=== PATIENT | female | born 1935 | race Caucasian/White ===

== ENCOUNTER → 2016-10-31 | Outpatient (CLI) | payer MEDICARE ==
[~2016-10-31] MED LIST: ALEV220C2 PO; E-Z PAQUE 60% w/v SUSP 355ML BOTTLE As Ordered ONE; GABA-279 PO; OS-CTAB3 PO; OXYC-517 PO; SIMV20TA2 PO; TYLE325T5 PO; VARIBAR NECTAR 40% w/v 240ML SUSP BTL As Ordered ONE; VARIBAR PUDDING 40% w/v 230ML TUBE As Ordered ONE; VITMTA PO
--- NOTE | 2016-10-31 13:45 | REP ---
MODIFIED BARIUM SWALLOW: Modified barium swallow performed in conjunction with the speech pathologist, who was on hand for the procedure. Barium materials of varying consistencies were ingested under fluoroscopy. There was mild pooling in the vallecula. No aspiration is seen. Please see the speech pathologist's report for further details. 41 seconds fluoroscopy time utilized. Signed by Thee Perez MD 10/31/2016 04:53 P
== END ==
LOC: M RAD 11:32
PROVIDERS: ATTEND Family Medicine
DX: R13.10 Dysphagia, unspecified (principal)
CPT/HCPCS: 74230; 92611; G8996; G8997; G8998

== ENCOUNTER 2016-12-29 19:36 | Emergency (ER) | payer MEDICARE ==
[~2016-12-29] VITALS: Ht 172.7 cm; Wt 59.0 kg
[~2016-12-29 19:36] MED LIST changes: -E-Z PAQUE 60% w/v SUSP 355ML BOTTLE As Ordered ONE; -VARIBAR NECTAR 40% w/v 240ML SUSP BTL As Ordered ONE; -VARIBAR PUDDING 40% w/v 230ML TUBE As Ordered ONE
--- NOTE | 2016-12-29 21:10 | REPUSA ---
CT of the cervical spine Clinical history: Pain. Technique: Multiple axial CT images were obtained through the cervical spine without administration o f contrast. Coronal and sagittal 3-D reconstructed images were also obtained. Comparison: None. Findings: The cervical vertebral bodies are in satisfactory positioning and alignment. No fractures or dislocat ions are demonstrated. The odontoid process is intact. Intervertebral disc spaces are well-maintained . Sclerosis and chronicerosive changes are seen in the left facet joint at C1/C2. There is no evidenc e of facet subluxation. The neural foramen appear grossly patent. The cervical cranial junction is in tact. The cervical spinal canal demonstrates normal caliber and contour without evidence of spinal st enosis. The surrounding soft tissues are within normal limits. Impression: No acute fracture or traumatic injury. Moderate facet arthropathy at the left facet join t at C1/C2/. The other facet joints are unremarkable.
--- NOTE | 2016-12-29 21:10 | REPUSA ---
CT of the head Clinical history: Headache. Protocol: Multiple axial CT images obtained with 5 mm slice thickness were obtained through the head without administration of contrast. Comparison: None. Findings: The ventricles and sulci are symmetric but prominent in size bilaterally. There are periven tricular areas of low attenuation throughout the deep white matter. There is no evidence of acute hem orrhage or infarct. There is no midline shift, mass effect, or extra-axial fluid collection. The osse ous structures are unremarkable. The visualized paranasal sinuses and mastoid air cells are clear. Impression: No acute hemorrhage or infarct. Findings are consistent with moderate age-related atrophy and chronic small vessel ischemic disease.
[2016-12-29] MEDS ORDERED: ACETAMINOPHEN SUSP DYE FREE 160 MG/5 ML UDC PO ONE (21:45)
[2016-12-29 22:10] VITALS: BP 113/71
--- NOTE | 2016-12-30 01:03 | REP ---
Clinical: Pain with recent trauma. Technique: AP and lateral views of the right ankle. Findings: Lateral soft tissue swelling consistent with inversion injury. No acute fracture or dislocation. Joint spaces and ankle mortise are intact. Impression: Lateral swelling. No fracture. Signed by Lupillo Toledo MD 12/30/2016 12:54 A
== END 2016-12-29 22:11 | disposition home or self-care (01) ==
LOC: EDBD 19:36 → M ED 20:47
DX: S01.01XA Laceration without foreign body of scalp, initial encounter (principal); W19.XXXA Unspecified fall, initial encounter; Y92.099 Unspecified place in other non-institutional residence as the place of occurrence of the external cause; Y93.89 Activity, other specified; Y99.9 Unspecified external cause status; M81.0 Age-related osteoporosis without current pathological fracture; Z86.73 Personal history of transient ischemic attack (TIA), and cerebral infarction without residual deficits; Z87.81 Personal history of (healed) traumatic fracture; R20.9 Unspecified disturbances of skin sensation; Z87.891 Personal history of nicotine dependence; Z79.899 Other long term (current) drug therapy

== ENCOUNTER 2019-11-26 17:22 | Inpatient (IN) | payer MEDICARE ==
[~2019-11-26] VITALS: Ht 172.7 cm; Wt 52.8 kg
[~2019-11-26 17:22] MED LIST changes: +GABA-1171 PO; -GABA-279 PO; -SIMV20TA2 PO; +SIMV20TA22 PO
[2019-11-26] MEDS ORDERED: ALEN70SO PO (17:37)
[2019-11-26] MEDS ORDERED: VITACHTA PO (17:37)
[2019-11-26] MEDS ORDERED: CALC-333 PO (17:37)
[2019-11-26] MEDS ORDERED: SIMV10TA21 PO ×2 (17:37→21:53)
[2019-11-26] MEDS ORDERED: ASPI81CH48 PO (17:37)
[2019-11-26] MEDS ORDERED: SENN1TAB96 PO (17:37)
[2019-11-26] MEDS ORDERED: NS 1,000 ML IV ONE (18:00)
--- NOTE | 2019-11-26 18:11 | REPVR ---
PROCEDURE INFORMATION: Exam: CT Head Without Contrast Exam date and time: 11/26/2019 6:07 PM Age: 84 years old Clinical indication: Other: Tremors; Additional info: CVA - nursing interventions must not delay CT TECHNIQUE: Imaging protocol: Computed tomography of the head without contrast. Radiation optimization: All CT scans at this facility use at least one of these dose optimization techniques: automated exposure control; mA and/or kV adjustment per patient size (includes targeted exams where dose is matched to clinical indication); or iterative reconstruction. COMPARISON: CT Head without contrast 12/29/2016 8:37 PM FINDINGS: Brain: No intracranial mass, focal mass effect or midline shift. No acute intracranial hemorrhage. Advanced decreased attenuation in periventricular/centrum semiovale white matter. No focal effacement of cortical sulci to indicate acute cortical infarct. Cerebellar volume loss suggests a remote infarct. Bilateral thalamic remote lacunar infarcts Unchanged pattern. Ventricles: Prominent ventricles and CSF spaces suggest parenchymal volume loss. Bones/joints: No calvarial fracture or destructive process. Sinuses: Visualized paranasal sinuses are unremarkable. Mastoid air cells: Mastoid air cells are normally aerated. Orbits: Visualized globes and orbits are unremarkable. Soft tissues: No focal extracranial soft tissue swelling. IMPRESSION: 1. No acute intracranial abnormality. Stable pattern since December 2016 2. Atrophy, remote infarcts and chronic microangiopathic change in supratentorial white matter. Electronically signed by: Kendrick Zepeda On 11/26/2019 18:11:20 PM
[2019-11-26 18:18] LABS: BASO % 0.2 % (0.0-1.0); EOS # 0.1 10^3/uL (0.0-0.5); EOS % 0.6 % (0.0-3.0); HEMATOCRIT 39.4 % (36.0-47.0); LYMPH # 1.8 10^3/uL (1.5-5.0); LYMPH % 18.8 % (24.0-44.0); MEAN CORPUSCULAR HEMOGLOBIN 32.3 pg (27.0-33.0); MONO # 0.9 10^3/uL (0.0-0.8); MONO % 9.7 % (0.0-5.0); NEUTROPHILS # 6.6 10^3/uL (1.5-8.5); NEUTROPHILS % 70.4 % (36.0-66.0); PLATELET COUNT, AUTOMATED 244 10^3/uL (150-450); RED BLOOD COUNT 4.02 10^6/uL (4.00-5.40); WHITE BLOOD COUNT 9.4 10^3/uL (4.0-10.0)
--- NOTE | 2019-11-26 18:26 | REP ---
Clinical: Acute cerebrovascular accident . Comparison: None . Findings: The mediastinum and cardiac silhouette are stable and within normal limits for portable technique. The lung gant demonstrate diffuse chronic appearing interstitial changes. No focal consolidation, effusion, or pneumothorax. Skeletal structures are intact. Impression: Chronic-appearing changes. No definite acute cardiopulmonary process appreciated. Electronically Signed by Lupillo Toledo MD 11/26/2019 06:18 P
[2019-11-26 18:32] LABS: INR 0.96; PROTHROMBIN TIME 12.5 SECONDS (11.8-14.0)
[2019-11-26 18:33] LABS: PARTIAL THROMBOPLASTIN TIME 27.7 SECONDS (25.0-38.4)
[2019-11-26 18:46] LABS: ALBUMIN 3.7 GM/DL (3.2-5.2); ALT/SGPT 33 U/L (12-78); BILIRUBIN,DIRECT 0.1 MG/DL (0.0-0.2); BILIRUBIN,TOTAL 0.5 MG/DL (0.2-1.0); CK-MB VALUE MASS 3.7 NG/ML (<3.6); CPK CREATINE PHOSPHOKINASE 70 U/L (26-192); MB/CK RELATIVE INDEX 5.29 (< OR =4); NT-PRO BNP 3785 PG/ML (<450); TOTAL PROTEIN 6.8 GM/DL (6.4-8.2); TROPONIN I 0.11 NG/ML (< 0.10)
[2019-11-26 20:34] LABS: CK-MB VALUE MASS 3.1 NG/ML (<3.6); TROPONIN I 0.13 NG/ML (< 0.10)
[2019-11-26] MEDS: SIMVASTATIN 10 MG TAB PO SCH (21:00)
--- NOTE | 2019-11-26 21:30 | IPNPDOC ---
Text Note Date of Service The patient was seen on 11/26/19. NOTE Time of service 935pm Ms. Vuong is an 84-year-old with a history of CVA, dyslipidemia, vertebral neck fracture, dysphasia post neck surgery, and osteoporosis who is presented w c/o of "feeling shaky" off and on. She will be admitted for evaluation of new-onset atrial fibrillation. Her physical exam is unremarkable except for having a slim build. 1. New onset Atrial Fibrillation Differential for etiology includes: PE, mitral valvulopathy, HTN, CAD, or cardiomyopathy, thyroid disorder -Trop & BNP are elevated - K & Ca are wnl Plan: admit to PCU / telemetry / no need for rate control meds right now bc HR is controlled / will start AC bc her CHADSVASc score is glo east 5 with her PMH /f/u serial trops, d-dimer, TSH, Mag / re-calculate CHADSVASC Score after Echo is done / if the work up is negative for a cause she may need a outpatient sleep study Rest per 's H&P VS,Fishbone, I+O VS, Fishbone, I+O Laboratory Tests 11/26/19 17:58 Vital Signs Date Time Temp Pulse Resp B/P (MAP) Pulse Ox O2 Delivery O2 Flow Rate FiO2 11/26/19 20:07 60 95 11/26/19 20:00 134/73 (93) 11/26/19 18:22 16 Room Air 11/26/19 17:37 98.3 RAULITO FERREIRA MD November 26, 2019 21:30
[2019-11-26] MEDS ORDERED: ACETAMINOPHEN TAB 650MG DOSE (2X325MG) PO PRN (22:45)
[2019-11-26] MEDS ORDERED: MOM 30ML SUSPENSION UDC PO PRN (22:45)
--- NOTE | 2019-11-26 22:57 | ECGEPIP ---
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
[2019-11-26] MEDS ORDERED: ENOXAPARIN 60MG/0.6ML SYRINGE (J1650 PER 10MG) SC SCH (23:00)
[2019-11-26 23:06] LABS: D-DIMER QUANT < 270 ng/ml (<500)
[2019-11-26 23:08] LABS: THYROID STIMULATING HORMONE 0.695 uIU/ML (0.358-3.740)
[2019-11-26 23:15] VITALS: BP 160/71
[2019-11-27 00:50] LABS: ERYTHROCYTE SEDIMENTATION RATE 7 mm/hr (0-30)
[2019-11-27 00:52] LABS: C REACTIVE PROTEIN QUANTITATIV < 0.30 MG/DL (0.00-0.30)
--- NOTE | 2019-11-27 01:08 | HPEPDOC ---
[facility] Medical History & Physical Date of Admission November 26, 2019 Date of Service: November 26, 2019 History and Physical CHIEF COMPLAINT: Tremors HISTORY OF PRESENT ILLNESS: This is an 84 year old female with hypertension, history of multiple CVAs, osteoporosis and hyperlipidemia who is presenting to ER with complaint of tremors. Patient was brought in via EMS from her house. Patient believed because she was having tremors in the upper and lower extremities he thought she was having strokelike symptoms. She called her neighbor who is her nephew to call EMS. When EMS arrived at the scene stroke scale was negative, and normal blood sugars. She did have irregular heart rate, at that time but she denied a history of A. fib. She endorses the last cardiac workup she had was 20 years prior for an abnormal rhythm she had a stress test echocardiogram and EKG but she states it was negative and never had any other cardiac workup. 3 years prior she did have a CVA in her cerebral infarct and she was transferred to [place] for further evaluation. She is unsure if she had an echocardiogram during this admission but she denies being told that she had an irregular heart beat at that time. She she endorses having shakes and chills and all extremities. She believes these are residual symptoms from her CVA but did get worried that she was having another stroke. During my clinical exam no new neural deficits were noted. In the ER, initial vitals were stable, EKG shows atrial fibrillation with a ventricular rate of [address] was negative and hospitalist team was called for admission for new onset A. fib. PAST MEDICAL HISTORY: 1. History of left cerebral and vermian infract 2016 2. History of right basal ganglia and internal capsule lacunar infarcts unknown time 3. Hyperlipidemia 4. 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 C1-C2 neck fracture HOME MEDICATIONS: Please see below. ALLERGIES: Please see below PAST SURGICAL HISTORY: 1. Appendectomy 2. C1-C2 neck surgery 3. Thyroid nodule removal in 1970s 4. Bilateral cataract surgery with lens placement SOCIAL HISTORY: Lives Alone has assistance with housework and Meals on Wheels with family as neighbors. Employment: Retired, Tobacco use: Former smoker with 1960s only smoked for 10 years.. ETOH: Social wine drinker, Illicit drug use: Denies , CODE STATUS: DNR/DNI MOLST form in chart FAMILY HISTORY: Reviewed. Mother and father due to old age but was healthy. REVIEW OF SYSTEMS: 10 systems reviewed. Constitutional: Denies fever, night sweats, acute weight loss, admits to chills and HEENT: Denies headache, dysphagia Skin: Denies any rashes or lesions Pulmonary: Denies, cough, wheezing, Admits to dyspnea on exertion Cardiac: Denies chest pain, palpitations, orthopnea, PND, edema, lightheadedness GI: Denies nausea, vomiting, abdominal pain, diarrhea, constipation, melena, hematochezia : Denies dysuria, hematuria, retention MSK: Denies new pains or weakness Neurologic: Denies new numbness/tingling?, admits to tremors as well as baseline CVA residuals symptoms such as thermoregulation in the upper and lower extremities on the right PHYSICAL EXAMINATION: VITAL SIGNS: See below GENERAL: Pleasant 84-year-old female sitting up in bed awake alert oriented speaking in complete sentences no acute distress HEENT: Atraumatic, normocephalic, pupils equal round reactive, moist mucous membrane, no JVD, trachea is midline. Reduced range of motion at the cervical region due to history of neck fracture in the past. CARDIOVASCULAR: During my exam she was in A. fib regular rate 60 bpm with a 1/6 systolic murmur at the fifth intercostal space on the left with no radiation. She was flipped back to sinus rhythm throughout questioning with a rate of 60-70 bpm. 1/ 6 systolic murmur on the fifth left intercostal space with no radiation RESPIRATORY: Clear to auscultate bilaterally no audible wheezing rhonchus or Rales. No dullness to percussion. ABDOMINAL: Positive bowel sounds in all 4 quadrants, soft nontender no rebounding or guarding noted. No suprapubic tenderness. EXTREMITIES: 1+ nonpitting edema bilaterally in the lower extremities of the ankles. Cyanotic changes appreciated bilaterally in the feet left worse than right. No open wounds noted. Faint pedal pulses appreciated. NEUROLOGICAL: Spontaneously moves all 4 extremities cranial 2 through 12 grossly intact. Surprisingly 5 out of 5 muscle strength in the upper and lower extremiti es. Alert and oriented 3 appropriately answering questions. Finger-nose test MRSA positive on the right? PSYCHOLOGICAL: Appropriate LABORATORY DATA: See below. MICROBIOLOGY: Please see below. IMAGIN11/26/[address] IMPRESSION: 1. No acute intracranial abnormality. Stable pattern since December 2016 2. Atrophy, remote infarcts and chronic microangiopathic change in supratentorial white matter. Chest x-ray The lung gant demonstrate diffuse chronic appearing interstitial changes. Chronic appearing changes. No definite acute cardiopulmonary process appreciated. To my review chest x-ray appears there is flattening of the diaphragm as well as increased rib visualization consistent with possible COPD picture? EKG Appears and atrial fibrillation rate controlled with 94 bpm. QTc interval is 392 ms. ASSESSMENT & PLAN: This is an 84 year old female with hypertension, history of multiple CVAs, osteoporosis admitted for new-onset A. fib. PROBLEMS: 1. New-onset A. fib. Per clinical exam the A. fib appears to be paroxysmal for she will alternate between sinus rhythm and A. fib on telemetry. Rate is currently controlled at 60 bpm. Currently no rate control medications were given to will monitor with remote telemetry. Troponin 1 slightly elevated initially so well trend. EKG did not show any acute ST changes. Will admit to PCU with remote telemetry. TSH is within normal limits. As well as D-dimer and electrolytes are within normal limits. Echocardiogram ordered. Can consider consulting cardiology with the question if to continue aspirin with the Nocoag, due to advanced age (84 years old. I believe the benefits will outweigh the risk. Is echocardiogram is negative for any valvulopathy will need to have an outpatient sleep study to assess for ANGEL 2. Tremors with history of multiple CVAs.. CT of the head in the ER was negative for any acute abnormalities. On clinical exam she had a slight resting tremor. No other new neurological symptoms. Well continue to monitor. She is on aspirin outpatient because of problem 1 and placing her on Lovenox anticoagulation will need to discuss case with pet sitting to see recommendations if aspirin should be continued while on anticoagulation. 3. Elevated BNP. Clinical exam she appears euvolemic. No JVD no lower extremity pitting edema. No active diuresing needed at this current time. Well monitor clinical status and review ejection fraction on echocardiogram. 4. Hyperlipidemia. Continue with home simvastatin as prescribed. 5. Abnormal x-ray. There is flattening of the diaphragm as well as increased rib visualization which is consistent with possible COPD picture? Patient quit smoking in 1959. We will assess pulmonary pressures on echocardiogram. Obtain inpatient PFTs simple spirometry for she was complaining on dyspnea on exertion. 6. Abnormal EKG. Q waves in V1 and V2 V3. Patient denies having an infarct in the past. With these Q waves been pathologic we will do echocardiogram for any wall motion abnormalities. 7. New murmur. Patient denies having a history of murmur. On exam 1 systolic murmur on the right intercostal space. Echocardiogram already ordered for problem 1 will review for any valvulopathy 8. Osteoporosis. Resume home medication upon discharge. DVT PROPHYLAXIS: Lovenox 1 mg/kg q12h per problem 1 DISPOSITION: Admit to PCU with remote telemetry at [facility] at least to midnight. Vital Signs Vital Signs Date Time Temp Pulse Resp B/P (MAP) Pulse Ox O2 Delivery O2 Flow Rate FiO2 11/26/19 22:52 58 90 11/26/19 22:45 151/65 (93) 11/26/19 18:22 16 Room Air 11/26/19 17:37 98.3 Laboratory Data Labs 24H Laboratory Tests 2 11/26/19 17:49: Bedside Glucose (Misc Panel) 96 11/26/19 17:58: Immature Granulocyte % (Auto) 0.3, Neutrophils (%) (Auto) 70.4H, Lymphocytes (%) (Auto) 18.8L, Monocytes (%) (Auto) 9.7H, Eosinophils (%) (Auto) 0.6, Basophils (%) (Auto) 0.2, Neutrophils # (Auto) 6.6, Lymphocytes # (Auto) 1.8, Monocytes # (Auto) 0.9H, Eosinophils # (Auto) 0.1, Basophils # (Auto) 0.0, Nucleated Red Blood Cells % (auto) 0.0, Erythrocyte Sedimentation Rate 7, Prothrombin Time 12.5, Prothromb Time International Ratio 0.96, Activated Partial Thromboplast Time 27.7, D-Dimer, Quantitative < 270, Magnesium Level 2.0, Total Bilirubin 0.5, Direct Bilirubin 0.1, Aspartate Amino Transf (AST/SGOT) 24, Alanine Aminotransferase (ALT/SGPT) 33, Alkaline Phosphatase 33L, Total Creatine Kinase 70, Creatine Kinase MB 3.7H, Creatine Kinase MB Relative Index 5.29H, Troponin I 0.11H, C-Reactive Protein, Quantitative < 0.30, QK-Icr-M-Type Natriuretic Peptide 3785H, Total Protein 6.8, Albumin 3.7, Albumin/Globulin Ratio 1.19, Thyroid Stimulating Hormone (TSH) 0.695 11/26/19 18:01: POC Glucose (Misc Panel) 104, POC Sodium (Misc Panel) 138, POC Potassium (Misc Panel) 4.5, POC Chloride (Misc Panel) 98, POC Total CO2 (Misc Panel) 33.0H, POC Blood Urea Nitrogen (Misc Panel 27H, POC Ionized Calcium (Misc Panel) 4.7, POC Creatinine (Misc Panel) 0.8, POC Hematocrit (Misc Panel) 39.0 11/26/19 20:05: Total Creatine Kinase 62, Creatine Kinase MB 3.1, Creatine Kinase MB Relative Index 5.00H, Troponin I 0.13H 11/26/19 23:59: CBC/BMP Laboratory Tests 11/26/19 17:58 Home Medications Scheduled Alendronate Sodium (Alendronate Sodium) 70 Mg/75 Ml Solution, 75 ML PO QWEEK Apixaban (Eliquis) 2.5 Mg Tablet, 2.5 MG PO BID Calcium Carbonate/Vitamin D3 (Os-Giovanni 500-Vit D3 200 Caplet) 1 Tab Tab, 1 TAB PO DAILY Calcium Carbonate/Vitamin D3 (Calcium 500+D Tablet Chew) 1 Each Tab.chew, 1 TAB PO BID Multivitamins (Child Chew Vitamin) 1 Each Tab.chew, 1 TAB PO DAILY Omeprazole Magnesium (Prilosec Otc) 20 Mg Tablet.dr, 1 TAB PO DAILY Simvastatin (Simvastatin) 10 Mg Tablet, 10 MG PO QPM Allergies Coded Allergies: No Known Drug Allergies (Verified Allergy, Unknown, 11/26/19) A-FIB/CHADSVASC A-FIB History Current/History of A-Fib/PAF?: Yes Current PO Anticoag Therapy: Yes Age/Risk Factor Scoring CHADSVASC: CHADSVASC Response (Comments) Value Age Risk Factor Age >/= 75 years old 2 Gender Risk Factor Female 1 Hx of CHF No 0 Hx of HTN No 0 Hx of Stroke/TIA/or VTE Yes 2 Hx of Diabetes No 0 Hx of Vascular Disease No 0 Total 5 Treatment Treatment ordered: Other Other anticoagulant ordered: Lovenox 1 mg/kg q12 hours GME ATTESTATION GME ATTESTATION My faculty preceptor for this patient encounter was physically present during the encounter and was fully available. All aspects of the patient interview, examination, medical decision making process, and medical care plan development were reviewed and approved by the faculty preceptor. The faculty preceptor is aware and concurs with the plan as stated in the body of this note and will attest to such by his/her cosignature. ATTENDING NOTE I agree with the findings as documented by . Please see my addendum dated 11/26/19 for additional details. SYBIL TRAVIS DO November 27, 2019 01:08 RAULITO FERREIRA MD November 30, 2019 06:22
[2019-11-27 04:00] VITALS: BP 144/65
[2019-11-27 05:19] LABS: HEMATOCRIT 37.3 % (36.0-47.0); HEMOGLOBIN 12.4 g/dl (12.0-15.5); MEAN CORPUSCULAR HEMOGLOBIN 32.6 pg (27.0-33.0); MEAN CORPUSCULAR HGB CONC 33.2 g/dl (32.0-36.5); MEAN CORPUSCULAR VOLUME 98.2 fl (80.0-96.0); PLATELET COUNT, AUTOMATED 227 10^3/uL (150-450); WHITE BLOOD COUNT 8.4 10^3/uL (4.0-10.0)
[2019-11-27 05:44] LABS: BLOOD UREA NITROGEN 19 MG/DL (7-18); CALCIUM LEVEL 8.7 MG/DL (8.8-10.2); CARBON DIOXIDE LEVEL 32 MEQ/L (21-32); CHLORIDE LEVEL 105 MEQ/L (98-107); CREATININE FOR GFR 0.66 MG/DL (0.55-1.30); GLOMERULAR FILTRATION RATE > 60.0 (>32); GLUCOSE, FASTING 90 MG/DL (70-100); MAGNESIUM LEVEL 2.1 MG/DL (1.8-2.4); POTASSIUM SERUM 3.8 MEQ/L (3.5-5.1); SODIUM LEVEL 140 MEQ/L (136-145); TROPONIN I 0.13 NG/ML (< 0.10)
[2019-11-27 07:50] VITALS: BP 134/65
[2019-11-27] MEDS: APIXABAN 2.5 MG TAB (ELIQUIS) PO SCH ×2 (07:58→20:56)
[2019-11-27 12:00] VITALS: BP 168/75
--- NOTE | 2019-11-27 14:57 | ECHO ---
DATE OF PROCEDURE: 11/27/2019 REFERRING PHYSICIAN: Dr. Oralia Winston INDICATION: Abnormal ECG. Height 173 cm, weight 52 kg. DIMENSIONS: IVS: 1.0 LV: 4.0 LVPW: 1.0 LA: 3.0 Aorta: 2.7 RV: 2.3 IVC: 2.1 Mitral E wave velocity: 111 A wave: 78 E prime septal: 3.6 E prime lateral: 7.6 FINDINGS: The study is of good technical quality. The patient is in sinus rhythm. Left ventricle is normal size and systolic function with estimated left ventricular ejection fraction (LVEF) 55-60%. No segmental wall motion abnormalities are appreciated. Right ventricle also appears to be normal size and systolic function. Both atria appear grossly normal for patient's age. Aortic valve is mildly sclerotic but has three cusps and preserved mobility. Same applies for mitral valve with mild degenerative abnormalities but preserved mobility of leaflets. Tricuspid valve appears normal. Pulmonic valve was not well seen. No pericardial effusion is noted. Inferior vena cava is dilated and has only limited collapse with respiration indicative of likely elevated central venous pressure. Aortic root appears normal. Abdominal aorta has visible atherosclerosis. Aortic arch was not well seen. Doppler interrogation reveals no aortic stenosis and mild insufficiency. There is also mild mitral and trace tricuspid insufficiency. Calculated pulmonary artery pressure is probably mildly elevated but quality of TR jet was not good and consequently this should not be considered completely reliable. Mitral inflow pattern and tissue Doppler imaging of mitral annulus revealed grade 2 diastolic dysfunction. CONCLUSIONS: 1. Study is of acceptable technical quality, the patient is in sinus rhythm. 2. Normal left ventricular (LV) size with preserved LV systolic function and grade 2 diastolic dysfunction. 3. Aortic sclerosis with no stenosis and mild insufficiency. 4. Mild mitral and trace tricuspid insufficiency. 5. Elevated central venous pressure and probably mildly elevated pulmonary artery pressure. 6. Visible atherosclerosis in abdominal aorta. COMMENT: Subacute bacterial endocarditis (SBE) prophylaxis is not recommended. MTDD
[2019-11-27 16:00] VITALS: BP_SYST 134; BP_SYST 164; BP_DIAS 75; BP_DIAS 82
--- NOTE | 2019-11-27 17:11 | IPN ---
DATE: 11/27/2019 Patient has been rate controlled. Did not require any beta blockade. Patient has been started on Eliquis 2.5 mg twice a day. She lives at home but has a medical alert bracelet. Awaiting physical therapy (PT) clearance prior to discharge home. Despite high blood pressure, patient denies chest pain, pressure, or tightness, lightheadedness, dizziness, change in vision or headache. No shortness of breath or dyspnea on exertion. She has an nephew who lives nearby who can check up on her. Temperature 98.6, pulse 58, respiratory rate 18, blood pressure 134/65, 95% on room air. GENERAL: Patient is awake, alert, oriented to person and place, answering questions appropriately. Face is symmetric. Tongue is midline. Speaks in full sentences. No conversational dyspnea. No jugular venous distention (JVD), thyromegaly. Moist mucous membranes. LUNGS: Clear to auscultation. No wheezes, rales, or rhonchi. HEART: S1, S2, irregularly irregular. No murmurs, rubs, or gallops. ABDOMEN: Soft, nontender, nondistended. Positive bowel sounds. EXTREMITIES: No cyanosis, clubbing, or pitting edema. EKG 11/26/2019: Atrial fibrillation, ventricular rate of 94. IMAGING STUDY: Chest x-ray: No acute cardiopulmonary disease. Chronic-appearing changes. No focal consolidation, pneumothorax, or effusion. CT of the head: No acute intracranial pathology. Atrophy, remote infarcts, and chronic microangiopathic change in the superior white matter. Cerebellar volume loss, judged a remote infarct. Bilateral thalamic remote lacunar infarct, unchanged pattern. ASSESSMENT AND PLAN: This is an 84-year-old female who lives alone with a MedicAlert bracelet and a nephew who lives close by to her, presented to the emergency room on 11/26/2019 with complaints of tremors in upper and lower extremities, concern for stroke. She then called her nephew to call emergency medical services (EMS). Patient has had a previous stroke 3 years ago, for which she was transferred to [place]. 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 Patient had not been on any anticoagulation at home. Patient was found to have new-onset atrial fibrillation on EKG, but rate was controlled. She was started on Lovenox but transitioned to Eliquis. Awaiting physical therapy (PT) clearance. She did not require any beta blockade for rate control during this admission. Was found to be even bradycardic with rate of 58 but asymptomatic. ACUTE ISSUES: 1. New-onset atrial fibrillation. Place on Eliquis. Awaiting echo results. 2. History of cerebrovascular accident (CVA). Was initially thought to be due to cervical spinal injury, clot formation at that time. Await records from her primary care physician regarding that previous CVA. Patient has been advised about prevention of falls and awaits physical therapy prior to hospital discharge, as she lives alone at home. 3. Hypertension. Currently has no pain. Will monitor for the next day and start on low-dose Norvasc if needed. DISPOSITION: Await PT clearance and echo findings. Discharge plans for Friday or Friday. [facility] SETON HOSPITALMichele
[2019-11-27 20:00] VITALS: BP 152/69
[2019-11-27] MEDS: SIMVASTATIN 10 MG TAB PO SCH (20:55)
[2019-11-28] VITALS: BP 165/83
[2019-11-28 03:56] LABS: HEMATOCRIT 37.7 % (36.0-47.0); HEMOGLOBIN 12.5 g/dl (12.0-15.5); MEAN CORPUSCULAR HEMOGLOBIN 32.3 pg (27.0-33.0); MEAN CORPUSCULAR HGB CONC 33.2 g/dl (32.0-36.5); MEAN CORPUSCULAR VOLUME 97.4 fl (80.0-96.0); PLATELET COUNT, AUTOMATED 229 10^3/uL (150-450); RED BLOOD COUNT 3.87 10^6/uL (4.00-5.40)
[2019-11-28 04:19] LABS: BLOOD UREA NITROGEN 16 MG/DL (7-18); CALCIUM LEVEL 8.1 MG/DL (8.8-10.2); CARBON DIOXIDE LEVEL 32 MEQ/L (21-32); CHLORIDE LEVEL 109 MEQ/L (98-107); CREATININE FOR GFR 0.54 MG/DL (0.55-1.30); GLOMERULAR FILTRATION RATE > 60.0 (>32); GLUCOSE, FASTING 89 MG/DL (70-100); SODIUM LEVEL 144 MEQ/L (136-145)
[2019-11-28 06:10] VITALS: BP 170/84
[2019-11-28 07:21] VITALS: BP 143/70
[2019-11-28] MEDS: APIXABAN 2.5 MG TAB (ELIQUIS) PO SCH ×2 (08:12→21:16)
[2019-11-28 09:29] LABS: C REACTIVE PROTEIN QUANTITATIV 0.3 MG/DL (0.00-0.30); CK-MB VALUE MASS 1.8 NG/ML (<3.6); MB/CK RELATIVE INDEX 2.09 (< OR =4); THYROID STIMULATING HORMONE 0.899 uIU/ML (0.358-3.740); THYROXINE (T4) 8.4 UG/DL (4.5-12.0); TROPONIN I 0.03 NG/ML (< 0.10)
--- NOTE | 2019-11-28 09:58 | REP ---
Clinical: Cough and chills. Rule out pneumonia. Technique: PA and lateral. Comparison: 11/26/2019. Findings: Mediastinum and cardiac silhouette are within normal limits and stable. Lung gant demonstrate stable chronic interstitial changes. No focal consolidation, effusion, or pneumothorax. Skeletal structures are intact. Impression: Chronic appearing changes. No focal consolidation or effusion appreciated. Electronically Signed by Lupillo Toledo MD 11/28/2019 09:48 A
--- NOTE | 2019-11-28 11:24 | PFTRPT ---
Height: 68.00 Inches Weight: 115.00 Lbs BSA: 1.62 Diagnosis: DYSPNEA DATE OF PROCEDURE: 11/28/2019 ORDERED BY: Dr. Crawford Spirometry: Excellent technical quality. Forced vital capacity normal. FEV1 out of proportion. Obstructive index is, therefore, reduced. Flow Volume Loop: Expiratory limb of the flow volume loop does suggest flow rate limitation. IMPRESSION: Mild obstructive ventilatory impairment. Please correlate clinically. MTDD
[2019-11-28] MEDS ORDERED: ELIQ2.5T PO (15:01)
[2019-11-28] MEDS ORDERED: PRIL20TA2 PO (15:02)
[2019-11-28] MEDS: OMEPRAZOLE 20 MG CAP PO SCH (15:23)
[2019-11-28 16:00] VITALS: BP 144/69
[2019-11-28 20:00] VITALS: BP 146/73
[2019-11-28] MEDS: SIMVASTATIN 10 MG TAB PO SCH (21:16)
[2019-11-29] VITALS: BP 146/72
[2019-11-29 04:00] VITALS: BP 159/64
[2019-11-29 04:28] LABS: HEMATOCRIT 37.5 % (36.0-47.0); HEMOGLOBIN 12.4 g/dl (12.0-15.5); MEAN CORPUSCULAR HEMOGLOBIN 31.9 pg (27.0-33.0); MEAN CORPUSCULAR HGB CONC 33.1 g/dl (32.0-36.5); MEAN CORPUSCULAR VOLUME 96.4 fl (80.0-96.0); PLATELET COUNT, AUTOMATED 241 10^3/uL (150-450); RED BLOOD COUNT 3.89 10^6/uL (4.00-5.40); WHITE BLOOD COUNT 8.6 10^3/uL (4.0-10.0)
[2019-11-29 04:48] LABS: BLOOD UREA NITROGEN 17 MG/DL (7-18); CARBON DIOXIDE LEVEL 32 MEQ/L (21-32); CHLORIDE LEVEL 108 MEQ/L (98-107); CREATININE FOR GFR 0.54 MG/DL (0.55-1.30); GLOMERULAR FILTRATION RATE > 60.0 (>32); GLUCOSE, FASTING 85 MG/DL (70-100); MAGNESIUM LEVEL 1.9 MG/DL (1.8-2.4); SODIUM LEVEL 146 MEQ/L (136-145)
[2019-11-29 08:00] VITALS: BP 126/63
[2019-11-29] MEDS: APIXABAN 2.5 MG TAB (ELIQUIS) PO SCH (09:36)
[2019-11-29] MEDS: OMEPRAZOLE 20 MG CAP PO SCH (09:36)
--- NOTE | 2019-11-29 14:26 | IPN ---
DATE: 11/28/2019 Patient complained of chills this morning. No shortness of breath or cough. No fever or chills. No dysuria, urgency or frequency. No nausea, vomiting, abdominal pain or back pain. No paresthesias. No rash. No muscle or joint pains. Afebrile overnight. Temperature 98, pulse 59, respiratory rate 18, blood pressure 143/70, 95% on room air. Generally, the patient is awake, alert, oriented to herself. No jugular venous distention (JVD). No thyromegaly. Anicteric sclerae. No jaundice. No use of respiratory accessory muscles. No cervical lymphadenopathy. Lungs are clear to auscultation. No wheezes, rales, or rhonchi. Heart: S1, S2, irregularly irregular. Bradycardiac. Abdomen is soft, nontender, nondistended. Extremities: No cyanosis, clubbing, or pitting edema. LABORATORY DATA: White count 8, hemoglobin 12, hematocrit 37, platelet count 229. Sodium 144, potassium 4, chloride 109, bicarbonate 32, BUN 16, creatinine 0.54, glucose 89, lactic acid 0.9, magnesium 2. Total CK 86. MB fraction 1.8. Relative index 2.09. Troponin 0.03. C-reactive protein 0.3. Procalcitonin pending. TSH 0.899. Free T4 3. T3 uptake 36. MICROBIOLOGY: Two sets of blood cultures are pending. Respiratory panel is negative. CHEST X-RAY: No acute cardiopulmonary process. No focal consolidation or effusion appreciated. Lungs show chronic interstitial changes. Skeletal structures are intact. ASSESSMENT AND PLAN: 84-year-old female admitted due to new onset of tremors at home and found to have atrial fibrillation, but rate controlled, admitted under telemetry. Echocardiogram was unremarkable. The patient was started on low dose Eliquis renally dosed. She continues to complain of tremors with infectious etiology being negative. IMPRESSION: 1. Atrial fibrillation. Rate controlled. Is not requiring any beta blockade or calcium channel blockers. Currently on low dose Eliquis renally dosed. The patient has not passed a home safety evaluation, but has remained stable from the heart standpoint. Echocardiogram has been reviewed. 2. Dyslipidemia. Continue on Zocor. 3. Complaints of chills. No acute infectious etiology. The patient's C-reactive protein is unremarkable. White count is normal. She is afebrile. ESR is normal. Respiratory panel is negative. Blood cultures are pending. Chest x-ray has no acute infiltrate. No empiric antibiotics. Obtained urinalysis (UA) sample still pending. 4. Underweight. Body mass index (BMI) of 17.4. DISPOSITION: The patient is medically stable for hospital discharge. Awaiting physical therapy (PT) clearance. Discharge plans for the morning. AKIN
--- NOTE | 2019-12-01 10:14 | DSES ---
DATE OF ADMISSION: 11/26/2019 DATE OF DISCHARGE: 11/29/2019 PRIMARY DISCHARGE DIAGNOSES: 1. New onset atrial fibrillation. 2. Benign essential tremors. 3. History of CVA. 4. Hypertension. 5. Grade 2 diastolic dysfunction. Ejection fraction of 55-60%. DISCHARGE MEDICATIONS: - Eliquis 2.5 mg twice a day - Prilosec one tablet daily 20 mg - alendronate 70 mL weekly - calcium carbonate one tablet daily - calcium with vitamin D one tablet daily - multivitamin one tablet daily - simvastatin 10 mg every evening - aspirin has been discontinued HOSPITAL COURSE: This is an 84-year-old female presented to the hospital, admitted on 11/27/2019 with complaints of tremors. Patient had prior history of CAD and was concerned about a stroke. Called [facility] ([facility]S) and was brought in to the emergency room. Electrocardiogram (EKG) shows new onset atrial fibrillation. She was admitted to telemetry unit. She was rate controlled. Did not require any beta blockade or calcium blockade. Was started on Eliquis 2.5 twice a day after reviewing the echo, which showed grade 1 diastolic dysfunction. Patient complained of recurrent tremors in the hospital and complaining that she was cold. Chest x-ray, respiratory panel, blood cultures were all negative. She was afebrile with normal white count. CT of the head was negative for acute CVA. Patient passed a home safety evaluation and was subsequently discharged home. She complained of some essential tremors, which she says runs in her sister and her daughter. At home, she was encouraged to have her primary care refer to a neurologist for further evaluation. She also had concerns for Parkinson. She however, did not have the rigidity, ankle rolling and the characters rolling tremors found with Parkinson. PHYSICAL EXAMINATION ON DISCHARGE: Temperature 97.7, pulse 62, respiratory rate 18, blood pressure 126/63, 96% on room air. Generally awake, alert, oriented to person, place and time, answering questions appropriately. Patient has obvious minimal head tremors as well as hand tremors. Face is symmetric. Tongue is midline. Lungs are clear to auscultation. No wheezing, rales or rhonchi. Heart: S1, S2, irregularly irregular. Abdomen is soft, nontender, nondistended. Positive bowel sounds. Extremities: No cyanosis, clubbing, or pitting edema. LABORATORY DATA: White count 8.6, hemoglobin 12, hematocrit 37, platelet count 241. TSH was 0.89. Creatinine of 0.54. Two sets of blood cultures negative. Respiratory panel was negative. COVID-19 was negative. MRSA screen was negative. IMAGING STUDIES: CT of the head 11/26/2019, no intracranial pathology, stable pattern since December 2016, atrophy and remote chronic microangiopathic changes. Chest x-ray of 11/28/2019, no acute cardiopulmonary process, chronic appearing changes. TIME SPENT ON DISCHARGE: 30 minutes.
== END 2019-11-29 12:48 | disposition home health service (06) | DRG 309 ==
LOC: M ED 17:22 → M ED INP 21:28 → ENRESERV 21:45 → M PCU 23:11
PROVIDERS: ADMIT Internal Medicine; ATTEND General Practice
DX: I48.0 Paroxysmal atrial fibrillation (principal); Z68.1 Body mass index [BMI] 19.9 or less, adult; I10 Essential (primary) hypertension; R63.6 Underweight; G25.0 Essential tremor; Z79.01 Long term (current) use of anticoagulants; Z79.899 Other long term (current) drug therapy; E78.5 Hyperlipidemia, unspecified; M81.0 Age-related osteoporosis without current pathological fracture; Z86.73 Personal history of transient ischemic attack (TIA), and cerebral infarction without residual deficits; Z87.891 Personal history of nicotine dependence

== ENCOUNTER 2020-06-06 23:23 | Inpatient (IN) | payer MEDICARE ==
[~2020-06-06] VITALS: Ht 172.7 cm; Wt 57.8 kg
[~2020-06-06 23:23] MED LIST changes: +ALEN70SO PO; +ASPI81CH48 PO; +CALC-333 PO; +ELIQ2.5T PO; +PRIL20TA2 PO; +SENN1TAB96 PO; +SIMV10TA21 PO; +VITACHTA PO
--- NOTE | 2020-06-07 00:15 | REPVR ---
PROCEDURE INFORMATION: Exam: CT Chest Without Contrast Exam date and time: 06/06/2020 11:31 PM Age: 85 years old Clinical indication: Injury or trauma; Fall; Blunt trauma (contusions or hematomas); Additional info: Fall hitting chest TECHNIQUE: Imaging protocol: Computed tomography of the chest without contrast. 3D rendering (Not supervised by radiologist): MIP and/or 3D reconstructed images were created by the technologist. Radiation optimization: All CT scans at this facility use at least one of these dose optimization techniques: automated exposure control; mA and/or kV adjustment per patient size (includes targeted exams where dose is matched to clinical indication); or iterative reconstruction. COMPARISON: CR Chest, 2 view PA, Lat 11/28/2019 9:23 AM FINDINGS: Lungs: Pulmonary hyperinflation with flattening of the hemidiaphragms. Minimal scattered fibro-atelectatic change, greatest in the bases. Calcified mediastinal nodes are present and there is a calcified granuloma in the anteromedial left upper lobe. Pleural space: Unremarkable. No pneumothorax. No pleural effusion. Heart: Unremarkable. No cardiomegaly. No pericardial effusion. Pulmonary arteries: The main pulmonary artery measures 28 mm. Aorta: The ascending thoracic aorta measures 34 mm. Lymph nodes: See "Lungs" finding. Liver: Hepatic calcifications are noted. Spleen: Splenic calcifications are noted. Kidneys and ureters: Small nonobstructing left renal calculus in the upper pole. Bones/joints: Mild superior endplate depression of T2 and T5 and diffuse and wedge configuration of C7 and T1 which all appear to be chronic. Nondisplaced fractures of the left 8th-10th ribs laterally and the left 11th rib posteriorly with old fractures of the left 4th and 5th ribs anterolaterally. Soft tissues: Unremarkable. IMPRESSION: 1. Old granulomatous disease of the chest, liver and spleen. 2. Suggestion of some degree of COPD with minimal scattered fibro-atelectatic change, greatest in the bases. 3. Slight wedge configuration or endplate depression of C7, T1, T2 and T5 which appear to be chronic. 4. Nondisplaced fractures of the left 8th-10th ribs laterally and a fracture of the left 11th rib posteriorly. There are old fractures of the left 4th and 5th ribs anterolaterally. Electronically signed by: Claudio Silva On 06/07/2020 00:14:24 AM
--- NOTE | 2020-06-07 00:28 | REPVR ---
PROCEDURE INFORMATION: Exam: CT Head Without Contrast Exam date and time: 06/06/2020 11:25 PM Age: 85 years old Clinical indication: Injury or trauma; Fall; Concussion/head injury; Consciousness not specified; Additional info: Fall hitting head and on blood thinners TECHNIQUE: Imaging protocol: Computed tomography of the head without contrast. Radiation optimization: All CT scans at this facility use at least one of these dose optimization techniques: automated exposure control; mA and/or kV adjustment per patient size (includes targeted exams where dose is matched to clinical indication); or iterative reconstruction. COMPARISON: CT Head without contrast 11/26/2019 5:58 PM FINDINGS: Brain: Encephalomalacia/gliosis identified involving the inferior left cerebellar lobe, with additional encephalomalacia involving the left cerebellar vermis and tonsil. This is consistent with an old infarct. There is a chronic lacunar infarct within the posterior limb of the right internal capsule. No acute intracranial hemorrhage is visualized. Artifact limits evaluation of the inferior aspect of the cerebellum. The white-dawson differentiation is otherwise preserved demonstrating no acute territorial type infarct. There is moderate patchy cerebral white matter hypodensity, likely representing small vessel ischemic disease in a patient this age. The acuity of the white matter disease is indeterminate. There is no midline shift. Mild chronic hypodensity identified within the bilateral thalami. Cerebral ventricles: Cavum septum pellucidum variant. There is mild prominence of the ventricles and sulci, compatible with atrophy. Bones/joints: The calvarium demonstrates no evidence for a depressed fracture. Paranasal sinuses: Visualized sinuses are unremarkable. No fluid levels. Mastoid air cells: No mastoid effusion. Orbital cavity: Bilateral orbital lens implants. Vasculature: Intracranial atherosclerosis visualized. Soft tissues: Unremarkable. Oropharynx: Torus palatinus visualized IMPRESSION: 1. No acute intracranial hemorrhage or acute territorial type infarct. 2. Encephalomalacia/gliosis again identified involving the inferior left cerebellar lobe, with additional encephalomalacia involving the left cerebellar vermis and tonsil. This is consistent with an old infarct. There is a stable chronic lacunar infarct within the posterior limb of the right internal capsule. 3. There is moderate patchy cerebral white matter hypodensity, likely representing small vessel ischemic disease in a patient this age. 4. Mild atrophy. Electronically signed by: Farhad Parks On 06/07/2020 00:27:44 AM
--- NOTE | 2020-06-07 00:39 | REPVR ---
PROCEDURE INFORMATION: Exam: CT Cervical Spine Without Contrast Exam date and time: 06/06/2020 11:25 PM Age: 85 years old Clinical indication: Neck pain; Additional info: Fall hitting head and on blood thinners TECHNIQUE: Imaging protocol: Computed tomography images of the cervical spine without contrast. Radiation optimization: All CT scans at this facility use at least one of these dose optimization techniques: automated exposure control; mA and/or kV adjustment per patient size (includes targeted exams where dose is matched to clinical indication); or iterative reconstruction. COMPARISON: CT Spine,cervical w/o contrast 12/29/2016 8:37 PM FINDINGS: Bones/joints: No acute cervical spine fracture or subluxation. There is a mild to moderate compression fracture of the C7 vertebral body, which is a chronic deformity compared to the prior study. Chronic increased concavity of the endplates at T1 as well as the superior T2 endplate visualized. The remaining cervical vertebral bodies are normal in height, without abnormal subluxation. The facet alignment is preserved bilaterally. Hypertrophic degenerative changes are identified at the junction of the anterior C1 arch and dens process. The left C-6 facet joint appears partially fused. Discs/Spinal canal/Neural foramina: Abnormal morphology of the left C1 lateral mass with significant irregularity at the left C1-C2 articulation, stable compared to the prior study. Degenerative changes are visualized at multiple cervical levels. Facet arthropathy is identified at multiple cervical levels. Soft tissues: No significant prevertebral soft tissue swelling. 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 Lungs: See "Pleural space" finding. Pleural space: Calcified pleural plaques are identified bilaterally, which can be associated with asbestos exposure. Biapical parenchymal scarring. Vasculature: Atherosclerotic changes. IMPRESSION: 1. No acute cervical spine fracture or subluxation. 2. There is a mild to moderate compression fracture of the C7 vertebral body, which is a chronic deformity compared to the prior study. Chronic increased concavity of the endplates at T1 as well as the superior T2 endplate visualized. 3. Abnormal morphology of the left C1 lateral mass with significant irregularity at the left C1-C2 articulation, stable compared to the prior study. 4. Degenerative changes are visualized at multiple cervical levels. 5. Additional findings described above. Electronically signed by: Farhad Parks On 06/07/2020 00:39:12 AM
[2020-06-07] MEDS ORDERED: MORPHINE 2 MG/ML 1ML VIAL (J2270) IV PRN (01:30)
[2020-06-07] MEDS ORDERED: ONDANSETRON 4MG/2ML VIAL IV ONE (01:30)
[2020-06-07 01:48] LABS: BASO # 0.1 10^3/uL (0.0-0.2); BASO % 0.4 % (0.0-1.0); EOS # 0.1 10^3/uL (0.0-0.5); EOS % 0.6 % (0.0-3.0); HEMATOCRIT 38.1 % (36.0-47.0); HEMOGLOBIN 12.5 g/dl (12.0-15.5); LYMPH # 1.2 10^3/uL (1.5-5.0); MEAN CORPUSCULAR HEMOGLOBIN 31.3 pg (27.0-33.0); MEAN CORPUSCULAR HGB CONC 32.8 g/dl (32.0-36.5); MEAN CORPUSCULAR VOLUME 95.3 fl (80.0-96.0); MONO # 1.2 10^3/uL (0.0-0.8); MONO % 8.2 % (0.0-5.0); NEUTROPHILS % 82.3 % (36.0-66.0); PLATELET COUNT, AUTOMATED 301 10^3/uL (150-450); WHITE BLOOD COUNT 14.6 10^3/uL (4.0-10.0)
[2020-06-07 02:03] LABS: INR 1.01; PROTHROMBIN TIME 13.5 SECONDS (12.5-14.3)
[2020-06-07 02:04] LABS: PARTIAL THROMBOPLASTIN TIME 31.3 SECONDS (24.2-38.5)
--- NOTE | 2020-06-07 02:07 | REPVR ---
PROCEDURE INFORMATION: Exam: XR Left Foot Complete Exam date and time: 06/07/2020 1:31 AM Age: 85 years old Clinical indication: Pain; Foot; Left; Additional info: Fall TECHNIQUE: Imaging protocol: XR Left foot. Views: 3 or more views. COMPARISON: CR Ankle, Ap-Lat 12/29/2016 8:47 PM FINDINGS: Bones/joints: Diffuse osteopenia. Fracture identified at the base of the proximal 4th phalanx, with angulation. No dislocation of the foot. A tiny mineralized density is identified lateral to the 2nd DIP joint, suggestive of calcification or fracture fragment. Degenerative changes are noted at the 1st MTP joint. The middle distal 4th and 5th phalanges are fused. Narrowing of the remaining interphalangeal joint spaces, consistent with degenerative change. Calcaneal spurs identified. Soft tissues: See above. IMPRESSION: 1. Fracture identified at the base of the proximal 4th phalanx, with angulation. 2. A tiny mineralized density is identified lateral to the 2nd DIP joint, suggestive of calcification or fracture fragment. Clinical correlation recommended. 3. Degenerative changes. Electronically signed by: Farhad Parks On 06/07/2020 02:06:57 AM
[2020-06-07 02:13] LABS: BLOOD UREA NITROGEN 23 MG/DL (7-18); CALCIUM LEVEL 8.9 MG/DL (8.8-10.2); CARBON DIOXIDE LEVEL 30 MEQ/L (21-32); CHLORIDE LEVEL 95 MEQ/L (98-107); CK-MB VALUE MASS 3.1 NG/ML (<3.6); CPK CREATINE PHOSPHOKINASE 93 U/L (26-192); CREATININE FOR GFR 0.65 MG/DL (0.55-1.30); GLOMERULAR FILTRATION RATE > 60.0 (>32); GLUCOSE, FASTING 111 MG/DL (70-100); MB/CK RELATIVE INDEX 3.33 (< OR =4); POTASSIUM SERUM 4.5 MEQ/L (3.5-5.1); SODIUM LEVEL 133 MEQ/L (136-145); TROPONIN I < 0.02 NG/ML (< 0.10)
[2020-06-07] MEDS ORDERED: SPIR-10 PO (02:44)
[2020-06-07] MEDS ORDERED: OMEP-218 PO (02:44)
[2020-06-07] MEDS ORDERED: FLEC50HA PO (02:44)
[2020-06-07] MEDS ORDERED: CALC-354 PO (02:44)
[2020-06-07] MEDS ORDERED: CHLO125TA PO (02:44)
[2020-06-07] MEDS ORDERED: ELIQ2.5T PO (02:44)
[2020-06-07] MEDS ORDERED: PATIENT COMMENT (02:45)
[2020-06-07] MEDS ORDERED: fentaNYL 100 MCG/2 ML INJECTION (J3010) IV ONE (03:00)
--- NOTE | 2020-06-07 04:47 | HPEPDOC ---
[facility] Medical History & Physical Date of Admission Jun 07, 2020 Date of Service: Jun 07, 2020 History and Physical CHIEF COMPLAINT: Fall HISTORY OF PRESENT ILLNESS: 85-year-old female with history of multiple CVAs, chronic atrial fibrillation on eliquis, who lives alone with a medical alert bracelet presented to the emergency room after losing her balance while turning in the kitchen, falling backwards, hitting her head on the counter before landing on the floor. Patient was able to get up, and did not have loss of consciousness. She went upstairs to her bedroom and called for help due to intractable left rib and back pain. Patient denied any shortness of breath, chest pain, pressure, tightness, fever, chills, cough palpitations, lightheadedness, dizziness prior to the fall. She has been in her usual state of health and denied any bright red blood per rectum, melena, black tarry stools, changes in appetite, weight, insomnia, ear pain, ear discharge, sore throat, dysphagia, odynophagia, nausea, vomiting, diarrhea, abdominal pain, dysuria, urgency, frequency, flank pain, upper or lower extremity weakness or paresthesias. In the ER, heart rate was 60-70. CT head was negative for acute intracranial hemorrhage. CT cervical spine no acute fracture. CT chest, a left 8-11 rib Fractures , no pneumothorax. left foot xray: Fracture identified at the base of the proximal 4th phalanx, with angulation. She c/o 10/10 pain left ribs improved to 8/10 with iv morphine fentanyl in ER. Hospitalist was asked to admit for pain control and physical therapy. PAST MEDICAL HISTORY: 1. History of left cerebral and vermian infract 2016 2. History of right basal ganglia and internal capsule lacunar infarcts unknown time 3. Hyperlipidemia 4. 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 C1-C2 neck fracture HOME MEDICATIONS: Please see below. ALLERGIES: Please see below PAST SURGICAL HISTORY: 1. Appendectomy 2. C1-C2 neck surgery 3. Thyroid nodule removal in 1970s 4. Bilateral cataract surgery with lens placement SOCIAL HISTORY: Lives Alone has assistance with housework and Me[employer] on Wheels with family as neighbors. Employment: Retired, Tobacco use: Former smoker with 1960s only smoked for 10 years.. ETOH: Social wine drinker, Illicit drug use: Denies , CODE STATUS: DNR/DNI MOLST form in chart FAMILY HISTORY: Reviewed. Mother and father due to old age but was healthy. REVIEW OF SYSTEMS: 10 systems reviewed and negative aside from +findings on HPI. PHYSICAL EXAMINATION: VITAL SIGNS: See below GENERAL:supine on ER stretcher. no respiratory distress. no raccoon eyes. HEENT: normocephalic, pupils equal round reactive, moist mucous membrane, no JVD, trachea is midline. Reduced range of motion at the cervical region due to history of neck fracture in the past. CARDIOVASCULAR: irregular S1 S2 RESPIRATORY: Clear to auscultate bilaterally no audible wheezing rhonchus or Rales. No dullness to percussion. ABDOMINAL: Positive bowel sounds in all 4 quadrants, soft nontender no rebounding or guarding noted. No suprapubic tenderness. EXTREMITIES: 1+ b/l edema [id number] toe limited rom due to pain. LABORATORY DATA: See below. MICROBIOLOGY: Please see below. IMAGING: Exam: CT Head Without Contrast Exam date and time: 06/06/2020 11:25 PM Age: 85 years old Clinical indication: Injury or trauma; Fall; Concussion/head injury; Consciousness not specified; Additional info: Fall hitting head and on blood thinners TECHNIQUE: Imaging protocol: Computed tomography of the head without contrast. Radiation optimization: All CT scans at this facility use at least one of these dose optimization techniques: automated exposure control; mA and/or kV adjustment per patient size (includes targeted exams where dose is matched to clinical indication); or iterative reconstruction. COMPARISON: CT Head without contrast 11/26/2019 5:58 PM FINDINGS: Brain: Encephalomalacia/gliosis identified involving the inferior left cerebellar lobe, with additional encephalomalacia involving the left cerebellar vermis and tonsil. This is consistent with an old infarct. There is a chronic lacunar infarct within the posterior limb of the right internal capsule. No acute intracranial hemorrhage is visualized. Artifact limits evaluation of the inferior aspect of the cerebellum. The white-dawson differentiation is otherwise preserved demonstrating no acute territorial type infarct. There is moderate patchy cerebral white matter hypodensity, likely representing small vessel ischemic disease in a patient this age. The acuity of the white matter disease is indeterminate. There is no midline shift. Mild chronic hypodensity identified within the bilateral thalami. Cerebral ventricles: Cavum septum pellucidum variant. There is mild prominence of the ventricles and sulci, compatible with atrophy. Bones/joints: The calvarium demonstrates no evidence for a depressed fracture. Paranasal sinuses: Visualized sinuses are unremarkable. No fluid levels. Mastoid air cells: No mastoid effusion. Orbital cavity: Bilateral orbital lens implants. Vasculature: Intracranial atherosclerosis visualized. Soft tissues: Unremarkable. Oropharynx: Torus palatinus visualized IMPRESSION: 1. No acute intracranial hemorrhage or acute territorial type infarct. 2. Encephalomalacia/gliosis again identified involving the inferior left cerebellar lobe, with additional encephalomalacia involving the left cerebellar vermis and tonsil. This is consistent with an old infarct. There is a stable chronic lacunar infarct within the posterior limb of the right internal capsule. 3. There is moderate patchy cerebral white matter hypodensity, likely representing small vessel ischemic disease in a patient this age. 4. Mild atrophy. Electronically signed by: Farhad Parks On 06/07/2020 00:27:44 AM Exam: CT Cervical Spine Without Contrast Exam date and time: 06/06/2020 11:25 PM Age: 85 years old Clinical indication: Neck pain; Additional info: Fall hitting head and on blood thinners TECHNIQUE: Imaging protocol: Computed tomography images of the cervical spine without contrast. Radiation optimization: All CT scans at this facility use at least one of these dose optimization techniques: automated exposure control; mA and/or kV adjustment per patient size (includes targeted exams where dose is matched to clinical indication); or iterative reconstruction. COMPARISON: CT Spine,cervical w/o contrast 12/29/2016 8:37 PM FINDINGS: Bones/joints: No acute cervical spine fracture or subluxation. There is a mild to moderate compression fracture of the C7 vertebral body, which is a chronic deformity compared to the prior study. Chronic increased concavity of the endplates at T1 as well as the superior T2 endplate visualized. The remaining cervical vertebral bodies are normal in height, without abnormal subluxation. The facet alignment is preserved bilaterally. Hypertrophic degenerative changes are identified at the junction of the anterior C1 arch and dens process. The left C-6 facet joint appears partially fused. Discs/Spinal canal/Neural foramina: Abnormal morphology of the left C1 lateral mass with significant irregularity at the left C1-C2 articulation, stable compared to the prior study. Degenerative changes are visualized at multiple cervical levels. Facet arthropathy is identified at multiple cervical levels. Soft tissues: No significant prevertebral soft tissue swelling. 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 Lungs: See "Pleural space" finding. Pleural space: Calcified pleural plaques are identified bilaterally, which can be associated with asbestos exposure. Biapical parenchymal scarring. Vasculature: Atherosclerotic changes. IMPRESSION: 1. No acute cervical spine fracture or subluxation. 2. There is a mild to moderate compression fracture of the C7 vertebral body, which is a chronic deformity compared to the prior study. Chronic increased concavity of the endplates at T1 as well as the superior T2 endplate visualized. 3. Abnormal morphology of the left C1 lateral mass with significant irregularity at the left C1-C2 articulation, stable compared to the prior study. 4. Degenerative changes are visualized at multiple cervical levels. 5. Additional findings described above. Electronically signed by: Farhad Parks On 06/07/2020 00:39:12 AM Exam: CT Chest Without Contrast Exam date and time: 06/06/2020 11:31 PM Age: 85 years old Clinical indication: Injury or trauma; Fall; Blunt trauma (contusions or hematomas); Additional info: Fall hitting chest TECHNIQUE: Imaging protocol: Computed tomography of the chest without contrast. 3D rendering (Not supervised by radiologist): MIP and/or 3D reconstructed images were created by the technologist. Radiation optimization: All CT scans at this facility use at least one of these dose optimization techniques: automated exposure control; mA and/or kV adjustment per patient size (includes targeted exams where dose is matched to clinical indication); or iterative reconstruction. COMPARISON: CR Chest, 2 view PA, Lat 11/28/2019 9:23 AM FINDINGS: Lungs: Pulmonary hyperinflation with flattening of the hemidiaphragms. Minimal scattered fibro-atelectatic change, greatest in the bases. Calcified mediastinal nodes are present and there is a calcified granuloma in the anteromedial left upper lobe. Pleural space: Unremarkable. No pneumothorax. No pleural effusion. Heart: Unremarkable. No cardiomegaly. No pericardial effusion. Pulmonary arteries: The main pulmonary artery measures 28 mm. Aorta: The ascending thoracic aorta measures 34 mm. Lymph nodes: See "Lungs" finding. Liver: Hepatic calcifications are noted. Spleen: Splenic calcifications are noted. Kidneys and ureters: Small nonobstructing left renal calculus in the upper pole. Bones/joints: Mild superior endplate depression of T2 and T5 and diffuse and wedge configuration of C7 and T1 which all appear to be chronic. Nondisplaced fractures of the left 8th-10th ribs laterally and the left 11th rib posteriorly with old fractures of the left 4th and 5th ribs anterolaterally. Soft tissues: Unremarkable. IMPRESSION: 1. Old granulomatous disease of the chest, liver and spleen. 2. Suggestion of some degree of COPD with minimal scattered fibro-atelectatic change, greatest in the bases. 3. Slight wedge configuration or endplate depression of C7, T1, T2 and T5 which appear to be chronic. 4. Nondisplaced fractures of the left 8th-10th ribs laterally and a fracture of the left 11th rib posteriorly. There are old fractures of the left 4th and 5th ribs anterolaterally. Electronically signed by: Claudio Silva On 06/07/2020 00:14:24 AM Exam: XR Left Foot Complete Exam date and time: 06/07/2020 1:31 AM Age: 85 years old Clinical indication: Pain; Foot; Left; Additional info: Fall TECHNIQUE: Imaging protocol: XR Left foot. Views: 3 or more views. COMPARISON: CR Ankle, Ap-Lat 12/29/2016 8:47 PM FINDINGS: Bones/joints: Diffuse osteopenia. Fracture identified at the base of the proximal 4th phalanx, with angulation. No dislocation of the foot. A tiny mineralized density is identified lateral to the 2nd DIP joint, suggestive of calcification or fracture fragment. Degenerative changes are noted at the 1st MTP joint. The middle distal 4th and 5th phalanges are fused. Narrowing of the remaining interphalangeal joint spaces, consistent with degenerative change. Calcaneal spurs identified. Soft tissues: See above. IMPRESSION: 1. Fracture identified at the base of the proximal 4th phalanx, with angulation. 2. A tiny mineralized density is identified lateral to the 2nd DIP joint, suggestive of calcification or fracture fragment. Clinical correlation recommended. 3. Degenerative changes. ASSESSMENT AND PLAN: 85-year-old female with history of multiple CVAs, on chronic anticoagulation who lives alone with a medical alert bracelet presented to the emergency room after losing her balance while turning in the kitchen, falling backwards, hitting her head on the counter before landing on the floor. Patient was able to get up, and did not have loss of consciousness. She went upstairs to her bedroom and called for help due to intractable left rib and back pain. Patient denied any shortness of breath, chest pain, pressure, tightness, fever, chills, cough palpitations, lightheadedness, dizziness prior to the fall. She has been in her usual state of health and denied any bright red blood per rectum, melena, black tarry stools, changes in appetite, weight, insomnia, ear pain, ear discharge, sore throat, dysphagia, odynophagia, nausea, vomiting, diarrhea, abdominal pain, dysuria, urgency, frequency, flank pain, upper or lower extremity weakness or paresthesias. In the ER, heart rate was 60-70. CT head was negative for acute i ntracranial hemorrhage. CT cervical spine no acute fracture. CT chest, a left 8- 11 rib Fractures , no pneumothorax. left foot xray: Fracture identified at the base of the proximal 4th phalanx, with angulation. She c/o 10/10 pain left ribs improved to 8/10 with iv morphine fentanyl in ER. Hospitalist was asked to admit for pain control and physical therapy. Mechanical Fall -fall precautions/ ARU screen, assisted ambulation only Acute left 8-11 rib fractures -prn pain meds, incentive spirometry. no ptx. Acute left foot 4th phalanx base fracture -ortho consult per morning team -assisted ambulation, prn pain meds, osteoporosis -risk factor for falls H/O multiple CVAs -due to high risk of recurrent cva, pt has decided to resume her oral eliquis. will hold for the next 12hrs, if no new neuro changes, may resume tonight. pt understand the risk of ich with resuming her eliquis,and says that she usually does well with her walker and has not had any prior history of falls. chronic atrial fibrillation -rate controlled. held oral eliquis for now. due to high risk of recurrent cva, pt wants to be back on her eliquis stating that this is the first time she has fallen. h/o c1-c2 fracture /surgery -brace disposition: pt wants to return home, but is open to doing rehab prior to dc [place]. Her nephew cannot help much right now due to recent hip replacement. Vital Signs Vital Signs Date Time Temp Pulse Resp B/P (MAP) Pulse Ox O2 Delivery O2 Flow Rate FiO2 06/07/20 03:35 18 06/07/20 01:45 125/58 (80) 06/07/20 01:38 63 95 Room Air 06/06/20 23:53 98.4 Laboratory Data Labs 24H Laboratory Tests 2 06/07/20 01:31: Immature Granulocyte % (Auto) 0.5, Neutrophils (%) (Auto) 82.3H, Lymphocytes (%) (Auto) 8.0L, Monocytes (%) (Auto) 8.2H, Eosinophils (%) (Auto) 0.6, Basophils (%) (Auto) 0.4, Neutrophils # (Auto) 12.0H, Lymphocytes # (Auto) 1.2L, Monocytes # (Auto) 1.2H, Eosinophils # (Auto) 0.1, Basophils # (Auto) 0.1, Nucleated Red Blood Cells % (auto) 0.0, Prothrombin Time 13.5, Prothromb Time International Ratio 1.01, Activated Partial Thromboplast Time 31.3, Anion Gap 8, Glomerular Filtration Rate > 60.0, Calcium Level 8.9, Total Creatine Kinase 93, Creatine Kinase MB 3.1, Creatine Kinase MB Relative Index 3.33, Troponin I < 0.02 06/07/20 02:18: Coronavirus (COVID-19)(PCR) NEGATIVE CBC/BMP Laboratory Tests 06/07/20 01:31 Home Medications Scheduled Alendronate Sodium (Alendronate Sodium) 70 Mg/75 Ml Solution, 75 ML PO QWEEK Apixaban (Eliquis) 2.5 Mg Tablet, 2.5 MG PO BID Calcium Carbonate/Vitamin D3 (Calcium 500-Vit D3 10 Mcg Chew) 500 Mg-400 Tab.chew, 1 TAB PO BID Chlorthalidone (Chlorthalidone) 25 Mg Tablet, 12.5 MG PO DAILY Flecainide Acetate (Flecainide Acetate) 50 Mg Tablet, 50 MG PO BID Multivitamins (Child Chew Vitamin) 1 Each Tab.chew, 1 TAB PO DAILY Omeprazole (Omeprazole) 20 Mg Capsule.dr, 20 MG PO DAILY Simvastatin (Simvastatin) 10 Mg Tablet, 10 MG PO QHS Spironolactone (Spironolactone) 25 Mg Tablet, 12.5 MG PO DAILY Miscellaneous Medications [Patient Comment] PATIENT UNAVAILABLE. COMPLETED USING EXTERNAL MED HISTORY. Allergies Coded Allergies: No Known Drug Allergies (Verified Allergy, Unknown, 11/26/19) A-FIB/CHADSVASC A-FIB History Current/History of A-Fib/PAF?: Yes Current PO Anticoag Therapy: Yes Age/Risk Factor Scoring CHADSVASC: CHADSVASC Response (Comments) Value Age Risk Factor Age >/= 75 years old 2 Gender Risk Factor Female 1 Hx of CHF No 0 Hx of HTN Yes 1 Hx of Stroke/TIA/or VTE Yes 2 Hx of Diabetes No 0 Hx of Vascular Disease No 0 Total 6 Treatment Treatment ordered: Holding Other Reason Anticoagulant not given: Other Other reason anticoagulant not: fall. monitoring for ich. EVELIA MCDONALD MD Jun 07, 2020 04:28
[2020-06-07 05:00] VITALS: BP 146/67
[2020-06-07] MEDS ORDERED: PERCOCET 5MG/325MG TAB PO PRN (05:00)
[2020-06-07] MEDS ORDERED: NALOXONE INJ 0.4MG/1ML VIAL (J2310 PER 1MG) IV PRN (05:00)
[2020-06-07 08:00] VITALS: BP 123/60
[2020-06-07] MEDS ORDERED: MULTIVITAMINS CHILDREN'S CHEWABLE TABLET PO SCH (09:00)
[2020-06-07] MEDS ORDERED: FLECAINIDE 50MG TABLET PO SCH (09:00)
[2020-06-07] MEDS ORDERED: SPIRONOLACTONE 12.5MG PER 1/2 TABLET PO SCH (09:00)
[2020-06-07] MEDS ORDERED: CHLORTHALIDONE 12.5MG PER 1/2 TABLET PO SCH (09:00)
[2020-06-07] MEDS ORDERED: DICLOFENAC EPOLAMINE 1.3 % PATCH TOP SCH (09:00)
[2020-06-07] MEDS ORDERED: OMEPRAZOLE 20 MG CAP PO SCH (09:00)
--- NOTE | 2020-06-07 13:22 | IPNPDOC ---
Subjective Date Seen The patient was seen on 06/07/20. Subjective Chief Complaint/HPI Mrs. Howell is an 85 year old female with a.fib and history of multiple CVAs who's here after having a mechanical fall and found to have ribs and phalanx fractures. This morning, she still has the rib and left foot pain. Denies dyspnea, abdominal pain, or dysuria. Spoke with orthopedic surgery. Recommend weight bearing as tolerated, stiff soled shoe, and outpatient follow up. Objective Physical Examination General Exam: Positive: Alert, Cooperative Eye Exam: Positive: EOMI; Negative: Sclera icteric ENT Exam: Positive: Atraumatic Neck Exam: Positive: Supple Chest Exam: Positive: Clear to auscultation Heart Exam: Positive: Irregular Rhythm (controlled) Abdomen Exam: Positive: Normal bowel sounds, Soft; Negative: Tenderness Extremity Exam: Negative: Edema Neuro Exam: Positive: Cranial Nerves 3-12 NL Psych Exam: Positive: Mental status NL, Mood NL Assessment /Plan Assessment Mrs. Howell is an 85 year old female with a.fib and history of multiple CVAs w ho's here after having a mechanical fall and found to have ribs and phalanx fractures. Reached out to orthopedic surgery. Recommend weight bearing as tolerated, stiff soled shoe, and outpatient follow up. We will reach out to physical therapy for recommendations. Plan/VTE VTE Prophylaxis Ordered?: Yes Plan 1. Mechanical fall -Fall risk precautions -Physical therapy -CT head negative for ICH 2. Left foot, proximal 4th phalanx fracture with angulation -Weight bearing as tolerated -Stiff toed shoe -Follow up with orthopedic surgery outpatient 3. Left rib fracture (8th through 10th ribs) -Lateral fracture -There is old fractures of left 4th and 5th rib -Pain control with scheduled acetaminophen and PRN tramadol -Incentive spirometer 4. Multiple CVAs in the past -Continue simvastatin 5. Atrial fibrillation -Restart apixaban tomorrow morning if there is no neurologic symptoms -Flecainide 6. DVT ppx -Will be on apixaban VS, I&O, 24H, Fishbone Vital Signs/I&O Vital Signs Date Time Temp Pulse Resp B/P (MAP) Pulse Ox O2 Delivery O2 Flow Rate FiO2 06/07/20 08:00 97.9 59 16 123/60 (81) 96 Room Air I&O- Last 24 Hours up to 6 AM 06/07/20 06:00 Intake Total 0 ml Output Total 0 ml Balance 0 ml Laboratory Data 24H LABS Laboratory Tests 2 06/07/20 01:31: Immature Granulocyte % (Auto) 0.5, Neutrophils (%) (Auto) 82.3H, Lymphocytes (%) (Auto) 8.0L, Monocytes (%) (Auto) 8.2H, Eosinophils (%) (Auto) 0.6, Basophils (%) (Auto) 0.4, Neutrophils # (Auto) 12.0H, Lymphocytes # (Auto) 1.2L, Monocytes # (Auto) 1.2H, Eosinophils # (Auto) 0.1, Basophils # (Auto) 0.1, Nucleated Red Blood Cells % (auto) 0.0, Prothrombin Time 13.5, Prothromb Time International Ratio 1.01, Activated Partial Thromboplast Time 31.3, Anion Gap 8, Glomerular Filtration Rate > 60.0, Calcium Level 8.9, Total Creatine Kinase 93, Creatine Kinase MB 3.1, Creatine Kinase MB Relative Index 3.33, Troponin I < 0.02 06/07/20 02:18: Coronavirus (COVID-19)(PCR) NEGATIVE CBC/BMP Laboratory Tests 06/07/20 01:31 PK UP DO Jun 07, 2020 13:22
[2020-06-07] MEDS ORDERED: traMADol 50 MG TAB PO PRN (13:30)
[2020-06-07] MEDS ORDERED: ACET-683 PO (15:50)
[2020-06-07] MEDS ORDERED: TRAM50TA2 PO (15:50)
[2020-06-07 16:00] VITALS: BP 144/66
[2020-06-07] MEDS ORDERED: ACETAMINOPHEN 500 MG TAB PO SCH (16:00)
[2020-06-07] MEDS ORDERED: APIXABAN 2.5 MG TAB (ELIQUIS) PO SCH (21:00)
[2020-06-07] MEDS ORDERED: SIMVASTATIN 10 MG TAB PO SCH (21:00)
--- NOTE | 2020-06-07 21:52 | DS.PDOC ---
Discharge Summary General Date of Admission Jun 07, 2020 at 03:12 Date of Discharge Jun 07, 2020 Attending Physician: PK UP DO Discharge Summary PROCEDURES PERFORMED DURING STAY: None ADMITTING DIAGNOSES: 1. Mechanical Fall 2. Acute left 8-11 rib fractures 3. Acute left foot 4th phalanx base fracture 4. Osteoporosis 5. History of multiple CVAs 6. Atrial fibrillation &. History C1-C2 fracture and surgery DISCHARGE DIAGNOSES: 1. Mechanical Fall 2. Acute left 8-11 rib fractures 3. Acute left foot 4th phalanx base fracture 4. Osteoporosis 5. History of multiple CVAs 6. Atrial fibrillation &. History C1-C2 fracture and surgery COMPLICATIONS/CHIEF COMPLAINT: Ribs, Multiple Fractures. HISTORY OF PRESENT ILLNESS: Mrs. Vuong is a 85 year old female from home with osteoporosis and history of multiple CVAs here after having a mechanical fall resulting in rib and foot fracture. She lives along and wears a medical alert bracelet. Prior to coming to the ED, she was in the kitchen. As she was turning around, she lost her balance and fell hitting her head on the counter before landing on the floor. She denies lightheadedness/dizziness, palpitations, chest pain, or dyspnea before the fall. Reported head strike but no loss of conciousness after the fall. She was able to get back up. She went to her bedroom and then called for help due to intractable rib and foot pain. While in the ED, they obtained a CT head which was negative for ICH. CT cervical spine demonstrated no acute fracture. CT chest demonstrated left 8 through 11 rib fractures. Left XR foot demonstrated proximal 4th phalanx fracture with angulation. Patient was admitted for intractable pain and physical therapy. HOSPITAL COURSE: This morning, she still has the rib and left foot pain. Denies dyspnea, abdominal pain, or dysuria. Spoke with orthopedic surgery. Recommend weight bearing as tolerated, stiff soled shoe, and outpatient follow up. Physical therapy evaluated patient and patient was appropriate for ARU. This was discussed with patient and patient's health care proxy (niece). Patient felt ready and was transferred to ARU. DISCHARGE MEDICATIONS: Please see below. ALLERGIES: Please see below. PHYSICAL EXAMINATION ON DISCHARGE: VITAL SIGNS: Please see below. GENERAL: Appears careful about breathing, but in no respiratory distress, speak softly and in complete sentences HEENT: EOMI, sclera clear CARDIOVASCULAR EXAMINATION: Irregular, but controlled RESPIRATORY EXAMINATION: Clear to auscultation bilaterally ABDOMINAL EXAMINATION: Soft, non-tender, normal bowel sounds EXTREMITIES: No pitting edema NEUROLOGICAL EXAMINATION: CN 3-12 grossly intact PSYCHIATRIC EXAMINATION: Normal mood and affect LABORATORY DATA: Please see below. IMAGING: CT Chest 1. Old granulomatous disease of the chest, liver and spleen. 2. Suggestion of some degree of COPD with minimal scattered fibro-atelectatic change, greatest in the bases. 3. Slight wedge configuration or endplate depression of C7, T1, T2 and T5 which appear to be chronic. 4. Nondisplaced fractures of the left 8th-10th ribs laterally and a fracture of the left 11th rib posteriorly. There are old fractures of the left 4th and 5th ribs anterolaterally. XR foot 1. Fracture identified at the base of the proximal 4th phalanx, with angulation. 2. A tiny mineralized density is identified lateral to the 2nd DIP joint, suggestive of calcification or fracture fragment. Clinical correlation recommended. 3. Degenerative changes. CT cervical spine 1. No acute cervical spine fracture or subluxation. 2. There is a mild to moderate compression fracture of the C7 vertebral body, which is a chronic deformity compared to the prior study. Chronic increased concavity of the endplates at T1 as well as the superior T2 endplate visualized. 3. Abnormal morphology of the left C1 lateral mass with significant irregularity at the left C1-C2 articulation, stable compared to the prior study. 4. Degenerative changes are visualized at multiple cervical levels. CT head 1. No acute intracranial hemorrhage or acute territorial type infarct. 2. Encephalomalacia/gliosis again identified involving the inferior left cerebellar lobe, with additional encephalomalacia involving the left cerebellar vermis and tonsil. This is consistent with an old infarct. There is a stable chronic lacunar infarct within the posterior limb of the right internal capsule. 3. There is moderate patchy cerebral white matter hypodensity, likely representing small vessel ischemic disease in a patient this age. 4. Mild atrophy. PROGNOSIS: Good ACTIVITY: Weight bearing as tolerated and wear stiff soled shoe. DIET: 2gm sodium DISCHARGE PLAN: Acute rehab DISPOSITION: 02 Xfer To Acute Hosp. DISCHARGE INSTRUCTIONS: 1. Follow up with ARU physician 2. Once discharged, follow up with orthopedic surgery for fractures DISCHARGE CONDITION: Stable. Total time spent on discharge planning, discharge summary, and medication reconciliation: 35 minutes Vital Signs/I&Os Vital Signs Date Time Temp Pulse Resp B/P (MAP) Pulse Ox O2 Delivery O2 Flow Rate FiO2 06/07/20 16:00 97.6 68 18 144/66 (92) 96 Room Air I&O- Last 24 Hours up to 6 AM 06/07/20 05:59 Intake Total 0 ml Output Total 0 ml Balance 0 ml Laboratory Data Labs 24H Laboratory Tests 2 06/07/20 01:31: Immature Granulocyte % (Auto) 0.5, Neutrophils (%) (Auto) 82.3H, Lymphocytes (%) (Auto) 8.0L, Monocytes (%) (Auto) 8.2H, Eosinophils (%) (Auto) 0.6, Basophils (%) (Auto) 0.4, Neutrophils # (Auto) 12.0H, Lymphocytes # (Auto) 1.2L, Monocytes # (Auto) 1.2H, Eosinophils # (Auto) 0.1, Basophils # (Auto) 0.1, Nucleated Red Blood Cells % (auto) 0.0, Prothrombin Time 13.5, Prothromb Time International Ratio 1.01, Activated Partial Thromboplast Time 31.3, Anion Gap 8, Glomerular Filtration Rate > 60.0, Calcium Level 8.9, Total Creatine Kinase 93, Creatine Kinase MB 3.1, Creatine Kinase MB Relative Index 3.33, Troponin I < 0.02 06/07/20 02:18: Coronavirus (COVID-19)(PCR) NEGATIVE CBC/BMP Laboratory Tests 06/07/20 01:31 Discharge Medications Scheduled Acetaminophen (Acetaminophen) 500 Mg Tablet, 1,000 MG PO TID Alendronate Sodium (Alendronate Sodium) 70 Mg/75 Ml Solution, 75 ML PO QWEEK, (Reported) Apixaban (Eliquis) 2.5 Mg Tablet, 2.5 MG PO BID, (Reported) Calcium Carbonate/Vitamin D3 (Calcium 500-Vit D3 10 Mcg Chew) 500 Mg-400 Tab.chew, 1 TAB PO BID, (Reported) Chlorthalidone (Chlorthalidone) 25 Mg Tablet, 12.5 MG PO 3XW, (Reported) FRIDAY, FRIDAY AND FRIDAY Flecainide Acetate (Flecainide Acetate) 50 Mg Tablet, 50 MG PO BID, (Reported) Multivitamins (Child Chew Vitamin) 1 Each Tab.chew, 1 TAB PO DAILY, (Reported) Omeprazole (Omeprazole) 20 Mg Capsule.dr, 20 MG PO DAILY, (Reported) Simvastatin (Simvastatin) 10 Mg Tablet, 10 MG PO QHS, (Reported) Spironolactone (Spironolactone) 25 Mg Tablet, 12.5 MG PO DAILY, (Reported) Scheduled PRN Tramadol HCl (Tramadol HCl) 50 Mg Tablet, 50 MG PO Q6HP PRN for MODERATE PAIN (PS 5-7) Miscellaneous Medications [Patient Comment] , (Reported) PATIENT UNAVAILABLE. COMPLETED USING EXTERNAL MED HISTORY. Allergies Coded Allergies: No Known Drug Allergies (Verified Allergy, Unknown, 11/26/19) PK UP DO Jun 07, 2020 21:51
[2020-06-08] MEDS ORDERED: APIXABAN 2.5 MG TAB (ELIQUIS) PO SCH (09:00)
--- NOTE | 2020-06-08 18:48 | ECGEPIP ---
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
== END 2020-06-07 17:05 | disposition short-term general hospital (02) | DRG 184 ==
LOC: M ED 23:23 → M ED INP 06-07 03:12 → ENRESERV 06-07 03:34 → M PCU 06-07 04:53
PROVIDERS: ADMIT General Practice; ATTEND General Practice
DX: S22.42XA Multiple fractures of ribs, left side, initial encounter for closed fracture (principal); I48.20 Chronic atrial fibrillation, unspecified; S92.592A Other fracture of left lesser toe(s), initial encounter for closed fracture; M81.0 Age-related osteoporosis without current pathological fracture; Z86.73 Personal history of transient ischemic attack (TIA), and cerebral infarction without residual deficits; W18.30XA Fall on same level, unspecified, initial encounter; Y92.009 Unspecified place in unspecified non-institutional (private) residence as the place of occurrence of the external cause; Z79.899 Other long term (current) drug therapy; E78.5 Hyperlipidemia, unspecified; Z79.01 Long term (current) use of anticoagulants

== ENCOUNTER 2020-06-07 16:09 | Inpatient (IN) | payer MEDICARE ==
[~2020-06-07] VITALS: Ht 172.7 cm; Wt 52.8 kg
[~2020-06-07 16:09] MED LIST changes: +ACET-683 PO; +CALC-354 PO; +CHLO125TA PO; +FLEC50HA PO; +OMEP-218 PO; +PATIENT COMMENT; +SPIR-10 PO; +TRAM50TA2 PO
[2020-06-07 17:00] VITALS: BP 148/77
[2020-06-07] MEDS ORDERED: traMADol 50 MG TAB PO PRN (18:15)
[2020-06-07] MEDS ORDERED: REMEDY PHYTOPLEX Z-GUARD PASTE 113GM TUBE (FROM STOREROOM PRODUCT) TOP PRN (18:15)
--- NOTE | 2020-06-07 18:56 | HPEPDOC ---
[employer] Note DATE OF ADMISSION: 06/07/2020 DATE OF SERVICE: 06/07/2020 TIME OF ADMISSION: Please refer to physician's admission order. SOURCE OF ADMISSION INFORMATION: Patient and medical chart ADMITTING DIAGNOSES: #8 through #11 rib fractures. Fourth phalanx fracture with angulation. Osteoporosis History of multiple CVAs. History chronic A. fib. CHIEF COMPLAINT: Rib pain. Back pain HISTORY OF PRESENT ILLNESS: This is an 85-year-old female, history of multiple CVAs, chronic A. fib, managed with Mayra Arriaga lives alone, this morning lost her balance while turning in the kitchen, fell backwards hitting her head on the counter landing on the floor. Apparently no loss of consciousness, the patient was able to climb stairs to her bedroom where she rested hoping to improve, but had to summon help. She presented last night to [facility] ER with complaint of left rib and back pain and foot pain. Workup included CT of the head negative for acute changes, CT spine, no acute fracture, CT chest noted for left 8 through 11 rib fractures without pneumothorax and X-Rays left foot noted for fracture 4th phalanx with angulation. Ortho has cleared her for WBAT using stiff soled shoe. Due to pain, living alone and need for full safe independence in self care, she is being admitted to comprehensive rehabilitation for pain management, optimization of functional capabilities, balance, strengthening and endurance training as well as in depth observation of cognitive status, safety awareness and creation of optimal compensatory strategies. REVIEW OF SYSTEMS: The following is a completed review of systems and has been reviewed. Review of systems otherwise unremarkable. PAIN: Chest and back pain. EYES: No recent vision changes. EARS, NOSE, & THROAT: No throat pain, or dysphagia, or rhinorrhea. CARDIOVASCULAR: Denies angina or palpitations. PULMONARY: Denies shortness of breath. GASTROINTESTINAL: Denies constipation/diarrhea. GENITOURINARY: urgent continence MUSCULOSKELETAL: pain from fx NEUROLOGICAL:. Prior CVAs, stable HEMATOLOGICAL: stable SKIN: .intact PSYCHIATRIC: Unremarkable. All other review of systems found to be negative. PAST MEDICAL HISTORY: Left CVA 2016 History right basal ganglia and internal capsule lacunar infarcts. Hyperlipidemia. Osteoporosis management by phosphonate. History of C1-2 neck fracture status post surgery PAST SURGICAL HISTORY: Appendectomy. C1 to cervical surgery. Thyroid nodule removed the 70s. Bilateral cataract surgery, lens implants ALLERGIES: Please see below. MEDICATIONS: Please see below. FAMILY HISTORY: Noncontributory . 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 Remote history of smoking 10 years, stopped in the 60s. Social wine drinker. Lives in a 2 step entrance 1 story home alone previously independent with use of a walker. DIET: Regular . PHYSICAL EXAMINATION: VITAL SIGNS: Please see below. GENERAL: Pleasant and cooperative. Mild distress. Alert and oriented times three. HEENT: No point tenderness. Extraocular movements intact. Clear conjunctiva, no adenopathy or thyromegaly. Decreased cervical range of motion without tenderness or spasm. CARDIOVASCULAR: Regular rate and rhythm I/ murmur LUNGS: Clear to auscultation bilaterally. No wheezes. No rhonchi. Tender left anterolateral chest wall, increased with AP compression. ABDOMEN: Soft, mildly tender, nondistended. Positive bowel sounds. Normal active bowel sounds, no organomegaly. NEUROLOGICAL: Alert and oriented times three. Cranial nerves II through XII intact. Sensation intact. 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 SKIN: intact LABORATORY DATA: Please see below. IMAGIN06/06/2020 CT head noted for encephalomalacia. Gliosis inferior left cerebellar lobe vermis and tonsil consistent with old infarct, chronic lacunar infarct, posterior limb of the right internal capsule. No acute ICH. Patchy small vessel ischemic disease noted. No evidence fracture 06/06/2020 CT cervical spine, mild to moderate compression fracture, C7, chronic deformity, increase in concavity superior/inferior endplates, T1 and T2. Normal morphology left C1 lateral mass with significant irregularity left C1 to articulation but stable without evidence of acute fracture or subluxation. 06/06/2020 CT chest calcified mediastinal nodes, calcified granuloma anteromedial left upper lobe. Incidental note small nonobstructing left renal calculus. Impressions felt consistent with old granulomatous disease. Chest liver, spleen, suggestion of some degree of COPD, language configuration endplate depression, C7, T1, T2 and T5 felt chronic, nondisplaced fractures, left. 8th through 10th ribs laterally and fracture, left 11th rib posteriorly. Old fractures, left fourth and fifth ribs anterolaterally. 06/07/2020. X-ray left foot fracture base proximal fourth phalanx with angulation possible fracture fragment second DIP joint, degenerative changes FUNCTIONAL STATUS: Premorbid: Independent with all activities of daily life as well as mobility. Ambulating with moderate to standby assistance. Moderate assistance for showering, bathing, lower body dressing. Continent of bowel and bladder with some stress incontinence noted. GOALS: Mod I for self-care and mobility, toileting and basic homemaking skills ASSESSMENT:- #8 through 11 rib fractures. Fourth phalanx fracture with angulation. Osteoporosis COPD History of multiple CVAs. History chronic A. fib. Head Injury 85 year-old with past medical history of left cerebellar and right internal capsule, strokes , exhibiting to balance deficits who presents status post ground level fall, striking her head in the process with fractures of left 8 through 11 ribs and left foot proximal fourth phalanx, cerebellar involvement and balance issues, possibly aggravated with head injury and microvascular disease. PLAN: 1. Rehab- PT/OT advance gait and ADls, strengthen/stretch/maintain ROM all 4 limbs , work on pain management Center for adverse effects of medications wall promoting safe mobility, ADLs, self-care and housekeeping activities. Speech-language evaluation for cognition, memory, swallowing issues. 2. Neuro- status post prior CVAs, monitor for change. Note suggested. Return to Apixaban tomorrow if no neurological symptoms. 3. Ortho- stiff shoe woodrow taping toes and Kinesiotape chest wall, pain management 4. Cardiac- hx of A. fib, continue medications maintain rate control. Suggested to hold oral opiates for now -HTN c/u ARB -HLD- c/u Zocor 5. Resp -incentive spirometry, monitor for increased risk of infection. Due to splinting from acute and chronic rib fractures. 6. . - initiate usual bladder protocol 8. GI ppx- initiate usual bowel program protocol POST ADMISSION PHYSICIAN EVALUATION: Medical and functional status: Description of medical status, medical assessment: As above. Rehabilitation diagnosis and current and prior cold morbid medical conditions as above. Risk of complications and plans to mitigate them as above. Description of functional status current status is as above. Prior status as above. Status compared to preadmission: There are no clinically significant differences between the patient's current status and the information described on the preadmission screening document. Treatment plan anticipated: Treatment plan is as described above. Required disciplines including physical therapy, occupational therapy, others as noted above]. Intensity of services: 3 hours a day, 6-7 days a week. Special considerations: There are no specific special or safety considerations that would likely preclude immediate implementation of an intensive rehabilitation program or subsequently influence the plan of care. ATTESTATION: Considering all the information above, it is my best judgment that this patient requires intensive rehabilitation therapy as described above and an inpatient hospital environment due to the complexity of nursing, medical, and rehabilitation needs required by the patient. Furthermore, this patient can reasonably be expected to participate in an benefit from an inpatient rehabilitation stay with an interdisciplinary team approach to the delivery of rehabilitation care under the direction and supervision of rehabilitation physician. PROGNOSIS: Excellent. ESTIMATED LENGTH OF STAY:7-10 days. PROJECTED DISCHARGE DESTINATION: Home with family support and any durable medical equipment required to increase functional safety and mobility. TIME SPENT COUNSELING AND COORDINATING INITIAL CARE: Greater than 60 minutes. This document is generated using speech recognition software which may result in grammatical, typographical and individual word errors. Vital Signs Vital Sign - Last 24 Hours 06/07/20 17:00 Temp 98.7 Pulse 57 Resp 18 B/P (MAP) 148/77 (100) Pulse Ox 96 O2 Delivery Room Air Home Medications Scheduled Acetaminophen (Acetaminophen) 500 Mg Tablet, 1,000 MG PO TID Alendronate Sodium (Alendronate Sodium) 70 Mg/75 Ml Solution, 75 ML PO QWEEK, (Reported) Apixaban (Eliquis) 2.5 Mg Tablet, 2.5 MG PO BID, (Reported) Calcium Carbonate/Vitamin D3 (Calcium 500-Vit D3 10 Mcg Chew) 500 Mg-400 Tab.chew, 1 TAB PO BID, (Reported) Chlorthalidone (Chlorthalidone) 25 Mg Tablet, 12.5 MG PO 3XW, (Reported) FRIDAY, FRIDAY AND FRIDAY Flecainide Acetate (Flecainide Acetate) 50 Mg Tablet, 50 MG PO BID, (Reported) Multivitamins (Child Chew Vitamin) 1 Each Tab.chew, 1 TAB PO DAILY, (Reported) Omeprazole (Omeprazole) 20 Mg Capsule.dr, 20 MG PO DAILY, (Reported) Simvastatin (Simvastatin) 10 Mg Tablet, 10 MG PO QHS, (Reported) Spironolactone (Spironolactone) 25 Mg Tablet, 12.5 MG PO DAILY, (Reported) Scheduled PRN Tramadol HCl (Tramadol HCl) 50 Mg Tablet, 50 MG PO Q6HP PRN for MODERATE PAIN (PS 5-7) Allergies Coded Allergies: No Known Drug Allergies (Verified Allergy, Unknown, 11/26/19) A-FIB/CHADSVASC A-FIB History Current/History of A-Fib/PAF?: Yes Current PO Anticoag Therapy: Yes Age/Risk Factor Scoring CHADSVASC: CHADSVASC Response (Comments) Value Age Risk Factor Age >/= 75 years old 2 Gender Risk Factor Female 1 Hx of CHF No 0 Hx of HTN No 0 Hx of Stroke/TIA/or VTE Yes 2 Hx of Diabetes No 0 Hx of Vascular Disease Yes 1 Total 6 Treatment Treatment ordered: Apixaban GEORGINA FERNANDEZ MD Jun 07, 2020 18:56
[2020-06-07 19:22] VITALS: BP 139/73
[2020-06-07] MEDS: CALCIUM/VITAMIN D 500 MG TAB PO SCH ×2 (21:00→21:15)
[2020-06-07] MEDS: FLECAINIDE 50MG TABLET PO SCH (21:15)
[2020-06-07] MEDS: ACETAMINOPHEN 500 MG TAB PO SCH (21:15)
[2020-06-07] MEDS: SIMVASTATIN 10 MG TAB PO SCH (21:15)
[2020-06-08 04:06] LABS: APPEARANCE, URINE CLEAR (CLEAR); BACTERIA, URINE AUTO NEGATIVE (NEGATIVE); BILIRUBIN, URINE AUTO NEGATIVE (NEGATIVE); BLOOD, URINE BLOOD NEGATIVE (NEGATIVE); COLOR, URINE YELLOW (YELLOW); GLUCOSE, URINE (UA) AUTO NEGATIVE (NEGATIVE); KETONE, URINE AUTO NEGATIVE (NEGATIVE); LEUKOCYTE ESTERASE, URINE AUTO NEGATIVE (NEGATIVE); NITRITE, URINE AUTO NEGATIVE (NEGATIVE); PROTEIN, URINE AUTO NEGATIVE (NEGATIVE); RBC, URINE AUTO 1 /HPF (0-3); SPECIFIC GRAVITY URINE AUTO 1.012 (1.002-1.035); SQUAMOUS EPITHELIAL CELL UR AU 0 /HPF (0-6); UROBILINOGEN, URINE AUTO 0.2 mg/dL (0.0-2.0); WBC, URINE AUTO 1 /HPF (0-3)
[2020-06-08 06:00] VITALS: BP 124/60
[2020-06-08 06:55] LABS: BASO % 0.3 % (0.0-1.0); EOS # 0.2 10^3/uL (0.0-0.5); EOS % 1.8 % (0.0-3.0); HEMATOCRIT 38.7 % (36.0-47.0); HEMOGLOBIN 12.8 g/dl (12.0-15.5); LYMPH # 1.3 10^3/uL (1.5-5.0); LYMPH % 12.8 % (24.0-44.0); MEAN CORPUSCULAR HEMOGLOBIN 31.1 pg (27.0-33.0); MEAN CORPUSCULAR HGB CONC 33.1 g/dl (32.0-36.5); MEAN CORPUSCULAR VOLUME 93.9 fl (80.0-96.0); MONO # 1.1 10^3/uL (0.0-0.8); MONO % 11.2 % (0.0-5.0); NEUTROPHILS # 7.2 10^3/uL (1.5-8.5); NEUTROPHILS % 73.5 % (36.0-66.0); PLATELET COUNT, AUTOMATED 279 10^3/uL (150-450); RED BLOOD COUNT 4.12 10^6/uL (4.00-5.40); WHITE BLOOD COUNT 9.7 10^3/uL (4.0-10.0)
[2020-06-08] MEDS: OMEPRAZOLE 20 MG CAP PO SCH (08:14)
[2020-06-08] MEDS: ACETAMINOPHEN 500 MG TAB PO SCH ×3 (08:14→20:00)
[2020-06-08] MEDS: MULTIVITAMINS CHILDREN'S CHEWABLE TABLET PO SCH (08:14)
[2020-06-08] MEDS: CALCIUM/VITAMIN D 500 MG TAB PO SCH ×2 (08:14→20:00)
[2020-06-08] MEDS: SPIRONOLACTONE 12.5MG PER 1/2 TABLET PO SCH (08:15)
[2020-06-08] MEDS: FLECAINIDE 50MG TABLET PO SCH ×2 (08:15→20:00)
[2020-06-08] MEDS: DOCUSATE SODIUM 100 MG CAP PO SCH (08:16)
--- NOTE | 2020-06-08 08:54 | IPNPDOC ---
PM&R Progress Note DATE OF SERVICE: Jun 08, 2020 [employer] Progress Note DATE OF ADMISSION: Jun 07, 2020 at 17:15 Inpatient rehabilitation day #2 CHIEF COMPLAINT: . Rib pain. Back pain HISTORY OF PRESENT ILLNESS: This is an 85-year-old female, history of multiple CVAs, chronic A. fib, managed with Eliquis lives alone t her balance while turning in the kitchen, fell backwards hitting her head on the counter and landing on the floor. She presented evening of . to [facility] ER with complaint of left rib and back pain and foot pain. Workup included CT of the head negative for acute changes, CT spine, no acute fracture, CT chest noted for left 8 through 11 rib fractures without pneumothorax and X-Rays left foot noted for fracture 4th phalanx with angulation. Ortho cleared her for WBAT using stiff soled shoe. Due to pain, living alone and need for full safe independence in self care, she was admitted to comprehensive rehabilitation for pain management, optimization of functional capabilities, balance, strengthening and endurance training as well as in depth observation of cognitive status, safety awareness and creation of optimal compensatory strategies. REVIEW OF SYSTEMS: The following is a completed review of systems and has been reviewed. Review of systems otherwise unremarkable. PAIN: Chest and back pain. EYES: No recent vision changes. EARS, NOSE, & THROAT: No throat pain, or dysphagia, or rhinorrhea. CARDIOVASCULAR: Denies angina or palpitations. PULMONARY: Denies shortness of breath. GASTROINTESTINAL: Notes constipation uses prune juice as needed GENITOURINARY: urgent continence MUSCULOSKELETAL: pain from fx NEUROLOGICAL:. Prior CVAs, stable HEMATOLOGICAL: stable SKIN: .intact PSYCHIATRIC: Unremarkable. All other review of systems found to be negative. PAST MEDICAL HISTORY: Left CVA 2016 History right basal ganglia and internal capsule lacunar infarcts. Hyperlipidemia. Osteoporosis management by phosphonate. History of C1-2 neck fracture status post surgery PAST SURGICAL HISTORY: Appendectomy. C1 to cervical surgery. Thyroid nodule removed the 70s. Bilateral cataract surgery, lens implants ALLERGIES: Please see below. MEDICATIONS: Please see below. SOCIAL HISTORY: Lives alone with assistance of [employer] and housekeeper caregiver. Remote history of smoking 10 years, stopped in the 60s. Social wine drinker. Lives in a 2 step entrance 1 story home alone previously independent with use of a walker. DIET: Regular . PHYSICAL EXAMINATION: VITAL SIGNS: Please see below. GENERAL: Pleasant and cooperative. No distress. Alert and oriented times three. HEENT: No point tenderness. Extraocular movements intact. Clear conjunctiva, no adenopathy or thyromegaly. CARDIOVASCULAR: S1 S2 occasional extra beat, I/ murmur LUNGS: Clear to auscultation bilaterally. No wheezes. No rhonchi. Tender left anterolateral chest wall. ABDOMEN: Soft, non tender, nondistended. Positive normal active bowel sounds. NEUROLOGICAL: Able to follow 1 step commands Cranial nerves II through XII grossly intact. Sensation intact. 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 SKIN: intact LABORATORY DATA: Please see below. IMAGIN06/06/2020 CT head noted for encephalomalacia. Gliosis inferior left cere bellar lobe vermis and tonsil consistent with old infarct, chronic lacunar infarct, posterior limb of the right internal capsule. No acute ICH. Patchy small vessel ischemic disease noted. No evidence fracture 06/06/2020 CT cervical spine, mild to moderate compression fracture, C7, chronic deformity, increase in concavity superior/inferior endplates, T1 and T2. Normal morphology left C1 lateral mass with significant irregularity left C1 to articulation but stable without evidence of acute fracture or subluxation. 06/06/2020 CT chest calcified mediastinal nodes, calcified granuloma anteromedial left upper lobe. Incidental note small nonobstructing left renal calculus. Impressions felt consistent with old granulomatous disease. Chest liver, spleen, suggestion of some degree of COPD, language configuration endplate depression, C7, T1, T2 and T5 felt chronic, nondisplaced fractures, left. 8th through 10th ribs laterally and fracture, left 11th rib posteriorly. Old fractures, left fourth and fifth ribs anterolaterally. 06/07/2020. X-ray left foot fracture base proximal fourth phalanx with angulation possible fracture fragment second DIP joint, degenerative changes FUNCTIONAL STATUS: Premorbid: Independent with all activities of daily life as well as mobility. Ambulating with moderate to standby assistance. Moderate assistance for showering, bathing, lower body dressing. Continent of bowel and bladder with some stress incontinence noted. Continued evaluations in process. GOALS: Mod I for self-care and mobility, toileting and basic homemaking skills ASSESSMENT:- #8 through 11 rib fractures. Fourth phalanx fracture with angulation. Osteoporosis COPD History of multiple CVAs. History chronic A. fib. Head Injury Constipation 85 year-old lady with past medical history of left cerebellar and right internal capsule, strokes , with balance deficits who presents status post ground level fall, striking her head in the process with fractures of left 8 through 11 ribs and left foot proximal fourth phalanx. Given cerebellar involvement and balance issues, possibly aggravated with head injury and microvascular disease, continued work on coordination, motor planning, balance, endurance along with pain management with minimal adverse cognitive impacts is necessary with comprehensive rehabilitation program. PLAN: 1. Rehab- PT/OT advance gait and ADLs, strengthen/stretch/maintain ROM all 4 limbs, work on pain management observe for adverse effects of medications while promoting safe mobility, ADLs, self-care and housekeeping activities. Speech-language evaluation for cognition, memory, swallowing issues. 2. Neuro- status post prior CVAs, monitor for change. Note suggested return to Apixaban tomorrow if no neurological symptoms. 3. Ortho- stiff shoe possibly taping Toes and chest wall, pain management 4. Cardiac- hx of A. fib, SR clinically today, continue medications maintain ra te control. Suggested to hold anticoagulants until possibly resumption today. -HTN c/u ARB -HLD- c/u Zocor 5. Resp -incentive spirometry, monitor for increased risk of infection due to splinting from acute and chronic rib fractures. 6. - initiate usual bladder protocol, UA neg. 8. GI ppx- initiate usual bowel program protocol Allergies Coded Allergies: No Known Drug Allergies (Verified Allergy, Unknown, 11/26/19) Vital Signs Vital Signs Date Time Temp Pulse Resp B/P (MAP) Pulse Ox O2 Delivery O2 Flow Rate FiO2 06/08/20 06:00 97.7 56 18 124/60 (81) 94 Room Air Laboratory Data CBC/BMP Laboratory Tests 06/08/20 06:34 Labs 24H Laboratory Tests 2 06/08/20 03:35: Urine Color YELLOW, Urine Appearance CLEAR, Urine pH 6.0, Urine Specific [place] 1.012, Urine Protein NEGATIVE, Urine Glucose (Auto)(UA) NEGATIVE, Urine Ketones (Auto) NEGATIVE, Urine Blood NEGATIVE, Urine Nitrite NEGATIVE, Urine Bilirubin NEGATIVE, Urine Urobilinogen 0.2, Urine Leukocyte Esterase (Auto) NEGATIVE, Urine WBC (Auto) 1, Urine RBC (Auto) 1, Urine Hyaline Casts (Auto) 0, Urine Bacteria (Auto) NEGATIVE, Urine Squamous Epithelial Cells 0, Urine Sperm (Auto) 06/08/20 06:34: Immature Granulocyte % (Auto) 0.4, Neutrophils (%) (Auto) 73.5H, Lymphocytes (%) (Auto) 12.8L, Monocytes (%) (Auto) 11.2H, Eosinophils (%) (Auto) 1.8, Basophils (%) (Auto) 0.3, Neutrophils # (Auto) 7.2, Lymphocytes # (Auto) 1.3L, Monocytes # (Auto) 1.1H, Eosinophils # (Auto) 0.2, Basophils # (Auto) 0.0, Nucleated Red Blood Cells % (auto) 0.0 Current Medications Current Medications Current Medications Medications (Trade) Dose Ordered Sig/Chan Route PRN Reason Start Time Stop Time Status Last Admin Dose Admin Acetaminophen (Tylenol Tab) 1,000 mg TID PO 06/07/20 21:00 06/08/20 08:14 Apixaban (Eliquis) 2.5 mg BID PO 06/08/20 09:00 06/08/20 08:15 Calcium/Vitamin D (Oscal D) 500 mg BID PO 06/07/20 21:00 06/08/20 08:14 Chlorthalidone (Hygroton, Chlorthalidone) 12.5 mg MoWeFr@0900 PO 06/09/20 09:00 Docusate Sodium (Colace) 100 mg DAILY PO 06/08/20 09:00 06/08/20 08:16 Flecainide Acetate (Tambocor) 50 mg BID PO 06/07/20 21:00 06/08/20 08:15 Home Med (Med Rec Complete!) ASDIRECTED XX 06/07/20 18:00 06/07/20 18:05 DC Multivitamins (Fruity Chews-Children'S) 1 tab DAILY PO 06/08/20 09:00 06/08/20 08:14 Omeprazole (PriLOSEC) 20 mg DAILY PO 06/08/20 09:00 06/08/20 08:14 Simvastatin (Zocor) 10 mg QHS PO 06/07/20 21:00 06/07/20 21:15 Spironolactone (Aldactone) 12.5 mg DAILY PO 06/08/20 09:00 06/08/20 08:15 Tramadol HCl (Ultram) 50 mg Q6HP PRN PO MODERATE PAIN (PS 5-7) 06/07/20 18:15 GEORGINA FERNANDEZ MD Jun 08, 2020 08:54
[2020-06-08] MEDS ORDERED: APIXABAN 2.5 MG TAB (ELIQUIS) PO SCH (09:00)
[2020-06-08] MEDS: DICLOFENAC EPOLAMINE 1.3 % PATCH TOP SCH ×2 (10:13→19:59)
[2020-06-08] MEDS: MIRALAX *UNIT DOSE* 17GM PACKET PO SCH (10:14)
[2020-06-08 14:00] VITALS: BP 127/67
[2020-06-08 20:00] VITALS: BP 129/72
[2020-06-08] MEDS: SIMVASTATIN 10 MG TAB PO SCH (20:00)
[2020-06-09 06:00] VITALS: BP 162/74
[2020-06-09 08:11] VITALS: BP 128/59
[2020-06-09] MEDS: CHLORTHALIDONE 12.5MG PER 1/2 TABLET PO SCH (08:39)
[2020-06-09] MEDS: OMEPRAZOLE 20 MG CAP PO SCH (08:39)
[2020-06-09] MEDS: MULTIVITAMINS CHILDREN'S CHEWABLE TABLET PO SCH (08:39)
[2020-06-09] MEDS: CALCIUM/VITAMIN D 500 MG TAB PO SCH ×2 (08:39→21:51)
[2020-06-09] MEDS: MIRALAX *UNIT DOSE* 17GM PACKET PO SCH (08:39)
[2020-06-09] MEDS: DICLOFENAC EPOLAMINE 1.3 % PATCH TOP SCH (08:39)
[2020-06-09] MEDS: ACETAMINOPHEN 500 MG TAB PO SCH ×3 (08:39→21:52)
[2020-06-09] MEDS: FLECAINIDE 50MG TABLET PO SCH ×2 (08:40→21:51)
[2020-06-09] MEDS: SPIRONOLACTONE 12.5MG PER 1/2 TABLET PO SCH (08:40)
[2020-06-09] MEDS: DOCUSATE SODIUM 100 MG CAP PO SCH (08:40)
[2020-06-09 14:00] VITALS: BP 138/67
--- NOTE | 2020-06-09 15:34 | IPNPDOC ---
PM&R Progress Note DATE OF SERVICE: Jun 09, 2020 [employer] Progress Note DATE OF ADMISSION: Jun 07, 2020 at 17:15 Inpatient rehabilitation day #2 CHIEF COMPLAINT: . Rib pain. Back pain HISTORY OF PRESENT ILLNESS: This is an 85-year-old female, history of multiple CVAs, chronic A. fib, managed with Eliquis lives alone lost her balance while turning in the kitchen, fell backwards hitting her head on the counter and landing on the floor. She presented evening of . to [facility] ER with complaint of left rib and back pain and foot pain. Workup included CT of the head negative for acute changes, CT spine, no acute fracture, CT chest noted for left 8 through 11 rib fractures without pne umothorax and X-Rays left foot noted for fracture 4th phalanx with angulation. Ortho cleared her for WBAT using stiff soled shoe. Due to pain, living alone and need for full safe independence in self care, she was admitted to comprehensive rehabilitation for pain management, optimization of functional capabilities, balance, strengthening and endurance training as well as in depth observation of cognitive status, safety awareness and creation of optimal compensatory strategies. She is adjusting, still having challenges with BM, however pain is abating. REVIEW OF SYSTEMS: The following is a completed review of systems otherwise unr emarkable. PAIN: Chest and back pain. EYES: No recent vision changes. EARS, NOSE, & THROAT: No throat pain, or dysphagia, or rhinorrhea. CARDIOVASCULAR: Denies angina or palpitations. PULMONARY: Denies shortness of breath. GASTROINTESTINAL: Notes constipation uses prune juice as needed GENITOURINARY: urgent continence MUSCULOSKELETAL: pain from fx NEUROLOGICAL:. Prior CVAs, stable HEMATOLOGICAL: stable SKIN: .intact PSYCHIATRIC: Unremarkable. All other review of systems found to be negative. PAST MEDICAL HISTORY: Left CVA 2016 History right basal ganglia and internal capsule lacunar infarcts. Hyperlipidemia. Osteoporosis management by phosphonate. History of C1-2 neck fracture status post surgery PAST SURGICAL HISTORY: Appendectomy. C1 to cervical surgery. Thyroid nodule removed the 70s. Bilateral cataract surgery, lens implants ALLERGIES: Please see below. MEDICATIONS: Please see below. PHYSICAL EXAMINATION: VITAL SIGNS: Please see below. GENERAL: Pleasant and cooperative. No distress. Alert and oriented times three. HEENT: No point tenderness. Extraocular movements intact. Clear conjunctiva, no adenopathy or thyromegaly. CARDIOVASCULAR: S1 S2 occasional extra beat, I/ murmur LUNGS: Clear to auscultation bilaterally. No wheezes. No rhonchi. Tender left anterolateral chest wall. ABDOMEN: Soft, non tender, nondistended. Positive normal active bowel sounds. NEUROLOGICAL: Able to follow 1 step commands Cranial nerves II through XII grossly intact. Sensation intact. 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 Cliff taped. SKIN: intact LABORATORY DATA: Please see below. IMAGIN06/06/2020 CT head noted for encephalomalacia. Gliosis inferior left cereb ellar lobe vermis and tonsil consistent with old infarct, chronic lacunar infarct, posterior limb of the right internal capsule. No acute ICH. Patchy small vessel ischemic disease noted. No evidence fracture 06/06/2020 CT cervical spine, mild to moderate compression fracture, C7, chronic deformity, increase in concavity superior/inferior endplates, T1 and T2. Normal morphology left C1 lateral mass with significant irregularity left C1 to articulation but stable without evidence of acute fracture or subluxation. 06/06/2020 CT chest calcified mediastinal nodes, calcified granuloma anteromedial left upper lobe. Incidental note small nonobstructing left renal calculus. Impressions felt consistent with old granulomatous disease. Chest liver, spleen, suggestion of some degree of COPD, language configuration endplate depression, C7, T1, T2 and T5 felt chronic, nondisplaced fractures, left. 8th through 10th ribs laterally and fracture, left 11th rib posteriorly. Old fractures, left fourth and fifth ribs anterolaterally. 06/07/2020. X-ray left foot fracture base proximal fourth phalanx with angulation possible fracture fragment second DIP joint, degenerative changes FUNCTIONAL STATUS: Premorbid: Independent with all activities of daily life as well as mobility. Ambulating and transfers with standby assistance. Moderate assistance for showering, bathing, lower body dressing. Continent of bowel and bladder with some stress incontinence noted. Continued evaluations in process. GOALS: Mod I for self-care and mobility, toileting and basic homemaking skills ASSESSMENT:- #8 through 11 rib fractures. Fourth phalanx fracture with angulation. Osteoporosis COPD History of multiple CVAs. History chronic A. fib. Head Injury Constipation 85 year-old lady with past medical history of left cerebellar and right internal capsule, strokes , with balance deficits who presents status post ground level fall, striking her head in the process with fractures of left 8 through 11 ribs and left foot proximal fourth phalanx. Given cerebellar involvement and balance issues, possibly aggravated with head injury and microvascular disease, continued work on coordination, motor planning, balance, endurance along with pain management with minimal adverse cognitive impacts is necessary with compreh ensive rehabilitation program. PLAN: 1. Rehab- PT/OT advance gait and ADLs, strengthen/stretch/maintain ROM all 4 limbs, work on pain management observe for adverse effects of medications while promoting safe mobility, ADLs, self-care and housekeeping activities. Speech-language evaluation for cognition, memory, swallowing issues. 2. Neuro- status post prior CVAs, monitor for change. Note suggested return to Apixaban since no new neurological symptoms noted. 3. Ortho- stiff shoe possibly taping Toes and chest wall, pain management 4. Cardiac- hx of A. fib, SR clinically today, continue medications maintain rate control. Resume apixaban. -HTN c/u ARB -HLD- c/u Zocor 5. Resp -incentive spirometry, monitor for increased risk of infection due to splinting from acute and chronic rib fractures. 6. - initiate usual bladder protocol, UA neg. 8. GI ppx- initiate usual bowel program protocol, add suppository to stimulate response TIME SPENT: Chart Review, examination and documentation [30] minutes. Allergies Coded Allergies: No Known Drug Allergies (Verified Allergy, Unknown, 11/26/19) Vital Signs Vital Signs Date Time Temp Pulse Resp B/P (MAP) Pulse Ox O2 Delivery O2 Flow Rate FiO2 06/09/20 14:00 97.9 64 18 138/67 (90) 96 Room Air Current Medications Current Medications Current Medications Medications (Trade) Dose Ordered Sig/Chan Route PRN Reason Start Time Stop Time Status Last Admin Dose Admin Acetaminophen (Tylenol Tab) 1,000 mg TID PO 06/07/20 21:00 06/09/20 08:39 Apixaban (Eliquis) 2.5 mg BID PO 06/08/20 09:00 06/08/20 09:37 DC 06/08/20 08:15 Apixaban (Eliquis) 2.5 mg DAILY PO 06/10/20 09:00 UNV Calcium/Vitamin D (Oscal D) 500 mg BID PO 06/07/20 21:00 06/09/20 08:39 Chlorthalidone (Hygroton, Chlorthalidone) 12.5 mg MoWeFr@0900 PO 06/09/20 09:00 06/09/20 08:39 Diclofenac Epolamine (Flector 1.3%) 1 patch Q12H TOP 06/08/20 09:00 06/09/20 08:39 Docusate Sodium (Colace) 100 mg DAILY PO 06/08/20 09:00 06/09/20 08:40 Flecainide Acetate (Tambocor) 50 mg BID PO 06/07/20 21:00 06/09/20 08:40 Home Med (Med Rec Complete!) ASDIRECTED XX 06/07/20 18:00 06/07/20 18:05 DC Multivitamins (Fruity Chews-Children'S) 1 tab DAILY PO 06/08/20 09:00 06/09/20 08:39 Omeprazole (PriLOSEC) 20 mg DAILY PO 06/08/20 09:00 06/09/20 08:39 Polyethylene Glycol (Miralax) 1 pkt DAILY PO 06/08/20 09:00 06/09/20 08:39 Simvastatin (Zocor) 10 mg QHS PO 06/07/20 21:00 06/08/20 20:00 Spironolactone (Aldactone) 12.5 mg DAILY PO 06/08/20 09:00 06/09/20 08:40 Tramadol HCl (Ultram) 50 mg Q6HP PRN PO MODERATE PAIN (PS 5-7) 06/07/20 18:15 GEORGINA FERNANDEZ MD Jun 09, 2020 15:34
[2020-06-09 20:00] VITALS: BP 130/71
[2020-06-09] MEDS: SIMVASTATIN 10 MG TAB PO SCH (21:52)
[2020-06-09] MEDS: LIDOCAINE 5% (LIDODERM) PATCH TD SCH (21:54)
[2020-06-10 06:05] VITALS: BP 140/80
[2020-06-10] MEDS: CALCIUM/VITAMIN D 500 MG TAB PO SCH ×2 (08:21→21:27)
[2020-06-10] MEDS: OMEPRAZOLE 20 MG CAP PO SCH (08:21)
[2020-06-10] MEDS: MULTIVITAMINS CHILDREN'S CHEWABLE TABLET PO SCH (08:21)
[2020-06-10] MEDS: DOCUSATE SODIUM 100 MG CAP PO SCH (08:21)
[2020-06-10] MEDS: FLECAINIDE 50MG TABLET PO SCH ×2 (08:21→21:27)
[2020-06-10] MEDS: MIRALAX *UNIT DOSE* 17GM PACKET PO SCH (08:21)
[2020-06-10] MEDS: APIXABAN 2.5 MG TAB (ELIQUIS) PO SCH (08:21)
[2020-06-10] MEDS: DICLOFENAC EPOLAMINE 1.3 % PATCH TOP SCH (08:23)
[2020-06-10] MEDS: **NOTE PATIENT COMMENT** MISC XX SCH (08:23)
[2020-06-10] MEDS: ACETAMINOPHEN 500 MG TAB PO SCH ×3 (08:23→21:26)
[2020-06-10] MEDS: SPIRONOLACTONE 12.5MG PER 1/2 TABLET PO SCH (08:24)
[2020-06-10 14:00] VITALS: BP 136/77
[2020-06-10 20:00] VITALS: BP 142/71
[2020-06-10] MEDS: SIMVASTATIN 10 MG TAB PO SCH (21:27)
[2020-06-10] MEDS: LIDOCAINE 5% (LIDODERM) PATCH TD SCH (21:28)
[2020-06-11 05:59] VITALS: BP 133/65
[2020-06-11] MEDS: DOCUSATE SODIUM 100 MG CAP PO SCH (07:37)
[2020-06-11] MEDS: OMEPRAZOLE 20 MG CAP PO SCH (07:38)
[2020-06-11] MEDS: SPIRONOLACTONE 12.5MG PER 1/2 TABLET PO SCH (07:38)
[2020-06-11] MEDS: FLECAINIDE 50MG TABLET PO SCH ×2 (07:38→20:12)
[2020-06-11] MEDS: CALCIUM/VITAMIN D 500 MG TAB PO SCH ×2 (07:38→20:12)
[2020-06-11] MEDS: APIXABAN 2.5 MG TAB (ELIQUIS) PO SCH (07:38)
[2020-06-11] MEDS: MULTIVITAMINS CHILDREN'S CHEWABLE TABLET PO SCH (07:38)
[2020-06-11] MEDS: ACETAMINOPHEN 500 MG TAB PO SCH ×3 (07:38→20:12)
[2020-06-11] MEDS: DICLOFENAC EPOLAMINE 1.3 % PATCH TOP SCH (07:39)
[2020-06-11] MEDS: MIRALAX *UNIT DOSE* 17GM PACKET PO SCH (07:39)
[2020-06-11] MEDS: **NOTE PATIENT COMMENT** MISC XX SCH (09:09)
[2020-06-11 14:00] VITALS: BP 140/63
[2020-06-11 20:00] VITALS: BP 157/74
[2020-06-11] MEDS: SIMVASTATIN 10 MG TAB PO SCH (20:12)
[2020-06-11] MEDS: LIDOCAINE 5% (LIDODERM) PATCH TD SCH (20:13)
[2020-06-12 06:06] VITALS: BP 148/69
--- NOTE | 2020-06-12 08:19 | IPNPDOC ---
PM&R Progress Note DATE OF SERVICE: Jun 12, 2020 Color Receiver Progress Note DATE OF ADMISSION: Jun 07, 2020 at 17:15 Inpatient rehabilitation day #6 CHIEF COMPLAINT: . Rib pain. Back pain HISTORY OF PRESENT ILLNESS: This is an 85-year-old female, history of multiple CVAs, chronic A. fib, managed with Eliquis lives alone lost her balance while turning in the kitchen, fell backwards hitting her head on the counter and landing on the floor. She presented evening of . to [facility] ER with complaint of left rib and back pain and foot pain. Workup included CT of the head negative for acute changes, CT spine, no acute fracture, CT chest noted for left 8 through 11 rib fractures without pneu mothorax and X-Rays left foot noted for fracture 4th phalanx with angulation. Ortho cleared her for WBAT using stiff soled shoe. Due to pain, living alone and need for full safe independence in self care, she was admitted to comprehensive rehabilitation for pain management, optimization of functional capabilities, balance, strengthening and endurance training as well as in depth observation of cognitive status, safety awareness and creation of optimal compensatory strategies. She is adjusting, still having challenges with BM and nightmares, possibly reaction to Tramadol, however pain is abating. REVIEW OF SYSTEMS: The following is a completed review of systems otherwise unremarkable. PAIN: Chest and back pain. EYES: No recent vision changes. EARS, NOSE, & THROAT: No throat pain, or dysphagia, or rhinorrhea. CARDIOVASCULAR: Denies angina or palpitations. PULMONARY: Denies shortness of breath. GASTROINTESTINAL: Notes constipation uses prune juice as needed GENITOURINARY: urgent continence MUSCULOSKELETAL: pain from fx NEUROLOGICAL:. Prior CVAs, stable DATE OF SERVICE: Jun 12, 2020 Color Receiver Progress Note DATE OF ADMISSION: Jun 07, 2020 at 17:15 Inpatient rehabilitation day #6 CHIEF COMPLAINT: . Rib pain. Back pain HISTORY OF PRESENT ILLNESS: This is an 85-year-old female, history of multiple CVAs, chronic A. fib, managed with [facility] lives alone lost her balance while turning in the kitchen, fell backwards hitting her head on the counter and landing on the floor. She presented evening of . to [facility] ER with complaint of left rib and back pain and foot pain. Workup included CT of the head negative for acute changes, CT spine, no acute fracture, CT chest noted for left 8 through 11 rib fractures without pneumothorax and X-Rays left foot noted for fracture 4th phalanx with angulation. Ortho cleared her for WBAT using stiff soled shoe. Due to pain, living alone and need for full safe independence in self care, she was admitted to comprehensive rehabilitation for pain management, optimization of functional capabilities, balance, strengthening and endurance training as well as in depth observation of cognitive status, safety awareness and creation of optimal compensatory strategies. She is adjusting, still having challenges with BM and nightmares, possibly reaction to Tramadol, however pain is abating. REVIEW OF SYSTEMS: The following is a completed review of systems otherwise unremarkable. PAIN: Chest and back pain. EYES: No recent vision changes. EARS, NOSE, & THROAT: No throat pain, or dysphagia, or rhinorrhea. CARDIOVASCULAR: Denies angina or palpitations. PULMONARY: Denies shortness of breath. GASTROINTESTINAL: Notes constipation uses prune juice as needed GENITOURINARY: urgent continence MUSCULOSKELETAL: pain from fx NEUROLOGICAL:. Prior CVAs, stable HEMATOLOGICAL: stable SKIN: .intact PSYCHIATRIC: Unremarkable. All other review of systems found to be negative. ALLERGIES: Please see below. MEDICATIONS: Please see below. PHYSICAL EXAMINATION: VITAL SIGNS: Please see below. GENERAL: Pleasant and cooperative. No distress. Alert and oriented times three. HEENT: No point tenderness. Extraocular movements intact. Clear conjunctiva, no adenopathy or thyromegaly. CARDIOVASCULAR: S1 S2 occasional extra beat, I/ murmur LUNGS: Clear to auscultation bilaterally. No wheezes. No rhonchi. Tender left anterolateral chest wall. ABDOMEN: Soft, non tender, nondistended. Positive normal active bowel sounds. NEUROLOGICAL: Able to follow 1 step commands Cranial nerves II through XII grossly intact. Sensation intact. EXTREMITIES: 5 /5 institute director, elbow flexion, elbow extension, foot dorsiflexion, plantar flexion pain on testing left 4th toe, cyanotic base, tender. Cliff taped. SKIN: intact LABORATORY DATA: Please see below. IMAGIN06/06/2020 CT head noted for encephalomalacia. Gliosis inferior left cerebellar lobe vermis and tonsil consistent with old infarct, chronic lacunar infarct, posterior limb of the right internal capsule. No acute ICH. Patchy small vessel ischemic disease noted. No evidence fracture 06/06/2020 CT cervical spine, mild to moderate compression fracture, C7, chronic deformity, increase in concavity superior/inferior endplates, T1 and T2. Normal morphology left C1 lateral mass with significant irregularity left C1 to articulation but stable without evidence of acute fracture or subluxation. 06/06/2020 CT chest calcified mediastinal nodes, calcified granuloma anteromedial left upper lobe. Incidental note small nonobstructing left renal calculus. Impressions felt consistent with old granulomatous disease. Chest liver, spleen, suggestion of some degree of COPD, language configuration endplate depression, C7, T1, T2 and T5 felt chronic, nondisplaced fractures, left. 8th through 10th ribs laterally and fracture, left 11th rib posteriorly. Old fractures, left fourth and fifth ribs anterolaterally. 06/07/2020. X-ray left foot fracture base proximal fourth phalanx with angulation possible fracture fragment second DIP joint, degenerative changes FUNCTIONAL STATUS: Premorbid: Independent with all activities of daily life as well as mobility. Patient demonstrates 150 ft x2 with RW- SBA level for ambulation. Continues to require CGA for higher level balance activities. Occasional loss of balance while patient standing in room doffing face mask. Patient had difficulty descending curb- requires multiple VC for technique- difficulty problem solving this session. GOALS: Mod I for self-care and mobility, toileting and basic homemaking skills ASSESSMENT:- #8 through 11 rib fractures. Fourth phalanx fracture with angulation. Osteoporosis COPD History of multiple CVAs. History chronic A. fib. Head Injury Constipation 85 year-old lady with past medical history of left cerebellar and right internal capsule, strokes , with balance deficits who presents status post ground level fall, striking her head in the process with fractures of left 8 through 11 ribs and left foot proximal fourth phalanx. Given cerebellar involvement and balance issues, possibly aggravated with head injury and microvascular disease, continued work on coordination, motor planning, balance, endurance along with pain management with minimal adverse cognitive impacts is necessary with comprehensive rehabilitation program. Also having sleep issues, not uncommon after possible post concussion, will continue to modify medications and observe for adverse effects. PLAN: 1. Rehab- PT/OT advance gait and ADLs, strengthen/stretch/maintain ROM all 4 limbs, work on pain management observe for adverse effects of medications while promoting safe mobility, ADLs, self-care and housekeeping activities. Speech-language evaluation for cognition, memory, swallowing issues. 2. Neuro- status post prior CVAs, monitor for change. Note suggested return to Apixaban since no new neurological symptoms noted. 3. Ortho- stiff shoe possibly taping Toes and chest wall, pain management 4. Cardiac- hx of A. fib, SR clinically today, continue medications maintain rate control. Resume apixaban. -HTN c/u ARB -HLD- c/u Zocor 5. Resp -incentive spirometry, monitor for increased risk of infection due to splinting from acute and chronic rib fractures. 6. - initiate usual bladder protocol, UA neg. 8. GI ppx- initiate usual bowel program protocol, add suppository to stimulate response TIME SPENT: Chart Review, examination and documentation [30] minutes. Allergies Coded Allergies: No Known Drug Allergies (Verified Allergy, Unknown, 11/26/19) Vital Signs Vital Signs Date Time Temp Pulse Resp B/P (MAP) Pulse Ox O2 Delivery O2 Flow Rate FiO2 06/12/20 06:06 97.9 61 18 148/69 (95) 98 Room Air Current Medications Current Medications Current Medications Medications (Trade) Dose Ordered Sig/Chan Route PRN Reason Start Time Stop Time Status Last Admin Dose Admin Acetaminophen (Tylenol Tab) 1,000 mg TID PO 06/07/20 21:00 06/11/20 20:12 Apixaban (Eliquis) 2.5 mg BID PO 06/08/20 09:00 06/08/20 09:37 DC 06/08/20 08:15 Apixaban (Eliquis) 2.5 mg DAILY PO 06/10/20 09:00 06/11/20 07:38 Calcium/Vitamin D (Oscal D) 500 mg BID PO 06/07/20 21:00 06/11/20 20:12 Chlorthalidone (Hygroton, Chlorthalidone) 12.5 mg MoWeFr@0900 PO 06/09/20 09:00 06/09/20 08:39 Diclofenac Epolamine (Flector 1.3%) 1 patch DAILY TOP 06/10/20 09:00 06/11/20 07:39 Diclofenac Epolamine (Flector 1.3%) 1 patch Q12H TOP 06/08/20 09:00 06/09/20 15:37 DC 06/09/20 08:39 Docusate Sodium (Colace) 100 mg DAILY PO 06/08/20 09:00 06/11/20 07:37 Flecainide Acetate (Tambocor) 50 mg BID PO 06/07/20 21:00 06/11/20 20:12 Home Med (Med Rec Complete!) ASDIRECTED XX 06/07/20 18:00 06/07/20 18:05 DC Lidocaine (Lidoderm Patch) 1 patch QHS TD 06/09/20 21:00 06/11/20 20:13 Multivitamins (Fruity Chews-Children'S) 1 tab DAILY PO 06/08/20 09:00 06/11/20 07:38 Non-Formulary Medication ( See Comment Field Below ) REMOVE LIDODERM PATCH DAILY XX 06/10/20 09:00 06/11/20 09:09 Omeprazole (PriLOSEC) 20 mg DAILY PO 06/08/20 09:00 06/11/20 07:38 Polyethylene Glycol (Miralax) 1 pkt DAILY PO 06/08/20 09:00 06/11/20 07:39 Simvastatin (Zocor) 10 mg QHS PO 06/07/20 21:00 06/11/20 20:12 Spironolactone (Aldactone) 12.5 mg DAILY PO 06/08/20 09:00 06/11/20 07:38 Tramadol HCl (Ultram) 50 mg Q6HP PRN PO MODERATE PAIN (PS 5-7) 06/07/20 18:15 06/11/20 02:44 GEORGINA FERNANDEZ MD Jun 12, 2020 08:19
[2020-06-12] MEDS ORDERED: hydrOXYzine 10 MG TAB PO PRN (08:30)
[2020-06-12] MEDS: SPIRONOLACTONE 12.5MG PER 1/2 TABLET PO SCH (10:20)
[2020-06-12] MEDS: CALCIUM/VITAMIN D 500 MG TAB PO SCH ×2 (10:21→22:05)
[2020-06-12] MEDS: DOCUSATE SODIUM 100 MG CAP PO SCH (10:21)
[2020-06-12] MEDS: APIXABAN 2.5 MG TAB (ELIQUIS) PO SCH (10:21)
[2020-06-12] MEDS: CHLORTHALIDONE 12.5MG PER 1/2 TABLET PO SCH (10:21)
[2020-06-12] MEDS: ACETAMINOPHEN 500 MG TAB PO SCH ×3 (10:21→22:06)
[2020-06-12] MEDS: MULTIVITAMINS CHILDREN'S CHEWABLE TABLET PO SCH (10:21)
[2020-06-12] MEDS: FLECAINIDE 50MG TABLET PO SCH ×2 (10:21→22:06)
[2020-06-12] MEDS: OMEPRAZOLE 20 MG CAP PO SCH (10:21)
[2020-06-12] MEDS: DICLOFENAC EPOLAMINE 1.3 % PATCH TOP SCH (10:22)
[2020-06-12] MEDS: **NOTE PATIENT COMMENT** MISC XX SCH (10:22)
[2020-06-12] MEDS: MIRALAX *UNIT DOSE* 17GM PACKET PO SCH (10:22)
[2020-06-12 14:00] VITALS: BP 136/65
[2020-06-12 20:00] VITALS: BP 119/59
[2020-06-12] MEDS: SIMVASTATIN 10 MG TAB PO SCH (22:06)
[2020-06-12] MEDS: LIDOCAINE 5% (LIDODERM) PATCH TD SCH (22:07)
[2020-06-13 05:57] VITALS: BP 123/60
[2020-06-13] MEDS: CALCIUM/VITAMIN D 500 MG TAB PO SCH ×2 (08:58→20:31)
[2020-06-13] MEDS: OMEPRAZOLE 20 MG CAP PO SCH (08:58)
[2020-06-13] MEDS: DOCUSATE SODIUM 100 MG CAP PO SCH (08:58)
[2020-06-13] MEDS: DICLOFENAC EPOLAMINE 1.3 % PATCH TOP SCH (08:58)
[2020-06-13] MEDS: FLECAINIDE 50MG TABLET PO SCH ×2 (08:59→20:31)
[2020-06-13] MEDS: APIXABAN 2.5 MG TAB (ELIQUIS) PO SCH (08:59)
[2020-06-13] MEDS: ACETAMINOPHEN 500 MG TAB PO SCH ×3 (08:59→20:32)
[2020-06-13] MEDS: MIRALAX *UNIT DOSE* 17GM PACKET PO SCH (08:59)
[2020-06-13] MEDS: MULTIVITAMINS CHILDREN'S CHEWABLE TABLET PO SCH (08:59)
[2020-06-13] MEDS: SPIRONOLACTONE 12.5MG PER 1/2 TABLET PO SCH (09:00)
[2020-06-13] MEDS: **NOTE PATIENT COMMENT** MISC XX SCH (09:00)
--- NOTE | 2020-06-13 12:10 | HPEPDOC ---
[facility] Medical History & Physical Date of Admission Jun 12, 2020 Date of Service: Jun 13, 2020 Attending Physician: Erlinda Velasquez MD History and Physical MEDICAL H&P HISTORY OF PRESENT ILLNESS: Patient is an 85 year old female with PMH of multiple CVAs, HLD, osteoporosis who was recently admitted to ARU after discharge from acute inpatient for recent mechanical fall with acute left 8-11 rib fx, left foot 4th phalanx base fracture and atrial fibrillation. Patient states that she lost her balance and fell hitting her head on the counter before landing on the floor the day of her fall. She denies lightheadedness/dizziness, palpitations, chest pain, or dyspnea before the fall. Reported head strike but no loss of consciousness after the fall. In the ED, CT head which was negative for ICH. CT cervical spine demonstrated no acute fracture. CT chest demonstrated left 8-11 rib fractures. Left XR foot demonstrated proximal 4th phalanx fracture with angulation. Patient was admitted for intractable pain and physical therapy. Orthopedic surgery was consulted and recommended weight bearing as tolerated, stiff soled shoe, and outpatient follow up. Patient later was admitted to ARU for continued physical therapy and rehabilitation. Upon my evaluation of patient at the bedside, she has no acute complaints aside from some worsening "muffling of hearing from the right ear". When asked if this was acute, she said no and that it has been worsening over time. She describes it as "having water in her ear". Nursing had evaluated with otoscope prior to me coming in and did not see TM but a lot of wax. She admits to occasional blurry vision but this again is chronic. She denies lethargy, chest pain, n/v/d, fevers, chills, shortness of breath. REVIEW OF SYSTEMS: CONSTITUTIONAL: Denies lack of energy, unexplained weight gain or weight loss, loss of appetite, fever, night sweats EYES: Denies eye drainage, eye pain, dry/irritated eye EARS, NOSE, MOUTH, THROAT: Denies ringing in ears, mouth sores, loose teeth, sore throat, facial numbness or pain NECK: Denies swollen glands CARDIOVASCULAR: Denies irregular heartbeat, racing heart, chest pains, swelling of feet or legs, pain in legs with walking RESPIRATORY: Denies shortness of breath, night sweats, wheezing, sputum production, oxygen at home, coughing up blood, cough lasting > 1 month GASTROINTESTINAL: Denies abdominal pain, constipation, bloody stool, diarrhea, heartburn, nausea, vomiting GENITOURINARY: Denies painful urination, bloody urine, frequent urination, urgency, leaking urine, impotence MUSCULOSKELETAL: Denies joint pain, muscle pain, leg swelling INTEGUMENTARY: Denies rash, itching, new skin lesion, change in existing skin lesion, hair loss or increase, breast changes. NEUROLOGICAL: Denies numbness or tingling PSYCHIATRIC: Denies depression, anxiety, recurrent bad thoughts, mood swings, hallucinations PAST MEDICAL HISTORY: 1. History of left cerebral and vermian infract 2016 2. History of right basal ganglia and internal capsule lacunar infarcts unknown time 3. Hyperlipidemia 4. 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 C1-C2 neck fracture 7. Hx of Mechanical Fall 8. Recent hx of acute left 8-11 rib fractures 9. Recent hx of acute left foot 4th phalanx base fracture 10. History of multiple CVA 11. Atrial fibrillation PAST SURGICAL HISTORY: 1. Appendectomy 2. C1-C2 neck surgery 3. Thyroid nodule removal in 4. Bilateral cataract surgery with lens placement SOCIAL HISTORY: Patient currently in ARU for rehab. Previously lived alone but had assistance with housework and Meals on Wheels with family as neighbors. Employment: Retired. Hx of tobacco use: Former smoker with only smoked for 10 years. ETOH: Social wine drinker. Illicit drug use: Denies. CODE STATUS: DNR/DNI MOLST form in chart FAMILY HISTORY: Mother: Healthy, 2/2 to old age Father: Healthy, 2/2 to old age ALLERGIES: NKDA CURRENT MEDICATIONS: Please see below PHYSICAL EXAMINATION: VS: Please see below CONSTITUTIONAL: No acute distress, resting comfortably at bedside chair , AAO x 3 EYES: PERRLA, EOM intact, corrective lenses in place HENT, MOUTH: Normocephalic, atraumatic, moist mucous membrane NECK: SUPPLE, no JVD, no lymphadenopathy, no carotid bruit CV: Regular rate and rhythm, S1S2 normal, no murmurs/rubs/gallops RESPIRATORY: Clear to auscultation bilaterally, no rales/rhonchi/wheezes GI: BS positive in 4 quadrants, soft, nontender, nondistended, no rebound or guarding, no organomegaly : Deferred MUSCULOSKELETAL: foot boot, Normal ROM. No cyanosis, clubbing, swelling, joint deformity, extremity edema INTEGUMENTARY: Intact, no rashes, no lesions, no erythema NEUROLOGIC: Cranial Nerves II-XII are intact, no focal deficits PSYCHIATRIC: Mood and affect are normal LABORATORY DATA: Please see below IMAGING: No new imaging Please refer to prior admission for imaging ASSESSMENT: 85 y/o F with PMH of multiple CVAs, HLD, osteoporosis, C1-C2 neck fracture, hx of recent mechanical fall with acute left 8-11 rib fx, left foot 4th phalanx base fracture and atrial fibrillation who is admitted for continued rehabilitation to Acute Rehab Unit. PLAN: 1. Left foot, proximal 4th phalanx fracture with angulation s/p fall -Weight bearing as tolerated -Stiff toed shoe -Follow up with orthopedic surgery -PT/OT 2. Left rib fractures s/p fall -There is old fractures of left 4th and 5th rib -Pain control, PT/OT, f/u with ortho 3. Hx of multiple CVAs -Continue simvastatin 4. Atrial fibrillation -Stable -C/w flecainide, eliquis BID 5. Right ear fullness possibly 2/2 to cerumin impaction -Recommend cleaning of ear canal with water, hydrogen peroxide -Can use debrox drops after that if not evacuated -Reassess after cleaning 6. DVT ppx -Eliquis BID DISPOSITION: Thank you kindly for this medical consult. We will follow regularly. Do not hesitate to call at any time for reevaluation. Vital Signs Vital Signs Date Time Temp Pulse Resp B/P (MAP) Pulse Ox O2 Delivery O2 Flow Rate FiO2 06/13/20 05:57 98.6 64 18 123/60 (81) 96 Room Air Home Medications Scheduled Acetaminophen (Acetaminophen) 500 Mg Tablet, 1,000 MG PO TID Alendronate Sodium (Alendronate Sodium) 70 Mg/75 Ml Solution, 75 ML PO QWEEK Apixaban (Eliquis) 2.5 Mg Tablet, 2.5 MG PO BID Calcium Carbonate/Vitamin D3 (Calcium 500-Vit D3 10 Mcg Chew) 500 Mg-400 Tab.chew, 1 TAB PO BID Chlorthalidone (Chlorthalidone) 25 Mg Tablet, 12.5 MG PO 3XW FRIDAY, FRIDAY AND LOIS Flecainide Acetate (Flecainide Acetate) 50 Mg Tablet, 50 MG PO BID Multivitamins (Child Chew Vitamin) 1 Each Tab.chew, 1 TAB PO DAILY Omeprazole (Omeprazole) 20 Mg Capsule.dr, 20 MG PO DAILY Simvastatin (Simvastatin) 10 Mg Tablet, 10 MG PO QHS Spironolactone (Spironolactone) 25 Mg Tablet, 12.5 MG PO DAILY Scheduled PRN Tramadol HCl (Tramadol HCl) 50 Mg Tablet, 50 MG PO Q6HP PRN for MODERATE PAIN (PS 5-7) Miscellaneous Medications [Patient Comment] PATIENT UNAVAILABLE. COMPLETED USING EXTERNAL MED HISTORY. Allergies Coded Allergies: No Known Drug Allergies (Verified Allergy, Unknown, 11/26/19) A-FIB/CHADSVASC A-FIB History Current/History of A-Fib/PAF?: Yes Current PO Anticoag Therapy: Yes Age/Risk Factor Scoring CHADSVASC: CHADSVASC Response (Comments) Value Age Risk Factor Age >/= 75 years old 2 Gender Risk Factor Female 1 Hx of CHF No 0 Hx of HTN No 0 Hx of Stroke/TIA/or VTE No 0 Hx of Diabetes No 0 Hx of Vascular Disease No 0 Total 3 Treatment Treatment ordered: Apixaban Erlinda Velasquez MD Jun 13, 2020 12:10
[2020-06-13] MEDS: CARBAMIDE PEROXIDE 6.5% OTIC SOLN 15ML AU SCH ×2 (12:27→20:31)
--- NOTE | 2020-06-13 13:00 | IPNPDOC ---
PM&R Progress Note DATE OF SERVICE: Jun 13, 2020 Science Instructor Progress Note DATE OF SERVICE: Jun 13, 2020 Inpatient rehabilitation day #7 CHIEF COMPLAINT: . Rib pain. Back pain Hearing deficits HISTORY OF PRESENT ILLNESS: This is an 85-year-old female, history of multiple CVAs, chronic A. fib, managed with Eliquis lives alone lost her balance while turning in the kitchen, fell backwards hitting her head on the counter and landing on the floor. She presented evening of 11. to [facility] ER with complaint of left rib and back pain and foot pain. Workup included CT of the head negative for acute changes, CT spine, no acute fracture, CT chest noted for left 8 through 11 rib fractures without pneumoth orax and X-Rays left foot noted for fracture 4th phalanx with angulation. Ortho cleared her for WBAT using stiff soled shoe. Due to pain, living alone and need for full safe independence in self care, she was admitted to comprehensive rehabilitation for pain management, optimization of functional capabilities, balance, strengthening and endurance training as well as in depth observation of cognitive status, safety awareness and creation of optimal compensatory strategies. She is adjusting, still having challenges with BM and nightmares, possibly reaction to Tramadol, however pain is abating now that that was stopped. Complains hearing is worst ever, feels her ears are stopped up. REVIEW OF SYSTEMS: The following is a completed review of systems otherwise unremarkable. PAIN: Chest and back pain. EYES: No recent vision changes. EARS, NOSE, & THROAT: No throat pain, or dysphagia, or rhinorrhea, poor hearing. CARDIOVASCULAR: Denies angina or palpitations. PULMONARY: Denies shortness of breath. GASTROINTESTINAL: Notes constipation uses prune juice as needed, moving bowels regularly GENITOURINARY: urgent continence MUSCULOSKELETAL: pain from fx NEUROLOGICAL:. Prior CVAs, stable HEMATOLOGICAL: stable SKIN: .intact PSYCHIATRIC: Unremarkable. All other review of systems found to be negative. ALLERGIES: Please see below. MEDICATIONS: Please see below. PHYSICAL EXAMINATION: VITAL SIGNS: Please see below. GENERAL: Pleasant and cooperative. No distress. Alert and oriented times three. HEENT: TM unable to be visualized, cerumen impaction bilaterally.No point tenderness. Extraocular movements intact. Clear conjunctiva, no adenopathy or thyromegaly. CARDIOVASCULAR: S1 S2 occasional extra beat, I/ murmur LUNGS: Clear to auscultation bilaterally. No wheezes. No rhonchi. Tender left anterolateral chest wall. ABDOMEN: Soft, non tender, nondistended. Positive normal active bowel sounds. NEUROLOGICAL: Able to follow 1 step commands Cranial nerves II through XII grossly intact. Sensation intact. EXTREMITIES: 5 /5 orange picker, elbow flexion, elbow extension, foot dorsiflexion, plantar flexion pain on testing left 4th toe, cyanotic base, tender. Cliff taped. Less cyanosis or tenderness dorsum l toes. SKIN: intact LABORATORY DATA: Please see below. IMAGIN06/06/2020 CT head noted for encephalomalacia. Gliosis inferior left cerebellar lobe vermis and tonsil consistent with old infarct, chronic lacunar infarct, posterior limb of the right internal capsule. No acute ICH. Patchy small vessel ischemic disease noted. No evidence fracture 06/06/2020 CT cervical spine, mild to moderate compression fracture, C7, chronic deformity, increase in concavity superior/inferior endplates, T1 and T2. Normal morphology left C1 lateral mass with significant irregularity left C1 to articulation but stable without evidence of acute fracture or subluxation. 06/06/2020 CT chest calcified mediastinal nodes, calcified granuloma anteromedial left upper lobe. Incidental note small nonobstructing left renal calculus. Impressions felt consistent with old granulomatous disease. Chest liver, spleen, suggestion of some degree of COPD, language configuration endplate depression, C7, T1, T2 and T5 felt chronic, nondisplaced fractures, left. 8th through 10th ribs laterally and fracture, left 11th rib posteriorly. Old fractures, left fourth and fifth ribs anterolaterally. 06/07/2020. X-ray left foot fracture base proximal fourth phalanx with angulation possible fracture fragment second DIP joint, degenerative changes FUNCTIONAL STATUS: Premorbid: Independent with all activities of daily life as well as mobility. Pt with posterior LOB during initialy sit to stand from chair possibly due to visual deficits as pt attmepted to reach for table to stabilize on when LOB occurred. Pt able to maintain SBA w/ RW, however cont veering during gait noted. Patient had difficulty descending curb- requires multiple VC for technique- difficulty problem solving this session. GOALS: Mod I for self-care and mobility, toileting and basic homemaking skills ASSESSMENT:- #8 through 11 rib fractures. Fourth phalanx fracture with angulation. Osteoporosis COPD History of multiple CVAs. History chronic A. fib. Head Injury Constipation Cerumen impaction 85 year-old lady with past medical history of left cerebellar and right internal capsule, strokes , with balance deficits who presents status post ground level fall, striking her head in the process with fractures of left 8 through 11 ribs and left foot proximal fourth phalanx. Given cerebellar involvement and balance issues, possibly aggravated with head injury and microvascular disease, continued work on coordination, motor planning, balance, endurance along with p ain management with minimal adverse cognitive impacts is necessary with comprehensive rehabilitation program. Also having sleep issues, not uncommon after possible post concussion, will continue to modify medications and observe for adverse effects. PLAN: 1. Rehab- PT/OT advance gait and ADLs, strengthen/stretch/maintain ROM all 4 limbs, work on pain management observe for adverse effects of medications while promoting safe mobility, ADLs, self-care and housekeeping activities. Speech-language evaluation for cognition, memory, swallowing issues. 2. Neuro- status post prior CVAs, monitor for change. Note suggested return to Apixaban since no new neurological symptoms noted. 3. Ortho- stiff shoe continue taping Toes and chest wall, pain management 4. Cardiac- hx of A. fib, SR clinically today, continue medications maintain rate control. Resume apixaban. -HTN c/u ARB -HLD- c/u Zocor 5. Resp -incentive spirometry, monitor for increased risk of infection due to splinting from acute and chronic rib fractures. 6. - initiate usual bladder protocol, UA neg. 8. GI ppx- initiate usual bowel program protocol, add suppository to stimulate r esponse 9.ENT debrox and cerumen extraction TIME SPENT: Chart Review, examination and documentation [30] minutes. Allergies Coded Allergies: No Known Drug Allergies (Verified Allergy, Unknown, 11/26/19) Vital Signs Vital Signs Date Time Temp Pulse Resp B/P (MAP) Pulse Ox O2 Delivery O2 Flow Rate FiO2 06/13/20 05:57 98.6 64 18 123/60 (81) 96 Room Air Current Medications Current Medications Current Medications Medications (Trade) Dose Ordered Sig/Chan Route PRN Reason Start Time Stop Time Status Last Admin Dose Admin Acetaminophen (Tylenol Tab) 1,000 mg TID PO 06/07/20 21:00 06/13/20 08:59 Apixaban (Eliquis) 2.5 mg BID PO 06/08/20 09:00 06/08/20 09:37 DC 06/08/20 08:15 Apixaban (Eliquis) 2.5 mg DAILY PO 06/10/20 09:00 06/13/20 08:59 Calcium/Vitamin D (Oscal D) 500 mg BID PO 06/07/20 21:00 06/13/20 08:58 Carbamide Peroxide (Debrox) 5 drop BID AU 06/13/20 09:00 06/16/20 21:01 06/13/20 12:27 Chlorthalidone (Hygroton, Chlorthalidone) 12.5 mg MoWeFr@0900 PO 06/09/20 09:00 06/12/20 10:21 Diclofenac Epolamine (Flector 1.3%) 1 patch DAILY TOP 06/10/20 09:00 06/13/20 08:58 Diclofenac Epolamine (Flector 1.3%) 1 patch Q12H TOP 06/08/20 09:00 06/09/20 15:37 DC 06/09/20 08:39 Docusate Sodium (Colace) 100 mg DAILY PO 06/08/20 09:00 06/13/20 08:58 Flecainide Acetate (Tambocor) 50 mg BID PO 06/07/20 21:00 06/13/20 08:59 Home Med (Med Rec Complete!) ASDIRECTED XX 06/07/20 18:00 06/07/20 18:05 DC Hydroxyzine HCl (Atarax) 10 mg BIDP PRN PO ANXIETY/AGITATION 06/12/20 08:30 Lidocaine (Lidoderm Patch) 1 patch QHS TD 06/09/20 21:00 06/12/20 22:07 Multivitamins (Fruity Chews-Children'S) 1 tab DAILY PO 06/08/20 09:00 06/13/20 08:59 Non-Formulary Medication ( See Comment Field Below ) REMOVE LIDODERM PATCH DAILY XX 06/10/20 09:00 06/13/20 09:00 Omeprazole (PriLOSEC) 20 mg DAILY PO 06/08/20 09:00 06/13/20 08:58 Polyethylene Glycol (Miralax) 1 pkt DAILY PO 06/08/20 09:00 06/13/20 08:59 Simvastatin (Zocor) 10 mg QHS PO 06/07/20 21:00 06/12/20 22:06 Spironolactone (Aldactone) 12.5 mg DAILY PO 06/08/20 09:00 06/13/20 09:00 Tramadol HCl (Ultram) 50 mg Q6HP PRN PO MODERATE PAIN (PS 5-7) 06/07/20 18:15 06/13/20 06:43 DC 06/11/20 02:44 GEORGINA FERNANDEZ MD Jun 13, 2020 13:00
[2020-06-13 14:00] VITALS: BP 112/55
[2020-06-13 20:00] VITALS: BP 133/64
[2020-06-13] MEDS: LIDOCAINE 5% (LIDODERM) PATCH TD SCH (20:28)
[2020-06-13] MEDS: SIMVASTATIN 10 MG TAB PO SCH (20:31)
[2020-06-14 06:00] VITALS: BP 130/61
[2020-06-14] MEDS: APIXABAN 2.5 MG TAB (ELIQUIS) PO SCH (08:30)
[2020-06-14] MEDS: ACETAMINOPHEN 500 MG TAB PO SCH ×3 (08:30→19:52)
[2020-06-14] MEDS: OMEPRAZOLE 20 MG CAP PO SCH (08:30)
[2020-06-14] MEDS: FLECAINIDE 50MG TABLET PO SCH ×2 (08:30→18:46)
[2020-06-14] MEDS: CALCIUM/VITAMIN D 500 MG TAB PO SCH ×2 (08:30→19:52)
[2020-06-14] MEDS: MULTIVITAMINS CHILDREN'S CHEWABLE TABLET PO SCH (08:31)
[2020-06-14] MEDS: CHLORTHALIDONE 12.5MG PER 1/2 TABLET PO SCH (08:31)
[2020-06-14] MEDS: **NOTE PATIENT COMMENT** MISC XX SCH (08:31)
[2020-06-14] MEDS: DICLOFENAC EPOLAMINE 1.3 % PATCH TOP SCH (08:31)
[2020-06-14] MEDS: SPIRONOLACTONE 12.5MG PER 1/2 TABLET PO SCH (08:31)
[2020-06-14] MEDS: MIRALAX *UNIT DOSE* 17GM PACKET PO SCH (08:31)
[2020-06-14] MEDS: DOCUSATE SODIUM 100 MG CAP PO SCH (08:31)
[2020-06-14] MEDS: CARBAMIDE PEROXIDE 6.5% OTIC SOLN 15ML AU SCH ×2 (08:32→19:52)
--- NOTE | 2020-06-14 09:34 | IPNPDOC ---
PM&R Progress Note DATE OF SERVICE: Jun 14, 2020 Vocational Trainer Progress Note DATE OF ADMISSION: Jun 07, 2020 at 17:15 Inpatient rehabilitation day #8 CHIEF COMPLAINT: . Rib pain. Back pain Hearing deficits HISTORY OF PRESENT ILLNESS: This is an 85-year-old female, history of multiple CVAs, chronic A. fib, managed with Eliquis lives alone lost her balance while turning in the kitchen, fell backwards hitting her head on the counter and landing on the floor. She presented evening of .10 to [facility] ER with complaint of left rib and back pain and foot pain. Workup included CT of the head negative for acute changes, CT spine, no acute fracture, CT chest noted for left 8 through 11 rib fractures without pneumothorax and X-Rays left foot noted for fracture 4th phalanx with angulation. Ortho cleared her for WBAT using stiff soled shoe. Due to pain, living alone and need for full safe independence in self care, she was admitted to comprehensive rehabilitation for pain management, optimization of functional capabilities, balance, strengthening and endurance training as well as in depth observation of cognitive status, safety awareness and creation of optimal compensatory strategies. She is adjusting, still having challenges with BM and nightmares, possibly reaction to Tramadol, however is abating now that that was stopped. Feels her ears are stopped up started debrox for cerumen extraction. Seems to be having REM disrupted sleep patterns with hypnogogic hallucinations=waking sleep. Will move up PM meds, d/c Vistaril and work on other sleep hygiene techniques-limit TV/Electronics for an hour prior to when she usually goes to sleep, no stimulants-coffee, tea, caffeinated beverages. REVIEW OF SYSTEMS: The following is a completed review of systems otherwise unremarkable. PAIN: Chest and back pain. EYES: No recent vision changes. EARS, NOSE, & THROAT: No throat pain, or dysphagia, or rhinorrhea, poor hearing. CARDIOVASCULAR: Denies angina or palpitations. PULMONARY: Denies shortness of breath. GASTROINTESTINAL: Notes constipation uses prune juice as needed GENITOURINARY: urgent continence MUSCULOSKELETAL: pain from fx NEUROLOGICAL:. Prior CVAs, stable HEMATOLOGICAL: stable SKIN: .intact PSYCHIATRIC: Unremarkable. All other review of systems found to be negative. ALLERGIES: Please see below. MEDICATIONS: Please see below. PHYSICAL EXAMINATION: VITAL SIGNS: Please see below. GENERAL: Pleasant and cooperative. Mild distress. Alert and oriented times three. HEENT: TM unable to be visualized, cerumen impaction bilaterally, attempted to extract, still very firmly encrusted. No point tenderness. Extraocular movements intact no nystagmus. Clear conjunctiva, no adenopathy or thyromegaly. CARDIOVASCULAR: S1 S2 occasional extra beat, I/ murmur LUNGS: Clear to auscultation bilaterally. No wheezes. No rhonchi. Tender left anterolateral chest wall. ABDOMEN: Soft, non tender, nondistended. Positive normal active bowel sounds. NEUROLOGICAL: Able to follow 1 step commands Cranial nerves II through XII grossly intact. Sensation intact. EXTREMITIES: 5 /5 respiratory therapy technician, elbow flexion, elbow extension, foot dorsiflexion, plantar flexion pain on testing left 4th toe, tender. Cliff taped. Less cyanosis or tenderness dorsum l toes. SKIN: intact LABORATORY DATA: Please see below. IMAGIN06/06/2020 CT head noted for encephalomalacia. Gliosis inferior left cerebellar lobe vermis and tonsil consistent with old infarct, chronic lacunar infarct, posterior limb of the right internal capsule. No acute ICH. Patchy small vessel ischemic disease noted. No evidence fracture 06/06/2020 CT cervical spine, mild to moderate compression fracture, C7, chronic deformity, increase in concavity superior/inferior endplates, T1 and T2. Normal morphology left C1 lateral mass with significant irregularity left C1 to articulation but stable without evidence of acute fracture or subluxation. 06/06/2020 CT chest calcified mediastinal nodes, calcified granuloma anteromedial left upper lobe. Incidental note small nonobstructing left renal calculus. Impressions felt consistent with old granulomatous disease. Chest liver, sple en, suggestion of some degree of COPD, language configuration endplate depression, C7, T1, T2 and T5 felt chronic, nondisplaced fractures, left. 8th through 10th ribs laterally and fracture, left 11th rib posteriorly. Old fractures, left fourth and fifth ribs anterolaterally. 06/07/2020. X-ray left foot fracture base proximal fourth phalanx with angulation possible fracture fragment second DIP joint, degenerative changes FUNCTIONAL STATUS: Premorbid: Independent with all activities of daily life as well as mobility. Patient had difficulty descending curb- requires multiple VC for technique- difficulty problem solving this session. Pt ambulates within room with SBA using RW. No LOB observed throughout session. Pt instructed in standing ther ex for LE strengthening; pt completes with SBA as she reports she follows and HEP from HHPT. PT ambulates 150' with RW and SBA. pt completes full ADL with SBA including shower trasnfer/tasks, standing at sink to brush teeth, item retrieval and dressing tasks GOALS: Mod I for self-care and mobility, toileting and basic homemaking skills ASSESSMENT:- #8 through 11 rib fractures. Fourth phalanx fracture with angulation. Osteoporosis COPD History of multiple CVAs. History chronic A. fib. Head Injury Constipation Cerumen impaction 85 year-old lady with past medical history of left cerebellar and right internal capsule, strokes , with balance deficits who presents status post ground level fall, striking her head in the process with fractures of left 8 through 11 ribs and left foot proximal fourth phalanx. Given cerebellar involvement and balance issues, possibly aggravated with head injury and microvascular disease, continued work on coordination, motor planning, balance, endurance along with pain management with minimal adverse cognitive impacts is necessary with comprehensive rehabilitation program. Also having sleep issues, not uncommon after post concussion, will continue to modify medications and observe for adverse effects. PLAN: 1. Rehab- PT/OT advance gait and ADLs, strengthen/stretch/maintain ROM all 4 limbs, work on pain management observe for adverse effects of medications while promoting safe mobility, ADLs, self-care and housekeeping activities. Speech-language evaluation for cognition, memory, swallowing issues. 2. Neuro- status post prior CVAs, monitor for change. Note suggested return to Apixaban since no new neurological symptoms noted. Will DC Vistaril, move up and suggest good sleep hygiene to optimize sleep patterns. 3. Ortho- stiff shoe continue taping Toes and chest wall, pain management 4. Cardiac- hx of A. fib, SR clinically today, continue medications maintain rate control. Resume apixaban. -HTN c/u ARB -HLD- c/u Zocor 5. Resp -incentive spirometry, monitor for increased risk of infection due to splinting from acute and chronic rib fractures. 6. - initiate usual bladder protocol, UA neg. 8. GI ppx- initiate usual bowel program protocol, add suppository to stimulate response 9.ENT debrox and cerumen extraction TIME SPENT: Chart Review, examination and documentation 30 minutes. Allergies Coded Allergies: No Known Drug Allergies (Verified Allergy, Unknown, 11/26/19) Vital Signs Vital Signs Date Time Temp Pulse Resp B/P (MAP) Pulse Ox O2 Delivery O2 Flow Rate FiO2 06/14/20 06:00 97.8 63 18 130/61 (84) 97 Room Air Current Medications Current Medications Current Medications Medications (Trade) Dose Ordered Sig/Chan Route PRN Reason Start Time Stop Time Status Last Admin Dose Admin Acetaminophen (Tylenol Tab) 1,000 mg TID PO 06/07/20 21:00 06/14/20 08:30 Apixaban (Eliquis) 2.5 mg BID PO 06/08/20 09:00 06/08/20 09:37 DC 06/08/20 08:15 Apixaban (Eliquis) 2.5 mg DAILY PO 06/10/20 09:00 06/14/20 08:30 Calcium/Vitamin D (Oscal D) 500 mg BID PO 06/07/20 21:00 06/14/20 08:30 Carbamide Peroxide (Debrox) 5 drop BID AU 06/13/20 09:00 06/16/20 21:01 06/14/20 08:32 Chlorthalidone (Hygroton, Chlorthalidone) 12.5 mg MoWeFr@0900 PO 06/09/20 09:00 06/14/20 08:31 Diclofenac Epolamine (Flector 1.3%) 1 patch DAILY TOP 06/10/20 09:00 06/14/20 08:31 Diclofenac Epolamine (Flector 1.3%) 1 patch Q12H TOP 06/08/20 09:00 06/09/20 15:37 DC 06/09/20 08:39 Docusate Sodium (Colace) 100 mg DAILY PO 06/08/20 09:00 06/13/20 08:58 Flecainide Acetate (Tambocor) 50 mg BID PO 06/07/20 21:00 06/14/20 08:30 Home Med (Med Rec Complete!) ASDIRECTED XX 06/07/20 18:00 06/07/20 18:05 DC Hydroxyzine HCl (Atarax) 10 mg BIDP PRN PO ANXIETY/AGITATION 06/12/20 08:30 06/13/20 20:31 Lidocaine (Lidoderm Patch) 1 patch QHS TD 06/09/20 21:00 06/13/20 20:28 Multivitamins (Fruity Chews-Children'S) 1 tab DAILY PO 06/08/20 09:00 06/14/20 08:31 Non-Formulary Medication ( See Comment Field Below ) REMOVE LIDODERM PATCH DAILY XX 06/10/20 09:00 06/14/20 08:31 Omeprazole (PriLOSEC) 20 mg DAILY PO 06/08/20 09:00 06/14/20 08:30 Polyethylene Glycol (Miralax) 1 pkt DAILY PO 06/08/20 09:00 06/13/20 08:59 Simvastatin (Zocor) 10 mg QHS PO 06/07/20 21:00 06/13/20 20:31 Spironolactone (Aldactone) 12.5 mg DAILY PO 06/08/20 09:00 06/14/20 08:31 Tramadol HCl (Ultram) 50 mg Q6HP PRN PO MODERATE PAIN (PS 5-7) 06/07/20 18:15 06/13/20 06:43 DC 06/11/20 02:44 GEORGINA FERNANDEZ MD Jun 14, 2020 09:33
[2020-06-14 14:00] VITALS: BP 140/65
[2020-06-14] MEDS: LIDOCAINE 5% (LIDODERM) PATCH TD SCH (19:53)
[2020-06-14] MEDS: SIMVASTATIN 10 MG TAB PO SCH (19:53)
[2020-06-14 20:00] VITALS: BP 123/83
[2020-06-15 06:00] VITALS: BP 141/70
[2020-06-15] MEDS: DOCUSATE SODIUM 100 MG CAP PO SCH (09:00)
[2020-06-15] MEDS: FLECAINIDE 50MG TABLET PO SCH ×2 (09:38→18:10)
[2020-06-15] MEDS: APIXABAN 2.5 MG TAB (ELIQUIS) PO SCH (09:38)
[2020-06-15] MEDS: MIRALAX *UNIT DOSE* 17GM PACKET PO SCH (09:38)
[2020-06-15] MEDS: ACETAMINOPHEN 500 MG TAB PO SCH ×3 (09:38→21:00)
[2020-06-15] MEDS: SPIRONOLACTONE 12.5MG PER 1/2 TABLET PO SCH (09:38)
[2020-06-15] MEDS: MULTIVITAMINS CHILDREN'S CHEWABLE TABLET PO SCH (09:39)
[2020-06-15] MEDS: CALCIUM/VITAMIN D 500 MG TAB PO SCH ×2 (09:40→20:52)
[2020-06-15] MEDS: CARBAMIDE PEROXIDE 6.5% OTIC SOLN 15ML AU SCH ×2 (09:40→20:53)
[2020-06-15] MEDS: OMEPRAZOLE 20 MG CAP PO SCH (09:40)
[2020-06-15] MEDS: DICLOFENAC EPOLAMINE 1.3 % PATCH TOP SCH (09:40)
[2020-06-15] MEDS: **NOTE PATIENT COMMENT** MISC XX SCH (09:41)
[2020-06-15 14:00] VITALS: BP 137/95
--- NOTE | 2020-06-15 15:28 | IPNPDOC ---
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 Rib pain. Back pain Hearing deficits HISTORY OF PRESENT ILLNESS: This is an 85-year-old female, history of multiple CVAs, chronic A. fib, managed with Eliquis lives alone lost her balance while turning in the kitchen, fell backwards hitting her head on the counter and landing on the floor. She presented evening of 06.06 to [facility] with complaint of left rib and back pain and foot pain. Workup included CT of the head negative for acute changes, CT spine, no acute fracture, CT chest noted for left 8 through 11 rib fractures without pneumothorax and X-Rays left foot noted for fracture 4th phalanx with angulation. Ortho cleared her for WBAT using stiff soled shoe. Due to pain, living alone and need for full safe independence in self care, she was admitted to comprehensive rehabilitation for pain management, optimization of functional capabilities, balance, strengthening and endurance training as well as in depth observation of cognitive status, safety awareness and creation of optimal comp ensatory strategies. She is adjusting, still having challenges with BM and nightmares, possibly reaction to Tramadol, however is abating now that that was stopped. Feels her ears are stopped up started debrox for cerumen extraction, added peroxide. Start Vistaril. She seems clearer about immediate and delayed recall and overall less confused today. Due to concerns of cognitive processing issues and that she lives alone in team decision was to extend rehabilitative interventions over the weekend for possible discharge early next week REVIEW OF SYSTEMS: The following is a completed review of systems otherwise unremarkable. PAIN: Chest and back pain. EYES: No recent vision changes. EARS, NOSE, & THROAT: No throat pain, or dysphagia, or rhinorrhea, poor hearing. CARDIOVASCULAR: Denies angina or palpitations. PULMONARY: Denies shortness of breath. GASTROINTESTINAL: Notes constipation uses prune juice as needed GENITOURINARY: urgent continence MUSCULOSKELETAL: pain from fx NEUROLOGICAL:. Prior CVAs, stable HEMATOLOGICAL: stable SKIN: .intact PSYCHIATRIC: Unremarkable. All other review of systems found to be negative. ALLERGIES: Please see below. MEDICATIONS: Please see below. PHYSICAL EXAMINATION: VITAL SIGNS: Please see below. GENERAL: Pleasant and cooperative. No distress. Alert and oriented times three, seems more coherent today. HEENT: TM unable to be visualized, cerumen impaction bilaterally. No point tenderness. Extraocular movements intact. Clear conjunctiva, no adenopathy or thyromegaly. CARDIOVASCULAR: S1 S2 occasional extra beat, I/ murmur LUNGS: Clear to auscultation bilaterally. No wheezes. No rhonchi. Tender left anterolateral chest wall. ABDOMEN: Soft, non tender, nondistended. Positive normal active bowel sounds. NEUROLOGICAL: Able to follow 1 step commands Cranial nerves II through XII grossly intact. Sensation intact. 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 Cliff taped. Less cyanosis or tenderness dorsum l toes. SKIN: intact LABORATORY DATA: Please see below. IMAGIN06/06/2020 CT head noted for encephalomalacia. Gliosis inferior left cerebellar lobe vermis and tonsil consistent with old infarct, chronic lacunar infarct, posterior limb of the right internal capsule. No acute ICH. Patchy small vessel ischemic disease noted. No evidence fracture 06/06/2020 CT cervical spine, mild to moderate compression fracture, C7, chronic deformity, increase in concavity superior/inferior endplates, T1 and T2. Normal morphology left C1 lateral mass with significant irregularity left C1 to articulation but stable without evidence of acute fracture or subluxation. 06/06/2020 CT chest calcified mediastinal nodes, calcified granuloma anteromedial left upper lobe. Incidental note small nonobstructing left renal calculus. Impressions felt consistent with old granulomatous disease. Chest liver, spleen, suggestion of some degree of COPD, language configuration endplate depression, C7, T1, T2 and T5 felt chronic, nondisplaced fractures, left. 8th through 10th ribs laterally and fracture, left 11th rib posteriorly. Old fractures, left fourth and fifth ribs anterolaterally. 06/07/2020. X-ray left foot fracture base proximal fourth phalanx with angulation possible fracture fragment second DIP joint, degenerative changes FUNCTIONAL STATUS: Premorbid: Independent with all activities of daily life as well as mobility. Patient had difficulty descending curb- requires multiple VC for technique- difficulty problem solving this session. PT ambulates 150' with RW Mod I, tends to lean to the right. pt completes full ADL with SBA including shower trasnfer/tasks, standing at sink to brush teeth, item retrieval and dressing tasks. Working on unlevel surfaces and balance issues, falls risk reducation. GOALS: Mod I for self-care and mobility, toileting and basic homemaking skills ASSESSMENT:- #8 through 11 rib fractures. Fourth phalanx fracture with angulation. Osteoporosis COPD History of multiple CVAs. History chronic A. fib. Head Injury Constipation Cerumen impaction 85 year-old lady with past medical history of left cerebellar and right internal capsule, strokes , with balance deficits who presents status post ground level fall, striking her head in the process with fractures of left 8 through 11 ribs and left foot proximal fourth phalanx. Given cerebellar involvement and balance issues, possibly aggravated with head injury and microvascular disease, continued work on coordination, motor planning, balance, endurance along with pain management with minimal adverse cognitive impacts is necessary with comprehensive rehabilitation program. Also having sleep and some cognitive processing issues, not uncommon after possible post concussion, will continue to modify medications and observe for adverse effects. PLAN: 1. Rehab- PT/OT advance gait and ADLs, strengthen/stretch/maintain ROM all 4 limbs, work on pain management observe for adverse effects of medications while promoting safe mobility, ADLs, self-care and housekeeping activities. Speech-language evaluation for cognition, memory, swallowing issues. 2. Neuro- status post prior CVAs, monitor for change. Renewed Apixaban . 3. Ortho- stiff shoe continue taping Toes and chest wall, pain management 4. Cardiac- hx of A. fib, SR clinically today, continue medications maintain rate control. -HTN c/u ARB -HLD- c/u Zocor 5. Resp -incentive spirometry, monitor for increased risk of infection due to splinting from acute and chronic rib fractures. 6. - initiate usual bladder protocol, UA neg. 8. GI ppx- initiate usual bowel program protocol, add suppository to stimulate response 9.ENT debrox, H2O2 otic solution and cerumen extraction TIME SPENT: Chart Review, examination and documentation 30 minutes. Allergies Coded Allergies: No Known Drug Allergies (Verified Allergy, Unknown, 11/26/19) Vital Signs Vital Signs Date Time Temp Pulse Resp B/P (MAP) Pulse Ox O2 Delivery O2 Flow Rate FiO2 06/15/20 14:00 98.0 63 18 137/95 (109) 95 Room Air Current Medications Current Medications Current Medications Medications (Trade) Dose Ordered Sig/Chan Route PRN Reason Start Time Stop Time Status Last Admin Dose Admin Acetaminophen (Tylenol Tab) 1,000 mg TID PO 06/07/20 21:00 06/15/20 09:38 Apixaban (Eliquis) 2.5 mg BID PO 06/08/20 09:00 06/08/20 09:37 DC 06/08/20 08:15 Apixaban (Eliquis) 2.5 mg DAILY PO 06/10/20 09:00 06/15/20 09:38 Calcium/Vitamin D (Oscal D) 500 mg BID PO 06/07/20 21:00 06/15/20 09:40 Carbamide Peroxide (Debrox) 3 drop BID AU 06/15/20 21:00 06/19/20 20:59 Carbamide Peroxide (Debrox) 5 drop BID AU 06/13/20 09:00 06/15/20 11:52 DC 06/15/20 09:40 Chlorthalidone (Hygroton, Chlorthalidone) 12.5 mg MoWeFr@0900 PO 06/09/20 09:00 Hold 06/14/20 08:31 Diclofenac Epolamine (Flector 1.3%) 1 patch DAILY TOP 06/10/20 09:00 06/15/20 09:40 Diclofenac Epolamine (Flector 1.3%) 1 patch Q12H TOP 06/08/20 09:00 06/09/20 15:37 DC 06/09/20 08:39 Docusate Sodium (Colace) 100 mg DAILY PO 06/08/20 09:00 06/13/20 08:58 Flecainide Acetate (Tambocor) 50 mg BID PO 06/07/20 21:00 06/14/20 16:17 DC 06/14/20 08:30 Flecainide Acetate (Tambocor) 50 mg BID@0900,1900 PO 06/14/20 19:00 06/15/20 09:38 Home Med (Med Rec Complete!) ASDIRECTED XX 06/07/20 18:00 06/07/20 18:05 DC Hydroxyzine HCl (Atarax) 10 mg BIDP PRN PO ANXIETY/AGITATION 06/12/20 08:30 06/14/20 16:16 DC 06/13/20 20:31 Lidocaine (Lidoderm Patch) 1 patch QHS TD 06/09/20 21:00 06/14/20 19:53 Multivitamins (Fruity Chews-Children'S) 1 tab DAILY PO 06/08/20 09:00 06/15/20 09:39 Non-Formulary Medication ( See Comment Field Below ) REMOVE LIDODERM PATCH DAILY XX 06/10/20 09:00 06/15/20 09:41 Omeprazole (PriLOSEC) 20 mg DAILY PO 06/08/20 09:00 06/15/20 09:40 Polyethylene Glycol (Miralax) 1 pkt DAILY PO 06/08/20 09:00 06/15/20 09:38 Simvastatin (Zocor) 10 mg QHS PO 06/07/20 21:00 06/14/20 19:53 Spironolactone (Aldactone) 12.5 mg DAILY PO 06/08/20 09:00 06/15/20 09:38 Tramadol HCl (Ultram) 50 mg Q6HP PRN PO MODERATE PAIN (PS 5-7) 06/07/20 18:15 06/13/20 06:43 DC 06/11/20 02:44 GEORGINA FERNANDEZ MD Jun 15, 2020 15:28
[2020-06-15 20:00] VITALS: BP 126/69
[2020-06-15] MEDS: SIMVASTATIN 10 MG TAB PO SCH (20:52)
[2020-06-16 06:00] VITALS: BP 144/72
[2020-06-16] MEDS: MIRALAX *UNIT DOSE* 17GM PACKET PO SCH (09:00)
[2020-06-16] MEDS: SPIRONOLACTONE 12.5MG PER 1/2 TABLET PO SCH (09:38)
[2020-06-16] MEDS: MULTIVITAMINS CHILDREN'S CHEWABLE TABLET PO SCH (09:38)
[2020-06-16] MEDS: OMEPRAZOLE 20 MG CAP PO SCH (09:39)
[2020-06-16] MEDS: CALCIUM/VITAMIN D 500 MG TAB PO SCH ×2 (09:39→21:10)
[2020-06-16] MEDS: APIXABAN 2.5 MG TAB (ELIQUIS) PO SCH (09:39)
[2020-06-16] MEDS: ACETAMINOPHEN 500 MG TAB PO SCH ×3 (09:39→21:10)
[2020-06-16] MEDS: FLECAINIDE 50MG TABLET PO SCH ×2 (09:39→18:09)
[2020-06-16] MEDS: DOCUSATE SODIUM 100 MG CAP PO SCH (09:39)
[2020-06-16] MEDS: CARBAMIDE PEROXIDE 6.5% OTIC SOLN 15ML AU SCH ×2 (09:40→21:00)
[2020-06-16] MEDS: CHLORTHALIDONE 12.5MG PER 1/2 TABLET PO SCH (09:42)
--- NOTE | 2020-06-16 13:28 | IPNPDOC ---
PM&R Progress Note DATE OF SERVICE: Jun 16, 2020 Marine Drafter Progress Note DATE OF ADMISSION: Jun 07, 2020 at 17:15 DATE OF SERVICE: Jun 16, 2020 Inpatient rehabilitation day #910 CHIEF COMPLAINT: . Rib pain. Back pain Hearing deficits HISTORY OF PRESENT ILLNESS: This is an 85-year-old female, history of multiple CVAs, chronic A. fib, managed with Eliquis lives alone, lost her balance while turning in the kitchen, fell backwards hitting her head on the counter and landing on the floor. She presented evening of 06.06 to [facility] ER with complaint of left rib and back pain and foot pain. Workup included CT of the head negative for acute changes, CT spine, no acute fracture, CT chest noted for left 8 through 11 rib fractures without pneumothorax and X-Rays left foot noted for fracture 4th phalanx with angulat ion. Ortho cleared her for WBAT using stiff soled shoe. Due to pain, living alone and need for full safe independence in self care, she was admitted to comprehensive rehabilitation for pain management, optimization of functional capabilities, balance, strengthening and endurance training as well as in depth observation of cognitive status, safety awareness and creation of optimal compensatory strategies. She is adjusting, fewer challenges with BM and nightmares,which was possibly reaction to Tramadol, however is abating now that that was stopped. Feels her ears are stopped up started debrox for cerumen extraction, added peroxide, left side improving slightly. . She seems clearer about immediate and delayed recall and less confused but team notes forgetful and need to observe on room privileges before DC home. She defers trial in the apartment to practice going from room to room. Due to concerns of cognitive processing and continued balance/proprioceptive issues and that she lives alone in team decision was to extend rehabilitative interventions over the weekend for possible discharge early next week. REVIEW OF SYSTEMS: The following is a completed review of systems otherwise unremarkable. PAIN: Chest and back pain. EYES: No recent vision changes. EARS, NOSE, & THROAT: No throat pain, or dysphagia, or rhinorrhea, poor hearing. CARDIOVASCULAR: Denies angina or palpitations. PULMONARY: Denies shortness of breath. GASTROINTESTINAL: Notes constipation uses prune juice as needed GENITOURINARY: urgent continence MUSCULOSKELETAL: pain from fx NEUROLOGICAL:. Prior CVAs, stable HEMATOLOGICAL: stable SKIN: .intact PSYCHIATRIC: Unremarkable. All other review of systems found to be negative. ALLERGIES: Please see below. MEDICATIONS: Please see below. PHYSICAL EXAMINATION: VITAL SIGNS: Please see below. GENERAL: Pleasant and cooperative. No distress. HEENT: TM unable to be visualized. No point tenderness. Extraocular movements intact. Clear conjunctiva, no adenopathy or thyromegaly. CARDIOVASCULAR: S1 S2 I/ murmur LUNGS: Clear to auscultation bilaterally. No wheezes. No rhonchi. Tender left anterolateral chest wall. ABDOMEN: Soft, non tender, nondistended. Positive normal active bowel sounds. NEUROLOGICAL: Able to follow 1 step commands Cranial nerves II through XII grossly intact. Sensation intact. 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 Cliff taped. Less cyanosis or tenderness dorsum l toes. SKIN: intact LABORATORY DATA: Please see below. IMAGIN06/06/2020 CT head noted for encephalomalacia. Gliosis inferior left cerebellar lobe vermis and tonsil consistent with old infarct, chronic lacunar infarct, posterior limb of the right internal capsule. No acute ICH. Patchy small vessel ischemic disease noted. No evidence fracture 06/06/2020 CT cervical spine, mild to moderate compression fracture, C7, chronic deformity, increase in concavity superior/inferior endplates, T1 and T2. Normal morphology left C1 lateral mass with significant irregularity left C1 to articulation but stable without evidence of acute fracture or subluxation. 06/06/2020 CT chest calcified mediastinal nodes, calcified granuloma anteromedial left upper lobe. Incidental note small nonobstructing left renal calculus. Impressions felt consistent with old granulomatous disease. Chest liver, spleen, suggestion of some degree of COPD, language configuration endplate depression, C7, T1, T2 and T5 felt chronic, nondisplaced fractures, left. 8th t hrough 10th ribs laterally and fracture, left 11th rib posteriorly. Old fractures, left fourth and fifth ribs anterolaterally. 06/07/2020. X-ray left foot fracture base proximal fourth phalanx with angulation possible fracture fragment second DIP joint, degenerative changes FUNCTIONAL STATUS: Premorbid: Independent with all activities of daily life as well as mobility. Patient had difficulty descending curb- requires multiple VC for technique- difficulty problem solving this session. PT ambulates 150' with RW Mod I, tends to lean to the right. Working on unlevel surfaces and balance issues, falls risk reducation. Working on dynamic balance activities with and without upper extremity support of rolling walker working on navigating around obstacles compensating for poor visual perceptual awareness, occasional confusion. Still some loss of balance with dressing activities, tendency for posterior leaning. Well trial her in the apartment to simulate living at home alone GOALS: Mod I for self-care and mobility, toileting and basic homemaking skills ASSESSMENT:- #8 through 11 rib fractures. Fourth phalanx fracture with angulation. Osteoporosis COPD History of multiple CVAs. History chronic A. fib. Head Injury Constipation Cerumen impaction 85 year-old lady with past medical history of left cerebellar and right internal capsule, strokes , with balance deficits who presents status post ground level fall, striking her head in the process with fractures of left 8 through 11 ribs and left foot proximal fourth phalanx. Given cerebellar involvement and balance issues, possibly aggravated with head injury and microvascular disease, continued work on coordination, motor planning, balance, endurance along with pain management with minimal adverse cognitive impacts is necessary with comprehensive rehabilitation program. Also having sleep and some cognitive processing issues, not uncommon after possible post concussion, will continue to modify medications and observe for adverse effects. PLAN: 1. Rehab- PT/OT advance gait and ADLs, strengthen/stretch/maintain ROM all 4 limbs, work on pain management observe for adverse effects of medications while promoting safe mobility, ADLs, self-care and housekeeping activities. Speech-language evaluation for cognition, memory, swallowing issues. 2. Neuro- status post prior CVAs, monitor for change. Renewed Apixaban . 3. Ortho- stiff shoe continue taping Toes and chest wall, pain management 4. Cardiac- hx of A. fib, SR clinically today, continue medications maintain rate control. -HTN c/u ARB -HLD- c/u Zocor 5. Resp -incentive spirometry, monitor for increased risk of infection due to splinting from acute and chronic rib fractures. 6. - initiate usual bladder protocol, UA neg. 8. GI ppx- initiate usual bowel program protocol, add suppository to stimulate response 9.ENT Colace, irrigation cerumen extraction TIME SPENT: Chart Review, examination and documentation 30 minutes. Allergies Coded Allergies: No Known Drug Allergies (Verified Allergy, Unknown, 11/26/19) Vital Signs Vital Signs Date Time Temp Pulse Resp B/P (MAP) Pulse Ox O2 Delivery O2 Flow Rate FiO2 06/16/20 06:00 98.0 65 17 144/72 (96) 98 Room Air Current Medications Current Medications Current Medications Medications (Trade) Dose Ordered Sig/Chan Route PRN Reason Start Time Stop Time Status Last Admin Dose Admin Acetaminophen (Tylenol Tab) 1,000 mg TID PO 06/07/20 21:00 06/16/20 09:39 Apixaban (Eliquis) 2.5 mg BID PO 06/08/20 09:00 06/08/20 09:37 DC 06/08/20 08:15 Apixaban (Eliquis) 2.5 mg DAILY PO 06/10/20 09:00 06/16/20 09:39 Calcium/Vitamin D (Oscal D) 500 mg BID PO 06/07/20 21:00 06/16/20 09:39 Carbamide Peroxide (Debrox) 3 drop BID AU 06/15/20 21:00 06/19/20 20:59 06/16/20 09:40 Carbamide Peroxide (Debrox) 5 drop BID 06/13/20 09:00 06/15/20 11:52 DC 06/15/20 09:40 Chlorthalidone (Hygroton, Chlorthalidone) 12.5 mg MoWeFr@0900 PO 06/09/20 09:00 06/16/20 09:42 Diclofenac Epolamine (Flector 1.3%) 1 patch DAILY TOP 06/10/20 09:00 06/15/20 18:27 DC 06/15/20 09:40 Diclofenac Epolamine (Flector 1.3%) 1 patch Q12H TOP 06/08/20 09:00 06/09/20 15:37 DC 06/09/20 08:39 Docusate Sodium (Colace) 100 mg DAILY PO 06/08/20 09:00 06/16/20 09:39 Flecainide Acetate (Tambocor) 50 mg BID PO 06/07/20 21:00 06/14/20 16:17 DC 06/14/20 08:30 Flecainide Acetate (Tambocor) 50 mg BID@0900,1900 PO 06/14/20 19:00 06/16/20 09:39 Home Med (Med Rec Complete!) ASDIRECTED XX 06/07/20 18:00 06/07/20 18:05 DC Hydroxyzine HCl (Atarax) 10 mg BIDP PRN PO ANXIETY/AGITATION 06/12/20 08:30 06/14/20 16:16 DC 06/13/20 20:31 Lidocaine (Lidoderm Patch) 1 patch QHS TD 06/09/20 21:00 06/15/20 18:27 DC 06/14/20 19:53 Multivitamins (Fruity Chews-Children'S) 1 tab DAILY PO 06/08/20 09:00 06/16/20 09:38 Non-Formulary Medication ( See Comment Field Below ) REMOVE LIDODERM PATCH DAILY XX 06/10/20 09:00 06/15/20 18:27 DC 06/15/20 09:41 Omeprazole (PriLOSEC) 20 mg DAILY PO 06/08/20 09:00 06/16/20 09:39 Polyethylene Glycol (Miralax) 1 pkt DAILY PO 06/08/20 09:00 06/15/20 09:38 Simvastatin (Zocor) 10 mg QHS PO 06/07/20 21:00 06/15/20 20:52 Spironolactone (Aldactone) 12.5 mg DAILY PO 06/08/20 09:00 06/16/20 09:38 Tramadol HCl (Ultram) 50 mg Q6HP PRN PO MODERATE PAIN (PS 5-7) 06/07/20 18:15 06/13/20 06:43 DC 06/11/20 02:44 GEORGINA FERNANDEZ MD Jun 16, 2020 13:28
[2020-06-16 14:00] VITALS: BP 140/77
[2020-06-16] MEDS ORDERED: DOCUSATE SOD LIQ 100MG/10ML UDC XX ONE (14:00)
[2020-06-16 14:58] LABS: ALBUMIN 3.9 GM/DL (3.2-5.2); ALT/SGPT 70 U/L (12-78); BILIRUBIN,TOTAL 0.4 MG/DL (0.2-1.0); BLOOD UREA NITROGEN 23 MG/DL (7-18); CALCIUM LEVEL 9.4 MG/DL (8.8-10.2); CARBON DIOXIDE LEVEL 31 MEQ/L (21-32); CHLORIDE LEVEL 95 MEQ/L (98-107); GLOMERULAR FILTRATION RATE > 60.0 (>32); GLUCOSE, FASTING 108 MG/DL (70-100); POTASSIUM SERUM 4.3 MEQ/L (3.5-5.1); SODIUM LEVEL 133 MEQ/L (136-145); TOTAL PROTEIN 7.1 GM/DL (6.4-8.2)
[2020-06-16 20:02] VITALS: BP 110/56
[2020-06-16] MEDS: SIMVASTATIN 10 MG TAB PO SCH (21:09)
[2020-06-17 05:46] VITALS: BP 141/72
[2020-06-17] MEDS: SPIRONOLACTONE 12.5MG PER 1/2 TABLET PO SCH (07:41)
[2020-06-17] MEDS: OMEPRAZOLE 20 MG CAP PO SCH (07:41)
[2020-06-17] MEDS: MIRALAX *UNIT DOSE* 17GM PACKET PO SCH (07:41)
[2020-06-17] MEDS: CALCIUM/VITAMIN D 500 MG TAB PO SCH ×2 (07:42→20:39)
[2020-06-17] MEDS: DOCUSATE SODIUM 100 MG CAP PO SCH (07:42)
[2020-06-17] MEDS: FLECAINIDE 50MG TABLET PO SCH ×2 (07:42→18:28)
[2020-06-17] MEDS: MULTIVITAMINS CHILDREN'S CHEWABLE TABLET PO SCH (07:42)
[2020-06-17] MEDS: APIXABAN 2.5 MG TAB (ELIQUIS) PO SCH (07:42)
[2020-06-17] MEDS: ACETAMINOPHEN 500 MG TAB PO SCH ×3 (07:45→20:40)
[2020-06-17] MEDS: CARBAMIDE PEROXIDE 6.5% OTIC SOLN 15ML AU SCH ×2 (07:51→20:42)
[2020-06-17 14:00] VITALS: BP 130/62
[2020-06-17 20:07] VITALS: BP 117/57
[2020-06-17] MEDS: SIMVASTATIN 10 MG TAB PO SCH (20:41)
[2020-06-18 06:00] VITALS: BP 161/72
[2020-06-18] MEDS: SPIRONOLACTONE 12.5MG PER 1/2 TABLET PO SCH (07:46)
[2020-06-18] MEDS: MIRALAX *UNIT DOSE* 17GM PACKET PO SCH (07:46)
[2020-06-18] MEDS: APIXABAN 2.5 MG TAB (ELIQUIS) PO SCH (07:46)
[2020-06-18] MEDS: MULTIVITAMINS CHILDREN'S CHEWABLE TABLET PO SCH (07:46)
[2020-06-18] MEDS: FLECAINIDE 50MG TABLET PO SCH ×2 (07:47→18:20)
[2020-06-18] MEDS: CALCIUM/VITAMIN D 500 MG TAB PO SCH ×2 (07:47→21:15)
[2020-06-18] MEDS: ACETAMINOPHEN 500 MG TAB PO SCH ×3 (07:47→21:15)
[2020-06-18] MEDS: OMEPRAZOLE 20 MG CAP PO SCH (07:48)
[2020-06-18] MEDS: CARBAMIDE PEROXIDE 6.5% OTIC SOLN 15ML AU SCH ×2 (07:48→21:16)
[2020-06-18] MEDS: DOCUSATE SODIUM 100 MG CAP PO SCH (07:49)
[2020-06-18 14:00] VITALS: BP 130/63
[2020-06-18 20:00] VITALS: BP 135/63
[2020-06-18] MEDS: SIMVASTATIN 10 MG TAB PO SCH (21:15)
[2020-06-19 06:00] VITALS: BP 142/88
[2020-06-19] MEDS: MULTIVITAMINS CHILDREN'S CHEWABLE TABLET PO SCH (08:20)
[2020-06-19] MEDS: CALCIUM/VITAMIN D 500 MG TAB PO SCH ×2 (08:20→21:22)
[2020-06-19] MEDS: FLECAINIDE 50MG TABLET PO SCH ×2 (08:20→18:32)
[2020-06-19] MEDS: DOCUSATE SODIUM 100 MG CAP PO SCH (08:20)
[2020-06-19] MEDS: CHLORTHALIDONE 12.5MG PER 1/2 TABLET PO SCH (08:20)
[2020-06-19] MEDS: OMEPRAZOLE 20 MG CAP PO SCH (08:21)
[2020-06-19] MEDS: APIXABAN 2.5 MG TAB (ELIQUIS) PO SCH (08:21)
[2020-06-19] MEDS: SPIRONOLACTONE 12.5MG PER 1/2 TABLET PO SCH (08:21)
[2020-06-19] MEDS: CARBAMIDE PEROXIDE 6.5% OTIC SOLN 15ML AU SCH (08:21)
[2020-06-19] MEDS: MIRALAX *UNIT DOSE* 17GM PACKET PO SCH (08:22)
[2020-06-19] MEDS: ACETAMINOPHEN 500 MG TAB PO SCH ×3 (08:22→21:22)
--- NOTE | 2020-06-19 08:24 | DS.PDOC ---
PM&R Discharge Summary Flour Inspector Discharge Note DATE OF ADMISSION: Jun 07, 2020 at 17:15 DATE OF DISCHARGE: 06.20.2020 DISCHARGE DIAGNOSES: #8 through #11 rib fractures. Fourth phalanx fracture with angulation. Osteoporosis History of multiple CVAs. History chronic A. fib. Hyponatremia Cerumen impaction PAST MEDICAL HISTORY: Left CVA 2016 History right basal ganglia and internal capsule lacunar infarcts. Hyperlipidemia. Osteoporosis management by phosphonate. History of C1-2 neck fracture status post surgery PAST SURGICAL HISTORY: Appendectomy. C1 -2 cervical surgery. Thyroid nodule removed the 70s. Bilateral cataract surgery, lens implants CHIEF COMPLAINT: . Rib pain. Back pain Hearing deficits Dizziness with balance deficits HOSPITAL COURSE: This is an 85-year-old female, history of multiple CVAs, chronic A. fib, managed with Eliquis lives alone, lost her balance while turning in the kitchen, fell backwards hitting her head on the counter and landing on the floor. She presented evening of 06.06 to [facility] ER with complaint of left rib and back pain and foot pain. Workup included CT of the head negative for acute changes, CT spine, no acute fracture, CT chest noted for left 8 through 11 rib fractures without pneumothorax and X-Rays left foot noted for fracture 4th phalanx with angulation. Ortho cleared her for WBAT using stiff soled shoe. Due to pain, living alone and need for full safe independence in self care, she was admitted to comprehensive rehabilitation for pain management, optimization of functional capabilities, balance, strengthening and endurance training as well as in depth observation of cognitive status, safety awareness and creation of optimal compensatory strategies. There were some challenges regulating her bowels and sleep/wake cycle as well as dizziness and confusion which began to clear with less pain and sleep medications. Low sodium noted, encouraged dietary replenishment, reached 135 by day of discharge, She also had bilateral cerumen impaction affecting communication, comprehension and further contributing to cognitive challenges. This was responding to various otic solutions and irrigations, may need follow up as out patient with ENT. REVIEW OF SYSTEMS: The following is a completed review of systems otherwise unremarkable. PAIN: Chest and back pain. EYES: No recent vision changes. EARS, NOSE, & THROAT: No throat pain, or dysphagia, or rhinorrhea, poor hearing. CARDIOVASCULAR: Denies angina or palpitations. PULMONARY: Denies shortness of breath. GASTROINTESTINAL: Notes constipation uses prune juice as needed GENITOURINARY: urgent continence MUSCULOSKELETAL: pain from fx NEUROLOGICAL:. Prior CVAs, stable HEMATOLOGICAL: stable SKIN: .intact PSYCHIATRIC: Unremarkable. All other review of systems found to be negative. ALLERGIES: Please see below. MEDICATIONS: Please see below. PHYSICAL EXAMINATION: VITAL SIGNS: Please see below. GENERAL: Pleasant and cooperative. No distress. HEENT: TM unable to be visualized, some areas slight opening left but cerumen impaction bilaterally. No point tenderness. Extraocular movements intact. Clear conjunctiva, no adenopathy or thyromegaly. CARDIOVASCULAR: S1 S2 I/ murmur LUNGS: Clear to auscultation bilaterally. No wheezes. No rhonchi. Much less tenderness left anterolateral chest wall. Symmetric expansion. ABDOMEN: Soft, non tender, nondistended. Positive normal active bowel sounds. NEUROLOGICAL: Able to follow 1 step commands Cranial nerves II through XII grossly intact. Sensation intact. 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 Cliff taped. No cyanosis or tenderness dorsum l toes. SKIN: intact LABORATORY DATA: Please see below. IMAGIN06/06/2020 CT head noted for encephalomalacia. Gliosis inferior left cerebellar lobe vermis and tonsil consistent with old infarct, chronic lacunar infarct, posterior limb of the right internal capsule. No acute ICH. Patchy small vessel ischemic disease noted. No evidence fracture 06/06/2020 CT cervical spine, mild to moderate compression fracture, C7, chronic deformity, increase in concavity superior/inferior endplates, T1 and T2. Normal morphology left C1 lateral mass with significant irregularity left C1 to articu lation but stable without evidence of acute fracture or subluxation. 06/06/2020 CT chest calcified mediastinal nodes, calcified granuloma anteromedial left upper lobe. Incidental note small nonobstructing left renal calculus. Impressions felt consistent with old granulomatous disease. Chest liver, spleen, suggestion of some degree of COPD, language configuration endplate depression, C7, T1, T2 and T5 felt chronic, nondisplaced fractures, left. 8th through 10th ribs laterally and fracture, left 11th rib posteriorly. Old fractures, left fourth and fifth ribs anterolaterally. 06/07/2020. X-ray left foot fracture base proximal fourth phalanx with angulation possible fracture fragment second DIP joint, degenerative changes FUNCTIONAL STATUS: Premorbid: Independent with all activities of daily life as well as mobility. Mod I for ambulation with FWW, transfers, dressing, self care activities and advanced ADLS including home making skills tested out in adaptive Apartment. Patient at risk in bathroom, advised to take extra caution with use of safety bars. GOALS: Mod I for self-care and mobility, toileting and basic homemaking skills DISPOSITION: Home alone with follow up with PMD, ENT if needed TIME SPENT: Chart Review, examination and documentation 30 minutes. Vital Signs/I&O Vital Sign - Last 24 Hours 06/18/20 06/18/20 06/19/20 14:00 20:00 06:00 Temp 97.3 98.0 97.6 Pulse 63 61 68 Resp 18 20 20 B/P (MAP) 130/63 (85) 135/63 (87) 142/88 (106) Pulse Ox 98 99 99 O2 Delivery Room Air Room Air Room Air I&O- Last 24 Hours up to 6 AM 06/19/20 06:00 Intake Total 1060 ml Balance 1060 ml Medications Medications Current Medications Medications (Trade) Dose Ordered Sig/Chan Route PRN Reason Start Time Stop Time Status Last Admin Dose Admin Acetaminophen (Tylenol Tab) 1,000 mg TID PO 06/07/20 21:00 06/18/20 21:15 Apixaban (Eliquis) 2.5 mg BID PO 06/08/20 09:00 06/08/20 09:37 DC 06/08/20 08:15 Apixaban (Eliquis) 2.5 mg DAILY PO 06/10/20 09:00 06/19/20 08:21 Calcium/Vitamin D (Oscal D) 500 mg BID PO 06/07/20 21:00 06/19/20 08:20 Carbamide Peroxide (Debrox) 3 drop BID AU 06/15/20 21:00 06/19/20 20:59 06/19/20 08:21 Carbamide Peroxide (Debrox) 5 drop BID AU 06/13/20 09:00 06/15/20 11:52 DC 06/15/20 09:40 Chlorthalidone (Hygroton, Chlorthalidone) 12.5 mg MoWeFr@0900 PO 06/09/20 09:00 06/19/20 08:20 Diclofenac Epolamine (Flector 1.3%) 1 patch DAILY TOP 06/10/20 09:00 06/15/20 18:27 DC 06/15/20 09:40 Diclofenac Epolamine (Flector 1.3%) 1 patch Q12H TOP 06/08/20 09:00 06/09/20 15:37 DC 06/09/20 08:39 Docusate Sodium (Colace Liquid) 100 mg BID XX 06/19/20 09:00 UNV Docusate Sodium (Colace) 100 mg DAILY PO 06/08/20 09:00 06/19/20 08:20 Flecainide Acetate (Tambocor) 50 mg BID PO 06/07/20 21:00 06/14/20 16:17 DC 06/14/20 08:30 Flecainide Acetate (Tambocor) 50 mg BID@0900,1900 PO 06/14/20 19:00 06/19/20 08:20 Home Med (Med Rec Complete!) ASDIRECTED XX 06/07/20 18:00 06/07/20 18:05 DC Hydroxyzine HCl (Atarax) 10 mg BIDP PRN PO ANXIETY/AGITATION 06/12/20 08:30 06/14/20 16:16 DC 06/13/20 20:31 Lidocaine (Lidoderm Patch) 1 patch QHS TD 06/09/20 21:00 06/15/20 18:27 DC 06/14/20 19:53 Multivitamins (Fruity Chews-Children'S) 1 tab DAILY PO 06/08/20 09:00 06/19/20 08:20 Non-Formulary Medication ( See Comment Field Below ) REMOVE LIDODERM PATCH DAILY XX 06/10/20 09:00 06/15/20 18:27 DC 06/15/20 09:41 Omeprazole (PriLOSEC) 20 mg DAILY PO 06/08/20 09:00 06/19/20 08:21 Polyethylene Glycol (Miralax) 1 pkt DAILY PO 06/08/20 09:00 06/18/20 07:46 Simvastatin (Zocor) 10 mg QHS PO 06/07/20 21:00 06/18/20 21:15 Spironolactone (Aldactone) 12.5 mg DAILY PO 06/08/20 09:00 06/19/20 08:21 Tramadol HCl (Ultram) 50 mg Q6HP PRN PO MODERATE PAIN (PS 5-7) 06/07/20 18:15 06/13/20 06:43 DC 06/11/20 02:44 Scheduled Acetaminophen (Acetaminophen) 500 Mg Tablet, 1,000 MG PO TID Alendronate Sodium (Alendronate Sodium) 70 Mg/75 Ml Solution, 75 ML PO QWEEK, (Reported) Apixaban (Eliquis) 2.5 Mg Tablet, 2.5 MG PO BID, (Reported) Calcium Carbonate/Vitamin D3 (Calcium 500-Vit D3 10 Mcg Chew) 500 Mg-400 Tab.chew, 1 TAB PO BID, (Reported) Carbamide Peroxide (Ear Drops) 15 Ml Drops, 3 DROP AU BID Chlorthalidone (Chlorthalidone) 25 Mg Tablet, 12.5 MG PO 3XW, (Reported) FRIDAY, FRIDAY AND FRIDAY Flecainide Acetate (Flecainide Acetate) 50 Mg Tablet, 50 MG PO BID, (Reported) Multivitamins (Child Chew Vitamin) 1 Each Tab.chew, 1 TAB PO DAILY, (Reported) Omeprazole (Omeprazole) 20 Mg Capsule.dr, 20 MG PO DAILY, (Reported) Simvastatin (Simvastatin) 10 Mg Tablet, 10 MG PO QHS, (Reported) Spironolactone (Spironolactone) 25 Mg Tablet, 12.5 MG PO DAILY, (Reported) Allergies Coded Allergies: No Known Drug Allergies (Verified Allergy, Unknown, 11/26/19) GEORGINA FERNANDEZ MD Jun 19, 2020 08:24
[2020-06-19 10:24] LABS: BLOOD UREA NITROGEN 20 MG/DL (7-18); CALCIUM LEVEL 9.4 MG/DL (8.8-10.2); CARBON DIOXIDE LEVEL 35 MEQ/L (21-32); CHLORIDE LEVEL 95 MEQ/L (98-107); CREATININE FOR GFR 0.64 MG/DL (0.55-1.30); GLOMERULAR FILTRATION RATE > 60.0 (>32); GLUCOSE, FASTING 84 MG/DL (70-100); POTASSIUM SERUM 4.4 MEQ/L (3.5-5.1); SODIUM LEVEL 132 MEQ/L (136-145)
[2020-06-19] MEDS: DOCUSATE SOD LIQ 100MG/10ML UDC XX SCH ×2 (11:06→21:22)
[2020-06-19] MEDS ORDERED: CARBOT AU (12:31)
[2020-06-19 14:12] VITALS: BP 103/59
--- NOTE | 2020-06-19 14:33 | PMRNOTEPD ---
PMR Note SUBJECTIVE: Did well over weekend, still has some balance and dizziness issues at times, but no falls. Was preparing for discharge, however downward trend in Sodium level noted to 132. Patient admits she does not add any salt to anything based on prior recommendations. OBJECTIVE. PHYSICAL EXAMINATION: VITAL SIGNS: Please see below. GENERAL: Pleasant and cooperative. No distress. HEENT: TM still unable to be visualized, however left side beginning to soften, upper portion cracking open and hearing improving on that side. No point tenderness. Extraocular movements intact. CARDIOVASCULAR: S1 S2 I/ murmur LUNGS: Clear to auscultation bilaterally. No wheezes. No rhonchi. Much less tenderness left anterolateral chest wall. Symmetric expansion. ABDOMEN: Soft, non tender, nondistended. Positive normal active bowel sounds. NEUROLOGICAL: Cranial nerves II through XII grossly intact. Sensation intact. 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 Cliff taped. No cyanosis or tenderness dorsum l toes. SKIN: intact ASSESSMENT #8 through #11 rib fractures. Fourth phalanx fracture with angulation. Osteoporosis History of multiple CVAs. History chronic A. fib. Hyponatremia Falls risk PLAN One more day of therapy to insure good adaptation of balance, safety strategies, allay ongoing anxiety, cerumen disimpaction Sodium replenishment and reassessment If remains stable, DC tomorrow. GEORGINA FERNANDEZ MD Jun 19, 2020 14:33
[2020-06-19 20:00] VITALS: BP 136/71
[2020-06-19] MEDS: SODIUM CHLORIDE 1 GM TAB PO SCH (21:22)
[2020-06-19] MEDS: SIMVASTATIN 10 MG TAB PO SCH (21:22)
[2020-06-20 06:00] VITALS: BP 135/82
[2020-06-20 08:29] LABS: BLOOD UREA NITROGEN 18 MG/DL (7-18); CALCIUM LEVEL 9.6 MG/DL (8.8-10.2); CARBON DIOXIDE LEVEL 32 MEQ/L (21-32); CHLORIDE LEVEL 99 MEQ/L (98-107); GLOMERULAR FILTRATION RATE > 60.0 (>32); GLUCOSE, FASTING 104 MG/DL (70-100); POTASSIUM SERUM 4.3 MEQ/L (3.5-5.1); SODIUM LEVEL 135 MEQ/L (136-145)
[2020-06-20] MEDS: SODIUM CHLORIDE 1 GM TAB PO SCH (08:57)
[2020-06-20] MEDS: CALCIUM/VITAMIN D 500 MG TAB PO SCH (08:57)
[2020-06-20] MEDS: APIXABAN 2.5 MG TAB (ELIQUIS) PO SCH (08:57)
[2020-06-20] MEDS: OMEPRAZOLE 20 MG CAP PO SCH (08:57)
[2020-06-20] MEDS: FLECAINIDE 50MG TABLET PO SCH (08:57)
[2020-06-20] MEDS: DOCUSATE SODIUM 100 MG CAP PO SCH (08:57)
[2020-06-20] MEDS: ACETAMINOPHEN 500 MG TAB PO SCH (08:58)
[2020-06-20] MEDS: MIRALAX *UNIT DOSE* 17GM PACKET PO SCH (08:58)
[2020-06-20] MEDS: SPIRONOLACTONE 12.5MG PER 1/2 TABLET PO SCH (08:58)
[2020-06-20] MEDS: DOCUSATE SOD LIQ 100MG/10ML UDC XX SCH (08:58)
[2020-06-20] MEDS: MULTIVITAMINS CHILDREN'S CHEWABLE TABLET PO SCH (08:58)
== END 2020-06-20 12:20 | disposition home health service (06) | DRG 560 ==
LOC: M PM&R 17:15
PROVIDERS: ADMIT Physical Medicine & Rehabilitation; ATTEND Physical Medicine & Rehabilitation
DX: S22.42XD Multiple fractures of ribs, left side, subsequent encounter for fracture with routine healing (principal); I48.20 Chronic atrial fibrillation, unspecified; E87.1 Hypo-osmolality and hyponatremia; S92.512D Displaced fracture of proximal phalanx of left lesser toe(s), subsequent encounter for fracture with routine healing; W18.09XA Striking against other object with subsequent fall, initial encounter; Y92.010 Kitchen of single-family (private) house as the place of occurrence of the external cause; M81.0 Age-related osteoporosis without current pathological fracture; Z86.73 Personal history of transient ischemic attack (TIA), and cerebral infarction without residual deficits; N39.41 Urge incontinence; E78.5 Hyperlipidemia, unspecified; Z98.41 Cataract extraction status, right eye; Z98.42 Cataract extraction status, left eye; Z87.891 Personal history of nicotine dependence; J44.9 Chronic obstructive pulmonary disease, unspecified; Z79.01 Long term (current) use of anticoagulants; Z79.899 Other long term (current) drug therapy; H61.21 Impacted cerumen, right ear

== ENCOUNTER 2020-08-29 23:21 | Inpatient (IN) | payer MEDICARE ==
[~2020-08-29] VITALS: Ht 170.2 cm; Wt 52.3 kg
[~2020-08-29 23:21] MED LIST changes: +CARBOT AU
--- OUTSIDE RECORDS SUMMARY | 2020-08-29 23:28 | CCD ---
Author Author [facility] Organization [facility] Address Unknown Phone Unavailable Care Team Providers Care Yard Jacker Name Role Phone BARTOLOME, Florentin FULTON MD Unavailable Unavailable EMERTON, Florentin FULTON MD Unavailable Unavailable EMERTON, Florentin FULTON MD Unavailable Unavailable EMERTON, Florentin FULTON MD Unavailable Unavailable EMERTON, Florentin FULTON MD Unavailable Unavailable EMERTON, Florentin FULTON MD Unavailable Unavailable EMERTON, Florentin FULTON MD Unavailable Unavailable EMERTON, Florentin FULTON MD Unavailable Unavailable EMERTON, Florentin FULTON MD Unavailable Unavailable EMERTON, Florentin FULTON MD Unavailable Unavailable EMERTON, Florentin FULTON MD Unavailable Unavailable EMERTON, Florentin FULTON MD Unavailable Unavailable EMERTON, Florentin FULTON MD Unavailable Unavailable EMERTON, Florentin FULTON MD Unavailable Unavailable EMERTON, Florentin FULTON MD Unavailable Unavailable EMERTON, Florentin FULTON MD Unavailable Unavailable EMERTON, Florentin FULTON MD Unavailable Unavailable EMERTON, Florentin FULTON MD Unavailable Unavailable EMERTON, Florentin FULTON MD Unavailable Unavailable EMERTON, Florentin FULTON MD Unavailable Unavailable EMERTON, Florentin FULTON MD Unavailable Unavailable EMERTON, Florentin FULTON MD Unavailable Unavailable EMERTON, Florentin FULTON MD Unavailable Unavailable EMERTON, Florentin FULTON MD Unavailable Unavailable EMERTON, Florentin FULTON MD Unavailable Unavailable EMERTON, Florentin FULTON MD Unavailable Unavailable EMERTON, Florentin FULTON MD Unavailable Unavailable EMERTON, Florentin FULTON MD Unavailable Unavailable EMERTON, Florentin FULTON MD Unavailable Unavailable EMERTON, Florentin FULTON MD Unavailable Unavailable EMERTON, Florentin FULTON MD Unavailable Unavailable EMERTON, Florentin FULTON MD Unavailable Unavailable EMERTON, Florentin FULTON MD Unavailable Unavailable EMERTON, A KIRSTIN MD Unavailable Unavailable EMERTON, A KIRSTIN MD Unavailable Unavailable EMERTON, A KIRSTIN MD Unavailable Unavailable EMERTON, A KIRSTIN MD Unavailable Unavailable EMERTON, A KIRSTIN MD Unavailable Unavailable EMERTON, A KIRSTIN MD Unavailable Unavailable EMERTON, A KIRSTIN MD Unavailable Unavailable EMERTON, A KIRSTIN MD Unavailable Unavailable EMERTON, A KIRSTIN MD Unavailable Unavailable EMERTON, A KIRSTIN MD Unavailable Unavailable EMERTON, A KIRSTIN MD Unavailable Unavailable EMERTON, A KIRSTIN MD Unavailable Unavailable EMERTON, A KIRSTIN MD Unavailable Unavailable EMERTON, A KIRSTIN MD Unavailable Unavailable EMERTON, A KIRSTIN MD Unavailable Unavailable EMERTON, A KIRSTIN MD Unavailable Unavailable EMERTON, A KIRSTIN MD Unavailable Unavailable EMERTON, A KIRSTIN MD Unavailable Unavailable EMERTON, A KIRSTIN MD Unavailable Unavailable EMERTON, A KIRSTIN MD Unavailable Unavailable EMERTON, A KIRSTIN MD Unavailable Unavailable EMERTON, A KIRSTIN MD Unavailable Unavailable EMERTON, A KIRSTIN MD Unavailable Unavailable EMERTON, A KIRSTIN MD Unavailable Unavailable EMERTON, A KIRSTIN MD Unavailable Unavailable EMERTON, A KIRSTIN MD Unavailable Unavailable EMERTON, A KIRSTIN MD Unavailable Unavailable EMERTON, A KIRSTIN MD Unavailable Unavailable EMERTON, A KIRSTIN MD Unavailable Unavailable EMERTON, A KIRSTIN MD Unavailable Unavailable EMERTON, A KIRSTIN MD Unavailable Unavailable EMERTON, A KIRSTIN MD Unavailable Unavailable EMERTON, A KIRSTIN MD Unavailable Unavailable EMERTON, A KIRSTIN MD Unavailable Unavailable EMERTON, A KIRSTIN MD Unavailable Unavailable EMERTON, A KIRSTIN MD Unavailable Unavailable EMERTON, A KIRSTIN MD Unavailable Unavailable EMERTON, A KIRSTIN MD Unavailable Unavailable EMERTON, A KIRSTIN Unavailable Unavailable EMERTON, A KIRSTIN Unavailable Unavailable EMERTON, A KIRSTIN Unavailable Unavailable ELA, Eric GARCIA MD Unavailable Unavailable ELA, Eric GARCIA MD Unavailable Unavailable ELA, Eric GARCIA MD Unavailable Unavailable ELA, S RADHA LIGHT Unavailable Unavailable ELA, Eric GARCIA MD Unavailable Unavailable ELA, Eric GARCIA MD Unavailable Unavailable ELA, Eric GARCIA MD Unavailable Unavailable ELA, Eric GARCIA MD Unavailable Unavailable ELA, S RADHA LIGHT Unavailable Unavailable ELA, S RADHA LIGHT Unavailable Unavailable ELA, S RADHA LIGHT Unavailable Unavailable ELA, S RADHA LIGHT Unavailable Unavailable ELA, S RADHA LIGHT Unavailable Unavailable ELA, S RADHA LIGHT Unavailable Unavailable ELA, S RADHA MD Unavailable Unavailable Eric MAHMOOD MD Unavailable Unavailable Eric MAHMOOD MD Unavailable Unavailable Eric MAHMOOD MD Unavailable Unavailable Eric MAHMOOD MD Unavailable Unavailable Eric MAHMOOD MD Unavailable Unavailable Sainz, M Barratt PA Unavailable Unavailable Sainz, M Barratt PA Unavailable Unavailable Sainz, M Barratt PA Unavailable Unavailable Sainz, M Barratt PA Unavailable Unavailable Sainz, M Barratt PA Unavailable Unavailable Sainz, M Barratt PA Unavailable Unavailable Sainz, M Barratt PA Unavailable Unavailable Sainz, M Barratt PA Unavailable Unavailable Sainz, M Barratt PA Unavailable Unavailable Sainz, M Barratt PA Unavailable Unavailable Sainz, M Barratt PA Unavailable Unavailable Sainz, M Barratt PA Unavailable Unavailable Sainz, M Barratt PA Unavailable Unavailable Sainz, M Barratt PA Unavailable Unavailable Sainz, M Barratt PA Unavailable Unavailable Sainz, M Barratt PA Unavailable Unavailable Sainz, M Barratt PA Unavailable Unavailable Sainz, M Barratt PA Unavailable Unavailable Sainz, M Barratt PA Unavailable Unavailable Sainz, M Barratt PA Unavailable Unavailable Sainz, M Barratt PA Unavailable Unavailable Sainz, M Barratt PA Unavailable Unavailable Sainz, M Barratt PA Unavailable Unavailable Sainz, M Barratt PA Unavailable Unavailable Sainz, M Barratt PA Unavailable Unavailable Sainz, M Barratt PA Unavailable Unavailable Sainz, M Barratt PA Unavailable Unavailable Sandie HINOJOSA MD Unavailable Unavailable Sandie HINOJOSA MD Unavailable Unavailable Sandie HINOJOSA MD Unavailable Unavailable Sandie HINOJOSA MD Unavailable Unavailable Sandie HINOJOSA MD Unavailable Unavailable Sandie HINOJOSA MD Unavailable Unavailable Sandie HINOJOSA MD Unavailable Unavailable Sandie HINOJOSA MD Unavailable Unavailable Sandie HINOJOSA MD Unavailable Unavailable Sandie HINOJOSA MD Unavailable Unavailable Sandie HINOJOSA MD Unavailable Unavailable Sandie HINOJOSA MD Unavailable Unavailable Sandie HINOJOSA MD Unavailable Unavailable Sandie HINOJOSA MD Unavailable Unavailable Sandie HINOJOSA MD Unavailable Unavailable Sandie HINOJOSA MD Unavailable Unavailable Sandie HINOJOSA MD Unavailable Unavailable Sandie HINOJOSA MD Unavailable Unavailable Sandie HINOJOSA MD Unavailable Unavailable Sandie HINOJOSA MD Unavailable Unavailable Sandie HINOJOSA MD Unavailable Unavailable Sandie HINOJOSA MD Unavailable Unavailable Sandie HINOJOSA MD Unavailable Unavailable Sandie HINOJOSA MD Unavailable Unavailable HINOJOSA, E KAYLA LIGHT Unavailable Unavailable HINOJOSA, E KAYLA MD Unavailable Unavailable HINOJOSA, E KAYLA MD Unavailable Unavailable HINOJOSA, E KAYLA MD Unavailable Unavailable HINOJOSA, E KAYLA MD Unavailable Unavailable HINOJOSA, E KAYLA MD Unavailable Unavailable HINOJOSA, E KAYLA MD Unavailable Unavailable HINOJOSA, E KAYLA MD Unavailable Unavailable HINOJOSA, E KAYLA MD Unavailable Unavailable HINOJOSA, E KAYLA MD Unavailable Unavailable HINOJOSA, E KAYLA MD Unavailable Unavailable HINJOOSA, E KAYLA MD Unavailable Unavailable HINOJOSA, E KAYLA MD Unavailable Unavailable HINOJOSA, E KAYLA MD Unavailable Unavailable HINOJOSA, E KAYLA MD Unavailable Unavailable HINOJOSA, E KAYLA MD Unavailable Unavailable HINOJOSA, E KAYLA MD Unavailable Unavailable HINOJOSA, E KAYLA MD Unavailable Unavailable HINOJOSA, E KAYLA MD Unavailable Unavailable HINOJOSA, E KAYLA MD Unavailable Unavailable HINOJOSA, E KAYLA MD Unavailable Unavailable HINOJOSA, E KAYLA MD Unavailable Unavailable HINOJOSA, E KAYLA MD Unavailable Unavailable HINOJOSA, E KAYLA MD Unavailable Unavailable HINOJOSA, E KAYLA MD Unavailable Unavailable HINOJOSA, E KAYLA MD Unavailable Unavailable HINOJOSA, E KAYLA MD Unavailable Unavailable HINOJOSA, E KAYLA MD Unavailable Unavailable HINOJOSA, E KAYLA MD Unavailable Unavailable HINOJOSA, E KAYLA MD Unavailable Unavailable HINOJOSA, E KAYLA MD Unavailable Unavailable HINOJOSA, E KAYLA MD Unavailable Unavailable HINOJOSA, E KAYLA MD Unavailable Unavailable Re-disclosure Warning The records that you are about to access may contain information from federally-assisted alcohol or drug abuse programs. If such information is present, then the following federally mandated warning applies: This information has been disclosed to you from records protected by federal confidentiality rules (42 CFR part 2). The federal rules prohibit you from making any further disclosure of this information unless further disclosure is expressly permitted by the written consent of the person to whom it pertains or as otherwise permitted by 42 CFR part 2. A general authorization for the release of medical or other information is NOT sufficient for this purpose. The Federal rules restrict any use of the information to criminally investigate or prosecute any alcohol or drug abuse patient.The records that you are about to access may contain highly sensitive health information, the redisclosure of which is protected by Article 27-F of the [facility] Public Health law. If you continue you may have access to information: Regarding HIV / AIDS; Provided by facilities licensed or operated by the [facility] Office of Mental Health; or Provided by the [facility] Office for People With Developmental Disabilities. If such information is present, then the following [facility] mandated warning applies: This information has been disclosed to you from confidential records which are protected by state law. State law prohibits you from making any further disclosure of this information without the specific written consent of the person to whom it pertains, or as otherwise permitted by law. Any unauthorized further disclosure in violation of state law may result in a fine or fci sentence or both. A general authorization for the release of medical or other information is NOT sufficient authorization for further disc losure. Family History Family Member Name Family Member Gender Family Member Status Date o f Status Description Data Source(s) Unknown Female Problem [facility] ([facility]) Encounters Encounter Providers Location Date Indications Data Source(s ) OFFICE OUTPATIENT NEW 30 MINUTES Attender: Nuris GALEANA Ph ysical Therapy 07/03/2020 12:30:00 PM EST [facility] ([facility]) Outpatient Attender: KAYLA HINOJOSA MD Main Office 03/27/2020 12:00:00 PM EDT [facility] ([facility]) Outpatient Attender: KAYLA HINOJOSA MD Main Office 03/01/2020 02:00:00 PM EDT [facility] ([facility]) OutpatientEst Oph Comp Exam 02/02/2020 Attender: RADHA MAHMOOD MD 02/02/2020 12:07:56 PM EDT [facility] (Eleazar Preston MD) Outpatient Referrer: KIRSTIN MANCUSO MD 12/07/2019 07:03:00 AM EDT [facility] Radiology Imaging Medications Medication Brand Name Start Date Product Form Dose Route Admi nistrative Instructions Pharmacy Instructions Status Indications Reaction Description Data Source(s) Chlorthalidone 25 MG Oral Tablet Chlorthalidone 03/01/2020 12:00:00 A M EDT ORAL active [facility] ([facility]) Spironolactone 25 MG Oral Tablet Spironolactone 03/01/2020 12:00:00 A M EDT ORAL active [facility] ([facility]) Omeprazole 20 MG Delayed Release Oral Capsule Omeprazole 02/29/2020 12:00:00 AM EDT ORAL active [facility] ([facility]) Simvastatin 10 MG Oral Tablet Simvastatin 02/29/2020 12:00:00 AM EDT ORAL active [facility] ([facility]) Childrens Chewable Multivitamin With Iron 02/29/2020 12:00:0 0 AM EDT ORAL active [facility] ([facility]) apixaban 2.5 MG Oral Tablet [Eliquis] Eliquis 02/29/2020 12:00:00 AM EDT ORAL active [facility] ([facility]) Alendronic acid 70 MG Oral Tablet Alendronate Sodium 02/29/2020 12:00:00 AM EDT ORAL active [facility] ( [facility]) Calcium Carbonate 1250 MG / Cholecalciferol 125 UNT Oral Tab let Calcium 500 + D 02/29/2020 12:00:00 AM EDT ORAL active [facility] ([facility]) Insurance Providers Payer name Policy type / Coverage type Policy ID Covered democrat ID Covered democrat's relationship to jackson Policy Jackson Plan Information MEDICARE [id number] SP [id number] [facility] HEALTH CARE OPTIONS [id number] SP [id number] MEDICARE C [id number] S [id number] AAR O [id number] S [id number] [facility] Medicare Part B [id number] Medicare [id number] [facility] [id number] Commercial Insurance [id number] [facility] [id number] Commercial Insurance [id number] [facility] Medicare Part B [id number] Medicare [id number] [facility] HE[facility]ARE OPTIONS [id number] SP [id number] [facility] HE[facility] OPTIONS [id number] SP [id number] [facility] HE[facility] OPTIONS [id number] SP [id number] [facility] HE[facility] CARE OPTIONS [id number] SP [id number] MEDICARE [id number] SP [id number] A [facility] 2 [id number] [place] ([facility]) - [id number] 1 [id number] [facility] [id number] Commercial Insurance [id number] [facility] [id number] Commercial Insurance [id number] Aar [id number] Commercial Insurance [id number] [facility] [id number] Commercial Insurance [id number] [facility] Medicare Part B [id number] Medicare [id number] [facility] [id number] Commercial Insur ance [id number] MEDICARE C [id number] S [id number] A [facility] [id number] S [id number] UNAVAILABLE UNAVAILA BLE UNITED HEALTHCARE [id number] SP [id number] [facility] Options Medigap Part B Self Medicare [place] Medicare Primary Medicare B Self Medicare B UNAVAILABLE UNAVAILA BLE UNITED HEALTHCARE HEA [id number] MEDICARE MCA [id number] A MEDICARE MCA [id number] A UNITED HEALTHCARE [id number] SP [id number] MEDICARE [id number] SP [id number] A UNITED HEALTHCARE [id number] SP [id number] UNITED HEALTHCARE O [id number] S [id number] SELF PAY UNAVAILABLE UNAVAILA BLE MEDICARE - [place] MCR [id number] S [id number] United [employer] Medigap Part B Self UNITED HEALTHCARE [id number] SP [id number] MEDICARE [id number] SP [id number] A 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 Problem 03/01/2020 12:00:00 AM EDT [facility] ([facility]) [id number] Mitral valve disorder Mitral valve disorder Problem 03/01/2020 12:00:00 AM EDT [facility] ([facility]) [id number] Aortic valve disorder Aortic valve disorder Problem 03/01/2020 12:00:00 AM EDT [facility] ([facility]) [id number] Heart murmur Heart murmur Problem 03/01/2020 12:00:00 A M EDT [facility] ([facility]) [id number] Hyperlipidemia Hyperlipidemia Problem 03/01/2020 12:00: 00 AM EDT [facility] ([facility]) [id number] Essential hypertension Essential hypertension Problem 03/01/2020 12:00:00 AM EDT [facility] [id number] Congestive heart failure Congestive heart failure Prob karely 03/01/2020 12:00:00 AM EDT [facility]) [id number] Electrocardiogram abnormal Electrocardiogram abnormal Problem 03/01/2020 12:00:00 AM EDT [facility]) [id number] Paroxysmal atrial fibrillation Paroxysmal atrial fibri llation Problem 03/01/2020 12:00:00 AM EDT [facility]) H53.143 Visual discomfort Visual discomfort, b ilateral (H53.143) Comments: She is having a great deal of difficulty with reading and focus, which appears to be related to the muscle imbalance as well as to a slight change in the refraction, with the addition of more magnification into the reading glass. I prescribed these glasses for her, and believe these will help. 02/02/2020 [id number] 02/02/2020 12:07:56 PM EDT [facility] (Eleazar Preston II, MD) Surgeries/Procedures Procedure Description Date Indications Data Source(s) ECHO TTHRC R-T 2D W/WOM-MODE COMPL SPEC&COLR DOP 04/13 12:00:00 AM EDT [facility] ([facility]) MYOCARDIAL SPECT MULTIPLE STUDIES 03/21/2020 12:00:00 AM EDT [facility] ([facility]) CV STRS TST XERS&/OR RX CONT ECG PHYS SI&R 03/21/2020 12:00:00 AM EDT [facility] ([facility]) XTRNL ECG < 48 HR RECORDING 03/17/2020 12:00:00 AM EDT [facility] ([facility]) XTRNL ECG CONTINUOUS RHYTHM PHYS REVIEW&INTERPJ 2019 12:00:00 AM EDT [facility] ([facility]) ECG ROUTINE ECG W/LEAST 12 LDS W/I&R 03/01/2020 12:00: 00 AM EDT [facility]) Non-smoker (finding) 02/02/2020 12:00:00 AM EDT [facility] (Eleazar Le III, MD) Documentation of current medications (procedure) 02/01 12:00:00 AM EDT [facility] (Eleazar Le III, MD) Results ID Date Data Source [id number] 03/09/2020 01:37:00 PM EDT [facility] ([facility]) Name Value Range Interpretation Code Description Data Michelle rce(s) Supporting Document(s) Natriuretic peptide.B prohormone N-Terminal [Mass/volu me] in Serum or Plasma 205 pg/mL 0-738 [facility] ([facility]) <content>The following cut-points have b een suggested for the</content>
<content>use of proBNP for the diagnostic evaluation of heart</content>
<content>failure (HF) in patients with acute dy spnea:</content>
<content>Modality Age Optimal Cut</content>
<content>(years) Point</content>
<content> ---</content>
<content>Diagnosis (rule in HF) <50 450 pg/mL</content>
<content>50 - 75 900 pg/mL</content>
<content>>75 1800 pg/mL</content>
<content> Exclusion (rule out HF) Age independent 300 pg/mL</content>
<content></content> Magnesium [Mass/volume] in Serum or Plasma 2.1 mg/dL 1.6-2.3 [facility] ([facility]) Laboratory test finding (navigational concept) Laboratory test result [facility] ([facility]) ID Date Data Source [id number] 03/09/2020 01:37:00 PM EDT [facility] ([facility]) Name Value Range Interpretation Code Description Data Michelle rce(s) Supporting Document(s) Glucose 110 mg/dL 65-99 [facility] ([facility]) Urea nitrogen [Mass/volume] in Serum or Plasma 24 mg/dL 8-27 [facility] ([facility]) eGFR If NonAfricn Am 80 mL/min/1.73 MED[facility] NT ([facility]) Creatinine 0.68 mg/dL 0.57-1.00 [facility] ([facility]) Urea nitrogen/Creatinine [Mass Ratio] in Serum or Plasma 35 1 2-28 [facility] ([facility]) eGFR If Africn Am 92 mL/min/1.73 [facility] ([facility]) Sodium 141 mmol/L 134-144 [facility] ([facility]) Chloride [Moles/volume] in Serum or Plasma 95 mmol/L 96-106 [facility] ([facility]) Potassium [Moles/volume] in Serum or Plasma 4.7 mmol/L 3.5-5.2 [facility] ([facility]) Phosphate [Moles/volume] in Serum or Plasma 3.9 mg/dL 3.0-4.3 [facility] ([facility]) Calcium [Mass/volume] in Serum or Plasma 10.3 mg/dL 8.7-10.3 [facility] ([facility]) Carbon dioxide, total [Moles/volume] in Serum or Plasma 31 mmol/L 20 -29 [facility] ([facility]) Albumin [Mass/volume] in Serum or Plasma 4.9 g/dL 3.6-4.6 [facility] ([facility]) ID Date Data Source [id number] 03/10/2020 08:06:00 AM EDT [facility] Name Value Range Interpretation Code Description Data Michelle rce(s) Supporting Document(s) Glucose 110 mg/dL 65-99 Above high normal [facility] BUN 24 mg/dL 8-27 [facility] Creatinine 0.68 mg/dL 0.57-1.00 [facility] eGFR If NonAfricn Am 80 mL/min/1.73 >59 [facility] eGFR If Africn Am 92 mL/min/1.73 >59 [facility] BUN/Creatinine Ratio 35 12-28 Above high normal [facility] Sodium 141 mmol/L 134-144 [facility] Potassium 4.7 mmol/L 3.5-5.2 [facility] Chloride 95 mmol/L 96-106 Below low normal [facility] Carbon Dioxide, Total 31 mmol/L 20-29 Above high normal [facility] Calcium 10.3 mg/dL 8.7-10.3 [facility] Phosphorus 3.9 mg/dL 3.0-4.3 [facility] Albumin 4.9 g/dL 3.6-4.6 Above high normal [facility] ID Date Data Source [id number] 03/11/2020 06:05:00 AM EDT [facility] Name Value Range Interpretation Code Description Data Michelle rce(s) Supporting Document(s) NT-proBNP 205 pg/mL 0-738 [facility] The following cut-points have been suggested for the use of proBNP for the diagnostic evaluation of heart failure (HF) in patients with acute dyspnea: Modality Age Optimal Cut (years) Point Diagnosis (rule in HF) <50 450 pg/mL 50 - 75 900 pg/mL > 75 1800 pg/mL Exclusion (rule out HF) Age independent 300 pg/mL ID Date Data Source [id number] 03/10/2020 08:06:00 AM EDT [facility] Name Value Range Interpretation Code Description Data Michelle rce(s) Supporting Document(s) Magnesium 2.1 mg/dL 1.6-2.3 [facility] ID Date Data Source [id number] 11/28/2019 03:30:00 PM EDT [facility] ([facility]) Name Value Range Interpretation Code Description Data Michelle rce(s) Supporting Document(s) Troponin 0.03 [facility] ([facility]) C-Reactive Protein 0.30 [facility] ([facility]) Thyroid Stimulating Hormone 0.8999 [place] [facility] ([facility]) ID Date Data Source [id number] 11/28/2019 03:30:00 PM EDT [facility] ([facility]) Name Value Range Interpretation Code Description Data Michelle rce(s) Supporting Document(s) Creatine kinase [Enzymatic activity/volume] in Serum or Plasma 86 [facility] ([facility]) CPK-MB 1.8 [facility] ([facility]) ID Date Data Source [id number] 11/26/2019 12:07:00 PM EDT [facility] ([facility] [facility]) Name Value Range Interpretation Code Description Data Michelle rce(s) Supporting Document(s) Red Blood Count 4.02 4.00-5.40 [facility] ([facility]) White Blood Count 9.4 4.0-10.0 [facility] ([facility]) Hemoglobin 13.0 [facility] ([facility]) Hematocrit 39.4 [facility] ([facility]) Platelets 244 150-450 [facility] ([facility]) ID Date Data Source [id number] 11/26/2019 12:07:00 PM EDT MED[facility] ([facility]) Name Value Range Interpretation Code Description Data Michelle rce(s) Supporting Document(s) Troponin 0.11 [facility] Natriuretic peptide.B prohormone N-Terminal [Mass/volu me] in Serum or Plasma 3785 MEDENT ([facility]) ID Date Data Source [id number] 11/26/2019 12:07:00 PM EDT [facility] ([facility]) Name Value Range Interpretation Code Description Data Michelle rce(s) Supporting Document(s) Bilirubin.total [Mass/volume] in Serum or Plasma 0.5 [facility] ([facility]) Albumin [Mass/volume] in Serum or Plasma 3.7 [facility] ([facility]) Alkaline phosphatase [Enzymatic activity/volume] in Serum or Plasma 3 3 [facility] ([facility]) Alanine aminotransferase [Enzymatic activity/volume] in Serum or Pl asma 33 [facility] ([facility]) Aspartate aminotransferase [Enzymatic activity/volume] in Serum or Plasma 24 [facility] ([facility]) Protein [Mass/volume] in Serum or Plasma 6.8 [facility] ([facility]) ID Date Data Source [id number] 09/27/2019 12:10:00 PM EST [facility] ([facility]) Name Value Range Interpretation Code Description Data Michelle rce(s) Supporting Document(s) Free T4 1.28 [facility] ([facility]) Triiodothyronine (T3) Free [Mass/volume] in Serum or Plasma 2.5 [facility] ([facility]) Thyroid Stimulating Hormone 1.070 ME DENT ([facility]) ID Date Data Source [id number] 09/27/2019 12:10:00 PM EST [facility] ([facility]) Name Value Range Interpretation Code Description Data Michelle rce(s) Supporting Document(s) Cholesterol 183 [facility] ([facility]) Triglycerides 64 [facility] ([facility]) HDL 84 MED[facility] ([facility]) Cholesterol in LDL [Mass/volume] in Serum or Plasma by calculation 86 [facility] ([facility]) Chol/HDL Ratio Laboratory test result [facility] ([facility]) ID Date Data Source [id number] 09/27/2019 12:10:00 PM EST [facility] ([facility]) Name Value Range Interpretation Code Description Data Michelle rce(s) Supporting Document(s) Alanine aminotransferase [Enzymatic activity/volume] in Serum or Pl asma 17 [facility] ([facility]) Albumin [Mass/volume] in Serum or Plasma 4.2 [facility] ([facility]) Calcium [Mass/volume] in Serum or Plasma 9.6 [facility] ([facility]) Chloride [Moles/volume] in Serum or Plasma 102 [facility] ([facility]) Carbon dioxide, total [Moles/volume] in Serum or Plasma 27 [facility] ([facility]) Alkaline phosphatase [Enzymatic activity/volume] in Serum or Plasma 3 0 [facility] ([facility]) Protein [Mass/volume] in Serum or Plasma 6.8 [facility] ([facility]) Sodium 144 [facility] ([facility]) Potassium [Moles/volume] in Serum or Plasma 5.7 [facility] ([facility]) Aspartate aminotransferase [Enzymatic activity/volume] in Serum or Plasma 26 [facility] ([facility]) Glucose 95 [facility] Urea nitrogen [Mass/volume] in Serum or Plasma 23 [facility] ([facility]) Creatinine For GFR 0.76 [facility] ([facility]) Procedure Social History Code Duration Value Status Description Data Source(s ) Smoking 03/01/2020 12:00:00 AM EDT Patient is a former smoker completed Patient is a former smoker [facility] ([facility]) Smoking 02/02/2020 12:00:00 AM EDT Former smoker completed Former smoker 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 (Elezaar Le III, MD) Vital Signs ID Date Data Source UNK Name Value Range Interpretation Code Description Data Source(s) Body mass index (BMI) [Ratio] 17.5 kg/m2 17.5 k g/m2 [facility] ([facility]) Body weight 115.00 [lb_av] 115.00 [lb_av] MEDEN T ([facility]) Body height 68 [in_i] 68 [in_i] MEDENT ([facility]) 5'8" Body temperature 97.1 [degF] 97.1 [degF] MED[facility] ([facility]) Diastolic blood pressure--supine 84 mm[Hg] 84 mm[Hg] [facility] ([facility]) Systolic blood pressure--supine 129 mm[Hg] 129 mm[Hg] [facility] ([facility]) Diastolic blood pressure--sitting 82 mm[Hg] 82 mm[Hg] [facility] ([facility]) Medium cuff, Ra Systolic blood pressure--sitting 132 mm[Hg] 132 mm[Hg] [facility] ([facility]) Medium cuff, Ra Respiratory rate 16 /min 16 /min [facility] ( [facility]) Heart rate 88 /min 88 /min [facility] ([facility]) regular Body mass index (BMI) [Ratio] 17.0 kg/m2 17.0 k g/m2 [facility] ([facility]) Body height 68 [in_i] 68 [in_i] [facility] ([facility]) 5'8" Body weight 112.00 [lb_av] 112.00 [lb_av] MEDEN T ([facility]) Oxygen saturation in Arterial blood by Pulse oximetry --post exerci se 98 % 98 % [facility] ([facility]) Oxygen saturation in Arterial blood by Pulse oximetry 100 % 100 % [facility] ([facility]) Diastolic blood pressure--supine 68 mm[Hg] 68 mm[Hg] [facility] ([facility]) Ra Systolic blood pressure--supine 156 mm[Hg] 156 mm[Hg] [facility] ([facility]) Ra Diastolic blood pressure--sitting 62 mm[Hg] 62 mm[Hg] [facility] ([facility]) Medium cuff, Ra; 148/68 LA Systolic blood pressure--sitting 144 mm[Hg] 144 mm[Hg] [facility] ([facility]) Medium cuff, Ra; 148/68 LA Respiratory rate 18 /min 18 /min [facility] ( [facility]) Heart rate 64 /min 64 /min [facility] ([facility]) regular with frequent irregularities Body mass index (BMI) [Ratio] 17.6 kg/m2 17.6 k g/m2 [facility] ([facility]) Body height 68 [in_i] 68 [in_i] [facility] ([facility]) 5'8" Body weight 116.00 [lb_av] 116.00 [lb_av] MEDEN T ([facility]) Diastolic blood pressure 91 mm[Hg] 91 mm[Hg] JORGE L (Eleazar Le III, MD) Systolic blood pressure 131 mm[Hg] 131 mm[Hg] C YODIT (Eleazar Le III, MD) Heart rate 127 /min 127 /min JORGE L (Maryana Le III, MD) Body temperature 97.7 [degF] 97.7 [degF] BRIAN DIAZ (Eleazar Le III, MD)
--- OUTSIDE RECORDS SUMMARY | 2020-08-29 23:28 | CCD | Continuity of Care Document ---
Author Author Vicki SAINZ PA-C Organization Unknown Address [address] [place] [id number] Phone [phone] Care Team Providers Care Safety Glass Installer Name Role Phone Wilfrido Cedillo MD AUTM [phone] Mirza Vázquez MD AUTLeda Unavailable Problems Description No Information Available Social History Type Date Description Comments Sex Unknown Allergies, Adverse Reactions, Alerts Description No Information Available Medications Description No Information Available Immunizations Description No Information Available Vital Signs Date Vital Result Comment 07/03/2020 2:43pm Body Temperature 97.1 F Height 68 inches 5'8" Weight 115.00 lb BMI (Body Mass Index) 17.5 kg/m2 Results Description No Information Available Procedures Description No Information Available Medical Devices Description No Information Available Encounters Type Date Location Provider Dx Diagnosis Office Visit 07/03/2020 1:30p [place] Nuris Sainz PA-C S9 2.512A Disp fx of proximal phalanx of left lesser toe(s), init Assessments Date Code Description Provider 07/03/2020 S92.512A Displaced fracture o f proximal phalanx of left lesser toe(s), initial encounter for closed fracture Nuris Sainz PA-C Plan of Treatment 07/03/2020 - Nuris Sainz PA-C* S92.512A Displaced fracture of proximal phalanx of left lesser toe(s), initial encounter for closed fracture* Follow up:* in 1 week with [facility] with xrays Functional Status Description No Information Available Mental Status Description No Information Available Referrals Description No Information Available
[2020-08-30] MEDS ORDERED: traMADol 50 MG TAB PO ONE (00:30)
--- NOTE | 2020-08-30 00:57 | REPVR ---
PROCEDURE INFORMATION: Exam: CT Head Without Contrast Exam date and time: 08/30/2020 12:22 AM Age: 85 years old Clinical indication: Injury or trauma; Fall; Concussion/head injury; Additional info: Fall, unknown cause TECHNIQUE: Imaging protocol: Computed tomography of the head without contrast. Radiation optimization: All CT scans at this facility use at least one of these dose optimization techniques: automated exposure control; mA and/or kV adjustment per patient size (includes targeted exams where dose is matched to clinical indication); or iterative reconstruction. COMPARISON: CT Head without contrast 06/06/2020 11:26 PM FINDINGS: Brain: No intracranial mass, focal mass effect or midline shift. No acute intracranial hemorrhage. Advanced decreased attenuation in periventricular/centrum semiovale white matter. No focal effacement of cortical sulci to indicate acute cortical infarct. Remote left cerebellar infarcts with encephalomalacia. Prominent ventricles and CSF spaces suggest parenchymal volume loss. Bones/joints: No calvarial fracture or destructive process. Paranasal sinuses: Visualized paranasal sinuses are unremarkable. Mastoid air cells: Mastoid air cells are normally aerated. Orbital cavity: Visualized globes and orbits are unremarkable. Soft tissues: No focal extracranial soft tissue swelling. IMPRESSION: 1. No acute intracranial abnormality. 2. 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 Electronically signed by: Kendrick Zepeda On 08/30/2020 00:58:02 AM
--- NOTE | 2020-08-30 01:18 | REPVR ---
PROCEDURE INFORMATION: Exam: CT Lumbar Spine Without Contrast Exam date and time: 08/30/2020 12:22 AM Age: 85 years old Clinical indication: Low back pain; Additional info: Fall, unknown cause TECHNIQUE: Imaging protocol: Computed tomography images of the lumbar spine without contrast. Radiation optimization: All CT scans at this facility use at least one of these dose optimization techniques: automated exposure control; mA and/or kV adjustment per patient size (includes targeted exams where dose is matched to clinical indication); or iterative reconstruction. COMPARISON: No relevant prior studies available. FINDINGS: Vertebrae: No anterior wedging deformity. No acute lucent fracture lines visualized. There is slight retrolisthesis at L4-L5. Lumbar facet arthropathy is noted. Discs/Spinal canal/Neural foramina: Central canal stenosis is moderate at L2-L3 and L3-L4, moderate to severe at L4-L5 and L5-S1. Neural foraminal stenosis is seen at the lower lumbar levels. Sacrum/coccyx: There is a left sacral insufficiency fracture, with subtle anterior cortical break noted. Other bones/joints: There are fractures of the left posterior ribs 10 and 11 which appear chronic. Gallbladder and bile ducts: Cholelithiasis is incidentally visualized. Stomach and bowel: Diverticulosis coli is incidentally noted. IMPRESSION: 1. No acute lumbar spinal injury identified by CT. 2. Degenerative changes of the lumbar spine, as above. 3. Fractures of the left posterior ribs 10 and 11 which appear chronic. 4. Cholelithiasis. 5. Diverticulosis coli. Electronically signed by: Vera Al On 08/30/2020 01:17:52 AM
--- NOTE | 2020-08-30 01:34 | REPVR ---
PROCEDURE INFORMATION: Exam: XR Chest, 1 View Exam date and time: 08/30/2020 1:10 AM Age: 85 years old Clinical indication: Dizziness/fall TECHNIQUE: Imaging protocol: XR of the chest Views: 1 view. COMPARISON: CT Chest without contrast 06/06/2020 11:30 PM FINDINGS: Tubes, catheters and devices: There is a surgical clip in the left thyroid bed. Lungs: Unremarkable. No consolidation. No pulmonary edema. Pleural spaces: Unremarkable. No pleural effusion. No pneumothorax. Heart/Mediastinum: There are calcified granulomas in the mediastinum. No cardiomegaly. Vasculature: There are atherosclerotic calcifications of the aorta. Bones/joints: There is a fracture of the left lateral 9th rib, which was also present in the prior CT chest on 06/06/2020, but it is unclear if there is a new left rib fracture given the overlapping of the ribs in this region. Other left rib fracture deformities are present, which are better visualized in the CT chest on 06/06/2020. This study was not dedicated for the evaluation of the ribs. IMPRESSION: Fracture of the left lateral 9th rib, which was also present in the prior CT chest on 06/06/2020, but it is unclear if there is a new left rib fracture given the overlapping of the lower left ribs in this region. Electronically signed by: Mark Rob On 08/30/2020 01:33:51 AM
[2020-08-30 01:37] LABS: BASO % 0.2 % (0.0-1.0); EOS % 0.2 % (0.0-3.0); HEMATOCRIT 35.1 % (36.0-47.0); HEMOGLOBIN 11.7 g/dl (12.0-15.5); LYMPH # 1.1 10^3/uL (1.5-5.0); LYMPH % 6.5 % (24.0-44.0); MEAN CORPUSCULAR HEMOGLOBIN 31.7 pg (27.0-33.0); MEAN CORPUSCULAR HGB CONC 33.3 g/dl (32.0-36.5); MEAN CORPUSCULAR VOLUME 95.1 fl (80.0-96.0); MONO # 1.7 10^3/uL (0.0-0.8); MONO % 9.8 % (0.0-5.0); NEUTROPHILS % 82.7 % (36.0-66.0); PLATELET COUNT, AUTOMATED 278 10^3/uL (150-450); RED BLOOD COUNT 3.69 10^6/uL (4.00-5.40); WHITE BLOOD COUNT 16.9 10^3/uL (4.0-10.0)
--- NOTE | 2020-08-30 01:37 | REPVR ---
PROCEDURE INFORMATION: Exam: XR Left Hip with Pelvis when Performed Exam date and time: 08/30/2020 1:10 AM Age: 85 years old Clinical indication: Hip pain; Left hip; Additional info: PT tender, fall TECHNIQUE: Imaging protocol: XR Left hip with pelvis when performed. Views: 2 or 3 views. COMPARISON: No relevant prior studies available. FINDINGS: Bones/joints: There is an acute fracture of the left inferior pubic ramus with a small bony fragment adjacent to the site of the fracture and no significant displacement. No other fractures are seen. There is no diastasis of the pubic symphysis or sacroiliac joints. There is moderate osteoarthritis of the left hip joint and mild osteoarthritis of the right hip joint. Degenerative changes of the lower lumbar spine and sacroiliac joints are present. Soft tissues: Unremarkable. Vasculature: Incidental note is made of small round calcifications in the pelvis, which are compatible with phleboliths. IMPRESSION: 1. Acute fracture of the left inferior pubic ramus without significant displacement. 2. 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 Electronically signed by: Mark Rob On 08/30/2020 01:37:24 AM
[2020-08-30 02:02] LABS: BLOOD UREA NITROGEN 21 MG/DL (7-18); CALCIUM LEVEL 8.9 MG/DL (8.8-10.2); CARBON DIOXIDE LEVEL 30 MEQ/L (21-32); CHLORIDE LEVEL 97 MEQ/L (98-107); CK-MB VALUE MASS 4.6 NG/ML (<3.6); CPK CREATINE PHOSPHOKINASE 130 U/L (26-192); CREATININE FOR GFR 0.48 MG/DL (0.55-1.30); GLOMERULAR FILTRATION RATE > 60.0 (>32); GLUCOSE, FASTING 118 MG/DL (70-100); MB/CK RELATIVE INDEX 3.54 (< OR =4); POTASSIUM SERUM 3.8 MEQ/L (3.5-5.1); SODIUM LEVEL 135 MEQ/L (136-145); TROPONIN I < 0.02 NG/ML (< 0.10)
[2020-08-30] MEDS ORDERED: MORPHINE 2 MG/ML 1ML VIAL (J2270) IV ONE (02:15)
--- OUTSIDE RECORDS SUMMARY | 2020-08-30 02:29 | CCD ---
Author Author [facility] Organization [facility] Address Unknown Phone Unavailable Care Team Providers Care Drug Inspector Name Role Phone BARTOLOME, Florentin FULTON MD [...] Unavailable ELA, S RADHA LIGHT Unavailable Unavailable LEA, S RADHA LIGHT Unavailable Unavailable ELA, S [...] Unavailable Sainz, M Barratt PA Unavailable Unavailable Saizn, M Barratt PA Unavailable Unavailable Sainz, M [...] is protected by Article 27-F of the [facility] Public Health law. If you continue you may have access to information: Regarding HIV / AIDS; Provided by facilities licensed or operated by the [facility] Office of Mental Health; or Provided by the [facility] Office for People With Developmental Disabilities. If such information is present, then the following [facility] mandated warning applies: This information has [...] law may result in a fine or usp sentence or both. A general authorization for the release of medical or other information is NOT sufficient authorization for further disc losure. Family History Family Member Name Family Member Gender Family Member Status Date o f Status Description Data Source(s) Unknown Female Problem [facility] ([facility]) Encounters Encounter Providers Location Date Indications Data Source(s ) OFFICE OUTPATIENT NEW 30 MINUTES Attender: Nuris GALEANA Ph ysical Therapy 07/03/2020 12:30:00 PM EST [facility] ([facility]) Outpatient Attender: KAYLA HINOJOSA MD Main Office 03/27/2020 12:00:00 PM EDT [facility] ([facility]) Outpatient Attender: KAYLA HINOJOSA MD Main Office 03/01/2020 02:00:00 PM EDT [facility] ([facility]) OutpatientEst Oph Comp Exam 02/02/2020 Attender: RADHA MAHMOOD MD 02/02/2020 12:07:56 PM EDT CHARTMAKER (Eleazar Preston MD) Outpatient Referrer: KIRSTIN MANCUSO MD 12/07/2019 07:03:00 AM EDT [facility] Radiology Imaging Medications Medication Brand Name Start Date Product Form Dose Route Admi nistrative Instructions Pharmacy Instructions Status Indications Reaction Description Data Source(s) Chlorthalidone 25 MG Oral Tablet Chlorthalidone 03/01/2020 12:00:00 A M EDT ORAL active [facility] ([facility]) Spironolactone 25 MG Oral Tablet Spironolactone 03/01/2020 12:00:00 A M EDT ORAL active [facility] ([facility]) Omeprazole 20 MG Delayed Release Oral Capsule Omeprazole 02/29/2020 12:00:00 AM EDT ORAL active [facility] ([facility]) Simvastatin 10 MG Oral Tablet Simvastatin 02/29/2020 12:00:00 AM EDT ORAL active [facility] ([facility]) Childrens Chewable Multivitamin With Iron 02/29/2020 12:00:0 0 AM EDT ORAL active [facility] ([facility]) apixaban 2.5 MG Oral Tablet [Eliquis] Eliquis 02/29/2020 12:00:00 AM EDT ORAL active [facility] ([facility]) Alendronic acid 70 MG Oral Tablet Alendronate Sodium 02/29/2020 12:00:00 AM EDT ORAL active [facility] ( [facility]) Calcium Carbonate 1250 MG / Cholecalciferol 125 UNT Oral Tab let Calcium 500 + D 02/29/2020 12:00:00 AM EDT ORAL active MED[facility] ([facility]) Insurance Providers Payer name Policy type / Coverage type Policy ID Covered green party ID Covered green party's relationship to jackson Policy Jackson Plan Information MEDICARE [id number] SP [id number] [facility] OPTIONS [id number] SP [id number] MEDICARE C [id number] S [id number] AAR O [id number] S [id number] [facility] Medicare Part B [id number] Medicare [id number] [facility] [id number] Commercial Insurance [id number] [facility] [id number] Commercial Insurance [id number] [facility] Medicare Part B [id number] Medicare [id number] [facility] OPTIONS [id number] SP [id number] [facility] OPTIONS [id number] SP [id number] [facility] OPTIONS [id number] SP [id number] [facility] OPTIONS [id number] SP [id number] MEDICARE [id number] SP [id number] A [facility] 2 [id number] 1 [id number] MEDIC[place] [facility]) - [id number] 1 [id number] Health System [id number] Commercial Insurance [id number] [facility] [id number] Commercial Insurance [id number] Aar [id number] Commercial Insurance [id number] [facility] [id number] Commercial Insurance [id number] [facility] Medicare Part B [id number] Medicare [id number] Health System [id number] Commercial Insur ance [id number] MEDICARE C [id number] S [id number] A [facility] [id number] S [id number] UNAVAILABLE UNAVAILA BLE [employer] [id number] SP [id number] [facility] Options Medigap Part B Self [place] Medicare Primary Medicare B Self Medicare B UNAVAILABLE UNAVAILA BLE [employer] HEA [id number] MEDICARE MCA [id number] A MEDICARE MCA [id number] A [facility] [id number] SP [id number] MEDICARE [id number] SP [id number] A [facility] [id number] SP [id number] UNITED [employer]ARE O [id number] S [id number] SELF PAY UNAVAILABLE UNAVAILA BLE MEDICARE - [place] MCR [id number] S [id number] United [employer] Medigap Part B Self UNITED HE[employer]CARE [id number] SP [id number] MEDICARE [id number] SP [id number] A [facility] Medicare Commercial Self UNITED HE[employer]CARE UNAVAILABLE SP UNAVAILABLE United [employer] Commercial Insurance [id number] Medicare Part B Medicare [employer] O [id number] S [id number] O UNAVAILABLE UNAVAILA BLE Problems, Conditions, and Diagnoses Code Display Name Description Problem Type Effective Dates Data Source(s) 808130447 Chronic diastolic heart failure Chronic diastoli c heart failure Problem 03/01/2020 12:00:00 AM EDT [facility] ([facility]) [id number] 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 Problem 03/01/2020 12:00:00 AM EDT [facility] ([facility]) [id number] Mitral valve disorder Mitral valve disorder Problem 03/01/2020 12:00:00 AM EDT [facility] ([facility]) [id number] Aortic valve disorder Aortic valve disorder Problem 03/01/2020 12:00:00 AM EDT [facility] ([facility]) [id number] Heart murmur Heart murmur Problem 03/01/2020 12:00:00 A M EDT MED[facility] ([facility]) [id number] Hyperlipidemia Hyperlipidemia Problem 03/01/2020 12:00: 00 AM EDT [facility] ([facility]) [id number] Essential hypertension Essential hypertension Problem 03/01/2020 12:00:[address] [facility] ([facility]) 53138406 Congestive heart failure Congestive heart failure Prob karely 03/01/2020 12:00:[address] [facility] ([facility]) [id number] Electrocardiogram abnormal Electrocardiogram abnormal Problem 03/01/2020 12:00:[address] [facility] ([facility]) [id number] Paroxysmal atrial fibrillation Paroxysmal atrial fibri llation Problem 03/01/2020 12:00:[address] [facility] ([facility]) H53.143 Visual discomfort Visual discomfort, b ilateral (H53.143) Comments: She is having a great deal of difficulty with reading and focus, which appears to be related to the muscle imbalance as well as to a slight change in the refraction, with the addition of more magnification into the reading glass. I prescribed these glasses for her, and believe these will help. 02/02/2020 [id number] 02/02/2020 12:07:56 PM EDT CHARTMAKER (Eleazar Preston II, MD) Surgeries/Procedures Procedure Description Date Indications Data Source(s) ECHO TTHRC R-T 2D W/WOM-MODE COMPL SPEC&COLR DOP 04/13 12:00:[address] [facility] ([facility]) MYOCARDIAL SPECT MULTIPLE STUDIES 03/21/2020 12:00:00 AM EDT [facility] ([facility]) CV STRS TST XERS&/OR RX CONT ECG PHYS SI&R 03/21/2020 12:00:[address] [facility] ([facility]) XTRNL ECG < 48 HR RECORDING 03/17/2020 12:00:[address] [facility] ([facility]) XTRNL ECG CONTINUOUS RHYTHM PHYS REVIEW&INTERPJ 2019 12:00:[address] [facility] ([facility]) ECG ROUTINE ECG W/LEAST 12 LDS W/I&R 03/01/2020 12:00: [address] [facility] ([facility]) Non-smoker (finding) 02/02/2020 12:00:00 AM EDT CHARTMAAPRIL (Eleazar Le III, MD) Documentation of current medications (procedure) 02/01 12:00:00 AM EDT CHARTMAKER (Eleazar Le III, MD) Results ID Date Data Source [id number] 03/09/2020 01:37:00 PM EDT [facility] ([facility]) Name Value Range Interpretation Code Description Data Michelle rce(s) Supporting Document(s) Natriuretic peptide.B prohormone N-Terminal [Mass/volu me] in Serum or Plasma 205 pg/mL 0-738 [facility] ([facility]) <content>The following cut-points have b een [...] Plasma 2.1 mg/dL 1.6-2.3 [facility] ([facility]) Laboratory test finding (navigational concept) Laboratory test result [facility] ([facility]) ID Date Data Source [id number] 03/09/2020 01:37:00 PM EDT [facility] ([facility]) Name Value Range Interpretation Code Description Data Michelle rce(s) Supporting Document(s) Glucose 110 mg/dL 65-99 [facility] ([facility]) Urea nitrogen [Mass/volume] in Serum or Plasma 24 mg/dL 8-27 [facility] ([facility]) eGFR If NonAfricn Am 80 mL/min/1.73 MEDE NT ([facility]) Creatinine 0.68 mg/dL 0.57-1.00 [facility] ([facility]) Urea nitrogen/Creatinine [Mass Ratio] in Serum or Plasma 35 1 2-28 [facility] ([facility]) eGFR If Africn Am 92 mL/min/1.73 [facility] ([facility]) Sodium 141 mmol/L 134-144 [facility] ([facility]) Chloride [Moles/volume] in Serum or Plasma 95 mmol/L 96-106 [facility] ([facility]) Potassium [Moles/volume] in Serum or Plasma 4.7 mmol/L 3.5-5.2 [facility] ([facility]) Phosphate [Moles/volume] in Serum or Plasma 3.9 mg/dL 3.0-4.3 [facility] ([facility]) Calcium [Mass/volume] in Serum or Plasma 10.3 mg/dL 8.7-10.3 [facility] ([facility]) Carbon dioxide, total [Moles/volume] in Serum or Plasma 31 mmol/L 20 -29 [facility] ([facility]) Albumin [Mass/volume] in Serum or Plasma 4.9 g/dL 3.6-4.6 [facility] ([facility]) ID Date Data Source [id number] 03/10/2020 08:06:00 AM EDT [facility] Name Value [...] high normal [facility] ID Date Data Source [id number] 03/11/2020 06:05:00 AM EDT [facility] Name Value [...] independent 300 pg/mL ID Date Data Source [id number] 03/10/2020 08:06:00 AM EDT [facility] Name Value Range Interpretation Code Description Data Michelle rce(s) Supporting Document(s) Magnesium 2.1 mg/dL 1.6-2.3 [facility] ID Date Data Source [id number] 11/28/2019 03:30:00 PM EDT [facility] ([facility]) Name Value Range Interpretation Code Description Data Michelle rce(s) Supporting Document(s) Troponin 0.03 [facility] ([facility]) C-Reactive Protein 0.30 [facility] ([facility]) Thyroid Stimulating Hormone 0.8999 ME DENT ([facility]) ID Date Data Source [id number] 11/28/2019 03:30:00 PM EDT [facility] ([facility]) Name Value Range Interpretation Code Description Data Michelle rce(s) Supporting Document(s) Creatine kinase [Enzymatic activity/volume] in Serum or Plasma 86 [facility] ([facility]) CPK-MB 1.8 [facility] ([facility]) ID Date Data Source [id number] 11/26/2019 12:07:00 PM EDT [facility] ([facility]) Name Value Range Interpretation Code Description Data Michelle rce(s) Supporting Document(s) Red Blood Count 4.02 4.00-5.40 [facility] ([facility]) White Blood Count 9.4 4.0-10.0 [facility] ([facility]) Hemoglobin 13.0 [facility] ([facility]) Hematocrit 39.4 [facility] ([facility]) Platelets 244 150-450 [facility] ([facility]) ID Date Data Source [id number] 11/26/2019 12:07:00 PM EDT [facility] ([facility]) Name Value Range Interpretation Code Description Data Michelle rce(s) Supporting Document(s) Troponin 0.11 [facility] ([facility]) Natriuretic peptide.B prohormone N-Terminal [Mass/volu me] in Serum or Plasma 3785 [facility] ([facility]) ID Date Data Source [id number] 11/26/2019 12:07:00 PM EDT [facility] ([facility]) Name Value Range Interpretation Code Description Data Michelle rce(s) Supporting Document(s) Bilirubin.total [Mass/volume] in Serum or Plasma 0.5 [facility] ([facility]) Albumin [Mass/volume] in Serum or Plasma 3.7 [facility] ([facility]) Alkaline phosphatase [Enzymatic activity/volume] in Serum or Plasma 3 3 [facility] ([facility]) Alanine aminotransferase [Enzymatic activity/volume] in Serum or Pl asma 33 [facility] ([facility]) Aspartate aminotransferase [Enzymatic activity/volume] in Serum or Plasma 24 [facility] ([facility]) Protein [Mass/volume] in Serum or Plasma 6.8 [facility] ([facility]) ID Date Data Source [id number] 09/27/2019 12:10:00 PM EST [facility] ([facility]) Name Value Range Interpretation Code Description Data Michelle rce(s) Supporting Document(s) Free T4 1.28 [facility] ([facility]) Triiodothyronine (T3) Free [Mass/volume] in Serum or Plasma 2.5 [facility] ([facility]) Thyroid Stimulating Hormone 1.070 ME DENT ([facility]) ID Date Data Source [id number] 09/27/2019 12:10:00 PM EST [facility] ([facility]) Name Value Range Interpretation Code Description Data Michelle rce(s) Supporting Document(s) Cholesterol 183 [facility] ([facility]) Triglycerides 64 [facility] ([facility]) HDL 84 [facility] ([facility]) Cholesterol in LDL [Mass/volume] in Serum or Plasma by calculation 86 [facility] ([facility]) Chol/HDL Ratio Laboratory test result [facility] ([facility]) ID Date Data Source [id number] 09/27/2019 12:10:00 PM EST [facility] Name Value Range Interpretation Code Description Data Michelle rce(s) Supporting Document(s) Alanine aminotransferase [Enzymatic activity/volume] in Serum or Pl asma 17 [facility] ([facility]) Albumin [Mass/volume] in Serum or Plasma 4.2 [facility] ([facility]) Calcium [Mass/volume] in Serum or Plasma 9.6 [facility] ([facility]) Chloride [Moles/volume] in Serum or Plasma 102 [facility] ([facility]) Carbon dioxide, total [Moles/volume] in Serum or Plasma 27 [facility] ([facility]) Alkaline phosphatase [Enzymatic activity/volume] in Serum or Plasma 3 0 [facility] ([facility]) Protein [Mass/volume] in Serum or Plasma 6.8 [facility] ([facility]) Sodium 144 [facility] ([facility]) Potassium [Moles/volume] in Serum or Plasma 5.7 [facility] ([facility]) Aspartate aminotransferase [Enzymatic activity/volume] in Serum or Plasma 26 [facility] ([facility]) Glucose 95 [facility] Urea nitrogen [Mass/volume] in Serum or Plasma 23 [facility] ([facility]) Creatinine For GFR 0.76 [facility] ([facility]) Procedure Social History Code Duration Value Status Description Data Source(s ) Smoking 03/01/2020 12:00:00 AM EDT Patient is a former smoker completed Patient is a former smoker [facility] ([facility]) Smoking 02/02/2020 12:00:00 AM EDT Former smoker completed Former smoker CHARTMAKER (Eleazar Le III, MD) Vital Signs ID Date Data Source UNK Name Value Range Interpretation Code Description Data Source(s) Body mass index (BMI) [Ratio] 17.5 kg/m2 17.5 k g/m2 [facility] ([facility]) Body weight 115.00 [lb_av] 115.00 [lb_av] MEDEN T ([facility]) Body height 68 [in_i] 68 [in_i] [facility] ([facility]) 5'8" Body temperature 97.1 [degF] 97.1 [degF] [facility] ([facility]) Diastolic blood pressure--supine 84 mm[Hg] 84 mm[Hg] [facility] ([facility]) Systolic blood pressure--supine 129 mm[Hg] 129 mm[Hg] [facility] ([facility]) Diastolic blood pressure--sitting 82 mm[Hg] 82 mm[Hg] [facility] ([facility]) Medium cuff, Ra Systolic blood pressure--sitting 132 mm[Hg] 132 mm[Hg] [facility] ([facility]) Medium cuff, Ra Respiratory rate 16 /min 16 /min [facility] ( [facility]) Heart rate 88 /min 88 /min [facility] ([facility]) regular Body mass index (BMI) [Ratio] 17.0 kg/m2 17.0 k g/m2 [facility] ([facility]) Body height 68 [in_i] 68 [in_i] [facility] ([facility]) 5'8" Body weight 112.00 [lb_av] 112.00 [lb_av] MEDEN T ([facility]) Oxygen saturation in Arterial blood by Pulse oximetry --post exerci se 98 % 98 % [facility] ([facility]) Oxygen saturation in Arterial blood by Pulse oximetry 100 % 100 % [facility] ([facility]) Diastolic blood pressure--supine 68 mm[Hg] 68 mm[Hg] [facility] ([facility]) Ra Systolic blood pressure--supine 156 mm[Hg] 156 mm[Hg] [facility] ([facility]) Ra Diastolic blood pressure--sitting 62 mm[Hg] 62 mm[Hg] [facility] ([facility]) Medium cuff, Ra; 148/68 LA Systolic blood pressure--sitting 144 mm[Hg] 144 mm[Hg] [facility] ([facility]) Medium cuff, Ra; 148/68 LA Respiratory rate 18 /min 18 /min [facility] ( [facility]) Heart rate 64 /min 64 /min [facility] ([facility]) regular with frequent irregularities Body mass index (BMI) [Ratio] 17.6 kg/m2 17.6 k g/m2 [facility] ([facility]) Body height 68 [in_i] 68 [in_i] [facility] ([facility]) 5'8" Body weight 116.00 [lb_av] 116.00 [lb_av] MEDEN T ([facility]) Diastolic blood pressure 91 mm[Hg] 91 mm[Hg] JORGE L (Eleazar Le III, MD) Systolic blood pressure 131 mm[Hg] 131 mm[Hg] C YODIT (Eleazar Le III, MD) Heart rate 127 /min 127 /min JORGE L (Maryana Le III, MD) Body temperature 97.7 [degF] 97.7 [degF] BRIAN DIAZ (Eleazar Le III, MD)
[2020-08-30] MEDS ORDERED: ALEN70TA82 PO (02:39)
[2020-08-30] MEDS ORDERED: [UNRECOGNIZED DRUG - CODE] PO (02:39)
[2020-08-30] MEDS ORDERED: traMADol 50 MG TAB PO PRN (03:00)
[2020-08-30] MEDS ORDERED: MORPHINE 2 MG/ML 1ML VIAL (J2270) IV PRN (03:00)
[2020-08-30] MEDS ORDERED: NORCO, ANEXSIA 5/325MG TABLET (HYDROcodone/ACETAMINOPHEN) PO PRN (03:00)
--- NOTE | 2020-08-30 03:05 | HPEPDOC ---
[facility] Medical History & Physical Date of Admission Aug 30, 2020 Date of Service: Aug 30, 2020 History and Physical CHIEF COMPLAINT: Fall HISTORY OF PRESENT ILLNESS: Patient is 85 year old female with PMH Afib on Eliquis, CVA, L. sided rib fracture 2/2 multiple falls and HLD was brought into the ER after falling at home. She reports falling due to imbalance at home which is not new for her. She has been getting PT outpatient and just recently completed the regimen but still has weakness and imbalance. She lives at home by herself and think that she can take care of herself despite her frequent falls. Patient reports only L. sided lateral hip pain but otherwise denies any other complaints including chest pain, SOB, fever or chills. She denies any loss of consciousness, visual changes or urinary/fecal incontinence today with her fall. CXR in ER shows L. sided 9th rib fracture although it appears that she has had multiple L. sided rib fractures recently due to falls. CT Abdomen/Pelvis reveals L. sided pubic rami fracture and no acute pathology on CT head. PAST MEDICAL HISTORY: Refer to [facility] PAST SURGICAL HISTORY: Appendectomy Thyroid nodule resection b/l cataract surgery SOCIAL HISTORY: Former smoker. Social alcohol use. Denies any drug use. FAMILY HISTORY: Both parents had CVA ALLERGIES: Please see below. REVIEW OF SYSTEMS: 10 point review of system negative except as stated in [facility] HOME MEDICATIONS: Please see below. PHYSICAL EXAMINATION: General: Alert, somewhat frail, discomfort when attempting to move L. hip. Eyes: Normal sclera, EOMI HENT: Atraumatic Cardiovascular: Tachycardic, normal rhythm. Pulmonary: Clear to auscultation b/l, no wheezing GI: Soft, nontender, nondistended MSK: Point tenderness to lateral L. hip with reduced ROM 2/2 pain. Skin: Warm and dry Neuro: CN grossly intact. No focal deficits. Strengths equal b/l but with generalized weakness. Psych: oriented x 3 LABORATORY DATA: See below. IMAGING: L. hip XR: 1. Acute fracture of the left inferior pubic ramus without significant displacement. 2. 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 Head CT: 1. No acute intracranial abnormality. 2. 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 Lumbar spine CT: 1. No acute lumbar spinal injury identified by CT. 2. Degenerative changes of the lumbar spine, as above. 3. Fractures of the left posterior ribs 10 and 11 which appear chronic. 4. Cholelithiasis. 5. Diverticulosis coli. CXR: Fracture of the left lateral 9th rib, which was also present in the prior CT chest on 06/06/2020, but it is unclear if there is a new left rib fracture given the overlapping of the lower left ribs in this region. MICROBIOLOGY: Please see below. ASSESSMENT AND PLAN: 1. L pubic rami fracture - Conservative management with pain control. - PT and OT to eval and treat in AM. Patient lives home alone and perhaps may not be safe for her anymore. - Consider ortho if pain severe and persistent. 2. Afib - Tachycardic, resume home med Flecanide. - Hold Eliquis due to frequent falls. Discussed with patient regarding risks outweighing benefits. - Hold AC for at least a day, if she want to resume and still stable. May resume in the next 24-48 hours. 3. hx CVA - c/w statin. 4. HLD - c/w simvastatin. 5. HTN - BP controlled on chlorthalidone, aldactone. DVT ppx: HSQ and SCD CODE status: DNR/DNI Vital Signs Vital Signs Date Time Temp Pulse Resp B/P (MAP) Pulse Ox O2 Delivery O2 Flow Rate FiO2 08/30/20 02:41 18 08/30/20 01:51 65 89 08/30/20 01:45 103/61 (75) 08/29/20 23:38 96.0 Room Air Laboratory Data Labs 24H Laboratory Tests 2 08/30/20 00:36: Immature Granulocyte % (Auto) 0.6, Neutrophils (%) (Auto) 82.7H, Lymphocytes (%) (Auto) 6.5L, Monocytes (%) (Auto) 9.8H, Eosinophils (%) (Auto) 0.2, Basophils (%) (Auto) 0.2, Neutrophils # (Auto) 14.0H, Lymphocytes # (Auto) 1.1L, Monocytes # (Auto) 1.7H, Eosinophils # (Auto) 0.0, Basophils # (Auto) 0.0, Nucleated Red Blood Cells % (auto) 0.0, Urine Color YELLOW, Urine Appearance CLEAR, Urine pH 6.0, Urine Specific [place] 1.016, Urine Protein NEGATIVE, Urine Glucose (UA) NEGATIVE, Urine Ketones TRACEH, Urine Blood NEGATIVE, Urine Nitrite NEGATIVE, Ur ine Bilirubin NEGATIVE, Urine Urobilinogen 0.2, Urine Leukocyte Esterase NEGATIVE, Urine WBC (Auto) 1, Urine RBC (Auto) 2, Urine Hyaline Casts (Auto) 0, Urine Bacteria (Auto) NEGATIVE, Urine Squamous Epithelial Cells 0, Urine Mucus (Auto) SMALL, Urine Sperm (Auto) , Anion Gap 8, Glomerular Filtration Rate > 60.0, Calcium Level 8.9, Total Creatine Kinase 130, Creatine Kinase MB 4.6H, Creatine Kinase MB Relative Index 3.54, Troponin I < 0.02 08/30/20 02:31: CBC/BMP Laboratory Tests 08/30/20 00:36 Home Medications Scheduled Alendronate Sodium (Alendronate Sodium) 70 Mg Tablet, 70 MG PO QWEEK FRIDAYS Apixaban (Eliquis) 2.5 Mg Tablet, 2.5 MG PO BID Calcium Carbonate/Vitamin D3 (Calcium 500-Vit D3 10 Mcg Chew) 500 Mg-400 Tab.chew, 1 TAB PO BID Chlorthalidone (Chlorthalidone) 25 Mg Tablet, 12.5 MG PO 3XW FRIDAY, FRIDAY AND FRIDAY Flecainide Acetate (Flecainide Acetate) 50 Mg Tablet, 50 MG PO BID Multivitamin (Animal Shapes) 1 Each Tab.chew, 1 TAB PO DAILY Omeprazole (Omeprazole) 20 Mg Capsule.dr, 20 MG PO DAILY Simvastatin (Simvastatin) 10 Mg Tablet, 10 MG PO QHS Spironolactone (Spironolactone) 25 Mg Tablet, 12.5 MG PO DAILY Allergies Coded Allergies: No Known Drug Allergies (Verified Allergy, Unknown, 11/26/19) A-FIB/CHADSVASC A-FIB History Current/History of A-Fib/PAF?: Yes Current PO Anticoag Therapy: Yes MARLEN ARREDONDO MD Aug 30, 2020 03:05
--- OUTSIDE RECORDS SUMMARY | 2020-08-30 04:31 | CCD ---
Author Author [facility] Organization [facility] Address Unknown Phone Unavailable Care Team Providers Care Certified Pathology Assistant Name Role Phone BARTOLOME, Florentin FULTON MD [...] Florentin FULTON MD Unavailable Unavailable EMERTON, A KIRSITN MD Unavailable Unavailable EMERTON, A KIRSTIN MD [...] Unavailable Sainz, M Barratt PA Unavailable Unavailable Sianz, M Barratt PA Unavailable Unavailable Sainz, M [...] Unavailable HINOJOSA, E KAYLA MD Unavailable Unavailable HIONJOSA, E KAYLA MD Unavailable Unavailable HINOJOSA, E [...] is protected by Article 27-F of the [place] Public Health law. If you continue you may have access to information: Regarding HIV / AIDS; Provided by facilities licensed or operated by the [place] [facility] Office of Mental Health; or Provided by the [facility] Office for People With Developmental Disabilities. If such information is present, then the following [facility] mandated warning applies: This information has been [...] law may result in a fine or assisted sentence or both. A general authorization for the release of medical or other information is NOT sufficient authorization for further disc losure. Family History Family Member Name Family Member Gender Family Member Status Date o f Status Description Data Source(s) Unknown Female Problem [facility] ([facility]) Encounters Encounter Providers Location Date Indications Data Source(s ) OFFICE OUTPATIENT NEW 30 MINUTES Attender: Nuris GALEANA Ph ysical Therapy 07/03/2020 12:30:00 PM EST [facility] ([facility]) Outpatient Attender: KAYLA HINOJOSA MD Main Office 03/27/2020 12:00:00 PM EDT [facility] ([facility]) Outpatient Attender: KAYLA HINOJOSA MD Main Office 03/01/2020 02:00:00 PM EDT [facility] ([facility]) OutpatientEst Oph Comp Exam 02/02/2020 Attender: RADHA MAHMOOD MD 02/02/2020 12:07:56 PM EDT CHARTMAKER (Eleazar Preston MD) Outpatient Referrer: KIRSTIN MANCUSO MD 12/07/2019 07:03:00 AM EDT [facility] Medications Medication Brand Name Start Date Product Form Dose Route Admi nistrative Instructions Pharmacy Instructions Status Indications Reaction Description Data Source(s) Chlorthalidone 25 MG Oral Tablet Chlorthalidone 03/01/2020 12:00:00 A M EDT ORAL active [facility] ([facility]) Spironolactone 25 MG Oral Tablet Spironolactone 03/01/2020 12:00:00 A M EDT ORAL active [facility] ([facility]) Omeprazole 20 MG Delayed Release Oral Capsule Omeprazole 02/29/2020 12:00:00 AM EDT ORAL active [facility] ([facility]) Simvastatin 10 MG Oral Tablet Simvastatin 02/29/2020 12:00:00 AM EDT ORAL active [facility] ([facility]) Childrens Chewable Multivitamin With Iron 02/29/2020 12:00:0 0 AM EDT ORAL active [facility] ([facility]) apixaban 2.5 MG Oral Tablet [Eliquis] Eliquis 02/29/2020 12:00:00 AM EDT ORAL active [facility] ([facility]) Alendronic acid 70 MG Oral Tablet Alendronate Sodium 02/29/2020 12:00:00 AM EDT ORAL active [facility] ( [facility]) Calcium Carbonate 1250 MG / Cholecalciferol 125 UNT Oral Tab let Calcium 500 + D 02/29/2020 12:00:00 AM EDT ORAL active [facility] ([facility]) Insurance Providers Payer name Policy type / Coverage type Policy ID Covered republican ID Covered republican's relationship to jackson Policy Jackson Plan Information MEDICARE [id number] SP [id number] [facility] HEALTH CARE OPTIONS [id number] SP [id number] MEDICARE C [id number] S [id number] AAR O [id number] S [id number] [facility] Medicare Part B [id number] Medicare [id number] [facility] [id number] Commercial Insurance [id number] [facility] [id number] Commercial Insurance [id number] [facility] Medicare Part B [id number] Medicare [id number] [facility] HE[facility]ARE OPTIONS [id number] SP [id number] [facility] HE[facility]ARE OPTIONS [id number] SP [id number] [facility] HEALTH CARE OPTIONS [id number] SP [id number] [facility] HEALTH CARE OPTIONS [id number] SP [id number] MEDICARE [id number] SP [id number] A [facility] 2 [id number] 1 [id number] [place]IC[place] ([facility]) - [id number] 1 [id number] [facility] [id number] Commercial Insurance [id number] [facility] [id number] Commercial Insurance [id number] Aar [id number] Commercial Insurance [id number] [facility] [id number] Commercial Insurance [id number] [facility] Medicare Part B [id number] Medicare [id number] [facility] [id number] Commercial Insur ance [id number] MEDICARE C [id number] S [id number] A [facility] C [id number] S [id number] UNAVAILABLE UNAVAILA BLE [employer] [id number] SP [id number] [facility] Options Medigap Part B Self Medicare [place] Medicare Primary Medicare B Self Medicare B UNAVAILABLE UNAVAILA BLE [employer] HEA [id number] MEDICARE MCA [id number] MEDICARE MCA [id number] A [facility] [id number] SP [id number] MEDICARE [id number] SP [id number] A [facility] [id number] SP [id number] [employer] O [id number] S [id number] SELF PAY UNAVAILABLE UNAVAILA BLE MEDICARE - [place] MCR [id number] S [id number] [employer] Medigap Part B Self [employer] [id number] SP [id number] MEDICARE [id number] SP [id number] A [facility] Medicare Commercial Self [employer] UNAVAILABLE SP UNAVAILABLE [facility] Commercial Insurance [id number] Medicare Part B Medicare [employer] O [id number] S [id number] O UNAVAILABLE UNAVAILA BLE Problems, Conditions, and Diagnoses Code Display Name Description Problem Type Effective Dates Data Source(s) 633777553 Chronic diastolic heart failure Chronic diastoli c heart failure Problem 03/01/2020 12:00:00 AM EDT [facility] ([facility] 565197573 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 Problem 03/01/2020 12:00:00 AM EDT [facility] ([facility]) 26116424 Mitral valve disorder Mitral valve disorder Problem 03/01/2020 12:00:00 AM EDT [facility] ([facility]) 5615975 Aortic valve disorder Aortic valve disorder Problem 03/01/2020 12:00:00 AM EDT [facility] ([facility]) 22602950 Heart murmur Heart murmur Problem 03/01/2020 12:00:00 A M EDT [facility] ([facility]) 11010636 Hyperlipidemia Hyperlipidemia Problem 03/01/2020 12:00: 00 AM EDT [facility] ([facility]) [id number] Essential hypertension Essential hypertension Problem 03/01/2020 12:00:[facility] [id number] Congestive heart failure Congestive heart failure Prob karely 03/01/2020 12:00:00 AM EDT [facility] [id number] Electrocardiogram abnormal Electrocardiogram abnormal Problem 03/01/2020 12:00:00 AM EDT [facility] [id number] Paroxysmal atrial fibrillation Paroxysmal atrial fibri llation Problem 03/01/2020 12:00:00 AM EDT [facility] H53.143 Visual discomfort Visual discomfort, b ilateral (H53.143) Comments: She is having a great deal of difficulty with reading and focus, which appears to be related to the muscle imbalance as well as to a slight change in the refraction, with the addition of more magnification into the reading glass. I prescribed these glasses for her, and believe these will help. 02/02/2020 [id number] 02/02/2020 12:07:56 PM EDT CHARTMAKER (Eleazar Preston II, MD) Surgeries/Procedures Procedure Description Date Indications Data Source(s) ECHO TTHRC R-T 2D W/WOM-MODE COMPL SPEC&COLR DOP 04/13 12:00:00 AM EDT [facility] MYOCARDIAL SPECT MULTIPLE STUDIES 03/21/2020 12:00:00 AM EDT [facility] ([facility]) CV STRS TST XERS&/OR RX CONT ECG PHYS SI&R 03/21/2020 12:00:00 AM EDT [facility]) XTRNL ECG < 48 HR RECORDING 03/17/2020 12:00:00 AM EDT [facility]) XTRNL ECG CONTINUOUS RHYTHM PHYS REVIEW&INTERPJ 2019 12:00:00 AM EDT [facility]) ECG ROUTINE ECG W/LEAST 12 LDS W/I&R 03/01/2020 12:00: 00 AM EDT [facility]) Non-smoker (finding) 02/02/2020 12:00:00 AM EDT CHARTMAAPRIL (Eleazar Le III, MD) Documentation of current medications (procedure) 02/01 12:00:00 AM EDT CHARTMAKER (Eleazar Le III, MD) Results ID Date Data Source [id number] 03/09/2020 01:37:00 PM EDT [facility] ([facility]) Name Value Range Interpretation Code Description Data Michelle rce(s) Supporting Document(s) Natriuretic peptide.B prohormone N-Terminal [Mass/volu me] in Serum or Plasma 205 pg/mL 0-738 [facility] ([facility]) <content>The following cut-points have b een [...] Plasma 2.1 mg/dL 1.6-2.3 [facility] ([facility]) Laboratory test finding (navigational concept) Laboratory test result [facility] ([facility]) ID Date Data Source [id number] 03/09/2020 01:37:00 PM EDT [facility] ([facility]) Name Value Range Interpretation Code Description Data Michelle rce(s) Supporting Document(s) Glucose 110 mg/dL 65-99 [facility] ([facility]) Urea nitrogen [Mass/volume] in Serum or Plasma 24 mg/dL 8-27 [facility] ([facility]) eGFR If NonAfricn Am 80 mL/min/1.73 MEDE NT ([facility]) Creatinine 0.68 mg/dL 0.57-1.00 [facility] ([facility]) Urea nitrogen/Creatinine [Mass Ratio] in Serum or Plasma 35 1 2-28 [facility] ([facility]) eGFR If Africn Am 92 mL/min/1.73 [facility] ([facility]) Sodium 141 mmol/L 134-144 [facility] ([facility]) Chloride [Moles/volume] in Serum or Plasma 95 mmol/L 96-106 [facility] ([facility]) Potassium [Moles/volume] in Serum or Plasma 4.7 mmol/L 3.5-5.2 [facility] ([facility]) Phosphate [Moles/volume] in Serum or Plasma 3.9 mg/dL 3.0-4.3 [facility] ([facility]) Calcium [Mass/volume] in Serum or Plasma 10.3 mg/dL 8.7-10.3 [facility] ([facility]) Carbon dioxide, total [Moles/volume] in Serum or Plasma 31 mmol/L 20 -29 [facility] ([facility]) Albumin [Mass/volume] in Serum or Plasma 4.9 g/dL 3.6-4.6 [facility] ([facility]) ID Date Data Source [id number] 03/10/2020 08:06:00 AM EDT [facility] Name Value [...] high normal [facility] ID Date Data Source [id number] 03/11/2020 06:05:00 AM EDT [facility] Name Value [...] independent 300 pg/mL ID Date Data Source [id number] 03/10/2020 08:06:00 AM EDT [facility] Name Value Range Interpretation Code Description Data Michelle rce(s) Supporting Document(s) Magnesium 2.1 mg/dL 1.6-2.3 [facility] ID Date Data Source [id number] 11/28/2019 03:30:00 PM EDT [facility] ([facility]) Name Value Range Interpretation Code Description Data Michelle rce(s) Supporting Document(s) Troponin 0.03 [facility] ([facility]) C-Reactive Protein 0.30 [facility] ([facility]) Thyroid Stimulating Hormone 0.8999 ME DENT ([facility]) ID Date Data Source [id number] 11/28/2019 03:30:00 PM EDT [facility] ([facility]) Name Value Range Interpretation Code Description Data Michelle rce(s) Supporting Document(s) Creatine kinase [Enzymatic activity/volume] in Serum or Plasma 86 [facility] ([facility]) CPK-MB 1.8 [facility] ([facility]) ID Date Data Source [id number] 11/26/2019 12:07:00 PM EDT [facility] ([facility]) Name Value Range Interpretation Code Description Data Michelle rce(s) Supporting Document(s) Red Blood Count 4.02 4.00-5.40 [facility] ([facility]) White Blood Count 9.4 4.0-10.0 [facility] ([facility]) Hemoglobin 13.0 [facility] ([facility]) Hematocrit 39.4 [facility] ([facility]) Platelets 244 150-450 [facility] ([facility]) ID Date Data Source [id number] 11/26/2019 12:07:00 PM EDT [facility] ([facility]) Name Value Range Interpretation Code Description Data Michelle rce(s) Supporting Document(s) Troponin 0.11 [facility]) Natriuretic peptide.B prohormone N-Terminal [Mass/volu me] in Serum or Plasma 3785 [facility] ([facility]) ID Date Data Source [id number] 11/26/2019 12:07:00 PM EDT [facility] ([facility]) Name Value Range Interpretation Code Description Data Michelle rce(s) Supporting Document(s) Bilirubin.total [Mass/volume] in Serum or Plasma 0.5 [facility] ([facility]) Albumin [Mass/volume] in Serum or Plasma 3.7 [facility] ([facility]) Alkaline phosphatase [Enzymatic activity/volume] in Serum or Plasma 3 3 [facility] ([facility]) Alanine aminotransferase [Enzymatic activity/volume] in Serum or Pl asma 33 [facility] ([facility]) Aspartate aminotransferase [Enzymatic activity/volume] in Serum or Plasma 24 [facility] ([facility]) Protein [Mass/volume] in Serum or Plasma 6.8 [facility] ([facility]) ID Date Data Source [id number] 09/27/2019 12:10:00 PM EST [facility] ([facility]) Name Value Range Interpretation Code Description Data Michelle rce(s) Supporting Document(s) Free T4 1.28 [facility] ([facility] Triiodothyronine (T3) Free [Mass/volume] in Serum or Plasma 2.5 [facility] ([facility]) Thyroid Stimulating Hormone 1.070 ME DENT ([facility]) ID Date Data Source [id number] 09/27/2019 12:10:00 PM EST [facility] ([facility]) Name Value Range Interpretation Code Description Data Michelle rce(s) Supporting Document(s) Cholesterol 183 [facility] ([facility]) Triglycerides 64 [facility] ([facility]) HDL 84 [facility] ([facility]) Cholesterol in LDL [Mass/volume] in Serum or Plasma by calculation 86 [facility] ([facility]) Chol/HDL Ratio Laboratory test result [facility] ([facility]) ID Date Data Source [id number] 09/27/2019 12:10:00 PM EST [facility] Name Value Range Interpretation Code Description Data Michelle rce(s) Supporting Document(s) Alanine aminotransferase [Enzymatic activity/volume] in Serum or Pl asma 17 [facility] ([facility]) Albumin [Mass/volume] in Serum or Plasma 4.2 [facility] ([facility]) Calcium [Mass/volume] in Serum or Plasma 9.6 [facility] ([facility]) Chloride [Moles/volume] in Serum or Plasma 102 [facility] ([facility]) Carbon dioxide, total [Moles/volume] in Serum or Plasma 27 [facility] ([facility]) Alkaline phosphatase [Enzymatic activity/volume] in Serum or Plasma 3 0 [facility] ([facility]) Protein [Mass/volume] in Serum or Plasma 6.8 [facility] ([facility]) Sodium 144 [facility] ([facility]) Potassium [Moles/volume] in Serum or Plasma 5.7 [facility] ([facility]) Aspartate aminotransferase [Enzymatic activity/volume] in Serum or Plasma 26 [facility] ([facility]) Glucose 95 [facility] Urea nitrogen [Mass/volume] in Serum or Plasma 23 [facility] ([facility]) Creatinine For GFR 0.76 [facility] ([facility]) Procedure Social History Code Duration Value Status Description Data Source(s ) Smoking 03/01/2020 12:00:00 AM EDT Patient is a former smoker completed Patient is a former smoker [facility] ([facility]) Smoking 02/02/2020 12:00:00 AM EDT Former smoker completed Former smoker CHARTMAKER (Eleazar Le III, MD) Vital Signs ID Date Data Source UNK Name Value Range Interpretation Code Description Data Source(s) Body mass index (BMI) [Ratio] 17.5 kg/m2 17.5 k g/m2 [facility] ([facility]) Body weight 115.00 [lb_av] 115.00 [lb_av] MEDEN T ([facility]) Body height 68 [in_i] 68 [in_i] [facility] ([facility]) 5'8" Body temperature 97.1 [degF] 97.1 [degF] [facility] ([facility]) Diastolic blood pressure--supine 84 mm[Hg] 84 mm[Hg] [facility] ([facility]) Systolic blood pressure--supine 129 mm[Hg] 129 mm[Hg] [facility] ([facility]) Diastolic blood pressure--sitting 82 mm[Hg] 82 mm[Hg] [facility] ([facility]) Medium cuff, Ra Systolic blood pressure--sitting 132 mm[Hg] 132 mm[Hg] [facility] ([facility]) Medium cuff, Ra Respiratory rate 16 /min 16 /min [facility] ( [facility]) Heart rate 88 /min 88 /min [facility] ([facility]) regular Body mass index (BMI) [Ratio] 17.0 kg/m2 17.0 k g/m2 [facility] ([facility]) Body height 68 [in_i] 68 [in_i] [facility] ([facility]) 5'8" Body weight 112.00 [lb_av] 112.00 [lb_av] MEDEN T ([facility]) Oxygen saturation in Arterial blood by Pulse oximetry --post exerci se 98 % 98 % [facility] ([facility]) Oxygen saturation in Arterial blood by Pulse oximetry 100 % 100 % [facility] ([facility]) Diastolic blood pressure--supine 68 mm[Hg] 68 mm[Hg] [facility] ([facility]) Ra Systolic blood pressure--supine 156 mm[Hg] 156 mm[Hg] [facility] ([facility]) Ra Diastolic blood pressure--sitting 62 mm[Hg] 62 mm[Hg] [facility] ([facility]) Medium cuff, Ra; 148/68 LA Systolic blood pressure--sitting 144 mm[Hg] 144 mm[Hg] [facility] ([facility]) Medium cuff, Ra; 148/68 LA Respiratory rate 18 /min 18 /min [facility] ( [facility]) Heart rate 64 /min 64 /min [facility] ([facility]) regular with frequent irregularities Body mass index (BMI) [Ratio] 17.6 kg/m2 17.6 k g/m2 [facility] ([facility]) Body height 68 [in_i] 68 [in_i] [facility] ([facility]) 5'8" Body weight 116.00 [lb_av] 116.00 [lb_av] MEDEN T ([facility]) Diastolic blood pressure 91 mm[Hg] 91 mm[Hg] JORGE L (Eleazar Le III, MD) Systolic blood pressure 131 mm[Hg] 131 mm[Hg] C YODIT (Eleazar Le III, MD) Heart rate 127 /min 127 /min JORGE L (Maryana Le III, MD) Body temperature 97.7 [degF] 97.7 [degF] BRIAN DIAZ (Eleazar Le III, MD)
[2020-08-30 04:40] VITALS: BP 124/81
[2020-08-30] MEDS: HEPARIN SOD (PORCINE) 5000UNITS/ML 1ML VIAL/SYRINGE SC SCH ×3 (05:47→21:11)
--- NOTE | 2020-08-30 07:26 | ECGEPIP ---
[facility] - ED Test Date: 2020-08-30 Pat Name: GUILLE SEBASTIAN Department: Room: - Gender: Female Die Trouble Shooter: MANINDER : 1935 Requested By: JOJO Sosa PA-C Order Number: [id number] Reading MD: Karan Tidwell Measurements Intervals Bath Rate: 63 P: 88 MN: 198 QRS: -4 QRSD: 101 T: 73 QT: 414 QTc: 424 Interpretive Statements SINUS RHYTHM Baseline artifact Similar to tracing done 06-07-20 Electronically Signed on 08-30-2020 7:25:37 EST by Karan Tidwell
[2020-08-30] MEDS: NS 1,000 ML IV SCH ×3 (07:52→21:11)
[2020-08-30] MEDS: FLECAINIDE 50MG TABLET PO SCH ×2 (09:59→21:10)
[2020-08-30] MEDS: SPIRONOLACTONE 12.5MG PER 1/2 TABLET PO SCH (10:00)
[2020-08-30] MEDS: OMEPRAZOLE 20 MG CAP PO SCH (10:00)
[2020-08-30] MEDS: CHLORTHALIDONE 12.5MG PER 1/2 TABLET PO SCH (10:00)
[2020-08-30] MEDS: MULTIVITAMINS CHILDREN'S CHEWABLE TABLET PO SCH (13:47)
[2020-08-30 14:00] VITALS: BP 115/53
[2020-08-30] MEDS: SIMVASTATIN 10 MG TAB PO SCH (21:10)
[2020-08-30 22:00] VITALS: BP 116/53
[2020-08-31] MEDS: NS 1,000 ML IV SCH ×2 (04:02→10:51)
[2020-08-31] MEDS: HEPARIN SOD (PORCINE) 5000UNITS/ML 1ML VIAL/SYRINGE SC SCH ×4 (05:34→22:51)
[2020-08-31 06:00] VITALS: BP 134/57
[2020-08-31 06:33] LABS: ALBUMIN 2.7 GM/DL (3.2-5.2); ALT/SGPT 21 U/L (12-78); BILIRUBIN,TOTAL 0.8 MG/DL (0.2-1.0); BLOOD UREA NITROGEN 13 MG/DL (7-18); CALCIUM LEVEL 7.6 MG/DL (8.8-10.2); CARBON DIOXIDE LEVEL 30 MEQ/L (21-32); CHLORIDE LEVEL 103 MEQ/L (98-107); CREATININE FOR GFR 0.42 MG/DL (0.55-1.30); GLOMERULAR FILTRATION RATE > 60.0 (>32); GLUCOSE, FASTING 97 MG/DL (70-100); POTASSIUM SERUM 3.7 MEQ/L (3.5-5.1); SODIUM LEVEL 138 MEQ/L (136-145); TOTAL PROTEIN 5.4 GM/DL (6.4-8.2)
[2020-08-31 08:15] LABS: HEMOGLOBIN 9.5 g/dl (12.0-15.5); MEAN CORPUSCULAR HEMOGLOBIN 31.3 pg (27.0-33.0); MEAN CORPUSCULAR HGB CONC 32.8 g/dl (32.0-36.5); MEAN CORPUSCULAR VOLUME 95.4 fl (80.0-96.0); PLATELET COUNT, AUTOMATED 224 10^3/uL (150-450); RED BLOOD COUNT 3.04 10^6/uL (4.00-5.40)
[2020-08-31] MEDS: SPIRONOLACTONE 12.5MG PER 1/2 TABLET PO SCH (08:15)
[2020-08-31] MEDS: MULTIVITAMINS CHILDREN'S CHEWABLE TABLET PO SCH (08:15)
[2020-08-31] MEDS: OMEPRAZOLE 20 MG CAP PO SCH (08:15)
[2020-08-31] MEDS: FLECAINIDE 50MG TABLET PO SCH ×3 (08:15→22:50)
--- NOTE | 2020-08-31 11:20 | IPNPDOC ---
Text Note Date of Service The patient was seen on 08/31/20. NOTE Subjective: patient seen and examined at bedside. No acute overnight events reported. No new medical complaints this morning. She is concerned her pain medications are causing dizziness. Objective: General: NAD, lying comfortably in bed, elderlyi HEENT: NC/AT Lungs: CTA B/L Heart: +S1S2, RRR Abd: soft, NT, +BS Ext: no edema A/P: 85F with PMHx including Afib/Eliquis, CVA, L. sided rib fracture 2/2 multiple falls and HLD was brought into the ER after falling at home. She reports falling due to imbalance at home which is not new for her, as she states she has had multiple falls. #L pubic rami fracture/rib fracture - Conservative management with pain control. - PT and OT - Patient lives home alone and perhaps may not be safe for her anymore. - ortho c/s pending #Afib - resume home med Flecanide. - Hold Eliquis due to frequent falls. Discussed with patient regarding risks outweighing benefits. #dysphagia - pending swallow evaluation today - dc iv fluids #hx CVA - c/w statin. #HLD - c/w simvastatin. #gait dysfunction - as above - follow as per PT/OT - weight bearing status as per ortho #HTN - BP controlled on chlorthalidone, aldactone. DVT ppx: HSQ and SCD CODE status: DNR/DNI VS,Fishbone, I+O VS, Fishbone, I+O Laboratory Tests 08/31/20 05:35 08/31/20 05:38 Vital Signs Date Time Temp Pulse Resp B/P (MAP) Pulse Ox O2 Delivery O2 Flow Rate FiO2 08/31/20 06:00 99.3 65 18 134/57 (82) 96 Nasal Cannula 1.0 I&O- Last 24 Hours up to 6 AM 08/31/20 06:00 Intake Total 2040 ml Output Total 700 ml Balance 1340 ml JOCY FRANCO MD Aug 31, 2020 11:20
[2020-08-31] MEDS ORDERED: VARIBAR PUDDING 40% w/v 230ML TUBE As Ordered ONE (13:04)
[2020-08-31] MEDS ORDERED: E-Z-PAQUE 96% w/w SUSP 176GM BTL As Ordered ONE (13:04)
[2020-08-31] MEDS ORDERED: BARIUM SULFATE 700 MG TABLET (E-Z-DISK) As Ordered ONE (13:04)
[2020-08-31] MEDS ORDERED: VARIBAR NECTAR 40% w/v 240ML SUSP BTL As Ordered ONE (13:04)
[2020-08-31 14:00] VITALS: BP 121/74
[2020-08-31] MEDS: ACETAMINOPHEN TAB 650MG DOSE (2X325MG) PO PRN (14:07)
--- NOTE | 2020-08-31 16:01 | REP ---
INDICATION: difficulty swallowing. COMPARISON: None. TECHNIQUE: The procedure was performed under the direct supervision of Dr. Freedman. The procedure was performed with Daphnie Huntley from speech pathology present. 5 cc aliquots of thin, nectar, pudding, mixed fruit and soft consistency barium was administered. With nectar consistency barium there is laryngeal penetration. A detailed report of this examination will be provided by speech pathology. 2.3 minutes of fluoroscopy time was utilized for this procedure. FINDINGS: None IMPRESSION: With nectar consistency barium there is laryngeal penetration. A detailed report of this examination will be provided by speech pathology. <Electronically signed by Florentino Craft > 08/31/20 [id number] <Electronically signed by Jett Freedman > 08/31/20 [id number]
[2020-08-31 19:07] LABS: NT-PRO BNP 242 PG/ML (<450)
[2020-08-31] MEDS: SIMVASTATIN 10 MG TAB PO SCH ×2 (21:00→22:50)
[2020-08-31 22:00] VITALS: BP 167/81
[2020-09-01 06:00] VITALS: BP 146/69
[2020-09-01] MEDS: HEPARIN SOD (PORCINE) 5000UNITS/ML 1ML VIAL/SYRINGE SC SCH ×3 (06:18→21:15)
[2020-09-01 06:24] LABS: HEMATOCRIT 31.5 % (36.0-47.0); HEMOGLOBIN 10.5 g/dl (12.0-15.5); MEAN CORPUSCULAR HEMOGLOBIN 31.7 pg (27.0-33.0); MEAN CORPUSCULAR HGB CONC 33.3 g/dl (32.0-36.5); MEAN CORPUSCULAR VOLUME 95.2 fl (80.0-96.0); PLATELET COUNT, AUTOMATED 228 10^3/uL (150-450); RED BLOOD COUNT 3.31 10^6/uL (4.00-5.40); WHITE BLOOD COUNT 11.1 10^3/uL (4.0-10.0)
[2020-09-01 06:48] LABS: BLOOD UREA NITROGEN 8 MG/DL (7-18); CALCIUM LEVEL 8.4 MG/DL (8.8-10.2); CARBON DIOXIDE LEVEL 31 MEQ/L (21-32); CHLORIDE LEVEL 102 MEQ/L (98-107); CREATININE FOR GFR 0.39 MG/DL (0.55-1.30); GLOMERULAR FILTRATION RATE > 60.0 (>32); GLUCOSE, FASTING 101 MG/DL (70-100); POTASSIUM SERUM 3.4 MEQ/L (3.5-5.1); SODIUM LEVEL 137 MEQ/L (136-145)
[2020-09-01] MEDS: OMEPRAZOLE 20 MG CAP PO SCH (08:48)
[2020-09-01] MEDS: SPIRONOLACTONE 12.5MG PER 1/2 TABLET PO SCH (08:48)
[2020-09-01] MEDS: MULTIVITAMINS CHILDREN'S CHEWABLE TABLET PO SCH (08:48)
[2020-09-01] MEDS: CHLORTHALIDONE 12.5MG PER 1/2 TABLET PO SCH (08:48)
[2020-09-01] MEDS: FLECAINIDE 50MG TABLET PO SCH ×2 (08:49→21:15)
[2020-09-01] MEDS: ACETAMINOPHEN TAB 650MG DOSE (2X325MG) PO PRN (08:49)
[2020-09-01] MEDS ORDERED: POTASSIUM CHLORIDE 10 MEQ SR TABLET PO ONE (09:00)
--- NOTE | 2020-09-01 09:27 | CR ---
CONSULTATION DATE: 08/31/2020 CHIEF COMPLAINT: Fall. HISTORY OF PRESENT ILLNESS: Vicki is an 85-year-old female who recently was taken to the emergency room (ER) after a fall at home. She reports somehow she fell and her nephew found her. She is not entirely sure. She lives at home on her own and states [employer] is providing her nutrition. Admits to some confusion. She expresses left groin pain that has some subtle radiation down the thigh, but mostly in the groin area. Otherwise, she is denying chest pain, shortness of breath, dyspnea on exertion, fever, chills, malaise, upper respiratory or urinary tract symptoms. ALLERGIES: None known to drugs. MEDICATION LIST: Medical reconciliation was reviewed. MEDICAL HISTORY: 1. She reports multiple falls, which she denies have any preceding events. She does admit to increasing confusion. 2. Cerebrovascular disease (CVA). 3. Atrial fibrillation. 4. Hypertension, per her hypertensive medications, chlorthalidone and Aldactone. PAST SURGICAL HISTORY: Includes: 1. Appendectomy. 2. Thyroid surgery. 3. Bilateral cataract surgery. REVIEW OF SYSTEMS: As noted in history of present illness (HPI). PHYSICAL EXAMINATION: VITAL SIGNS: Most recent temperature 98.9 oral, pulse 121, respiratory 18, blood pressure 121/74, pulse oximetry 88, oxygen delivery was at room air, which stopped at 0600 at 1 liter. She is a pleasant 85-year-old female in no acute distress. She is resting comfortably in a hospital bed. She is alert, somewhat confused about her injury event when interviewed. EYES: Normal sclerae. Extraocular movements intact. HENT: Atraumatic. CARDIOVASCULAR: Negative murmurs, gallops or rubs. CHEST: Rises symmetrically. GASTROINTESTINAL (GI): Soft. Nontender times four. Non-distended. MUSCULOSKELETAL: She has tenderness to palpation above the left inguinal region. The remaining pelvis is nontender. She is apprehensive with left hip range of motion, but it is not grossly irritable. Bilaterally, she is nontender about the femurs, knee, tibia and fibula. Bilateral lower extremity compartment supple, soft, nontender to palpation. Grossly intact to light touch. Negative calf tenderness, Homans, no palpable cords. Distal pulses 2+. Brisk capillary refill. Great toe extension does not increase compartment pressure or pain. IMAGING DATA: X-rays include CT lumbar spine, which showed no acute spinal injury. Degenerative changes of the lumbar spine are noted. Fractures of left posterior ribs 10 and 11, which appear chronic. Cholelithiasis and diverticulosis coli as read by Dr. Avalos. I generally agree with the finding as read. Left hip with pelvis exhibited acute fracture of the left inferior pubic ramus without significant displacement. Moderate left hip osteoarthritis and a milder right hip osteoarthritis as read by Mark Rob. LABORATORY DATA: Were reviewed as documented in chart. IMPRESSION: Left inferior pubic rami fracture sustained after a fall on 08/31/2020 in a patient who is reporting a history of multiple falls. Question recent confusion. RECOMMENDATIONS: From an orthopedic standpoint, no surgery is necessary. Recommendation includes protected weightbearing with walker and pain control. There is question as to whether her confusion may be exacerbated by pain medicine, so the nursing staff has discontinued her current pain medicine and she seems to be doing well. We will stand by and see how her cognition and alertness progresses. Occupational therapy (OT) and physical therapy (PT) should be coordinated to see if she could, in fact, safely return to an independent living situation. There is certainly question as to whether that would be safe for her. Nonetheless, she could follow at the orthopedic group in 7-10 days time for x-ray surveillance which would include pelvis imaging. If there is any further orthopedic concerns, I encourage contacting our service. Thank you for allowing us to participate in Vicki's care. AKIN
--- NOTE | 2020-09-01 11:00 | IPNPDOC ---
Text Note Date of Service The patient was seen on 09/01/20. NOTE Subjective: patient seen and examined at bedside. No acute overnight events reported. No new medical complaints this morning. Objective: General: NAD, lying comfortably in bed, elderly HEENT: NC/AT Lungs: CTA B/L Heart: +S1S2, RRR Abd: soft, NT, +BS Ext: no edema Psych: alert, awake, oriented to person, time but not situation or place A/P: 85F with PMHx including Afib/Eliquis, CVA, L. sided rib fracture 2/2 multiple falls and HLD was brought into the ER after falling at home. She reported falling due to imbalance at home which is not new for her, as she stated she has had multiple falls. #L pubic rami fracture/rib fracture - Conservative management with pain control. - PT and OT - Patient lives home alone and perhaps may not be safe for her anymore. - ortho c/s appreciated #Afib - resume home med Flecanide. - Hold Eliquis due to frequent falls. Previously discussed with patient regarding risks outweighing benefits. #dysphagia - modified diet #hx CVA - c/w statin. #HLD - c/w simvastatin. #gait dysfunction - as above - follow as per PT/OT #HTN - BP controlled on chlorthalidone, aldactone. DVT ppx: HSQ and SCD CODE status: DNR/DNI VS,Fishbone, I+O VS, Fishbone, I+O Laboratory Tests 09/01/20 06:00 Vital Signs Date Time Temp Pulse Resp B/P (MAP) Pulse Ox O2 Delivery O2 Flow Rate FiO2 09/01/20 06:00 98.1 69 16 146/69 (94) 98 Room Air 08/31/20 06:00 1.0 I&O- Last 24 Hours up to 6 AM 09/01/20 06:00 Intake Total 600 ml Output Total 0 ml Balance 600 ml JOCY FRANCO MD Sep 01, 2020 10:59
[2020-09-01 14:00] VITALS: BP 115/59
[2020-09-01] MEDS: SIMVASTATIN 10 MG TAB PO SCH (21:15)
[2020-09-01 22:00] VITALS: BP 124/57
[2020-09-02 06:00] VITALS: BP 125/59
[2020-09-02 06:34] LABS: HEMATOCRIT 31.6 % (36.0-47.0); HEMOGLOBIN 10.6 g/dl (12.0-15.5); MEAN CORPUSCULAR HEMOGLOBIN 31.8 pg (27.0-33.0); MEAN CORPUSCULAR HGB CONC 33.5 g/dl (32.0-36.5); MEAN CORPUSCULAR VOLUME 94.9 fl (80.0-96.0); PLATELET COUNT, AUTOMATED 249 10^3/uL (150-450); RED BLOOD COUNT 3.33 10^6/uL (4.00-5.40); WHITE BLOOD COUNT 17.2 10^3/uL (4.0-10.0)
[2020-09-02] MEDS: HEPARIN SOD (PORCINE) 5000UNITS/ML 1ML VIAL/SYRINGE SC SCH ×3 (06:42→21:39)
[2020-09-02 06:55] LABS: BLOOD UREA NITROGEN 16 MG/DL (7-18); CALCIUM LEVEL 8.3 MG/DL (8.8-10.2); CARBON DIOXIDE LEVEL 30 MEQ/L (21-32); CHLORIDE LEVEL 101 MEQ/L (98-107); CREATININE FOR GFR 0.41 MG/DL (0.55-1.30); GLOMERULAR FILTRATION RATE > 60.0 (>32); GLUCOSE, FASTING 98 MG/DL (70-100); POTASSIUM SERUM 3.9 MEQ/L (3.5-5.1); SODIUM LEVEL 137 MEQ/L (136-145)
[2020-09-02] MEDS: FLECAINIDE 50MG TABLET PO SCH ×2 (08:06→21:00)
[2020-09-02] MEDS: SPIRONOLACTONE 12.5MG PER 1/2 TABLET PO SCH (08:06)
[2020-09-02] MEDS: OMEPRAZOLE 20 MG CAP PO SCH (08:06)
[2020-09-02] MEDS: MULTIVITAMINS CHILDREN'S CHEWABLE TABLET PO SCH (08:06)
[2020-09-02] MEDS: ACETAMINOPHEN TAB 650MG DOSE (2X325MG) PO PRN (09:39)
--- NOTE | 2020-09-02 10:35 | IPNPDOC ---
Text Note Date of Service The patient was seen on 09/02/20. NOTE Subjective: patient seen and examined at bedside. No acute overnight events reported. No new medical complaints this morning. Objective: General: NAD, lying comfortably in bed, elderly HEENT: NC/AT Lungs: CTA B/L Heart: +S1S2, RRR Abd: soft, NT, +BS Ext: no edema Psych: AAOx3 A/P: 85F with PMHx including Afib/Eliquis, CVA, L. sided rib fracture 2/2 multiple falls and HLD was brought into the ER after falling at home. She reported falling due to imbalance at home which is not new for her, as she stated she has had multiple falls. #L pubic rami fracture/rib fracture - Conservative management with pain control. - PT/OT - patient lives home alone - ortho c/s appreciated #Afib - resume home med Flecanide. - Hold Eliquis due to frequent falls. Previously discussed with patient regarding risks outweighing benefits. #dysphagia - modified diet #hx CVA - c/w statin. #HLD - c/w simvastatin. #gait dysfunction - as above - follow as per PT/OT #HTN - BP controlled on chlorthalidone, aldactone. DVT ppx: HSQ and SCD CODE status: DNR/DNI VS,Fishbone, I+O VS, Fishbone, I+O Laboratory Tests 09/02/20 06:09 Vital Signs Date Time Temp Pulse Resp B/P (MAP) Pulse Ox O2 Delivery O2 Flow Rate FiO2 09/01/20 22:00 98.4 73 18 124/57 (79) 95 Room Air 08/31/20 06:00 1.0 I&O- Last 24 Hours up to 6 AM 09/02/20 06:00 Intake Total 1430 ml Output Total 1600 ml Balance -170 ml JOCY FRANCO MD Sep 02, 2020 07:23
[2020-09-02] MEDS ORDERED: PERCOCET 5MG/325MG TAB PO PRN (10:45)
[2020-09-02 14:00] VITALS: BP 125/61
[2020-09-02] MEDS: SIMVASTATIN 10 MG TAB PO SCH (21:00)
[2020-09-02 22:00] VITALS: BP 129/84
[2020-09-03 06:00] VITALS: BP 130/64
[2020-09-03 06:24] LABS: HEMATOCRIT 32.9 % (36.0-47.0); MEAN CORPUSCULAR HEMOGLOBIN 31.6 pg (27.0-33.0); MEAN CORPUSCULAR HGB CONC 33.4 g/dl (32.0-36.5); MEAN CORPUSCULAR VOLUME 94.5 fl (80.0-96.0); PLATELET COUNT, AUTOMATED 279 10^3/uL (150-450); RED BLOOD COUNT 3.48 10^6/uL (4.00-5.40); WHITE BLOOD COUNT 13.7 10^3/uL (4.0-10.0)
[2020-09-03 06:36] LABS: BLOOD UREA NITROGEN 17 MG/DL (7-18); CALCIUM LEVEL 8.4 MG/DL (8.8-10.2); CARBON DIOXIDE LEVEL 29 MEQ/L (21-32); CHLORIDE LEVEL 98 MEQ/L (98-107); CREATININE FOR GFR 0.44 MG/DL (0.55-1.30); GLOMERULAR FILTRATION RATE > 60.0 (>32); GLUCOSE, FASTING 90 MG/DL (70-100); POTASSIUM SERUM 3.9 MEQ/L (3.5-5.1); SODIUM LEVEL 135 MEQ/L (136-145)
[2020-09-03] MEDS: HEPARIN SOD (PORCINE) 5000UNITS/ML 1ML VIAL/SYRINGE SC SCH ×3 (06:42→22:15)
[2020-09-03] MEDS: FLECAINIDE 50MG TABLET PO SCH ×2 (09:51→22:15)
[2020-09-03] MEDS: SPIRONOLACTONE 12.5MG PER 1/2 TABLET PO SCH (09:51)
[2020-09-03] MEDS: MULTIVITAMINS CHILDREN'S CHEWABLE TABLET PO SCH (09:51)
[2020-09-03] MEDS: OMEPRAZOLE 20 MG CAP PO SCH (09:51)
[2020-09-03] MEDS: ACETAMINOPHEN TAB 650MG DOSE (2X325MG) PO PRN (09:52)
--- NOTE | 2020-09-03 11:37 | IPNPDOC ---
Text Note Date of Service The patient was seen on 09/03/20. NOTE Subjective: patient seen and examined at bedside. No new medical complaints this morning. Objective: General: NAD, lying comfortably in bed, elderly HEENT: NC/AT Lungs: CTA B/L Heart: +S1S2, RRR Abd: soft, NT, +BS Ext: no edema Psych: AAOx3 A/P: 85F with PMHx including Afib/Eliquis, CVA, L. sided rib fracture 2/2 multiple falls and HLD was brought into the ER after falling at home. She reported falling due to imbalance at home which is not new for her, as she stated she has had multiple falls. #L pubic rami fracture/rib fracture - Conservative management with pain control. - PT/OT - patient lives home alone - ortho c/s appreciated #Afib - resume home med Flecanide. - Hold Eliquis due to frequent falls. Previously discussed with patient regarding risks outweighing benefits. #dysphagia - modified diet #hx CVA - c/w statin. #HLD - c/w simvastatin. #gait dysfunction - as above - follow as per PT/OT #HTN - BP controlled on chlorthalidone, aldactone. DVT ppx: HSQ and SCD CODE status: DNR/DNI VS,Fishbone, I+O VS, Fishbone, I+O Laboratory Tests 09/03/20 05:44 Vital Signs Date Time Temp Pulse Resp B/P (MAP) Pulse Ox O2 Delivery O2 Flow Rate FiO2 09/03/20 06:00 98.1 90 18 130/64 (86) 96 09/02/20 14:00 Room Air 08/31/20 06:00 1.0 I&O- Last 24 Hours up to 6 AM 09/03/20 06:00 Intake Total 900 ml Output Total 300 ml Balance 600 ml JOCY FRANCO MD Sep 03, 2020 11:37
[2020-09-03 14:00] VITALS: BP 119/65
[2020-09-03 22:00] VITALS: BP 149/67
[2020-09-03] MEDS: SIMVASTATIN 10 MG TAB PO SCH (22:15)
[2020-09-04] MEDS: HEPARIN SOD (PORCINE) 5000UNITS/ML 1ML VIAL/SYRINGE SC SCH ×2 (05:28→13:18)
[2020-09-04 06:00] VITALS: BP 110/62
[2020-09-04 06:32] LABS: HEMATOCRIT 32.4 % (36.0-47.0); HEMOGLOBIN 10.7 g/dl (12.0-15.5); MEAN CORPUSCULAR HEMOGLOBIN 31.4 pg (27.0-33.0); PLATELET COUNT, AUTOMATED 292 10^3/uL (150-450); RED BLOOD COUNT 3.41 10^6/uL (4.00-5.40); WHITE BLOOD COUNT 12.8 10^3/uL (4.0-10.0)
[2020-09-04 06:54] LABS: BLOOD UREA NITROGEN 20 MG/DL (7-18); CALCIUM LEVEL 8.1 MG/DL (8.8-10.2); CARBON DIOXIDE LEVEL 31 MEQ/L (21-32); CHLORIDE LEVEL 98 MEQ/L (98-107); CREATININE FOR GFR 0.41 MG/DL (0.55-1.30); GLOMERULAR FILTRATION RATE > 60.0 (>32); GLUCOSE, FASTING 90 MG/DL (70-100); POTASSIUM SERUM 4.1 MEQ/L (3.5-5.1); SODIUM LEVEL 135 MEQ/L (136-145)
[2020-09-04 08:30] VITALS: BP 136/65
[2020-09-04] MEDS: CHLORTHALIDONE 12.5MG PER 1/2 TABLET PO SCH (08:40)
[2020-09-04] MEDS: FLECAINIDE 50MG TABLET PO SCH (08:40)
[2020-09-04] MEDS: OMEPRAZOLE 20 MG CAP PO SCH (08:41)
[2020-09-04] MEDS: MULTIVITAMINS CHILDREN'S CHEWABLE TABLET PO SCH (08:41)
[2020-09-04] MEDS: SPIRONOLACTONE 12.5MG PER 1/2 TABLET PO SCH (08:42)
[2020-09-04] MEDS: ACETAMINOPHEN TAB 650MG DOSE (2X325MG) PO PRN (08:57)
--- NOTE | 2020-09-04 13:06 | DS.PDOC ---
Discharge Summary General Date of Admission Aug 30, 2020 at 11:30 Date of Discharge 09/04/20 Discharge Summary PROCEDURES PERFORMED DURING STAY: [None]. ADMITTING DIAGNOSES: falls DISCHARGE DIAGNOSES: #L pubic rami fracture/rib fracture #Afib/off anticoagulation #dysphagia #hx CVA #HLD #gait dysfunction #HTN #baseline dementia COMPLICATIONS/CHIEF COMPLAINT: FALL. HISTORY OF PRESENT ILLNESS: Patient is 85 year old female with PMH Afib on Eliquis, CVA, L. sided rib fracture 2/2 multiple falls and HLD was brought into the ER after falling at home. She reports falling due to imbalance at home which is not new for her. She has been getting PT outpatient and just recently completed the regimen but sti ll has weakness and imbalance. She lives at home by herself and think that she can take care of herself despite her frequent falls. Patient reports only L. sided lateral hip pain but otherwise denies any other complaints including chest pain, SOB, fever or chills. She denies any loss of consciousness, visual changes or urinary/fecal incontinence today with her fall. CXR in ER shows L. sided 9th rib fracture although it appears that she has had multiple L. sided rib fractures recently due to falls. CT Abdomen/Pelvis reveals L. sided pubic rami fracture and no acute pathology on CT head. HOSPITAL COURSE: 85F with PMHx including Afib/Eliquis, CVA, L. sided rib fracture 2/2 multiple falls and HLD was brought into the ER after falling at home. She reported falling due to imbalance at home which is not new for her, as she stated she has had multiple falls. #L pubic rami fracture/rib fracture - Conservative management with pain control. - PT/OT - patient lives home alone - ortho c/s appreciated #Afib - resume home med Flecanide. - Hold Eliquis due to frequent falls. Previously discussed with patient regarding risks outweighing benefits. #dysphagia - modified diet #hx CVA - c/w statin. #HLD - c/w simvastatin. #gait dysfunction - as above - follow as per PT/OT #HTN - BP controlled on chlorthalidone, aldactone. DISCHARGE MEDICATIONS: Please see below. ALLERGIES: Please see below. PHYSICAL EXAMINATION ON DISCHARGE: VS: see below General: NAD, lying comfortably in bed, elderly HEENT: NC/AT Lungs: CTA B/L Heart: +S1S2, RRR Abd: soft, NT, +BS Ext: no edema Psych: AAOx3 LABORATORY DATA: Please see below. ACTIVITY: [As tolerated]. DISPOSITION: Discharge to ARU DISCHARGE INSTRUCTIONS: 1. Further direction as per ARU DISCHARGE CONDITION: [Stable]. TIME SPENT ON DISCHARGE: 35 minutes. Vital Signs/I&Os Vital Signs Date Time Temp Pulse Resp B/P (MAP) Pulse Ox O2 Delivery O2 Flow Rate FiO2 09/04/20 08:30 96.3 129 16 136/65 (88) 96 Room Air 08/31/20 06:00 1.0 I&O- Last 24 Hours up to 6 AM 09/04/20 06:00 Intake Total 1060 ml Balance 1060 ml Laboratory Data Labs 24H Laboratory Tests 2 09/04/20 06:01: Nucleated Red Blood Cells % (auto) 0.0, Anion Gap 6L, Glomerular Filtration Rate > 60.0, Calcium Level 8.1L CBC/BMP Laboratory Tests 09/04/20 06:01 Discharge Medications Scheduled Alendronate Sodium (Alendronate Sodium) 70 Mg Tablet, 70 MG PO QWEEK, (Reported) FRIDAYS Calcium Carbonate/Vitamin D3 (Calcium 500-Vit D3 10 Mcg Chew) 500 Mg-400 Tab.chew, 1 TAB PO BID, (Reported) Chlorthalidone (Chlorthalidone) 25 Mg Tablet, 12.5 MG PO 3XW, (Reported) FRIDAY, FRIDAY AND FRIDAY Flecainide Acetate (Flecainide Acetate) 50 Mg Tablet, 50 MG PO BID, (Reported) Multivitamin (Animal Shapes) 1 Each Tab.chew, 1 TAB PO DAILY, (Reported) Omeprazole (Omeprazole) 20 Mg Capsule.dr, 20 MG PO DAILY, (Reported) Simvastatin (Simvastatin) 10 Mg Tablet, 10 MG PO QHS, (Reported) Spironolactone (Spironolactone) 25 Mg Tablet, 12.5 MG PO DAILY, (Reported) Allergies Coded Allergies: No Known Drug Allergies (Verified Allergy, Unknown, 11/26/19) JOCY FRANCO MD Sep 04, 2020 13:06
== END 2020-09-04 13:34 | disposition home or self-care (01) | DRG 536 ==
LOC: M ED 23:21 → M ED INP 23:22 → M MSPAV 08-30 04:37 → OBSVTOIN 08-30 11:30
PROVIDERS: ADMIT Student in an Organized Health Care Education/Training Program; ATTEND Internal Medicine
DX: S32.592A Other specified fracture of left pubis, initial encounter for closed fracture (principal); S22.32XA Fracture of one rib, left side, initial encounter for closed fracture; I48.91 Unspecified atrial fibrillation; I10 Essential (primary) hypertension; R29.6 Repeated falls; F03.90 Unspecified dementia, unspecified severity, without behavioral disturbance, psychotic disturbance, mood disturbance, and anxiety; R26.89 Other abnormalities of gait and mobility; Z79.899 Other long term (current) drug therapy; Z87.891 Personal history of nicotine dependence; M16.0 Bilateral primary osteoarthritis of hip; K57.30 Diverticulosis of large intestine without perforation or abscess without bleeding; K80.20 Calculus of gallbladder without cholecystitis without obstruction; Z66 Do not resuscitate; I69.391 Dysphagia following cerebral infarction; Z98.41 Cataract extraction status, right eye; Z98.42 Cataract extraction status, left eye; W18.30XA Fall on same level, unspecified, initial encounter; Y92.009 Unspecified place in unspecified non-institutional (private) residence as the place of occurrence of the external cause

== ENCOUNTER 2020-09-04 11:51 | Inpatient (IN) | payer MEDICARE ==
[~2020-09-04] VITALS: Ht 172.7 cm; Wt 51.6 kg
[~2020-09-04 11:51] MED LIST changes: +ALEN70TA82 PO; +[UNRECOGNIZED DRUG - CODE] PO
[2020-09-04 13:35] VITALS: BP 123/73
[2020-09-04] MEDS ORDERED: BISACODYL 5 MG TAB PO PRN (15:00)
[2020-09-04] MEDS ORDERED: oxyCODONE 5MG TAB PO PRN (15:00)
[2020-09-04] MEDS ORDERED: BISACODYL 10 MG SUPP PR PRN (15:00)
[2020-09-04] MEDS: REMEDY PHYTOPLEX Z-GUARD PASTE 113GM TUBE (FROM STOREROOM PRODUCT) TOP SCH ×2 (15:46→22:17)
[2020-09-04] MEDS: ACETAMINOPHEN 500 MG TAB PO SCH ×2 (15:46→22:13)
[2020-09-04 20:00] VITALS: BP 125/78
[2020-09-04] MEDS: SIMVASTATIN 10 MG TAB PO SCH (22:13)
[2020-09-04] MEDS: FLECAINIDE 50MG TABLET PO SCH (22:13)
[2020-09-04] MEDS: SENNA 8.6 MG TAB (SENOKOT) PO SCH (22:16)
[2020-09-04] MEDS: HEPARIN SOD (PORCINE) 5000UNITS/ML 1ML VIAL/SYRINGE SC SCH (22:17)
[2020-09-04] MEDS: DOCUSATE SODIUM 100MG CAPSULE PO SCH (22:17)
[2020-09-05 05:12] VITALS: BP 136/64
[2020-09-05] MEDS: HEPARIN SOD (PORCINE) 5000UNITS/ML 1ML VIAL/SYRINGE SC SCH ×3 (06:17→21:14)
[2020-09-05 06:59] LABS: BASO # 0.1 10^3/uL (0.0-0.2); BASO % 0.7 % (0.0-1.0); EOS # 0.4 10^3/uL (0.0-0.5); EOS % 3.7 % (0.0-3.0); HEMATOCRIT 32.7 % (36.0-47.0); HEMOGLOBIN 10.9 g/dl (12.0-15.5); LYMPH # 1.4 10^3/uL (1.5-5.0); LYMPH % 12.4 % (24.0-44.0); MEAN CORPUSCULAR HEMOGLOBIN 31.7 pg (27.0-33.0); MEAN CORPUSCULAR HGB CONC 33.3 g/dl (32.0-36.5); MEAN CORPUSCULAR VOLUME 95.1 fl (80.0-96.0); MONO # 1.3 10^3/uL (0.0-0.8); MONO % 11.4 % (0.0-5.0); NEUTROPHILS # 7.6 10^3/uL (1.5-8.5); NEUTROPHILS % 69.3 % (36.0-66.0); PLATELET COUNT, AUTOMATED 331 10^3/uL (150-450); RED BLOOD COUNT 3.44 10^6/uL (4.00-5.40)
[2020-09-05 07:28] LABS: ALBUMIN 2.9 GM/DL (3.2-5.2); ALT/SGPT 35 U/L (12-78); BILIRUBIN,TOTAL 0.9 MG/DL (0.2-1.0); BLOOD UREA NITROGEN 15 MG/DL (7-18); CARBON DIOXIDE LEVEL 31 MEQ/L (21-32); CHLORIDE LEVEL 95 MEQ/L (98-107); CREATININE FOR GFR 0.45 MG/DL (0.55-1.30); GLOMERULAR FILTRATION RATE > 60.0 (>32); GLUCOSE, FASTING 92 MG/DL (70-100); POTASSIUM SERUM 4.1 MEQ/L (3.5-5.1); SODIUM LEVEL 131 MEQ/L (136-145); TOTAL PROTEIN 6.8 GM/DL (6.4-8.2)
--- NOTE | 2020-09-05 08:47 | HPEPDOC ---
Manager Content Note DATE OF ADMISSION: 09-04-20 DATE OF SERVICE: 09-05-20 TIME OF ADMISSION: Please refer to physician's admission order. SOURCE OF ADMISSION INFORMATION: [facility] record and patient CHIEF COMPLAINT: left pelvic fracture HISTORY OF PRESENT ILLNESS: 85F pmh Afib on Eliquis, multiple falls, rib fractures, HLD who fell at home and presented to [facility] ED on 08-30-20 wih difficulty walking. CTH was negative for acute hemorrhage or infarct, CXR did reveal left sided chronic rib fractures, and pelvic X-ray showed, Acute fracture of the left inferior pubic ramus without significant displacementModerate osteoarthritis of the left hip joint and mild osteoarthritis of the right hip joint. She was evaluated by orthopedics who suggested conservative treatment and patient was made WBAT. Her eliquis was discontinued to due high risk for falls and concern for bleed, and she was evaluated by therapy where she was found to have impairments in mobility and ADLs in needs of IRF level of care. She was discharged to ARU 09-04-20. REVIEW OF SYSTEMS: The following is a completed review of systems and has been reviewed. Review of systems otherwise unremarkable. PAIN: Patient self reports left pelvic pain EYES: No recent vision changes EARS, NOSE, & THROAT: No throat pain, or dysphagia, or rhinorrhea CARDIOVASCULAR: Denies chest pain or palpitations PULMONARY: Denies shortness of breath GASTROINTESTINAL: Denies constipation/diarrhea GENITOURINARY: denies dysuria MUSCULOSKELETAL: +pelvic fracture NEUROLOGICAL:denies tremor or paresthesias HEMATOLOGICAL: denies easy bruising SKIN: no rash PSYCHIATRIC: Unremarkable All other review of systems found to be negative. PAST MEDICAL HISTORY: as per HPI PAST SURGICAL HISTORY: Appendectomy, thyroid nodule removal, bilat cataract surgery ALLERGIES: Please see below. MEDICATIONS: Please see below. FAMILY HISTORY: cva SOCIAL HISTORY: Former smoker, occasional etoh, no illicit drugs DIET: low salt PHYSICAL EXAMINATION: VITAL SIGNS: Please see below. GENERAL: Pleasant and cooperative. No acute distress. HEENT: PERRL. Extraocular movements intact. Clear conjunctiva CARDIOVASCULAR: Irregular rate and rhythm. No murmurs, rubs, or gallops LUNGS: Clear to auscultation bilaterally. No wheezes. No rhonchi ABDOMEN: Soft, nontender, nondistended. Positive bowel sounds. Normal active bowel sounds NEUROLOGICAL: Alert and oriented times three. Cranial nerves II through XII grossly intact. Sensation grossly intact EXTREMITIES: 5\5 strength bilateral upper extremities. 5\5 strength right lower extremity. 5/5 strength in left ankle DF/EHL/PF (limited due to recent surgery) SKIN:intact LABORATORY DATA: Please see below. IMAGING:Imaging documentation personally reviewed by record FUNCTIONAL STATUS: Premorbid: Modified Independent with all activities of daily life as well as mobility with RW On Admission: Min assist for functional transfers, ambulation, dressing, toileting GOALS:Mod-I household distances for bed mobility, ambulation, stairs, dressing, toileting, bathing ASSESSMENT:85-year-old F with past medical history of Afib who presents status post fall with left sided pubic rami fracture PLAN: 1. Rehab- PT/OT advance mobility and ADLs, strengthen/stretch/maintain ROM all 4 limbs -CRITICAL CARE NURSE SPECIALIST ordered for cognition for suspected dementia 2. ortho- s/p pelvic fracture WBAT- f/u ortho as outpatient 3. Cardiac- hx of Afib, c/u off eliquis due to high fall risk, c/u on flecainide -CHF c/u fluid restriction, daily weights and diuretics- medicine consulted to assist in overall management -HLD- statin 4. Resp- monitor for infection, encourage deep breathing with incentive spiromet ry with chronic left sided rib fracture 5. GI ppx- protonix 6. DVT ppx- heparin and teds 7. Pain- tylenol 8. Hyponatremia- Na 131, will recheck tomorrow, likely due to diuretics, c/u fluid restriction 9. DIspo- tbd POST ADMISSION PHYSICIAN EVALUATION: Medical and functional status: Description of medical status, medical assessment: As above. Rehabilitation diagnosis and current and prior cold morbid medical conditions as above. Risk of complications and plans to mitigate them as above. Description of functional status current status is as above. Prior status as above. Status compared to preadmission: There are no clinically significant differences between the patient's current status and the information described on the preadmission screening document. Treatment plan anticipated: Treatment plan is as described above. Required disciplines including physical therapy, occupational therapy, others as noted above. Intensity of services: 3 hours a day, 6 days a week. Special considerations: There are no specific special or safety considerations that would likely preclude immediate implementation of an intensive rehabilitation program or subsequently influence the plan of care. ATTESTATION: Considering all the information above, it is my best judgment that this patient requires intensive rehabilitation therapy as described above and an inpatient hospital environment due to the complexity of nursing, medical, and rehabilitation needs required by the patient. Furthermore, this patient can reasonably be expected to participate in an benefit from an inpatient rehabilitation stay with an interdisciplinary team approach to the delivery of rehabilitation care under the direction and supervision of rehabilitation physician. PROGNOSIS: good ESTIMATED LENGTH OF STAY:10-14 days. PROJECTED DISCHARGE DESTINATION: Home with family support and any durable medical equipment required to increase functional safety and mobility. TIME SPENT COUNSELING AND COORDINATING INITIAL CARE: Greater than 70 minutes. Vital Signs Vital Sign - Last 24 Hours 09/04/20 09/04/20 09/05/20 13:35 20:00 05:12 Temp 98.4 98.3 98.2 Pulse 67 116 61 Resp 18 18 18 B/P (MAP) 123/73 (90) 125/78 (94) 136/64 (88) Pulse Ox 96 96 98 O2 Delivery Room Air Room Air Room Air Laboratory Data CBC/BMP Laboratory Tests 09/05/20 06:30 Labs 24H Laboratory Tests 2 09/05/20 06:30: Immature Granulocyte % (Auto) 2.5, Neutrophils (%) (Auto) 69.3H, Lymphocytes (%) (Auto) 12.4L, Monocytes (%) (Auto) 11.4H, Eosinophils (%) (Auto) 3.7H, Basophils (%) (Auto) 0.7, Neutrophils # (Auto) 7.6, Lymphocytes # (Auto) 1.4L, Monocytes # (Auto) 1.3H, Eosinophils # (Auto) 0.4, Basophils # (Auto) 0.1, Nucleated Red Blood Cells % (auto) 0.0, Anion Gap 5L, Glomerular Filtration Rate > 60.0, Calcium Level 9.0, Total Bilirubin 0.9, Aspartate Amino Transf (AST/SGOT) 31, Alanine Aminotransferase (ALT/SGPT) 35, Alkaline Phosphatase 45, Total Protein 6.8, Albumin 2.9L, Albumin/Globulin Ratio 0.7L Home Medications Scheduled Alendronate Sodium (Alendronate Sodium) 70 Mg Tablet, 70 MG PO QWEEK, (Reported) FRIDAYS Calcium Carbonate/Vitamin D3 (Calcium 500-Vit D3 10 Mcg Chew) 500 Mg-400 Tab.chew, 1 TAB PO BID, (Reported) Chlorthalidone (Chlorthalidone) 25 Mg Tablet, 12.5 MG PO 3XW, (Reported) FRIDAY, FRIDAY AND FRIDAY Flecainide Acetate (Flecainide Acetate) 50 Mg Tablet, 50 MG PO BID, (Reported) Multivitamin (Animal Shapes) 1 Each Tab.chew, 1 TAB PO DAILY, (Reported) Omeprazole (Omeprazole) 20 Mg Capsule.dr, 20 MG PO DAILY, (Reported) Simvastatin (Simvastatin) 10 Mg Tablet, 10 MG PO QHS, (Reported) Spironolactone (Spironolactone) 25 Mg Tablet, 12.5 MG PO DAILY, (Reported) Allergies Coded Allergies: No Known Drug Allergies (Verified Allergy, Unknown, 11/26/19) A-FIB/CHADSVASC A-FIB History Current/History of A-Fib/PAF?: Yes Current PO Anticoag Therapy: No CLEMENTE SANDERS MD Sep 05, 2020 08:47
[2020-09-05] MEDS: DOCUSATE SODIUM 100MG CAPSULE PO SCH ×2 (09:00→21:07)
[2020-09-05] MEDS: SPIRONOLACTONE 12.5MG PER 1/2 TABLET PO SCH (09:32)
[2020-09-05] MEDS: FLECAINIDE 50MG TABLET PO SCH ×2 (09:32→21:07)
[2020-09-05] MEDS: OMEPRAZOLE 20 MG CAP PO SCH (09:32)
[2020-09-05] MEDS: MULTIVITAMINS/MINERALS THERAP 1 TAB PO SCH (09:32)
[2020-09-05] MEDS: ACETAMINOPHEN 500 MG TAB PO SCH ×3 (09:32→21:07)
[2020-09-05] MEDS: REMEDY PHYTOPLEX Z-GUARD PASTE 113GM TUBE (FROM STOREROOM PRODUCT) TOP SCH ×3 (09:38→21:08)
--- NOTE | 2020-09-05 13:31 | IPNPDOC ---
Text Note Date of Service The patient was seen on 09/05/20. NOTE Subjective: Patient is a 5-year-old female with a PMHx of A. fib (s/p Eliquis), CVA, DLP, L sided R fracture 2/2 multiple falls, presented to the ER on 08/30 after she had fallen while at home. Patient lives alone and continues to experience multiple falls. On arrival to emergency room, patient was complaining of left hip pain. She was initially admitted to the hospital service for further evaluation and treatment. Imaging had revealed a left-sided pubic rami fracture. Orthopedic surgery was called on consultation. Patient was eventually transitioned to acute rehabilitation on 09/04 for continued therapy. Patient was seen and examined at the bedside. Patient is seen sitting up using her incentive spirometer. She denies any chest pain, shortness breath, palpitations. Has not experience any nausea, vomiting, abdominal pain, diarrhea, or urinary discomfort. Objective: Vitals (See below) General: Lying in bed, appears comfortable, AAOx3 HEENT: NC, AT CVS: RRR, +S1S2 Lungs: Fair air entry b/l, -w/r/r Abdomen: Soft, ND, NT Extremities: - Edema, - Calf tenderness Assessment and plan: L pubic rami fracture/rib fracture - 2/2 multiple falls - Currently patient reports that her pain is well-controlled - Orthopedic surgery was initially consulted during inpatient stay - c/w PT and OT as per ARU - c/w current pain regimen Hyponatremia - Mild - Patient currently appears euvolemic - Will continue to monitor repeat BMP A. fib - c/w rate / rhythm control with Flecainide - s/p Full anticoagulation with Eliquis; - Previously discussed with patient regarding risks outweighing benefits given multiple falls Dysphagia - c/w modified diet Prior CVA - c/w Simvastatin #HLD - c/w simvastatin. Gait dysfunction - c/w PT/OT as per ARU HTN - BP well controlled - c/w Chlorthalidone, Spironolactone GERD - c/w Omeprazole DVT prophylaxis - c/w Heparin Disposition: - As per ARU VS,Fishbone, I+O VS, Fishbone, I+O Laboratory Tests 09/05/20 06:30 Vital Signs Date Time Temp Pulse Resp B/P (MAP) Pulse Ox O2 Delivery O2 Flow Rate FiO2 09/05/20 05:12 98.2 61 18 136/64 (88) 98 Room Air I&O- Last 24 Hours up to 6 AM 09/05/20 06:00 Intake Total 340 ml Balance 340 ml JAN HILL MD Sep 05, 2020 13:31
[2020-09-05 14:00] VITALS: BP 122/68
[2020-09-05] MEDS: HYDROCORTISONE 1% CREAM 30 GM TOP SCH ×2 (14:34→21:08)
[2020-09-05 20:00] VITALS: BP 134/72
[2020-09-05] MEDS: SIMVASTATIN 10 MG TAB PO SCH (21:07)
[2020-09-05] MEDS: SENNA 8.6 MG TAB (SENOKOT) PO SCH (21:07)
[2020-09-06 05:19] VITALS: BP 118/58
[2020-09-06] MEDS: HEPARIN SOD (PORCINE) 5000UNITS/ML 1ML VIAL/SYRINGE SC SCH ×3 (06:09→21:32)
[2020-09-06 06:46] LABS: BASO # 0.1 10^3/uL (0.0-0.2); BASO % 0.6 % (0.0-1.0); EOS # 0.5 10^3/uL (0.0-0.5); EOS % 4.8 % (0.0-3.0); HEMATOCRIT 31.5 % (36.0-47.0); HEMOGLOBIN 10.3 g/dl (12.0-15.5); LYMPH # 1.5 10^3/uL (1.5-5.0); LYMPH % 14.2 % (24.0-44.0); MEAN CORPUSCULAR HEMOGLOBIN 31.2 pg (27.0-33.0); MEAN CORPUSCULAR HGB CONC 32.7 g/dl (32.0-36.5); MEAN CORPUSCULAR VOLUME 95.5 fl (80.0-96.0); MONO # 1.2 10^3/uL (0.0-0.8); MONO % 11.5 % (0.0-5.0); NEUTROPHILS # 7.1 10^3/uL (1.5-8.5); NEUTROPHILS % 65.5 % (36.0-66.0); PLATELET COUNT, AUTOMATED 370 10^3/uL (150-450)
[2020-09-06 06:49] LABS: WHITE BLOOD COUNT 10.8 10^3/uL (4.0-10.0)
[2020-09-06 07:09] LABS: BLOOD UREA NITROGEN 17 MG/DL (7-18); CALCIUM LEVEL 8.8 MG/DL (8.8-10.2); CARBON DIOXIDE LEVEL 33 MEQ/L (21-32); CHLORIDE LEVEL 93 MEQ/L (98-107); CREATININE FOR GFR 0.52 MG/DL (0.55-1.30); GLOMERULAR FILTRATION RATE > 60.0 (>32); GLUCOSE, FASTING 83 MG/DL (70-100); POTASSIUM SERUM 4.4 MEQ/L (3.5-5.1); SODIUM LEVEL 130 MEQ/L (136-145)
[2020-09-06] MEDS: SPIRONOLACTONE 12.5MG PER 1/2 TABLET PO SCH (08:28)
[2020-09-06] MEDS: OMEPRAZOLE 20 MG CAP PO SCH (08:29)
[2020-09-06] MEDS: MULTIVITAMINS/MINERALS THERAP 1 TAB PO SCH (08:29)
[2020-09-06] MEDS: ACETAMINOPHEN 500 MG TAB PO SCH ×3 (08:29→21:31)
[2020-09-06] MEDS: DOCUSATE SODIUM 100MG CAPSULE PO SCH ×2 (08:29→21:31)
[2020-09-06] MEDS: HYDROCORTISONE 1% CREAM 30 GM TOP SCH ×3 (08:30→21:32)
[2020-09-06] MEDS: FLECAINIDE 50MG TABLET PO SCH ×2 (08:30→21:31)
[2020-09-06] MEDS: REMEDY PHYTOPLEX Z-GUARD PASTE 113GM TUBE (FROM STOREROOM PRODUCT) TOP SCH ×3 (08:30→21:32)
[2020-09-06] MEDS ORDERED: CHLORTHALIDONE 12.5MG PER 1/2 TABLET PO SCH (09:00)
--- NOTE | 2020-09-06 10:19 | IPNPDOC ---
PM&R Progress Note DATE OF SERVICE: Sep 06, 2020 Perl Developer Progress Note Subjective: Patient stating she has a rash on her back that responds to the hydrocortisone cream and she would like to use it more frequently and is not interested in t aking benadryl. REVIEW OF SYSTEMS: The following is a completed review of systems and has been reviewed. Review of systems otherwise unremarkable. PAIN: Patient self reports left pelvic pain EYES: No recent vision changes EARS, NOSE, & THROAT: No throat pain, or dysphagia, or rhinorrhea CARDIOVASCULAR: Denies chest pain or palpitations PULMONARY: Denies shortness of breath GASTROINTESTINAL: Denies constipation/diarrhea GENITOURINARY: denies dysuria MUSCULOSKELETAL: +pelvic fracture NEUROLOGICAL:denies tremor or paresthesias HEMATOLOGICAL: denies easy bruising SKIN: +rash on back PSYCHIATRIC: Unremarkable All other review of systems found to be negative. PHYSICAL EXAMINATION: VITAL SIGNS: Please see below. GENERAL: Pleasant and cooperative. No acute distress. HEENT: PERRL. Extraocular movements intact. Clear conjunctiva CARDIOVASCULAR: Irregular rate and rhythm. No murmurs, rubs, or gallops LUNGS: Clear to auscultation bilaterally. No wheezes. No rhonchi ABDOMEN: Soft, nontender, nondistended. Positive bowel sounds. Normal active bowel sounds NEUROLOGICAL: Alert and oriented times three. Cranial nerves II through XII grossly intact. Sensation grossly intact EXTREMITIES: 5\5 strength bilateral upper extremities. 5\5 strength right lower extremity. 5/5 strength in left ankle DF/EHL/PF (limited due to recent surgery) SKIN:intact ASSESSMENT:85-year-old F with past medical history of Afib who presents status post fall with left sided pubic rami fracture PLAN: 1. Rehab- PT/OT advance mobility and ADLs, strengthen/stretch/maintain ROM all 4 limbs, ambulating with RW -SHIPPING AND RECEIVING ASSOCIATE ordered for cognition for suspected dementia 2. ortho- s/p pelvic fracture WBAT- f/u ortho as outpatient 3. Cardiac- hx of Afib, c/u off eliquis due to high fall risk, c/u on flecainide -CHF c/u fluid restriction, daily weights and diuretics- medicine consulted to assist in overall management -HLD- statin 4. Resp- monitor for infection, encourage deep breathing with incentive spirometry with chronic left sided rib fracture 5. GI ppx- protonix 6. DVT ppx- heparin and teds 7. Pain- tylenol 8. Hyponatremia- Na 130, will d/c hydrochlorothiazide, c/u fluid restriction, c/u to monitor 9. Derm- urticaria on back, c/u hydrocortisone cream, will increase to TID, suspect may be due to contact dermatitis from bedding vs perspiration 10. DIspo- tbd Allergies Coded Allergies: No Known Drug Allergies (Verified Allergy, Unknown, 11/26/19) Vital Signs Vital Signs Date Time Temp Pulse Resp B/P (MAP) Pulse Ox O2 Delivery O2 Flow Rate FiO2 09/06/20 05:19 97.6 63 17 118/58 (78) 98 Room Air Laboratory Data CBC/BMP Laboratory Tests 09/06/20 06:18 Labs 24H Laboratory Tests 2 09/06/20 06:18: Immature Granulocyte % (Auto) 3.4H, Neutrophils (%) (Auto) 65.5, Lymphocytes (%) (Auto) 14.2L, Monocytes (%) (Auto) 11.5H, Eosinophils (%) (Auto) 4.8H, Basophils (%) (Auto) 0.6, Neutrophils # (Auto) 7.1, Lymphocytes # (Auto) 1.5, Monocytes # (Auto) 1.2H, Eosinophils # (Auto) 0.5, Basophils # (Auto) 0.1, Nucleated Red Blood Cells % (auto) 0.0, Anion Gap 4L, Glomerular Filtration Rate > 60.0, Calcium Level 8.8 Current Medications Current Medications Current Medications Medications (Trade) Dose Ordered Sig/Chan Route PRN Reason Start Time Stop Time Status Last Admin Dose Admin Acetaminophen (Tylenol Tab) 1,000 mg TID PO 09/04/20 16:00 09/06/20 08:29 Bisacodyl (Dulcolax Suppository) 10 mg DAILYPRN PRN [place] CONSTIPATION 09/04/20 15:00 Bisacodyl (Dulcolax Tab) 5 mg DAILYPRN PRN PO CONSTIPATION 09/04/20 15:00 Chlorthalidone (Hygroton, Chlorthalidone) 12.5 mg MoWeFr@0900 PO 09/06/20 09:00 09/06/20 08:29 Docusate Sodium (Colace) 100 mg BID PO 09/04/20 21:00 09/06/20 08:29 Flecainide Acetate (Tambocor) 50 mg BID PO 09/04/20 21:00 09/06/20 08:30 Heparin Sodium (Porcine) (Heparin) 5,000 units Q8H SC 09/04/20 22:00 09/06/20 06:09 Home Med (Med Rec Complete!) ASDIRECTED XX 09/04/20 15:15 09/04/20 15:20 DC Hydrocortisone (Hydrocortisone 1% Cream) 1 dose BID TOP 09/05/20 09:00 09/06/20 08:30 Multivitamins (Theragram-M) 1 tab DAILY PO 09/05/20 09:00 09/06/20 08:29 Omeprazole (PriLOSEC) 20 mg DAILY PO 09/05/20 09:00 09/06/20 08:29 Oxycodone HCl (Roxicodone, Oxyir) 5 mg Q4HP PRN PO PAIN 09/04/20 15:00 Senna (Senokot) 1 tab QHS PO 09/04/20 21:00 09/05/20 21:07 Simvastatin (Zocor) 10 mg QHS PO 09/04/20 21:00 09/05/20 21:07 Spironolactone (Aldactone) 12.5 mg DAILY PO 09/05/20 09:00 09/06/20 08:28 CLEMENTE SANDERS MD Sep 06, 2020 10:19
[2020-09-06 14:00] VITALS: BP 136/62
[2020-09-06 20:00] VITALS: BP 138/65
[2020-09-06] MEDS: SIMVASTATIN 10 MG TAB PO SCH (21:31)
[2020-09-06] MEDS: SENNA 8.6 MG TAB (SENOKOT) PO SCH (21:31)
[2020-09-07] MEDS: HEPARIN SOD (PORCINE) 5000UNITS/ML 1ML VIAL/SYRINGE SC SCH ×3 (05:23→20:59)
[2020-09-07 06:00] VITALS: BP 117/55
[2020-09-07] MEDS: OMEPRAZOLE 20 MG CAP PO SCH (08:09)
[2020-09-07] MEDS: MULTIVITAMINS/MINERALS THERAP 1 TAB PO SCH (08:09)
[2020-09-07] MEDS: DOCUSATE SODIUM 100MG CAPSULE PO SCH ×2 (08:10→20:55)
[2020-09-07] MEDS: FLECAINIDE 50MG TABLET PO SCH ×2 (08:10→20:54)
[2020-09-07] MEDS: ACETAMINOPHEN 500 MG TAB PO SCH ×3 (08:10→20:54)
[2020-09-07] MEDS: HYDROCORTISONE 1% CREAM 30 GM TOP SCH ×3 (08:11→20:55)
[2020-09-07] MEDS: REMEDY PHYTOPLEX Z-GUARD PASTE 113GM TUBE (FROM STOREROOM PRODUCT) TOP SCH ×3 (08:11→20:55)
--- NOTE | 2020-09-07 09:13 | IPNPDOC ---
PM&R Progress Note DATE OF SERVICE: Sep 07, 2020 Cashier Courtesy Booth Progress Note Subjective: Patient reporting she feels ok and that her rash on her back is less itchy and seems to be getting better. REVIEW OF SYSTEMS: The following is a completed review of systems and has been reviewed. Review of systems otherwise unremarkable. PAIN: Patient self reports left pelvic pain EYES: No recent vision changes EARS, NOSE, & THROAT: No throat pain, or dysphagia, or rhinorrhea CARDIOVASCULAR: Denies chest pain or palpitations PULMONARY: Denies shortness of breath GASTROINTESTINAL: Denies constipation/diarrhea GENITOURINARY: denies dysuria MUSCULOSKELETAL: +pelvic fracture NEUROLOGICAL:denies tremor or paresthesias HEMATOLOGICAL: denies easy bruising SKIN: +rash on back PSYCHIATRIC: Unremarkable All other review of systems found to be negative. PHYSICAL EXAMINATION: VITAL SIGNS: Please see below. GENERAL: Pleasant and cooperative. No acute distress. HEENT: PERRL. Extraocular movements intact. Clear conjunctiva CARDIOVASCULAR: Irregular rate and rhythm. No murmurs, rubs, or gallops LUNGS: Clear to auscultation bilaterally. No wheezes. No rhonchi ABDOMEN: Soft, nontender, nondistended. Positive bowel sounds. Normal active bowel sounds NEUROLOGICAL: Alert and oriented times three. Cranial nerves II through XII grossly intact. Sensation grossly intact EXTREMITIES: 5\5 strength bilateral upper extremities. 5\5 strength right lower extremity. 5/5 strength in left ankle DF/EHL/PF (limited due to recent surgery) SKIN:upper back with scant papular rash ASSESSMENT:85-year-old F with past medical history of Afib who presents status post fall with left sided pubic rami fracture PLAN: 1. Rehab- PT/OT advance mobility and ADLs, strengthen/stretch/maintain ROM all 4 limbs, ambulating with RW -INDUSTRIAL ELECTRICIAN ordered for cognition for suspected dementia 2. ortho- s/p pelvic fracture WBAT- f/u ortho as outpatient 3. Cardiac- hx of Afib, c/u off eliquis due to high fall risk, c/u on flecainide -CHF c/u fluid restriction, daily weights and diuretics- medicine consulted to assist in overall management -HLD- statin 4. Resp- monitor for infection, encourage deep breathing with incentive spirometry with chronic left sided rib fracture 5. GI ppx- protonix 6. DVT ppx- heparin and teds 7. Pain- tylenol 8. Hyponatremia- Na 130 (09/06/20), d/c'd hydrochlorothiazide, c/u fluid r estriction, c/u to monitor, checking BMP tomorrow 9. Derm- urticaria on back, c/u hydrocortisone cream, increased to TID, suspect may be due to contact dermatitis from bedding vs perspiration 10. DIspo- tbd Allergies Coded Allergies: No Known Drug Allergies (Verified Allergy, Unknown, 11/26/19) Vital Signs Vital Signs Date Time Temp Pulse Resp B/P (MAP) Pulse Ox O2 Delivery O2 Flow Rate FiO2 09/07/20 06:00 98.4 67 18 117/55 (75) 97 Room Air Current Medications Current Medications Current Medications Medications (Trade) Dose Ordered Sig/Chan Route PRN Reason Start Time Stop Time Status Last Admin Dose Admin Acetaminophen (Tylenol Tab) 1,000 mg TID PO 09/04/20 16:00 09/07/20 08:10 Bisacodyl (Dulcolax Suppository) 10 mg DAILYPRN PRN SC CONSTIPATION 09/04/20 15:00 Bisacodyl (Dulcolax Tab) 5 mg DAILYPRN PRN PO CONSTIPATION 09/04/20 15:00 Chlorthalidone (Hygroton, Chlorthalidone) 12.5 mg MoWeFr@0900 PO 09/06/20 09:00 09/06/20 14:11 DC 09/06/20 08:29 Docusate Sodium (Colace) 100 mg BID PO 09/04/20 21:00 09/07/20 08:10 Flecainide Acetate (Tambocor) 50 mg BID PO 09/04/20 21:00 09/07/20 08:10 Heparin Sodium (Porcine) (Heparin) 5,000 units Q8H SC 09/04/20 22:00 09/06/20 13:31 Home Med (Med Rec Complete!) ASDIRECTED XX 09/04/20 15:15 09/04/20 15:20 DC Hydrocortisone (Hydrocortisone 1% Cream) 1 dose BID TOP 09/05/20 09:00 09/06/20 14:15 DC 09/06/20 08:30 Hydrocortisone (Hydrocortisone 1% Cream) 1 dose TID TOP 09/06/20 14:30 09/07/20 08:11 Multivitamins (Theragram-M) 1 tab DAILY PO 09/05/20 09:00 09/07/20 08:09 Omeprazole (PriLOSEC) 20 mg DAILY PO 09/05/20 09:00 09/07/20 08:09 Oxycodone HCl (Roxicodone, Oxyir) 5 mg Q4HP PRN PO PAIN 09/04/20 15:00 Senna (Senokot) 1 tab QHS PO 09/04/20 21:00 09/06/20 21:31 Simvastatin (Zocor) 10 mg QHS PO 09/04/20 21:00 09/06/20 21:31 Spironolactone (Aldactone) 12.5 mg DAILY PO 09/05/20 09:00 09/06/20 10:18 DC 09/06/20 08:28 CLEMENTE SANDERS MD Sep 07, 2020 09:13
[2020-09-07 14:00] VITALS: BP 144/65
[2020-09-07 20:00] VITALS: BP 127/61
[2020-09-07] MEDS: SIMVASTATIN 10 MG TAB PO SCH (20:54)
[2020-09-07] MEDS: SENNA 8.6 MG TAB (SENOKOT) PO SCH (20:55)
[2020-09-08 06:00] VITALS: BP 130/60
[2020-09-08] MEDS: HEPARIN SOD (PORCINE) 5000UNITS/ML 1ML VIAL/SYRINGE SC SCH ×3 (06:19→20:33)
[2020-09-08 06:39] LABS: BASO # 0.1 10^3/uL (0.0-0.2); BASO % 0.8 % (0.0-1.0); EOS # 0.3 10^3/uL (0.0-0.5); EOS % 2.6 % (0.0-3.0); HEMATOCRIT 32.8 % (36.0-47.0); HEMOGLOBIN 10.8 g/dl (12.0-15.5); LYMPH # 1.6 10^3/uL (1.5-5.0); LYMPH % 16.3 % (24.0-44.0); MEAN CORPUSCULAR HEMOGLOBIN 31.6 pg (27.0-33.0); MEAN CORPUSCULAR HGB CONC 32.9 g/dl (32.0-36.5); MEAN CORPUSCULAR VOLUME 95.9 fl (80.0-96.0); MONO # 1.1 10^3/uL (0.0-0.8); MONO % 11.3 % (0.0-5.0); NEUTROPHILS # 6.4 10^3/uL (1.5-8.5); NEUTROPHILS % 64.6 % (36.0-66.0); PLATELET COUNT, AUTOMATED 430 10^3/uL (150-450); RED BLOOD COUNT 3.42 10^6/uL (4.00-5.40); WHITE BLOOD COUNT 9.9 10^3/uL (4.0-10.0)
[2020-09-08 07:05] LABS: BLOOD UREA NITROGEN 20 MG/DL (7-18); CALCIUM LEVEL 8.4 MG/DL (8.8-10.2); CARBON DIOXIDE LEVEL 33 MEQ/L (21-32); CHLORIDE LEVEL 98 MEQ/L (98-107); CREATININE FOR GFR 0.49 MG/DL (0.55-1.30); GLOMERULAR FILTRATION RATE > 60.0 (>32); GLUCOSE, FASTING 92 MG/DL (70-100); POTASSIUM SERUM 4.6 MEQ/L (3.5-5.1); SODIUM LEVEL 136 MEQ/L (136-145)
[2020-09-08] MEDS: ACETAMINOPHEN 500 MG TAB PO SCH ×3 (09:19→20:29)
[2020-09-08] MEDS: FLECAINIDE 50MG TABLET PO SCH ×2 (09:19→20:28)
[2020-09-08] MEDS: DOCUSATE SODIUM 100MG CAPSULE PO SCH ×2 (09:19→20:28)
[2020-09-08] MEDS: OMEPRAZOLE 20 MG CAP PO SCH (09:19)
[2020-09-08] MEDS: MULTIVITAMINS/MINERALS THERAP 1 TAB PO SCH (09:19)
[2020-09-08] MEDS: REMEDY PHYTOPLEX Z-GUARD PASTE 113GM TUBE (FROM STOREROOM PRODUCT) TOP SCH ×3 (09:20→20:29)
[2020-09-08] MEDS: HYDROCORTISONE 1% CREAM 30 GM TOP SCH ×3 (09:20→20:29)
--- NOTE | 2020-09-08 10:12 | IPNPDOC ---
PM&R Progress Note DATE OF SERVICE: Sep 08, 2020 Rate Supervisor Progress Note Subjective: Patient reporting asking if she can get a covid shot inhouse and would like her vitamins in a chewable form. REVIEW OF SYSTEMS: The following is a completed review of systems and has been reviewed. Review of systems otherwise unremarkable. PAIN: Patient self reports left pelvic pain EYES: No recent vision changes EARS, NOSE, & THROAT: No throat pain, or dysphagia, or rhinorrhea CARDIOVASCULAR: Denies chest pain or palpitations PULMONARY: Denies shortness of breath GASTROINTESTINAL: Denies constipation/diarrhea GENITOURINARY: denies dysuria MUSCULOSKELETAL: +pelvic fracture NEUROLOGICAL:denies tremor or paresthesias HEMATOLOGICAL: denies easy bruising SKIN: +rash on back PSYCHIATRIC: Unremarkable All other review of systems found to be negative. PHYSICAL EXAMINATION: VITAL SIGNS: Please see below. GENERAL: Pleasant and cooperative. No acute distress. HEENT: PERRL. Extraocular movements intact. Clear conjunctiva CARDIOVASCULAR: Irregular rate and rhythm. No murmurs, rubs, or gallops LUNGS: Clear to auscultation bilaterally. No wheezes. No rhonchi ABDOMEN: Soft, nontender, nondistended. Positive bowel sounds. Normal active bowel sounds NEUROLOGICAL: Alert and oriented times three. Cranial nerves II through XII grossly intact. Sensation grossly intact EXTREMITIES: 5\5 strength bilateral upper extremities. 5\5 strength right lower extremity. 5/5 strength in left ankle DF/EHL/PF (limited due to recent surgery) SKIN:upper back with scant papular rash (improving) ASSESSMENT:85-year-old F with past medical history of Afib who presents status post fall with left sided pubic rami fracture PLAN: 1. Rehab- PT/OT advance mobility and ADLs, strengthen/stretch/maintain ROM all 4 limbs, ambulating with RW -DETECTIVE BOWLING ALLEY ordered for cognition for suspected dementia 2. ortho- s/p pelvic fracture WBAT- f/u ortho as outpatient 3. Cardiac- hx of Afib, c/u off eliquis due to high fall risk, c/u on flecainide -CHF c/u fluid restriction, daily weights- medicine consulted to assist in overall management -HLD- statin 4. Resp- monitor for infection, encourage deep breathing with incentive spirometry with chronic left sided rib fracture 5. GI ppx- protonix 6. DVT ppx- heparin and teds 7. Pain- tylenol 8. Hyponatremia- Na 130 (09/06/20)-->136 today resolved after d/cing hydrochlorothiazide, c/u fluid restriction, c/u to monitor 9. Derm- urticaria on back, c/u hydrocortisone cream improving, increased to TID, suspect may be due to contact dermatitis from bedding vs perspiration 10. DIspo- tbd Allergies Coded Allergies: No Known Drug Allergies (Verified Allergy, Unknown, 11/26/19) Vital Signs Vital Signs Date Time Temp Pulse Resp B/P (MAP) Pulse Ox O2 Delivery O2 Flow Rate FiO2 09/08/20 06:00 98.4 68 18 130/60 (83) 96 Room Air Laboratory Data CBC/BMP Laboratory Tests 09/08/20 06:17 Labs 24H Laboratory Tests 2 09/08/20 06:17: Immature Granulocyte % (Auto) 4.4H, Neutrophils (%) (Auto) 64.6, Lymphocytes (%) (Auto) 16.3L, Monocytes (%) (Auto) 11.3H, Eosinophils (%) (Auto) 2.6, Basophils (%) (Auto) 0.8, Neutrophils # (Auto) 6.4, Lymphocytes # (Auto) 1.6, Monocytes # (Auto) 1.1H, Eosinophils # (Auto) 0.3, Basophils # (Auto) 0.1, Nucleated Red Blood Cells % (auto) 0.0, Anion Gap 5L, Glomerular Filtration Rate > 60.0, Calcium Level 8.4L Current Medications Current Medications Current Medications Medications (Trade) Dose Ordered Sig/Chan Route PRN Reason Start Time Stop Time Status Last Admin Dose Admin Acetaminophen (Tylenol Tab) 1,000 mg TID PO 09/04/20 16:00 09/08/20 09:19 Bisacodyl (Dulcolax Suppository) 10 mg DAILYPRN PRN OR CONSTIPATION 09/04/20 15:00 Bisacodyl (Dulcolax Tab) 5 mg DAILYPRN PRN PO CONSTIPATION 09/04/20 15:00 Chlorthalidone (Hygroton, Chlorthalidone) 12.5 mg MoWeFr@0900 PO 09/06/20 09:00 09/06/20 14:11 DC 09/06/20 08:29 Docusate Sodium (Colace) 100 mg BID PO 09/04/20 21:00 09/08/20 09:19 Flecainide Acetate (Tambocor) 50 mg BID PO 09/04/20 21:00 09/08/20 09:19 Heparin Sodium (Porcine) (Heparin) 5,000 units Q8H SC 09/04/20 22:00 09/08/20 06:19 Home Med (Med Rec Complete!) ASDIRECTED XX 09/04/20 15:15 09/04/20 15:20 DC Hydrocortisone (Hydrocortisone 1% Cream) 1 dose BID TOP 09/05/20 09:00 09/06/20 14:15 DC 09/06/20 08:30 Hydrocortisone (Hydrocortisone 1% Cream) 1 dose TID TOP 09/06/20 14:30 09/08/20 09:20 Multivitamins (Theragram-M) 1 tab DAILY PO 09/05/20 09:00 09/08/20 09:19 Omeprazole (PriLOSEC) 20 mg DAILY PO 09/05/20 09:00 09/08/20 09:19 Oxycodone HCl (Roxicodone, Oxyir) 5 mg Q4HP PRN PO PAIN 09/04/20 15:00 Senna (Senokot) 1 tab QHS PO 09/04/20 21:00 09/07/20 20:55 Simvastatin (Zocor) 10 mg QHS PO 09/04/20 21:00 09/07/20 20:54 Spironolactone (Aldactone) 12.5 mg DAILY PO 09/05/20 09:00 09/06/20 10:18 DC 09/06/20 08:28 CLEMENTE SANDERS MD Sep 08, 2020 10:12
[2020-09-08 14:00] VITALS: BP 147/68
[2020-09-08 20:00] VITALS: BP 124/60
[2020-09-08] MEDS: SIMVASTATIN 10 MG TAB PO SCH (20:28)
[2020-09-08] MEDS: SENNA 8.6 MG TAB (SENOKOT) PO SCH (20:28)
[2020-09-09 05:04] VITALS: BP 133/64
[2020-09-09] MEDS: HEPARIN SOD (PORCINE) 5000UNITS/ML 1ML VIAL/SYRINGE SC SCH ×3 (05:29→21:08)
[2020-09-09] MEDS: ACETAMINOPHEN 500 MG TAB PO SCH ×3 (08:42→21:07)
[2020-09-09] MEDS: MULTIVITAMINS CHILDREN'S CHEWABLE TABLET PO SCH (08:42)
[2020-09-09] MEDS: DOCUSATE SODIUM 100MG CAPSULE PO SCH ×2 (08:42→21:07)
[2020-09-09] MEDS: OMEPRAZOLE 20 MG CAP PO SCH (08:42)
[2020-09-09] MEDS: REMEDY PHYTOPLEX Z-GUARD PASTE 113GM TUBE (FROM STOREROOM PRODUCT) TOP SCH ×3 (08:43→21:09)
[2020-09-09] MEDS: HYDROCORTISONE 1% CREAM 30 GM TOP SCH ×3 (08:43→21:08)
[2020-09-09] MEDS: FLECAINIDE 50MG TABLET PO SCH ×2 (08:43→21:07)
[2020-09-09 14:00] VITALS: BP 112/59
[2020-09-09 20:00] VITALS: BP 116/55
[2020-09-09] MEDS: SIMVASTATIN 10 MG TAB PO SCH (21:07)
[2020-09-09] MEDS: SENNA 8.6 MG TAB (SENOKOT) PO SCH (21:07)
[2020-09-10 05:10] VITALS: BP 127/69
[2020-09-10] MEDS: HEPARIN SOD (PORCINE) 5000UNITS/ML 1ML VIAL/SYRINGE SC SCH ×3 (06:50→20:57)
[2020-09-10] MEDS: FLECAINIDE 50MG TABLET PO SCH ×2 (08:36→20:51)
[2020-09-10] MEDS: OMEPRAZOLE 20 MG CAP PO SCH (08:36)
[2020-09-10] MEDS: HYDROCORTISONE 1% CREAM 30 GM TOP SCH ×3 (08:36→21:00)
[2020-09-10] MEDS: ACETAMINOPHEN 500 MG TAB PO SCH ×3 (08:36→20:51)
[2020-09-10] MEDS: DOCUSATE SODIUM 100MG CAPSULE PO SCH ×2 (08:36→20:51)
[2020-09-10] MEDS: MULTIVITAMINS CHILDREN'S CHEWABLE TABLET PO SCH (08:36)
[2020-09-10] MEDS: REMEDY PHYTOPLEX Z-GUARD PASTE 113GM TUBE (FROM STOREROOM PRODUCT) TOP SCH ×3 (08:37→21:00)
[2020-09-10 14:00] VITALS: BP 127/58
[2020-09-10 20:00] VITALS: BP 132/62
[2020-09-10] MEDS: SENNA 8.6 MG TAB (SENOKOT) PO SCH (20:51)
[2020-09-10] MEDS: SIMVASTATIN 10 MG TAB PO SCH (20:51)
[2020-09-11] MEDS: HEPARIN SOD (PORCINE) 5000UNITS/ML 1ML VIAL/SYRINGE SC SCH ×3 (05:44→20:46)
[2020-09-11 06:00] VITALS: BP 152/72
[2020-09-11 06:49] LABS: BASO # 0.1 10^3/uL (0.0-0.2); BASO % 0.7 % (0.0-1.0); EOS # 0.3 10^3/uL (0.0-0.5); EOS % 2.5 % (0.0-3.0); HEMATOCRIT 34.7 % (36.0-47.0); HEMOGLOBIN 11.4 g/dl (12.0-15.5); LYMPH # 1.7 10^3/uL (1.5-5.0); LYMPH % 14.9 % (24.0-44.0); MEAN CORPUSCULAR HGB CONC 32.9 g/dl (32.0-36.5); MEAN CORPUSCULAR VOLUME 97.5 fl (80.0-96.0); NEUTROPHILS # 7.7 10^3/uL (1.5-8.5); NEUTROPHILS % 69.3 % (36.0-66.0); PLATELET COUNT, AUTOMATED 515 10^3/uL (150-450); RED BLOOD COUNT 3.56 10^6/uL (4.00-5.40); WHITE BLOOD COUNT 11.1 10^3/uL (4.0-10.0)
[2020-09-11 07:15] LABS: BLOOD UREA NITROGEN 14 MG/DL (7-18); CALCIUM LEVEL 8.6 MG/DL (8.8-10.2); CARBON DIOXIDE LEVEL 31 MEQ/L (21-32); CHLORIDE LEVEL 100 MEQ/L (98-107); CREATININE FOR GFR 0.41 MG/DL (0.55-1.30); GLOMERULAR FILTRATION RATE > 60.0 (>32); GLUCOSE, FASTING 96 MG/DL (70-100); POTASSIUM SERUM 4.1 MEQ/L (3.5-5.1); SODIUM LEVEL 136 MEQ/L (136-145)
[2020-09-11] MEDS: MULTIVITAMINS CHILDREN'S CHEWABLE TABLET PO SCH (08:08)
[2020-09-11] MEDS: OMEPRAZOLE 20 MG CAP PO SCH (08:09)
[2020-09-11] MEDS: DOCUSATE SODIUM 100MG CAPSULE PO SCH ×2 (08:09→20:45)
[2020-09-11] MEDS: FLECAINIDE 50MG TABLET PO SCH ×2 (08:09→20:45)
[2020-09-11] MEDS: ACETAMINOPHEN 500 MG TAB PO SCH ×3 (08:09→20:45)
[2020-09-11] MEDS: HYDROCORTISONE 1% CREAM 30 GM TOP SCH ×3 (08:10→20:49)
[2020-09-11] MEDS: REMEDY PHYTOPLEX Z-GUARD PASTE 113GM TUBE (FROM STOREROOM PRODUCT) TOP SCH ×3 (08:10→20:46)
[2020-09-11 14:00] VITALS: BP 138/69
--- NOTE | 2020-09-11 15:24 | IPNPDOC ---
Text Note Date of Service The patient was seen on 09/11/20. NOTE Patient was seen and examined at the bedside.She denies any chest pain, short ness breath, nausea, vomiting, abdominal pain, diarrhea, or urinary discomfort. Physical Exam: General: Lying in bed, appears comfortable, AAOx3 HEENT: NC, AT CVS: RRR, +S1S2 Lungs: Fair air entry b/l, -w/r/r Abdomen: Soft, ND, NT Extremities: - Edema, - Calf tenderness Assessment and plan: Patient is a 85-year-old female with a PMHx of A. fib (s/p Eliquis), CVA, DLP, L sided R fracture 2/2 multiple falls, presented to the ER on 08/30 after she had fallen while at home. Patient lives alone and continues to experience multiple falls. On arrival to emergency room, patient was complaining of left hip pain. She was initially admitted to the hospital service for further evaluation and treatment. Imaging had revealed a left-sided pubic rami fracture. Orthopedic surgery was called on consultation. Patient was eventually transitioned to acute rehabilitation on 09/04 for continued therapy. L pubic rami fracture/rib fracture - 2/2 multiple falls - Currently patient reports that her pain is well-controlled - Orthopedic surgery was initially consulted during inpatient stay - c/w PT and OT as per ARU - c/w current pain regimen A. fib - c/w rate / rhythm control with Flecainide - s/p Full anticoagulation with Eliquis; - Previously discussed with patient regarding risks outweighing benefits given multiple falls Dysphagia - c/w modified diet Prior CVA - c/w Simvastatin #HLD - c/w simvastatin. Gait dysfunction - c/w PT/OT as per ARU HTN - BP well controlled - c/w Chlorthalidone, Spironolactone GERD - c/w Omeprazole DVT prophylaxis - c/w Heparin Disposition: - As per ARU VS,Stas, I+O VSStas, I+O Laboratory Tests 09/11/20 06:27 Vital Signs Date Time Temp Pulse Resp B/P (MAP) Pulse Ox O2 Delivery O2 Flow Rate FiO2 09/11/20 14:00 98.2 117 20 138/69 (92) 96 Room Air I&O- Last 24 Hours up to 6 AM 09/11/20 05:59 Intake Total 1180 ml Balance 1180 ml DANIEL DUEÑAS MD Sep 11, 2020 15:24
[2020-09-11 20:00] VITALS: BP 129/58
[2020-09-11] MEDS: SIMVASTATIN 10 MG TAB PO SCH (20:46)
[2020-09-11] MEDS: SENNA 8.6 MG TAB (SENOKOT) PO SCH (20:46)
[2020-09-12] MEDS: HEPARIN SOD (PORCINE) 5000UNITS/ML 1ML VIAL/SYRINGE SC SCH ×3 (05:48→20:30)
[2020-09-12 05:51] VITALS: BP 121/60
[2020-09-12] MEDS: DOCUSATE SODIUM 100MG CAPSULE PO SCH ×2 (08:05→20:23)
[2020-09-12] MEDS: MULTIVITAMINS CHILDREN'S CHEWABLE TABLET PO SCH (08:05)
[2020-09-12] MEDS: FLECAINIDE 50MG TABLET PO SCH ×2 (08:07→20:23)
[2020-09-12] MEDS: OMEPRAZOLE 20 MG CAP PO SCH (08:07)
[2020-09-12] MEDS: ACETAMINOPHEN 500 MG TAB PO SCH ×3 (08:07→20:24)
[2020-09-12] MEDS: HYDROCORTISONE 1% CREAM 30 GM TOP SCH ×3 (08:16→20:25)
[2020-09-12] MEDS: REMEDY PHYTOPLEX Z-GUARD PASTE 113GM TUBE (FROM STOREROOM PRODUCT) TOP SCH ×3 (08:17→20:25)
--- NOTE | 2020-09-12 09:43 | IPNPDOC ---
PM&R Progress Note DATE OF SERVICE: Sep 12, 2020 Monitor And Storage Bin Tender Progress Note Subjective: PAtient reporting burning with urination, denies fevers or chills. REVIEW OF SYSTEMS: The following is a completed review of systems and has been reviewed. Review of systems otherwise unremarkable. PAIN: Patient self reports left pelvic pain EYES: No recent vision changes EARS, NOSE, & THROAT: No throat pain, or dysphagia, or rhinorrhea CARDIOVASCULAR: Denies chest pain or palpitations PULMONARY: Denies shortness of breath GASTROINTESTINAL: Denies constipation/diarrhea GENITOURINARY: + dysuria MUSCULOSKELETAL: +pelvic fracture NEUROLOGICAL:denies tremor or paresthesias HEMATOLOGICAL: denies easy bruising SKIN: +rash on back PSYCHIATRIC: Unremarkable All other review of systems found to be negative. PHYSICAL EXAMINATION: VITAL SIGNS: Please see below. GENERAL: Pleasant and cooperative. No acute distress. HEENT: PERRL. Extraocular movements intact. Clear conjunctiva CARDIOVASCULAR: Irregular rate and rhythm. No murmurs, rubs, or gallops LUNGS: Clear to auscultation bilaterally. No wheezes. No rhonchi ABDOMEN: Soft, nontender, nondistended. Positive bowel sounds. Normal active bowel sounds NEUROLOGICAL: Alert and oriented times three. Cranial nerves II through XII grossly intact. Sensation grossly intact EXTREMITIES: 5\5 strength bilateral upper extremities. 5\5 strength right lower extremity. 5/5 strength in left ankle DF/EHL/PF (limited due to recent surgery) SKIN:upper back with scant papular rash (improving) ASSESSMENT:85-year-old F with past medical history of Afib who presents status post fall with left sided pubic rami fracture PLAN: 1. Rehab- PT/OT advance mobility and ADLs, strengthen/stretch/maintain ROM all 4 limbs, ambulating with RW -BUSINESS PRACTICES OFFICER ordered for cognition for suspected dementia 2. ortho- s/p pelvic fracture WBAT- f/u ortho as outpatient 3. Cardiac- hx of Afib, c/u off eliquis due to high fall risk, c/u on flecainide -CHF c/u fluid restriction, daily weights- medicine consulted to assist in overall management -HLD- statin 4. Resp- monitor for infection, encourage deep breathing with incentive spirometry with chronic left sided rib fracture 5. GI ppx- protonix 6. DVT ppx- heparin and teds 7. Pain- tylenol 8. Hyponatremia- Na 130 (09/06/20)-->136 today resolved after d/cing hydrochlorothiazide, c/u fluid restriction, c/u to monitor 9. Derm- urticaria on back, c/u hydrocortisone cream improving, increased to TID, suspect may be due to contact dermatitis from bedding vs perspiration 10. - +dysuria, however UA negative, will start monistat-7 for suspected yeast infection 11. DIspo- 09-15-20 to home, progressing towards goals Allergies Coded Allergies: No Known Drug Allergies (Verified Allergy, Unknown, 11/26/19) Vital Signs Vital Signs Date Time Temp Pulse Resp B/P (MAP) Pulse Ox O2 Delivery O2 Flow Rate FiO2 09/12/20 05:51 98.2 61 18 121/60 (80) 96 Room Air Laboratory Data Labs 24H Laboratory Tests 2 09/11/20 18:30: Urine Color YELLOW, Urine Appearance CLEAR, Urine pH 6.0, Urine Specific [place] 1.019, Urine Protein NEGATIVE, Urine Glucose (UA) NEGATIVE, Urine Ketones NEGATIVE, Urine Blood NEGATIVE, Urine Nitrite NEGATIVE, Urine Bilirubin NEGATIVE, Urine Urobilinogen 0.2, Urine Leukocyte Esterase NEGATIVE, Urine WBC (Auto) 1, Urine RBC (Auto) 1, Urine Hyaline Casts (Auto) 0, Urine Bacteria (Auto) NEGATIVE, Urine Squamous Epithelial Cells 0, Urine Mucus (Auto) SMALL, Urine Sperm (Auto) Current Medications Current Medications Current Medications Medications (Trade) Dose Ordered Sig/Chan Route PRN Reason Start Time Stop Time Status Last Admin Dose Admin Acetaminophen (Tylenol Tab) 1,000 mg TID PO 09/04/20 16:00 09/12/20 08:07 Bisacodyl (Dulcolax Suppository) 10 mg DAILYPRN PRN [place] CONSTIPATION 09/04/20 15:00 Bisacodyl (Dulcolax Tab) 5 mg DAILYPRN PRN PO CONSTIPATION 09/04/20 15:00 Chlorthalidone (Hygroton, Chlorthalidone) 12.5 mg MoWeFr@0900 PO 09/06/20 09:00 09/06/20 14:11 DC 09/06/20 08:29 Docusate Sodium (Colace) 100 mg BID PO 09/04/20 21:00 09/11/20 20:45 Flecainide Acetate (Tambocor) 50 mg BID PO 09/04/20 21:00 09/12/20 08:07 Heparin Sodium (Porcine) (Heparin) 5,000 units Q8H SC 09/04/20 22:00 09/12/20 05:48 Home Med (Med Rec Complete!) ASDIRECTED XX 09/04/20 15:15 09/04/20 15:20 DC Hydrocortisone (Hydrocortisone 1% Cream) 1 dose BID TOP 09/05/20 09:00 09/06/20 14:15 DC 09/06/20 08:30 Hydrocortisone (Hydrocortisone 1% Cream) 1 dose TID TOP 09/06/20 14:30 09/12/20 08:16 Multivitamins (Fruity Chews-Children'S) 1 tab DAILY PO 09/09/20 09:00 09/12/20 08:05 Multivitamins (Theragram-M) 1 tab DAILY PO 09/05/20 09:00 09/08/20 10:13 DC 09/08/20 09:19 Omeprazole (PriLOSEC) 20 mg DAILY PO 09/05/20 09:00 09/12/20 08:07 Oxycodone HCl (Roxicodone, Oxyir) 5 mg Q4HP PRN PO PAIN 09/04/20 15:00 Senna (Senokot) 1 tab QHS PO 09/04/20 21:00 09/11/20 20:46 Simvastatin (Zocor) 10 mg QHS PO 09/04/20 21:00 09/11/20 20:46 Spironolactone (Aldactone) 12.5 mg DAILY PO 09/05/20 09:00 09/06/20 10:18 DC 09/06/20 08:28 CLEMENTE SANDERS MD Sep 12, 2020 09:43
[2020-09-12 14:00] VITALS: BP 116/57
--- NOTE | 2020-09-12 14:47 | IPNPDOC ---
Text Note Date of Service The patient was seen on 09/12/20. NOTE Patient was seen and examined at the bedside.She denies any chest pain, shortness breath, nausea, vomiting, abdominal pain, diarrhea, or urinary discomfort. Physical Exam: General: Lying in bed, appears comfortable, AAOx3 HEENT: NC, AT CVS: RRR, +S1S2 Lungs: Fair air entry b/l, -w/r/r Abdomen: Soft, ND, NT Extremities: - Edema, - Calf tenderness Assessment and plan: Patient is a 85-year-old female with a PMHx of A. fib (s/p Eliquis), CVA, DLP, L sided R fracture 2/2 multiple falls, presented to the ER on 08/30 after she had fallen while at home. Patient lives alone and continues to experience multiple falls. On arrival to emergency room, patient was complaining of left hip pain. She was initially admitted to the hospital service for further evaluation and treatment. Imaging had revealed a left-sided pubic rami fracture. Orthopedic surgery was called on consultation. Patient was eventually transitioned to acute rehabilitation on 09/04 for continued therapy. 1) L pubic rami fracture/rib fracture - 2/2 multiple falls : Currently patient reports that her pain is well-controlled, conservative management as per ortho. c/w PT and OT as per ARU, c/w current pain regimen 2) A. fib: c/w rate / rhythm control with Flecainide , dced anticoagulation with Eliquis as very high risk of fall. Risk and benifits discussed with the patient. 3) Dysphagia: c/w modified diet 4) Prior CVA : c/w Simvastatin 5) HLD: c/w simvastatin. 6) Gait dysfunction: c/w PT/OT as per ARU 7) HTN: BP well controlled : Spironolactone , chlorthilidone dced as pt was getting hyponatremic Disposition:As per ARU VS,Fishbone, I+O VS, Fishbone, I+O Vital Signs Date Time Temp Pulse Resp B/P (MAP) Pulse Ox O2 Delivery O2 Flow Rate FiO2 09/12/20 14:00 98.8 66 17 116/57 (76) 96 Room Air I&O- Last 24 Hours up to 6 AM 09/12/20 06:00 Intake Total 1800 ml Balance 1800 ml KICHLOO,DANIEL A. MD Sep 12, 2020 14:47
[2020-09-12] MEDS: LACTOBACILLUS ACIDOPHILUS CAP (BACID) PO SCH ×2 (17:20→20:24)
[2020-09-12 20:00] VITALS: BP 108/55
[2020-09-12] MEDS: SENNA 8.6 MG TAB (SENOKOT) PO SCH (20:23)
[2020-09-12] MEDS: SIMVASTATIN 10 MG TAB PO SCH (20:24)
[2020-09-12] MEDS ORDERED: MICONAZOLE-7 VAGINAL 2% CREAM 47.7 GM PV SCH (21:00)
[2020-09-13] MEDS: HEPARIN SOD (PORCINE) 5000UNITS/ML 1ML VIAL/SYRINGE SC SCH ×3 (05:18→21:05)
[2020-09-13 05:32] VITALS: BP 122/58
[2020-09-13 07:07] LABS: BASO # 0.1 10^3/uL (0.0-0.2); BASO % 0.9 % (0.0-1.0); EOS # 0.3 10^3/uL (0.0-0.5); EOS % 2.9 % (0.0-3.0); HEMATOCRIT 35.2 % (36.0-47.0); HEMOGLOBIN 11.4 g/dl (12.0-15.5); LYMPH # 1.6 10^3/uL (1.5-5.0); LYMPH % 16.5 % (24.0-44.0); MEAN CORPUSCULAR HEMOGLOBIN 32.4 pg (27.0-33.0); MEAN CORPUSCULAR HGB CONC 32.4 g/dl (32.0-36.5); MONO # 0.9 10^3/uL (0.0-0.8); NEUTROPHILS # 6.5 10^3/uL (1.5-8.5); NEUTROPHILS % 68.2 % (36.0-66.0); PLATELET COUNT, AUTOMATED 533 10^3/uL (150-450); RED BLOOD COUNT 3.52 10^6/uL (4.00-5.40); WHITE BLOOD COUNT 9.6 10^3/uL (4.0-10.0)
[2020-09-13 07:21] LABS: BLOOD UREA NITROGEN 20 MG/DL (7-18); CALCIUM LEVEL 8.9 MG/DL (8.8-10.2); CARBON DIOXIDE LEVEL 33 MEQ/L (21-32); CHLORIDE LEVEL 99 MEQ/L (98-107); CREATININE FOR GFR 0.54 MG/DL (0.55-1.30); GLOMERULAR FILTRATION RATE > 60.0 (>32); GLUCOSE, FASTING 86 MG/DL (70-100); POTASSIUM SERUM 4.3 MEQ/L (3.5-5.1); SODIUM LEVEL 136 MEQ/L (136-145)
[2020-09-13] MEDS: DOCUSATE SODIUM 100MG CAPSULE PO SCH ×2 (09:04→21:03)
[2020-09-13] MEDS: OMEPRAZOLE 20 MG CAP PO SCH (09:04)
[2020-09-13] MEDS: FLECAINIDE 50MG TABLET PO SCH ×2 (09:05→21:03)
[2020-09-13] MEDS: ACETAMINOPHEN 500 MG TAB PO SCH ×3 (09:07→21:03)
[2020-09-13] MEDS: LACTOBACILLUS ACIDOPHILUS CAP (BACID) PO SCH ×4 (09:07→21:03)
[2020-09-13] MEDS: MULTIVITAMINS CHILDREN'S CHEWABLE TABLET PO SCH (09:07)
[2020-09-13] MEDS: REMEDY PHYTOPLEX Z-GUARD PASTE 113GM TUBE (FROM STOREROOM PRODUCT) TOP SCH ×3 (09:09→21:04)
[2020-09-13] MEDS: HYDROCORTISONE 1% CREAM 30 GM TOP SCH ×3 (09:09→21:04)
--- NOTE | 2020-09-13 10:29 | IPNPDOC ---
PM&R Progress Note DATE OF SERVICE: Sep 13, 2020 [employer] Progress Note Subjective: Patient reports she did not like having a vaginal suppository, but that the burning with urination is better today. REVIEW OF SYSTEMS: The following is a completed review of systems and has been reviewed. Review of systems otherwise unremarkable. PAIN: Patient self reports left pelvic pain EYES: No recent vision changes EARS, NOSE, & THROAT: No throat pain, or dysphagia, or rhinorrhea CARDIOVASCULAR: Denies chest pain or palpitations PULMONARY: Denies shortness of breath GASTROINTESTINAL: Denies constipation/diarrhea GENITOURINARY: + dysuria (improving) MUSCULOSKELETAL: +pelvic fracture NEUROLOGICAL:denies tremor or paresthesias HEMATOLOGICAL: denies easy bruising SKIN: +rash on back PSYCHIATRIC: Unremarkable All other review of systems found to be negative. PHYSICAL EXAMINATION: VITAL SIGNS: Please see below. GENERAL: Pleasant and cooperative. No acute distress. HEENT: PERRL. Extraocular movements intact. Clear conjunctiva CARDIOVASCULAR: Irregular rate and rhythm. No murmurs, rubs, or gallops LUNGS: Clear to auscultation bilaterally. No wheezes. No rhonchi ABDOMEN: Soft, nontender, nondistended. Positive bowel sounds. Normal active bowel sounds NEUROLOGICAL: Alert and oriented times three. Cranial nerves II through XII grossly intact. Sensation grossly intact EXTREMITIES: 5\5 strength bilateral upper extremities. 5\5 strength right lower extremity. 5/5 strength in left ankle DF/EHL/PF (limited due to recent surgery) SKIN:upper back with scant papular rash (improving) ASSESSMENT:85-year-old F with past medical history of Afib who presents status post fall with left sided pubic rami fracture PLAN: 1. Rehab- PT/OT advance mobility and ADLs, strengthen/stretch/maintain ROM all 4 limbs, ambulating with RW -FIOS LINE INSTALLER ordered for cognition for suspected dementia 2. ortho- s/p pelvic fracture WBAT- f/u ortho as outpatient 3. Cardiac- hx of Afib, c/u off eliquis due to high fall risk, c/u on flecainide -CHF c/u fluid restriction, daily weights- medicine consulted to assist in overall management -HLD- statin 4. Resp- monitor for infection, encourage deep breathing with incentive spirometry with chronic left sided rib fracture 5. GI ppx- protonix 6. DVT ppx- heparin and teds 7. Pain- tylenol 8. Hyponatremia- resolved after d/cing hydrochlorothiazide, c/u fluid restriction, c/u to monitor 9. Derm- urticaria on back, c/u hydrocortisone cream improving, increased to TID, suspect may be due to contact dermatitis from bedding vs perspiration 10. - +dysuria, however UA negative, responding to monistat-7, however poor patient tolerance of suppository, will order 1x dose of diflucan instead of ryeast infection 11. DIspo- 09-15-20 to home, progressing towards goals Allergies Coded Allergies: No Known Drug Allergies (Verified Allergy, Unknown, 11/26/19) Vital Signs Vital Signs Date Time Temp Pulse Resp B/P (MAP) Pulse Ox O2 Delivery O2 Flow Rate FiO2 09/13/20 05:32 97.6 69 18 122/58 (79) 95 Room Air Laboratory Data CBC/BMP Laboratory Tests 09/13/20 05:51 Labs 24H Laboratory Tests 2 09/13/20 05:51: Immature Granulocyte % (Auto) 2.5, Neutrophils (%) (Auto) 68.2H, Lymphocytes (%) (Auto) 16.5L, Monocytes (%) (Auto) 9.0H, Eosinophils (%) (Auto) 2.9, Basophils (%) (Auto) 0.9, Neutrophils # (Auto) 6.5, Lymphocytes # (Auto) 1.6, Monocytes # (Auto) 0.9H, Eosinophils # (Auto) 0.3, Basophils # (Auto) 0.1, Nucleated Red Blood Cells % (auto) 0.0, Anion Gap 4L, Glomerular Filtration Rate > 60.0, Calcium Level 8.9 Current Medications Current Medications Current Medications Medications (Trade) Dose Ordered Sig/Chan Route PRN Reason Start Time Stop Time Status Last Admin Dose Admin Acetaminophen (Tylenol Tab) 1,000 mg TID PO 09/04/20 16:00 09/13/20 09:07 Bisacodyl (Dulcolax Suppository) 10 mg DAILYPRN PRN [place] CONSTIPATION 09/04/20 15:00 Bisacodyl (Dulcolax Tab) 5 mg DAILYPRN PRN PO CONSTIPATION 09/04/20 15:00 Chlorthalidone (Hygroton, Chlorthalidone) 12.5 mg MoWeFr@0900 PO 09/06/20 09:00 09/06/20 14:11 DC 09/06/20 08:29 Docusate Sodium (Colace) 100 mg BID PO 09/04/20 21:00 09/13/20 09:04 Flecainide Acetate (Tambocor) 50 mg BID PO 09/04/20 21:00 09/13/20 09:05 Heparin Sodium (Porcine) (Heparin) 5,000 units Q8H SC 09/04/20 22:00 09/13/20 05:18 Home Med (Med Rec Complete!) ASDIRECTED XX 09/04/20 15:15 09/04/20 15:20 DC Hydrocortisone (Hydrocortisone 1% Cream) 1 dose BID TOP 09/05/20 09:00 09/06/20 14:15 DC 09/06/20 08:30 Hydrocortisone (Hydrocortisone 1% Cream) 1 dose TID TOP 09/06/20 14:30 09/13/20 09:09 Lactobacillus Acidophilus (Bacid) 1 ea WMHS PO 09/12/20 18:00 09/13/20 09:07 Miconazole Nitrate (Monistat-7) 1 dose QHS PV 09/12/20 21:00 09/18/20 21:01 09/12/20 20:30 Multivitamins (Fruity Chews-Children'S) 1 tab DAILY PO 09/09/20 09:00 09/13/20 09:07 Multivitamins (Theragram-M) 1 tab DAILY PO 09/05/20 09:00 09/08/20 10:13 DC 09/08/20 09:19 Omeprazole (PriLOSEC) 20 mg DAILY PO 09/05/20 09:00 09/13/20 09:04 Oxycodone HCl (Roxicodone, Oxyir) 5 mg Q4HP PRN PO PAIN 09/04/20 15:00 Senna (Senokot) 1 tab QHS PO 09/04/20 21:00 09/12/20 20:23 Simvastatin (Zocor) 10 mg QHS PO 09/04/20 21:00 09/12/20 20:24 Spironolactone (Aldactone) 12.5 mg DAILY PO 09/05/20 09:00 09/06/20 10:18 DC 09/06/20 08:28 CLEMENTE SANDERS MD Sep 13, 2020 10:29
[2020-09-13 14:00] VITALS: BP 120/58
[2020-09-13] MEDS ORDERED: FLUCONAZOLE 50MG TABLET PO ONE (21:00)
[2020-09-13] MEDS: SENNA 8.6 MG TAB (SENOKOT) PO SCH (21:03)
[2020-09-13] MEDS: SIMVASTATIN 10 MG TAB PO SCH (21:03)
[2020-09-13 22:00] VITALS: BP 118/57
[2020-09-14 06:00] VITALS: BP 143/73
[2020-09-14] MEDS: HEPARIN SOD (PORCINE) 5000UNITS/ML 1ML VIAL/SYRINGE SC SCH ×3 (06:34→21:41)
--- NOTE | 2020-09-14 06:44 | IPNPDOC ---
PM&R Progress Note DATE OF SERVICE: Sep 14, 2020 [employer] Progress Note Subjective: Patient reporting her burning with urination has resolved since taking Diflucan. She is ready for room privileges and is wondering about following up with Dr. Torres. REVIEW OF SYSTEMS: The following is a completed review of systems and has been reviewed. Review of systems otherwise unremarkable. PAIN: Patient self reports left pelvic pain EYES: No recent vision changes EARS, NOSE, & THROAT: No throat pain, or dysphagia, or rhinorrhea CARDIOVASCULAR: Denies chest pain or palpitations PULMONARY: Denies shortness of breath GASTROINTESTINAL: Denies constipation/diarrhea GENITOURINARY: + dysuria (improving) MUSCULOSKELETAL: +pelvic fracture NEUROLOGICAL:denies tremor or paresthesias HEMATOLOGICAL: denies easy bruising SKIN: +rash on back PSYCHIATRIC: Unremarkable All other review of systems found to be negative. PHYSICAL EXAMINATION: VITAL SIGNS: Please see below. GENERAL: Pleasant and cooperative. No acute distress. HEENT: PERRL. Extraocular movements intact. Clear conjunctiva CARDIOVASCULAR: Irregular rate and rhythm. No murmurs, rubs, or gallops LUNGS: Clear to auscultation bilaterally. No wheezes. No rhonchi ABDOMEN: Soft, nontender, nondistended. Positive bowel sounds. Normal active bowel sounds NEUROLOGICAL: Alert and oriented times three. Cranial nerves II through XII grossly intact. Sensation grossly intact EXTREMITIES: 5\5 strength bilateral upper extremities. 5\5 strength right lower extremity. 5/5 strength in left ankle DF/EHL/PF (limited due to recent surgery) SKIN:upper back with scant papular rash (improving) ASSESSMENT:85-year-old F with past medical history of Afib who presents status post fall with left sided pubic rami fracture PLAN: 1. 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 ortho- s/p pelvic fracture WBAT- f/u ortho as outpatient 3. Cardiac- hx of Afib, c/u off eliquis due to high fall risk, c/u on flecainide -CHF c/u fluid restriction, daily weights- medicine consulted to assist in overall management -HLD- statin -will make f/u appointment with Dr. Torres, referral sent already by her pMD 4. Resp- monitor for infection, encourage deep breathing with incentive spirometry with chronic left sided rib fracture 5. GI ppx- protonix 6. DVT ppx- heparin and teds 7. Pain- tylenol 8. Hyponatremia- resolved after d/cing hydrochlorothiazide, c/u fluid restriction, c/u to monitor 9. Derm- urticaria on back, resolved - may be due to contact dermatitis from bedding vs perspiration 10. - yeast infection s/p x1 dose Diflucan, resolved, r 11. DIspo- 09-15-20 to home, progressing towards goals Allergies Coded Allergies: No Known Drug Allergies (Verified Allergy, Unknown, 11/26/19) Vital Signs Vital Signs Date Time Temp Pulse Resp B/P (MAP) Pulse Ox O2 Delivery O2 Flow Rate FiO2 09/14/20 06:00 98.3 106 20 143/73 (96) 99 Room Air Current Medications Current Medications Current Medications Medications (Trade) Dose Ordered Sig/Chan Route PRN Reason Start Time Stop Time Status Last Admin Dose Admin Acetaminophen (Tylenol Tab) 1,000 mg TID PO 09/04/20 16:00 09/13/20 21:03 Bisacodyl (Dulcolax Suppository) 10 mg DAILYPRN PRN [place] CONSTIPATION 09/04/20 15:00 Bisacodyl (Dulcolax Tab) 5 mg DAILYPRN PRN PO CONSTIPATION 09/04/20 15:00 Chlorthalidone (Hygroton, Chlorthalidone) 12.5 mg MoWeFr@0900 PO 09/06/20 09:00 09/06/20 14:11 DC 09/06/20 08:29 Docusate Sodium (Colace) 100 mg BID PO 09/04/20 21:00 09/13/20 21:03 Flecainide Acetate (Tambocor) 50 mg BID PO 09/04/20 21:00 09/13/20 21:03 Heparin Sodium (Porcine) (Heparin) 5,000 units Q8H SC 09/04/20 22:00 09/14/20 06:34 Home Med (Med Rec Complete!) ASDIRECTED XX 09/04/20 15:15 09/04/20 15:20 DC Hydrocortisone (Hydrocortisone 1% Cream) 1 dose BID TOP 09/05/20 09:00 09/06/20 14:15 DC 09/06/20 08:30 Hydrocortisone (Hydrocortisone 1% Cream) 1 dose TID TOP 09/06/20 14:30 09/13/20 21:04 Lactobacillus Acidophilus (Bacid) 1 ea WMHS PO 09/12/20 18:00 09/13/20 21:03 Miconazole Nitrate (Monistat-7) 1 dose QHS PV 09/12/20 21:00 09/13/20 16:43 DC 09/12/20 20:30 Multivitamins (Fruity Chews-Children'S) 1 tab DAILY PO 09/09/20 09:00 09/13/20 09:07 Multivitamins (Theragram-M) 1 tab DAILY PO 09/05/20 09:00 09/08/20 10:13 DC 09/08/20 09:19 Omeprazole (PriLOSEC) 20 mg DAILY PO 09/05/20 09:00 09/13/20 09:04 Oxycodone HCl (Roxicodone, Oxyir) 5 mg Q4HP PRN PO PAIN 09/04/20 15:00 Senna (Senokot) 1 tab QHS PO 09/04/20 21:00 09/13/20 21:03 Simvastatin (Zocor) 10 mg QHS PO 09/04/20 21:00 09/13/20 21:03 Spironolactone (Aldactone) 12.5 mg DAILY PO 09/05/20 09:00 09/06/20 10:18 DC 09/06/20 08:28 CLEMENTE SANDERS MD Sep 14, 2020 06:44
[2020-09-14] MEDS: DOCUSATE SODIUM 100MG CAPSULE PO SCH ×2 (08:59→21:42)
[2020-09-14] MEDS: FLECAINIDE 50MG TABLET PO SCH ×2 (09:00→21:42)
[2020-09-14] MEDS: LACTOBACILLUS ACIDOPHILUS CAP (BACID) PO SCH ×4 (09:00→21:42)
[2020-09-14] MEDS: OMEPRAZOLE 20 MG CAP PO SCH (09:00)
[2020-09-14] MEDS: MULTIVITAMINS CHILDREN'S CHEWABLE TABLET PO SCH (09:00)
[2020-09-14] MEDS: ACETAMINOPHEN 500 MG TAB PO SCH ×3 (09:00→21:42)
[2020-09-14] MEDS: REMEDY PHYTOPLEX Z-GUARD PASTE 113GM TUBE (FROM STOREROOM PRODUCT) TOP SCH ×3 (09:01→21:41)
[2020-09-14] MEDS: HYDROCORTISONE 1% CREAM 30 GM TOP SCH ×3 (09:01→21:41)
[2020-09-14] MEDS ORDERED: RISATAB3 PO (11:03)
[2020-09-14] MEDS ORDERED: SIMV10TA21 PO (11:03)
[2020-09-14] MEDS ORDERED: FLEC50HA PO (11:03)
[2020-09-14] MEDS ORDERED: OMEP-218 PO (11:03)
[2020-09-14 14:00] VITALS: BP 105/52
--- NOTE | 2020-09-14 16:45 | IPNPDOC ---
Text Note Date of Service The patient was seen on 09/14/20. NOTE Patient was seen and examined at the bedside.She denies any chest pain, shortness breath, nausea, vomiting, abdominal pain, diarrhea, or urinary discomfort. Physical Exam: General: Lying in bed, appears comfortable, AAOx3 HEENT: NC, AT CVS: RRR, +S1S2 Lungs: Fair air entry b/l, -w/r/r Abdomen: Soft, ND, NT Extremities: - Edema, - Calf tenderness Assessment and plan: Patient is a 85-year-old female with a PMHx of A. fib (s/p Eliquis), CVA, DLP, L sided R fracture 2/2 multiple falls, presented to the ER on 08/30 after she had fallen while at home. Patient lives alone and continues to experience multiple falls. On arrival to emergency room, patient was complaining of left hip pain. She was initially admitted to the hospital service for further evaluation and treatment. Imaging had revealed a left-sided pubic rami fracture. Orthopedic surgery was called on consultation. Patient was eventually transitioned to acute rehabilitation on 09/04 for continued therapy. 1) L pubic rami fracture/rib fracture - 2/2 multiple falls : Currently patient reports that her pain is well-controlled, conservative management as per ortho. c/w PT and OT as per ARU, c/w current pain regimen 2) A. fib: c/w rate / rhythm control with Flecainide , dced anticoagulation with Eliquis as very high risk of fall. Risk and benifits discussed with the patient. 3) Dysphagia: c/w modified diet 4) Prior CVA : c/w Simvastatin 5) HLD: c/w simvastatin. 6) Gait dysfunction: c/w PT/OT as per ARU 7) HTN: BP well controlled : Spironolactone , chlorthalidone dced as pt was getting hyponatremic Disposition:As per ARU VS,Fishbone, I+O VS, Fishbone, I+O Vital Signs Date Time Temp Pulse Resp B/P (MAP) Pulse Ox O2 Delivery O2 Flow Rate FiO2 09/14/20 14:00 97.9 67 18 105/52 (69) 98 Room Air I&O- Last 24 Hours up to 6 AM 09/14/20 06:00 Intake Total 1075 ml Balance 1075 ml KICHLOO,DANIEL A. MD Sep 14, 2020 16:45
[2020-09-14 20:00] VITALS: BP 114/56
[2020-09-14] MEDS: SENNA 8.6 MG TAB (SENOKOT) PO SCH (21:41)
[2020-09-14] MEDS: SIMVASTATIN 10 MG TAB PO SCH (21:42)
[2020-09-15 05:16] VITALS: BP 151/68
[2020-09-15] MEDS: HEPARIN SOD (PORCINE) 5000UNITS/ML 1ML VIAL/SYRINGE SC SCH (05:44)
[2020-09-15 07:11] LABS: BASO # 0.1 10^3/uL (0.0-0.2); BASO % 0.8 % (0.0-1.0); EOS # 0.2 10^3/uL (0.0-0.5); EOS % 2.2 % (0.0-3.0); HEMATOCRIT 34.8 % (36.0-47.0); HEMOGLOBIN 11.3 g/dl (12.0-15.5); LYMPH # 1.5 10^3/uL (1.5-5.0); LYMPH % 15.2 % (24.0-44.0); MEAN CORPUSCULAR HEMOGLOBIN 32.3 pg (27.0-33.0); MEAN CORPUSCULAR HGB CONC 32.5 g/dl (32.0-36.5); MEAN CORPUSCULAR VOLUME 99.4 fl (80.0-96.0); MONO # 0.7 10^3/uL (0.0-0.8); MONO % 7.6 % (2.0-8.0); NEUTROPHILS # 7.1 10^3/uL (1.5-8.5); NEUTROPHILS % 72.2 % (36.0-66.0); PLATELET COUNT, AUTOMATED 471 10^3/uL (150-450); WHITE BLOOD COUNT 9.8 10^3/uL (4.0-10.0)
[2020-09-15 07:34] LABS: BLOOD UREA NITROGEN 17 MG/DL (7-18); CALCIUM LEVEL 8.6 MG/DL (8.8-10.2); CARBON DIOXIDE LEVEL 32 MEQ/L (21-32); CHLORIDE LEVEL 100 MEQ/L (98-107); CREATININE FOR GFR 0.53 MG/DL (0.55-1.30); GLOMERULAR FILTRATION RATE > 60.0 (>32); GLUCOSE, FASTING 92 MG/DL (70-100); POTASSIUM SERUM 4.7 MEQ/L (3.5-5.1); SODIUM LEVEL 138 MEQ/L (136-145)
[2020-09-15] MEDS: ACETAMINOPHEN 500 MG TAB PO SCH (09:24)
[2020-09-15] MEDS: MULTIVITAMINS CHILDREN'S CHEWABLE TABLET PO SCH (09:24)
[2020-09-15] MEDS: LACTOBACILLUS ACIDOPHILUS CAP (BACID) PO SCH (09:24)
[2020-09-15] MEDS: DOCUSATE SODIUM 100MG CAPSULE PO SCH (09:24)
[2020-09-15] MEDS: OMEPRAZOLE 20 MG CAP PO SCH (09:24)
[2020-09-15] MEDS: FLECAINIDE 50MG TABLET PO SCH (09:24)
[2020-09-15] MEDS: REMEDY PHYTOPLEX Z-GUARD PASTE 113GM TUBE (FROM STOREROOM PRODUCT) TOP SCH (09:25)
[2020-09-15] MEDS: HYDROCORTISONE 1% CREAM 30 GM TOP SCH (09:32)
--- NOTE | 2020-09-15 14:14 | PMRDS ---
DISCHARGE SUMMARY DATE OF ADMISSION: 09/04/2020 DATE OF DISCHARGE: 09/15/2020 CHIEF COMPLAINT/DISCHARGE DIAGNOSIS: Left pelvic fracture. HISTORY OF PRESENT ILLNESS: An 85-year-old female with a past medical history of atrial fibrillation on Eliquis, multiple falls, rib fractures, and hyperlipidemia who fell at home and presented to [facility] ED on 08/30/2020 with difficulty walking. CTH was negative for acute hemorrhage or infarct. Chest x-ray did reveal left-sided chronic rib fractures, and pelvic x-ray showed "acute fracture of the left inferior pubic ramus without significant displacementmoderate osteoarthritis of the left hip joint and mild osteoarthritis of the right hip joint." She was evaluated by Orthopedics who suggested conservative treatment, and patient was made weightbearing as tolerated. Her Eliquis was discontinued due to high risk for falls and concern for bleed, and she was evaluated by therapy where she was found to have impairments in mobility and ADLs in need of IRF level of care. She was discharged to ARU on 09/04/2020. PAST MEDICAL HISTORY: As per HPI. HOSPITAL COURSE: Patient was admitted and enrolled in a comprehensive PT/OT program. She received 24 hour nursing supervision, and weekly team meetings were held to discuss her progress. She was maintained on daily weights for a history of CHF in addition to a fluid restriction. She had hyponatremia during her hospital course for which her diuretics were discontinued, and her fluid restriction helped to resolve this issue. She developed urticaria on her back which improved with hydrocortisone in addition to dysuria with a negative UA which responded to Monistat 7 and a one time dose of Diflucan for a yeast infection. She made slow steady gains in therapy, was provided with room privileges, and deemed functionally and medically stable to return home. DISCHARGE MEDICATIONS: As per instructions. FUNCTIONAL HISTORY: On discharge, patient was modified independent from a bed mobility, ambulation, and ADL standpoint. Thank you for this referral.
== END 2020-09-15 11:24 | disposition home health service (06) | DRG 560 ==
LOC: M PM&R 14:24
PROVIDERS: ADMIT Physical Medicine & Rehabilitation; ATTEND Physical Medicine & Rehabilitation
DX: S32.502D Unspecified fracture of left pubis, subsequent encounter for fracture with routine healing (principal); E87.1 Hypo-osmolality and hyponatremia; M16.0 Bilateral primary osteoarthritis of hip; I48.91 Unspecified atrial fibrillation; R29.6 Repeated falls; E78.5 Hyperlipidemia, unspecified; F03.90 Unspecified dementia, unspecified severity, without behavioral disturbance, psychotic disturbance, mood disturbance, and anxiety; I50.9 Heart failure, unspecified; S22.42XD Multiple fractures of ribs, left side, subsequent encounter for fracture with routine healing; Z66 Do not resuscitate; W19.XXXD Unspecified fall, subsequent encounter; Y92.009 Unspecified place in unspecified non-institutional (private) residence as the place of occurrence of the external cause; Z74.09 Other reduced mobility; Z74.1 Need for assistance with personal care; Z90.49 Acquired absence of other specified parts of digestive tract; Z98.41 Cataract extraction status, right eye; Z98.42 Cataract extraction status, left eye; Z87.891 Personal history of nicotine dependence; Z79.899 Other long term (current) drug therapy; I69.391 Dysphagia following cerebral infarction; I11.0 Hypertensive heart disease with heart failure

== ENCOUNTER → 2020-09-26 | Outpatient (CLI) | payer MEDICARE ==
[~2020-09-26] MED LIST changes: +RISATAB3 PO
--- NOTE | 2020-09-26 13:03 | REP ---
INDICATION: OTH FRACTURE OF LEFT PUBIS, INIT ENCNTR FOR CLOSED FRACTURE. COMPARISON: None. TECHNIQUE: Axial noncontrast images through the pelvis with coronal and sagittal reformations. FINDINGS: Evaluation is somewhat limited due to osteopenia and degenerative changes. However, there comminuted subacute fractures involving the left inferior pubic ramus/ischial tuberosity, left pubic crest/tubercle, and very subtle nondisplaced fractures involving the left bandar sacrum. There is also a 4.5 cm hematoma in the deep left hemipelvis causing mild mass effect on the bladder. Visualized small and large bowel without obstruction. Diffuse sigmoid diverticulosis noted without acute diverticulitis. Uterus/adnexa are grossly normal for age. No pelvic ascites. IMPRESSION: 1. Subacute healing fractures as described above with surrounding callus formation noted. 2. Small hematoma measuring approximately 4.5 cm diameter in the deep left hemipelvis having mild mass effect on the bladder. <Electronically signed by Lupillo Toledo > 09/26/20 [id number]
== END ==
LOC: M RAD 12:33
PROVIDERS: ATTEND Physician Assistant
DX: S32.592A Other specified fracture of left pubis, initial encounter for closed fracture (principal); X58.XXXA Exposure to other specified factors, initial encounter; Y92.89 Other specified places as the place of occurrence of the external cause

== ENCOUNTER → 2021-04-10 | Outpatient (CLI) | payer MEDICARE ==
--- NOTE | 2021-04-10 14:30 | DEXAMM ---
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 COMPARISON: 10/22/2018, 06/10/2016. TECHNIQUE: Bone density was measured using dual-energy x-ray absorptiometry (DEXA). FINDINGS: AP SPINE L1-L4 BMD 0.939 g/cm2 Young Adult T-Score -2.1 Age Matched Z-Score -0.1. LT FEMUR, TOTAL BMD 0.862 g/cm2 Young Adult T-Score -1.2 Age Matched Z-Score 1.2. LT NECK BMD 0.773 g/cm2 Young Adult T-Score -1.9 Age Matched Z-Score 0.6. RT FEMUR, TOTAL BMD 0.788 g/cm2 Young Adult T-Score -1.7 Age Matched Z-Score 0.6. RT NECK BMD 0.743 g/cm2 Young Adult T-Score -2.1 Age Matched Z-Score 0.3. IMPRESSION: There is low bone density of the spine. There is low bone density of the left hip. There is low bone density of the right hip. The density of the spine has increased 1.2% since the initial exam on 06/10/2016. The density of the spine decreased 0.5% since most recent exam on 10/22/2018. The density of the left hip has decreased 6.8% since initial exam on 06/10/2016. The density of the left hip has increased 0.7% since most recent exam on 10/22/2018. The density of the right hip has decreased 6.0% since the initial exam on 06/10/2016. The density of the right hip has decreased 1.5% since the most recent exam on 10/22/2018. FOLLOW-UP: Recommendation for the next bone density exam: 2 years. <Electronically signed by Thee Perez > 04/10/21 [id number]
== END ==
LOC: M WHC 11:49
PROVIDERS: ATTEND Family Medicine
DX: M81.0 Age-related osteoporosis without current pathological fracture (principal); M85.88 Other specified disorders of bone density and structure, other site; M85.851 Other specified disorders of bone density and structure, right thigh; M85.852 Other specified disorders of bone density and structure, left thigh

== ENCOUNTER 2021-09-12 09:17 | Emergency (ER) | payer MEDICARE ==
[~2021-09-12] VITALS: Ht 167.6 cm; Wt 52.0 kg
[~2021-09-12 09:17] MED LIST changes: -ALEN70SO PO; +ALEN70SO2 PO; +OMEP-173 PO; -OMEP-218 PO
[2021-09-12] MEDS ORDERED: ACET325T43 PO (09:38)
[2021-09-12] MEDS ORDERED: ACETAMINOPHEN 325 MG TAB PO ONE (10:05)
[2021-09-12] MEDS ORDERED: LIDOCAINE 5% (LIDODERM) PATCH TD ONE (10:10)
[2021-09-12 10:36] LABS: BASO # 0.1 10^3/uL (0.0-0.2); BASO % 0.4 % (0.0-1.0); EOS # 0.1 10^3/uL (0.0-0.5); EOS % 0.4 % (0.0-3.0); HEMATOCRIT 41.3 % (36.0-47.0); LYMPH % 8.2 % (24.0-44.0); MEAN CORPUSCULAR HEMOGLOBIN 31.7 pg (27.0-33.0); MEAN CORPUSCULAR HGB CONC 33.9 g/dl (32.0-36.5); MEAN CORPUSCULAR VOLUME 93.4 fl (80.0-96.0); MONO # 1.5 10^3/uL (0.0-0.8); MONO % 11.5 % (2.0-8.0); NEUTROPHILS # 9.9 10^3/uL (1.5-8.5); NEUTROPHILS % 78.7 % (36.0-66.0); PLATELET COUNT, AUTOMATED 407 10^3/uL (150-450); RED BLOOD COUNT 4.42 10^6/uL (4.00-5.40); WHITE BLOOD COUNT 12.6 10^3/uL (4.0-10.0)
[2021-09-12 11:10] LABS: ALBUMIN 3.6 GM/DL (3.2-5.2); ALT/SGPT 29 U/L (12-78); BILIRUBIN,DIRECT 0.2 MG/DL (0.0-0.2); BILIRUBIN,TOTAL 0.5 MG/DL (0.2-1.0); BLOOD UREA NITROGEN 19 MG/DL (7-18); CALCIUM LEVEL 9.8 MG/DL (8.8-10.2); CARBON DIOXIDE LEVEL 31 MEQ/L (21-32); CHLORIDE LEVEL 87 MEQ/L (98-107); CK-MB VALUE MASS 5.4 NG/ML (<3.6); CREATININE FOR GFR 0.48 MG/DL (0.55-1.30); GLOMERULAR FILTRATION RATE > 60.0 (>32); GLUCOSE, FASTING 89 MG/DL (70-100); LIPASE 199 U/L (73-393); MB/CK RELATIVE INDEX 6.84 (< OR =4); NT-PRO BNP 251 PG/ML (<450); SODIUM LEVEL 125 MEQ/L (136-145); TOTAL PROTEIN 7.5 GM/DL (6.4-8.2)
[2021-09-12] MEDS ORDERED: ISOVUE-370 76% 100ML VIAL As Ordered ONE (11:13)
[2021-09-12] MEDS ORDERED: ONDANSETRON 4MG/2ML VIAL As Ordered ONE (13:39)
[2021-09-12] MEDS ORDERED: ONDANSETRON 4MG/2ML VIAL IV ONE (13:40)
[2021-09-12] MEDS ORDERED: NS 1,000 ML IV ONE (17:15)
[2021-09-12] MEDS ORDERED: MORPHINE 2 MG/ML 1ML VIAL (J2270) IV ONE (18:25)
[2021-09-12] MEDS ORDERED: LIDOCAINE 2% 5ML JELLY UROJET TOP ONE (19:25)
[2021-09-12] MEDS ORDERED: **NOTE PATIENT COMMENT** MISC XX SCH (21:00)
[2021-09-12 21:25] VITALS: BP 152/87
== END 2021-09-12 21:53 | disposition short-term general hospital (02) ==
LOC: M ED 09:17 → EDBD 09:17 → M ED 21:53
DX: S32.020A Wedge compression fracture of second lumbar vertebra, initial encounter for closed fracture (principal); E78.1 Pure hyperglyceridemia; K59.00 Constipation, unspecified; I10 Essential (primary) hypertension; E04.1 Nontoxic single thyroid nodule; F17.200 Nicotine dependence, unspecified, uncomplicated; M81.8 Other osteoporosis without current pathological fracture; Z86.73 Personal history of transient ischemic attack (TIA), and cerebral infarction without residual deficits; Z79.899 Other long term (current) drug therapy; Y92.9 Unspecified place or not applicable; Y93.9 Activity, unspecified; Y99.9 Unspecified external cause status
CPT/HCPCS: 51702; 71045; 72148; 74177; 80048; 80076; 81001; 82550; 82553; 83690; 83880; 84132; 84484; 85025; 87798; 93005; 96361; 96374; 96375; 99285; J2270; J2405; Q9967

== ENCOUNTER → 2021-09-24 | Outpatient (REF) ==
[~2021-09-24] MED LIST changes: +ACET325T43 PO
[2021-09-24 09:51] LABS: CHOLESTEROL RISK RATIO 3.04 (<5); THYROID STIMULATING HORMONE 0.365 uIU/ML (0.358-3.740)
== END ==
LOC: SKLAB7 07:24
PROVIDERS: ATTEND Internal Medicine
DX: R09.89 Other specified symptoms and signs involving the circulatory and respiratory systems (principal); M89.8X8 Other specified disorders of bone, other site

== ENCOUNTER → 2021-10-03 | Outpatient (REF) ==
[2021-10-03 11:07] LABS: APPEARANCE, URINE CLEAR (CLEAR); BACTERIA, URINE AUTO NEGATIVE (NEGATIVE); BILIRUBIN, URINE AUTO NEGATIVE (NEGATIVE); BLOOD, URINE BLOOD NEGATIVE (NEGATIVE); COLOR, URINE YELLOW (YELLOW); GLUCOSE, URINE (UA) AUTO NEGATIVE (NEGATIVE); KETONE, URINE AUTO NEGATIVE (NEGATIVE); LEUKOCYTE ESTERASE, URINE AUTO NEGATIVE (NEGATIVE); MUCUS, URINE SMALL (NEGATIVE); NITRITE, URINE AUTO NEGATIVE (NEGATIVE); PROTEIN, URINE AUTO NEGATIVE (NEGATIVE); RBC, URINE AUTO 2 /HPF (0-3); SPECIFIC GRAVITY URINE AUTO 1.013 (1.002-1.035); SQUAMOUS EPITHELIAL CELL UR AU 0 /HPF (0-6); UROBILINOGEN, URINE AUTO 0.2 mg/dL (0.0-2.0); WBC, URINE AUTO 1 /HPF (0-3)
== END ==
LOC: SKLAB7 10:52
PROVIDERS: ATTEND Internal Medicine
DX: R30.0 Dysuria (principal)

== ENCOUNTER 2021-10-15 10:33 | Inpatient (IN) | payer MEDICARE ==
[~2021-10-15] VITALS: Ht 172.7 cm; Wt 50.8 kg
[2021-10-15] MEDS ORDERED: cefTRIAXone SOD 2 GM in D5W MINI-BAG PLUS 50 ML IV ONE (11:20)
[2021-10-15 11:31] LABS: ABG BASE EXCESS 3.5 (-2.0-2.0); ABG O2 SATURATION 90.3 % (95.0-99.0); ABG PARTIAL PRESSURE CO2 47.6 mmHg (35.0-45.0); ABG PARTIAL PRESSURE O2 58.9 mmHg (75.0-100.0); ABG STANDARD HCO3 27.5 MEQ/L (22.0-26.0); ABG TOTAL CO2 30.5 MEQ/L (23.0-31.0); ABG pH (ARTERIAL) 7.403 UNITS (7.350-7.450)
[2021-10-15 11:32] LABS: BASO # 0.1 10^3/uL (0.0-0.2); BASO % 0.6 % (0.0-1.0); EOS # 0.2 10^3/uL (0.0-0.5); EOS % 2.8 % (0.0-3.0); HEMATOCRIT 37.3 % (36.0-47.0); HEMOGLOBIN 11.9 g/dl (12.0-15.5); LYMPH # 1.1 10^3/uL (1.5-5.0); LYMPH % 13.5 % (24.0-44.0); MEAN CORPUSCULAR HEMOGLOBIN 31.1 pg (27.0-33.0); MEAN CORPUSCULAR HGB CONC 31.9 g/dl (32.0-36.5); MEAN CORPUSCULAR VOLUME 97.4 fl (80.0-96.0); MONO # 0.6 10^3/uL (0.0-0.8); MONO % 8.1 % (2.0-8.0); NEUTROPHILS # 5.9 10^3/uL (1.5-8.5); NEUTROPHILS % 74.5 % (36.0-66.0); PLATELET COUNT, AUTOMATED 431 10^3/uL (150-450); RED BLOOD COUNT 3.83 10^6/uL (4.00-5.40); WHITE BLOOD COUNT 7.9 10^3/uL (4.0-10.0)
[2021-10-15 11:45] LABS: CK-MB VALUE MASS 1.2 NG/ML (<3.6); MB/CK RELATIVE INDEX 3.87 (< OR =4)
[2021-10-15 12:11] LABS: ALBUMIN 2.7 GM/DL (3.2-5.2); ALT/SGPT 23 U/L (12-78); BILIRUBIN,DIRECT < 0.1 MG/DL (0.0-0.2); BILIRUBIN,TOTAL 0.2 MG/DL (0.2-1.0); BLOOD UREA NITROGEN 17 MG/DL (7-18); CALCIUM LEVEL 8.2 MG/DL (8.8-10.2); CARBON DIOXIDE LEVEL 34 MEQ/L (21-32); CHLORIDE LEVEL 106 MEQ/L (98-107); CREATININE FOR GFR 0.64 MG/DL (0.55-1.30); GLOMERULAR FILTRATION RATE > 60.0 (>32); GLUCOSE, FASTING 111 MG/DL (70-100); NT-PRO BNP 1342 PG/ML (<450); SODIUM LEVEL 142 MEQ/L (136-145); THYROID STIMULATING HORMONE 0.494 uIU/ML (0.358-3.740)
[2021-10-15] MEDS ORDERED: DULC10SU2 PR (12:24)
[2021-10-15] MEDS ORDERED: SIMV10TA21 PO (12:24)
[2021-10-15] MEDS ORDERED: FLEC50HA PO (12:24)
[2021-10-15] MEDS ORDERED: FLEEENE12 PR (12:24)
[2021-10-15] MEDS ORDERED: MILKSUS3 PO (12:24)
[2021-10-15] MEDS ORDERED: CELE100C PO (12:24)
[2021-10-15] MEDS ORDERED: ACET500T15 PO (12:24)
[2021-10-15] MEDS ORDERED: SENN18TA PO (12:24)
[2021-10-15] MEDS ORDERED: TUMS500C PO (12:24)
[2021-10-15] MEDS ORDERED: ACET1TAB55 PO (12:24)
[2021-10-15] MEDS ORDERED: GABA-282 PO (12:24)
[2021-10-15] MEDS ORDERED: ENSU1LIQ36 PO (12:24)
[2021-10-15] MEDS ORDERED: OMEP-173 PO (12:24)
[2021-10-15] MEDS ORDERED: SIME80CH6 PO (12:24)
[2021-10-15] MEDS ORDERED: SYST1SOL OU (12:24)
[2021-10-15] MEDS ORDERED: HOME MED LIST COMPLETE! XX SCH (12:25)
[2021-10-15] MEDS ORDERED: BISACODYL 10 MG SUPP PR PRN (13:15)
[2021-10-15] MEDS ORDERED: MOM 30ML SUSPENSION UDC PO PRN (13:15)
[2021-10-15] MEDS ORDERED: SIMETHICONE 80MG CHEW TAB PO PRN (13:15)
[2021-10-15] MEDS ORDERED: FLEET ENEMA PR PRN (13:15)
[2021-10-15 13:47] LABS: LDH LACTATE DEHYDROGENASE 228 U/L (84-246)
[2021-10-15] MEDS ORDERED: LEVALBUTEROL 1.25 MG/0.5 ML CONCENTRATE NEB INH PRN (13:50)
[2021-10-15] MEDS ORDERED: FLECAINIDE 50MG TABLET PO ONE (13:55)
[2021-10-15 15:30] VITALS: BP 176/95
[2021-10-15 16:55] LABS: PH BODY FLUID 7.714 UNITS (NOT ESTABLISHED); SOURCE, BODY FLUID pH PLEURAL
[2021-10-15 17:01] VITALS: BP 143/82
[2021-10-15] MEDS: LACTOBACILLUS ACIDOPHILUS CAP (BACID) PO SCH (17:02)
[2021-10-15] MEDS: GABAPENTIN 300 MG CAP PO SCH ×2 (17:02→20:49)
[2021-10-15] MEDS: ACETAMINOPHEN 500 MG TAB PO SCH ×2 (17:04→20:50)
[2021-10-15 17:15] LABS: AMYLASE, BODY FLUID 32 U/L (NOT ESTABLISHED); CHOLESTEROL, BODY FLUID < 50 MG/DL (NOT ESTABLISHED); LDH, BODY FLUID 64 U/L (NOT ESTABLISHED); SOURCE, BODY FLUID ALBUMIN PLEURAL; SOURCE, BODY FLUID AMYLASE PLEURAL; SOURCE, BODY FLUID CHOL PLEURAL; SOURCE, BODY FLUID GLUCOSE PLEURAL; SOURCE, BODY FLUID LDH PLEURAL; SOURCE, BODY FLUID TOT PROTEIN PLEURAL; SOURCE, BODY FLUID TRIG PLEURAL; TOTAL PROTEIN, BODY FLUID 2.2 G/DL (NOT ESTABLISHED); TRIGLYCERIDE, BODY FLUID 5 MG/DL (NOT ESTABLISHED)
[2021-10-15 17:27] VITALS: BP 144/89
[2021-10-15] MEDS ORDERED: atenoloL 25 MG TAB PO ONE (17:40)
[2021-10-15 17:59] LABS: APPEARANCE, BODY FLUID HAZY (CLEAR); PLEURAL FL COLOR PALE YELLOW (COLORLESS); SOURCE, BODY FLUID PLEURAL
[2021-10-15 18:00] VITALS: BP 110/80
[2021-10-15] MEDS ORDERED: FUROSEMIDE 20MG/2ML VIAL (J1940) IV SCH (18:00)
[2021-10-15 18:30] VITALS: BP 131/85
[2021-10-15] MEDS ORDERED: FUROSEMIDE injection 250 MG in D5W 225 ML IV SCH (19:00)
[2021-10-15 20:00] VITALS: BP 113/75
[2021-10-15] MEDS: POLYVINYL ALCOHOL OPHTH SOLN 15 ML(LIQUITEARS) OU SCH (20:49)
[2021-10-15] MEDS: FLECAINIDE 50MG TABLET PO SCH (20:50)
[2021-10-15] MEDS: SIMVASTATIN 10 MG TAB PO SCH (20:50)
[2021-10-15] MEDS: CelecoXIB (CeleBREX) 100 MG CAP PO SCH (20:50)
[2021-10-15] MEDS: DOXYCYCLINE HYCLATE 100MG TABLET PO SCH (20:50)
[2021-10-15] MEDS: traMADol 50 MG TAB PO PRN (20:50)
[2021-10-16] VITALS: BP 111/64
[2021-10-16 04:00] VITALS: BP 116/73
[2021-10-16 05:59] LABS: HEMATOCRIT 38.8 % (36.0-47.0); HEMOGLOBIN 12.6 g/dl (12.0-15.5); MEAN CORPUSCULAR HEMOGLOBIN 30.9 pg (27.0-33.0); MEAN CORPUSCULAR HGB CONC 32.5 g/dl (32.0-36.5); MEAN CORPUSCULAR VOLUME 95.1 fl (80.0-96.0); PLATELET COUNT, AUTOMATED 430 10^3/uL (150-450); RED BLOOD COUNT 4.08 10^6/uL (4.00-5.40); WHITE BLOOD COUNT 7.8 10^3/uL (4.0-10.0)
[2021-10-16 06:21] LABS: BLOOD UREA NITROGEN 16 MG/DL (7-18); CALCIUM LEVEL 8.3 MG/DL (8.8-10.2); CARBON DIOXIDE LEVEL 35 MEQ/L (21-32); CHLORIDE LEVEL 103 MEQ/L (98-107); CREATININE FOR GFR 0.58 MG/DL (0.55-1.30); GLOMERULAR FILTRATION RATE > 60.0 (>32); GLUCOSE, FASTING 90 MG/DL (70-100); SODIUM LEVEL 140 MEQ/L (136-145)
[2021-10-16 08:22] VITALS: BP 121/72
[2021-10-16] MEDS ORDERED: CALCIUM CARBONATE 500 MG CHEW U/D PO SCH (09:00)
[2021-10-16] MEDS ORDERED: FUROSEMIDE 40MG/4ML VIAL (J1940) IV SCH (09:00)
[2021-10-16] MEDS ORDERED: cefTRIAXone SOD 2 GM in D5W MINI-BAG PLUS 50 ML IV SCH (09:00)
[2021-10-16] MEDS: GABAPENTIN 300 MG CAP PO SCH ×3 (09:25→21:00)
[2021-10-16] MEDS: LACTOBACILLUS ACIDOPHILUS CAP (BACID) PO SCH ×2 (09:25→17:05)
[2021-10-16] MEDS: SENNA 8.6 MG TAB (SENOKOT) PO SCH (09:25)
[2021-10-16] MEDS: OMEPRAZOLE 20MG CAP PO SCH (09:25)
[2021-10-16] MEDS: CelecoXIB (CeleBREX) 100 MG CAP PO SCH ×2 (09:26→21:00)
[2021-10-16] MEDS: ACETAMINOPHEN 500 MG TAB PO SCH ×3 (09:26→21:00)
[2021-10-16] MEDS: POLYVINYL ALCOHOL OPHTH SOLN 15 ML(LIQUITEARS) OU SCH ×2 (09:26→21:00)
[2021-10-16] MEDS: DOXYCYCLINE HYCLATE 100MG TABLET PO SCH (09:26)
[2021-10-16] MEDS: FLECAINIDE 50MG TABLET PO SCH ×2 (09:31→21:00)
[2021-10-16] MEDS: CALCIUM CARBONATE 500 MG CHEW U/D PO SCH (11:01)
[2021-10-16 12:21] VITALS: BP 121/72
[2021-10-16] MEDS: TORSEMIDE 20 MG TAB PO SCH (16:00)
[2021-10-16 16:24] VITALS: BP 135/85
[2021-10-16] MEDS ORDERED: HALOPERIDOL 5MG/ML VIAL (J1630 PER 1) IM ONE ×3 (19:00→19:45)
[2021-10-16] MEDS ORDERED: diphenhydrAMINE 50MG/ML VIAL (J1200) IV STA (19:27)
[2021-10-16] MEDS ORDERED: OLANZapine INTRAMUSCULAR 10MG VIAL IM ONE (19:45)
[2021-10-16] MEDS: SIMVASTATIN 10 MG TAB PO SCH (21:00)
[2021-10-16] MEDS: atenoloL 25 MG TAB PO SCH (21:00)
[2021-10-16] MEDS: OLANZapine INTRAMUSCULAR 10MG VIAL IM ONE ×2 (21:30→23:05)
[2021-10-17] VITALS (7 sets, daily range): BP systolic 99–163; BP diastolic 56–90
[2021-10-17] MEDS ORDERED: OLANZapine INTRAMUSCULAR 10MG VIAL IM ONE (01:15)
[2021-10-17 06:05] LABS: VENOUS HCO3 31.4 MEQ/L (23.0-27.0); VENOUS O2 SATURATION 66.7 % (60.0-80.0); VENOUS PARTIAL PRESSURE CO2 53.9 mmHg (38.0-50.0); VENOUS PARTIAL PRESSURE O2 36.2 mmHg (30.0-50.0); VENOUS PH 7.383 UNITS (7.330-7.430); VENOUS STANDARD HCO3 28.2 MEQ/L
[2021-10-17 06:17] LABS: HEMATOCRIT 38.5 % (36.0-47.0); HEMOGLOBIN 12.4 g/dl (12.0-15.5); MEAN CORPUSCULAR HEMOGLOBIN 30.6 pg (27.0-33.0); MEAN CORPUSCULAR HGB CONC 32.2 g/dl (32.0-36.5); MEAN CORPUSCULAR VOLUME 95.1 fl (80.0-96.0); PLATELET COUNT, AUTOMATED 429 10^3/uL (150-450); RED BLOOD COUNT 4.05 10^6/uL (4.00-5.40); WHITE BLOOD COUNT 10.6 10^3/uL (4.0-10.0)
[2021-10-17 06:27] LABS: INR 1.01; PROTHROMBIN TIME 13.7 SECONDS (12.7-14.5)
[2021-10-17 06:28] LABS: PARTIAL THROMBOPLASTIN TIME 32.6 SECONDS (25.9-37.0)
[2021-10-17 06:33] LABS: BLOOD UREA NITROGEN 17 MG/DL (7-18); CALCIUM LEVEL 8.8 MG/DL (8.8-10.2); CARBON DIOXIDE LEVEL 38 MEQ/L (21-32); CHLORIDE LEVEL 101 MEQ/L (98-107); GLOMERULAR FILTRATION RATE > 60.0 (>32); GLUCOSE, FASTING 85 MG/DL (70-100); MAGNESIUM LEVEL 1.9 MG/DL (1.8-2.4); POTASSIUM SERUM 4.3 MEQ/L (3.5-5.1); SODIUM LEVEL 143 MEQ/L (136-145)
[2021-10-17] MEDS: OMEPRAZOLE 20MG CAP PO SCH (08:59)
[2021-10-17] MEDS: CelecoXIB (CeleBREX) 100 MG CAP PO SCH ×2 (08:59→20:52)
[2021-10-17] MEDS: LACTOBACILLUS ACIDOPHILUS CAP (BACID) PO SCH ×2 (08:59→17:03)
[2021-10-17] MEDS: GABAPENTIN 300 MG CAP PO SCH ×3 (08:59→20:52)
[2021-10-17] MEDS: TORSEMIDE 20 MG TAB PO SCH (09:00)
[2021-10-17] MEDS: FLECAINIDE 50MG TABLET PO SCH ×2 (09:00→20:53)
[2021-10-17] MEDS: ACETAMINOPHEN 500 MG TAB PO SCH ×3 (09:01→20:52)
[2021-10-17] MEDS: ENOXAPARIN 40MG/0.4ML SYRINGE (J1650 PER 10MG) SC SCH (09:01)
[2021-10-17] MEDS: SENNA 8.6 MG TAB (SENOKOT) PO SCH (09:01)
[2021-10-17] MEDS: POLYVINYL ALCOHOL OPHTH SOLN 15 ML(LIQUITEARS) OU SCH ×2 (09:01→20:52)
[2021-10-17] MEDS: atenoloL 25 MG TAB PO SCH ×3 (09:02→20:53)
[2021-10-17] MEDS: CALCIUM CARBONATE 500 MG CHEW U/D PO SCH (12:00)
[2021-10-17 16:23] LABS: ALBUMIN 3.1 GM/DL (3.2-5.2); ALT/SGPT 21 U/L (12-78); BILIRUBIN,DIRECT 0.1 MG/DL (0.0-0.2); BILIRUBIN,TOTAL 0.7 MG/DL (0.2-1.0); TOTAL PROTEIN 6.3 GM/DL (6.4-8.2)
[2021-10-17] MEDS: SIMVASTATIN 10 MG TAB PO SCH (20:52)
[2021-10-18 05:28] LABS: HEMATOCRIT 37.1 % (36.0-47.0); HEMOGLOBIN 11.9 g/dl (12.0-15.5); MEAN CORPUSCULAR HGB CONC 32.1 g/dl (32.0-36.5); MEAN CORPUSCULAR VOLUME 96.6 fl (80.0-96.0); PLATELET COUNT, AUTOMATED 385 10^3/uL (150-450); RED BLOOD COUNT 3.84 10^6/uL (4.00-5.40); WHITE BLOOD COUNT 9.3 10^3/uL (4.0-10.0)
[2021-10-18 05:56] LABS: BLOOD UREA NITROGEN 21 MG/DL (7-18); CALCIUM LEVEL 8.4 MG/DL (8.8-10.2); CARBON DIOXIDE LEVEL 37 MEQ/L (21-32); CHLORIDE LEVEL 101 MEQ/L (98-107); CREATININE FOR GFR 0.54 MG/DL (0.55-1.30); GLOMERULAR FILTRATION RATE > 60.0 (>32); GLUCOSE, FASTING 69 MG/DL (70-100); POTASSIUM SERUM 3.9 MEQ/L (3.5-5.1); SODIUM LEVEL 144 MEQ/L (136-145)
[2021-10-18 06:00] VITALS: BP 118/73
[2021-10-18] MEDS: atenoloL 25 MG TAB PO SCH ×2 (06:24→18:00)
[2021-10-18] MEDS ORDERED: PILL CUTTER 1 EACH XX PRN (07:50)
[2021-10-18] MEDS: TORSEMIDE 20 MG TAB PO SCH (08:37)
[2021-10-18] MEDS: GABAPENTIN 300 MG CAP PO SCH ×3 (08:37→21:44)
[2021-10-18] MEDS: FLECAINIDE 50MG TABLET PO SCH ×2 (08:37→21:44)
[2021-10-18] MEDS: SENNA 8.6 MG TAB (SENOKOT) PO SCH (08:37)
[2021-10-18] MEDS: LACTOBACILLUS ACIDOPHILUS CAP (BACID) PO SCH ×2 (08:37→18:43)
[2021-10-18] MEDS: CelecoXIB (CeleBREX) 100 MG CAP PO SCH ×2 (08:37→21:44)
[2021-10-18] MEDS: OMEPRAZOLE 20MG CAP PO SCH (08:37)
[2021-10-18] MEDS: ACETAMINOPHEN 500 MG TAB PO SCH ×3 (08:37→21:45)
[2021-10-18] MEDS: POLYVINYL ALCOHOL OPHTH SOLN 15 ML(LIQUITEARS) OU SCH ×2 (08:38→21:45)
[2021-10-18] MEDS: ENOXAPARIN 40MG/0.4ML SYRINGE (J1650 PER 10MG) SC SCH (08:38)
[2021-10-18] MEDS: CALCIUM CARBONATE 500 MG CHEW U/D PO SCH (12:49)
[2021-10-18 14:00] VITALS: BP 90/54
[2021-10-18] MEDS ORDERED: atenoloL 25 MG TAB PO SCH (14:00)
[2021-10-18 17:39] VITALS: BP 92/56
[2021-10-18] MEDS: NAFCILLIN SOD 1 GM in D5W MINI-BAG PLUS 50 ML IV SCH ×2 (18:50→21:45)
[2021-10-18 20:29] VITALS: BP 104/59
[2021-10-18] MEDS: SIMVASTATIN 10 MG TAB PO SCH (21:44)
[2021-10-19] MEDS: NAFCILLIN SOD 1 GM in D5W MINI-BAG PLUS 50 ML IV SCH ×2 (02:14→06:23)
[2021-10-19 05:37] LABS: HEMATOCRIT 38.4 % (36.0-47.0); HEMOGLOBIN 12.3 g/dl (12.0-15.5); MEAN CORPUSCULAR HEMOGLOBIN 30.8 pg (27.0-33.0); MEAN CORPUSCULAR VOLUME 96.2 fl (80.0-96.0); PLATELET COUNT, AUTOMATED 411 10^3/uL (150-450); RED BLOOD COUNT 3.99 10^6/uL (4.00-5.40); WHITE BLOOD COUNT 9.4 10^3/uL (4.0-10.0)
[2021-10-19 05:49] VITALS: BP 116/72
[2021-10-19 05:59] LABS: BLOOD UREA NITROGEN 43 MG/DL (7-18); CALCIUM LEVEL 8.4 MG/DL (8.8-10.2); CARBON DIOXIDE LEVEL 37 MEQ/L (21-32); CHLORIDE LEVEL 100 MEQ/L (98-107); CREATININE FOR GFR 0.84 MG/DL (0.55-1.30); GLOMERULAR FILTRATION RATE > 60.0 (>32); GLUCOSE, FASTING 89 MG/DL (70-100); POTASSIUM SERUM 3.9 MEQ/L (3.5-5.1); SODIUM LEVEL 141 MEQ/L (136-145)
[2021-10-19] MEDS: atenoloL 25 MG TAB PO SCH ×2 (06:22→17:30)
[2021-10-19] MEDS: CelecoXIB (CeleBREX) 100 MG CAP PO SCH ×2 (09:03→20:31)
[2021-10-19] MEDS: GABAPENTIN 300 MG CAP PO SCH ×3 (09:03→20:31)
[2021-10-19] MEDS: OMEPRAZOLE 20MG CAP PO SCH (09:03)
[2021-10-19] MEDS: SENNA 8.6 MG TAB (SENOKOT) PO SCH (09:03)
[2021-10-19] MEDS: FLECAINIDE 50MG TABLET PO SCH ×2 (09:03→20:31)
[2021-10-19] MEDS: LACTOBACILLUS ACIDOPHILUS CAP (BACID) PO SCH ×2 (09:03→17:30)
[2021-10-19] MEDS: ACETAMINOPHEN 500 MG TAB PO SCH ×3 (09:04→20:32)
[2021-10-19] MEDS: ENOXAPARIN 40MG/0.4ML SYRINGE (J1650 PER 10MG) SC SCH (09:04)
[2021-10-19] MEDS: POLYVINYL ALCOHOL OPHTH SOLN 15 ML(LIQUITEARS) OU SCH ×2 (09:04→20:32)
[2021-10-19] MEDS: ceFAZolin SOD 2 GM in IV 1 EA IV SCH ×2 (09:48→17:29)
[2021-10-19] MEDS ORDERED: VARIBAR NECTAR 40% w/v 240ML SUSP BTL As Ordered ONE (12:40)
[2021-10-19] MEDS ORDERED: VARIBAR PUDDING 40% w/v 230ML TUBE As Ordered ONE (12:40)
[2021-10-19] MEDS ORDERED: BARIUM SULFATE 700 MG TABLET (E-Z-DISK) As Ordered ONE (12:40)
[2021-10-19] MEDS ORDERED: E-Z-PAQUE 96% w/w SUSP 176GM BTL As Ordered ONE (12:40)
[2021-10-19 14:00] VITALS: BP 112/76
[2021-10-19] MEDS: CALCIUM CARBONATE 500 MG CHEW U/D PO SCH (15:02)
[2021-10-19 20:00] VITALS: BP 108/68
[2021-10-19] MEDS: SIMVASTATIN 10 MG TAB PO SCH (20:32)
[2021-10-19 21:00] VITALS: O2SAT 95
[2021-10-20] VITALS (8 sets, daily range): BP systolic 102–142; BP diastolic 51–70; O2SAT 93–96
[2021-10-20] MEDS: ceFAZolin SOD 2 GM in IV 1 EA IV SCH ×3 (01:34→17:10)
[2021-10-20] MEDS: atenoloL 25 MG TAB PO SCH ×2 (06:00→16:57)
[2021-10-20 08:31] LABS: HEMATOCRIT 40.1 % (36.0-47.0); HEMOGLOBIN 12.6 g/dl (12.0-15.5); MEAN CORPUSCULAR HEMOGLOBIN 30.7 pg (27.0-33.0); MEAN CORPUSCULAR HGB CONC 31.4 g/dl (32.0-36.5); MEAN CORPUSCULAR VOLUME 97.8 fl (80.0-96.0); PLATELET COUNT, AUTOMATED 395 10^3/uL (150-450); WHITE BLOOD COUNT 9.2 10^3/uL (4.0-10.0)
[2021-10-20 08:54] LABS: BLOOD UREA NITROGEN 30 MG/DL (7-18); CARBON DIOXIDE LEVEL 43 MEQ/L (21-32); CHLORIDE LEVEL 102 MEQ/L (98-107); CREATININE FOR GFR 0.51 MG/DL (0.55-1.30); GLOMERULAR FILTRATION RATE > 60.0 (>32); GLUCOSE, FASTING 90 MG/DL (70-100); POTASSIUM SERUM 4.6 MEQ/L (3.5-5.1); SODIUM LEVEL 144 MEQ/L (136-145)
[2021-10-20] MEDS: SENNA 8.6 MG TAB (SENOKOT) PO SCH (09:00)
[2021-10-20] MEDS: ENOXAPARIN 40MG/0.4ML SYRINGE (J1650 PER 10MG) SC SCH (09:30)
[2021-10-20] MEDS: FLECAINIDE 50MG TABLET PO SCH ×2 (09:30→20:39)
[2021-10-20] MEDS: GABAPENTIN 300 MG CAP PO SCH ×3 (09:30→20:39)
[2021-10-20] MEDS: OMEPRAZOLE 20MG CAP PO SCH (09:30)
[2021-10-20] MEDS: CelecoXIB (CeleBREX) 100 MG CAP PO SCH ×2 (09:30→20:39)
[2021-10-20] MEDS: LACTOBACILLUS ACIDOPHILUS CAP (BACID) PO SCH ×2 (09:30→16:57)
[2021-10-20] MEDS: POLYVINYL ALCOHOL OPHTH SOLN 15 ML(LIQUITEARS) OU SCH ×2 (09:30→20:41)
[2021-10-20] MEDS: ACETAMINOPHEN 500 MG TAB PO SCH ×3 (09:30→20:41)
[2021-10-20] MEDS: FUROSEMIDE 20 MG TAB PO SCH (09:30)
[2021-10-20] MEDS: CALCIUM CARBONATE 500 MG CHEW U/D PO SCH (12:00)
[2021-10-20] MEDS: SIMVASTATIN 10 MG TAB PO SCH (20:40)
[2021-10-21] MEDS: ceFAZolin SOD 2 GM in IV 1 EA IV SCH ×3 (02:10→17:40)
[2021-10-21 06:00] VITALS: BP 114/58
[2021-10-21] MEDS: atenoloL 25 MG TAB PO SCH ×2 (06:00→17:40)
[2021-10-21 07:56] LABS: HEMATOCRIT 41.2 % (36.0-47.0); HEMOGLOBIN 13.1 g/dl (12.0-15.5); MEAN CORPUSCULAR HEMOGLOBIN 31.5 pg (27.0-33.0); MEAN CORPUSCULAR HGB CONC 31.8 g/dl (32.0-36.5); PLATELET COUNT, AUTOMATED 363 10^3/uL (150-450); RED BLOOD COUNT 4.16 10^6/uL (4.00-5.40); WHITE BLOOD COUNT 7.6 10^3/uL (4.0-10.0)
[2021-10-21 08:19] LABS: BLOOD UREA NITROGEN 27 MG/DL (7-18); CALCIUM LEVEL 9.1 MG/DL (8.8-10.2); CARBON DIOXIDE LEVEL 43 MEQ/L (21-32); CHLORIDE LEVEL 100 MEQ/L (98-107); CREATININE FOR GFR 0.47 MG/DL (0.55-1.30); GLOMERULAR FILTRATION RATE > 60.0 (>32); GLUCOSE, FASTING 92 MG/DL (70-100); POTASSIUM SERUM 4.3 MEQ/L (3.5-5.1); SODIUM LEVEL 145 MEQ/L (136-145)
[2021-10-21] MEDS: CelecoXIB (CeleBREX) 100 MG CAP PO SCH ×2 (09:14→21:00)
[2021-10-21] MEDS: ENOXAPARIN 40MG/0.4ML SYRINGE (J1650 PER 10MG) SC SCH (09:15)
[2021-10-21] MEDS: OMEPRAZOLE 20MG CAP PO SCH (09:15)
[2021-10-21] MEDS: SENNA 8.6 MG TAB (SENOKOT) PO SCH (09:15)
[2021-10-21] MEDS: LACTOBACILLUS ACIDOPHILUS CAP (BACID) PO SCH ×2 (09:15→17:40)
[2021-10-21] MEDS: GABAPENTIN 300 MG CAP PO SCH ×3 (09:15→21:00)
[2021-10-21] MEDS: FUROSEMIDE 20 MG TAB PO SCH (09:15)
[2021-10-21] MEDS: FLECAINIDE 50MG TABLET PO SCH ×2 (09:15→21:00)
[2021-10-21] MEDS: ACETAMINOPHEN 500 MG TAB PO SCH ×3 (09:15→21:00)
[2021-10-21] MEDS: POLYVINYL ALCOHOL OPHTH SOLN 15 ML(LIQUITEARS) OU SCH ×2 (09:16→21:00)
[2021-10-21] MEDS: CALCIUM CARBONATE 500 MG CHEW U/D PO SCH (12:00)
[2021-10-21 14:00] VITALS: BP 154/90
[2021-10-21] MEDS: traMADol 50 MG TAB PO PRN (16:34)
[2021-10-21 21:00] VITALS: O2SAT 83
[2021-10-21] MEDS ORDERED: OLANZapine INTRAMUSCULAR 10MG VIAL IM ONE (21:00)
[2021-10-21] MEDS: SIMVASTATIN 10 MG TAB PO SCH (21:00)
[2021-10-21 22:04] VITALS: BP 124/81
[2021-10-22] MEDS: ceFAZolin SOD 2 GM in IV 1 EA IV SCH (02:06)
[2021-10-22] MEDS: atenoloL 25 MG TAB PO SCH ×2 (05:41→18:00)
[2021-10-22 06:00] VITALS: BP 116/67
[2021-10-22 07:14] LABS: HEMATOCRIT 37.1 % (36.0-47.0); HEMOGLOBIN 11.7 g/dl (12.0-15.5); MEAN CORPUSCULAR HEMOGLOBIN 30.7 pg (27.0-33.0); MEAN CORPUSCULAR HGB CONC 31.5 g/dl (32.0-36.5); MEAN CORPUSCULAR VOLUME 97.4 fl (80.0-96.0); PLATELET COUNT, AUTOMATED 348 10^3/uL (150-450); RED BLOOD COUNT 3.81 10^6/uL (4.00-5.40); WHITE BLOOD COUNT 7.9 10^3/uL (4.0-10.0)
[2021-10-22 07:38] LABS: BLOOD UREA NITROGEN 21 MG/DL (7-18); CALCIUM LEVEL 8.7 MG/DL (8.8-10.2); CARBON DIOXIDE LEVEL 42 MEQ/L (21-32); CHLORIDE LEVEL 102 MEQ/L (98-107); CREATININE FOR GFR 0.45 MG/DL (0.55-1.30); GLOMERULAR FILTRATION RATE > 60.0 (>32); GLUCOSE, FASTING 88 MG/DL (70-100); POTASSIUM SERUM 3.7 MEQ/L (3.5-5.1); SODIUM LEVEL 141 MEQ/L (136-145)
[2021-10-22] MEDS: GABAPENTIN 300 MG CAP PO SCH ×3 (08:52→20:40)
[2021-10-22] MEDS: ACETAMINOPHEN 500 MG TAB PO SCH ×3 (08:53→20:39)
[2021-10-22] MEDS: FLECAINIDE 50MG TABLET PO SCH ×2 (08:53→20:39)
[2021-10-22] MEDS: FUROSEMIDE 20 MG TAB PO SCH (08:54)
[2021-10-22] MEDS: LACTOBACILLUS ACIDOPHILUS CAP (BACID) PO SCH ×2 (08:54→18:00)
[2021-10-22] MEDS: OMEPRAZOLE 20MG CAP PO SCH (08:54)
[2021-10-22] MEDS: CelecoXIB (CeleBREX) 100 MG CAP PO SCH ×2 (08:55→20:40)
[2021-10-22] MEDS: ENOXAPARIN 40MG/0.4ML SYRINGE (J1650 PER 10MG) SC SCH (08:55)
[2021-10-22] MEDS: POLYVINYL ALCOHOL OPHTH SOLN 15 ML(LIQUITEARS) OU SCH ×2 (09:18→20:40)
[2021-10-22] MEDS: CALCIUM CARBONATE 500 MG CHEW U/D PO SCH (12:14)
[2021-10-22 14:00] VITALS: BP 102/56
[2021-10-22] MEDS: SIMVASTATIN 10 MG TAB PO SCH (20:40)
[2021-10-22 22:00] VITALS: O2SAT 96
[2021-10-23 05:44] VITALS: BP 131/76
[2021-10-23] MEDS: atenoloL 25 MG TAB PO SCH (05:44)
[2021-10-23 05:49] LABS: HEMATOCRIT 37.1 % (36.0-47.0); HEMOGLOBIN 11.6 g/dl (12.0-15.5); MEAN CORPUSCULAR HEMOGLOBIN 30.8 pg (27.0-33.0); MEAN CORPUSCULAR HGB CONC 31.3 g/dl (32.0-36.5); MEAN CORPUSCULAR VOLUME 98.4 fl (80.0-96.0); PLATELET COUNT, AUTOMATED 333 10^3/uL (150-450); RED BLOOD COUNT 3.77 10^6/uL (4.00-5.40); WHITE BLOOD COUNT 6.6 10^3/uL (4.0-10.0)
[2021-10-23 06:00] VITALS: BP 131/76
[2021-10-23 06:13] LABS: ALBUMIN 2.8 GM/DL (3.2-5.2); ALT/SGPT 12 U/L (12-78); BILIRUBIN,TOTAL 0.5 MG/DL (0.2-1.0); BLOOD UREA NITROGEN 27 MG/DL (7-18); CALCIUM LEVEL 8.6 MG/DL (8.8-10.2); CARBON DIOXIDE LEVEL 39 MEQ/L (21-32); CHLORIDE LEVEL 103 MEQ/L (98-107); CREATININE FOR GFR 0.48 MG/DL (0.55-1.30); GLOMERULAR FILTRATION RATE > 60.0 (>32); GLUCOSE, FASTING 89 MG/DL (70-100); POTASSIUM SERUM 4.1 MEQ/L (3.5-5.1); SODIUM LEVEL 145 MEQ/L (136-145); TOTAL PROTEIN 5.7 GM/DL (6.4-8.2)
[2021-10-23] MEDS: OMEPRAZOLE 20MG CAP PO SCH (08:48)
[2021-10-23] MEDS: LACTOBACILLUS ACIDOPHILUS CAP (BACID) PO SCH (08:48)
[2021-10-23] MEDS: GABAPENTIN 300 MG CAP PO SCH (08:48)
[2021-10-23] MEDS: ACETAMINOPHEN 500 MG TAB PO SCH (08:48)
[2021-10-23] MEDS: FUROSEMIDE 20 MG TAB PO SCH (08:49)
[2021-10-23] MEDS: FLECAINIDE 50MG TABLET PO SCH (08:49)
[2021-10-23] MEDS: POLYVINYL ALCOHOL OPHTH SOLN 15 ML(LIQUITEARS) OU SCH (08:50)
[2021-10-23] MEDS: ENOXAPARIN 40MG/0.4ML SYRINGE (J1650 PER 10MG) SC SCH ×2 (08:50→09:00)
[2021-10-23] MEDS: CelecoXIB (CeleBREX) 100 MG CAP PO SCH (08:50)
[2021-10-23] MEDS ORDERED: OLANZapine INTRAMUSCULAR 10MG VIAL IM ONE (09:20)
[2021-10-23] MEDS ORDERED: RISATAB3 PO (09:26)
[2021-10-23] MEDS ORDERED: ATEN25TA PO (09:26)
[2021-10-23] MEDS ORDERED: FURO20TA2 PO (09:26)
[2021-10-23] MEDS: CALCIUM CARBONATE 500 MG CHEW U/D PO SCH (11:59)
== END 2021-10-23 13:20 | DRG 291 ==
LOC: M ED 10:33 → M ED INP 13:14 → M PCU 15:24 → M MS5PR 10-17 14:17
PROVIDERS: ADMIT General Practice; ATTEND General Practice
PROC: 0W9B3ZZ Drainage of Left Pleural Cavity, Percutaneous Approach (ICD-10-PCS; principal; 2021-10-15 15:06)
DX: I11.0 Hypertensive heart disease with heart failure (principal); J96.01 Acute respiratory failure with hypoxia; J18.9 Pneumonia, unspecified organism; I50.33 Acute on chronic diastolic (congestive) heart failure; I48.20 Chronic atrial fibrillation, unspecified; J90 Pleural effusion, not elsewhere classified; E78.5 Hyperlipidemia, unspecified; Z66 Do not resuscitate; Z86.73 Personal history of transient ischemic attack (TIA), and cerebral infarction without residual deficits; F03.90 Unspecified dementia, unspecified severity, without behavioral disturbance, psychotic disturbance, mood disturbance, and anxiety; Z79.899 Other long term (current) drug therapy; Z88.8 Allergy status to other drugs, medicaments and biological substances; Z98.41 Cataract extraction status, right eye; Z98.42 Cataract extraction status, left eye; I95.9 Hypotension, unspecified; R13.10 Dysphagia, unspecified; R41.0 Disorientation, unspecified

== ENCOUNTER → 2021-10-26 | Outpatient (REF) ==
[~2021-10-26] MED LIST changes: +ACET1TAB55 PO; +ACET500T15 PO; +ATEN25TA PO; +CELE100C PO; +DULC10SU2 PR; +ENSU1LIQ36 PO; +FLEEENE12 PR; +FURO20TA2 PO; +GABA-282 PO; +MILKSUS3 PO; +SENN18TA PO; +SIME80CH6 PO; +SYST1SOL OU; +TUMS500C PO
[2021-10-26 08:53] LABS: BLOOD UREA NITROGEN 18 MG/DL (7-18); CALCIUM LEVEL 8.8 MG/DL (8.8-10.2); CARBON DIOXIDE LEVEL 35 MEQ/L (21-32); CHLORIDE LEVEL 105 MEQ/L (98-107); CREATININE FOR GFR 0.46 MG/DL (0.55-1.30); GLOMERULAR FILTRATION RATE > 60.0 (>32); GLUCOSE, FASTING 79 MG/DL (70-100); POTASSIUM SERUM 4.9 MEQ/L (3.5-5.1); SODIUM LEVEL 142 MEQ/L (136-145)
== END ==
LOC: SKLAB7 07:00
PROVIDERS: ATTEND Internal Medicine
DX: I50.9 Heart failure, unspecified (principal)

== ENCOUNTER → 2021-11-01 | Outpatient (REF) ==
[2021-11-01 10:12] LABS: HEMATOCRIT 39.4 % (36.0-47.0); HEMOGLOBIN 12.5 g/dl (12.0-15.5); MEAN CORPUSCULAR HGB CONC 31.7 g/dl (32.0-36.5); MEAN CORPUSCULAR VOLUME 97.8 fl (80.0-96.0); PLATELET COUNT, AUTOMATED 353 10^3/uL (150-450); RED BLOOD COUNT 4.03 10^6/uL (4.00-5.40); WHITE BLOOD COUNT 10.7 10^3/uL (4.0-10.0)
[2021-11-01 11:25] LABS: ALBUMIN 3.2 GM/DL (3.2-5.2); ALT/SGPT 26 U/L (12-78); BLOOD UREA NITROGEN 26 MG/DL (7-18); CALCIUM LEVEL 8.6 MG/DL (8.8-10.2); CARBON DIOXIDE LEVEL 33 MEQ/L (21-32); CHLORIDE LEVEL 100 MEQ/L (98-107); CREATININE FOR GFR 0.53 MG/DL (0.55-1.30); GLOMERULAR FILTRATION RATE > 60.0 (>32); GLUCOSE, FASTING 92 MG/DL (70-100); MAGNESIUM LEVEL 2.2 MG/DL (1.8-2.4); POTASSIUM SERUM 4.4 MEQ/L (3.5-5.1); SODIUM LEVEL 140 MEQ/L (136-145); TOTAL PROTEIN 6.3 GM/DL (6.4-8.2)
[2021-11-01 17:51] LABS: APPEARANCE, URINE CLEAR (CLEAR); BACTERIA, URINE AUTO NEGATIVE (NEGATIVE); BILIRUBIN, URINE AUTO NEGATIVE (NEGATIVE); BLOOD, URINE BLOOD NEGATIVE (NEGATIVE); COLOR, URINE YELLOW (YELLOW); GLUCOSE, URINE (UA) AUTO NEGATIVE (NEGATIVE); KETONE, URINE AUTO NEGATIVE (NEGATIVE); LEUKOCYTE ESTERASE, URINE AUTO NEGATIVE (NEGATIVE); MUCUS, URINE MODERATE (NEGATIVE); NITRITE, URINE AUTO NEGATIVE (NEGATIVE); PROTEIN, URINE AUTO 1+ mg/dL (NEGATIVE); RBC, URINE AUTO 2 /HPF (0-3); SPECIFIC GRAVITY URINE AUTO 1.024 (1.002-1.035); SQUAMOUS EPITHELIAL CELL UR AU 0 /HPF (0-6); UROBILINOGEN, URINE AUTO 0.2 mg/dL (0.0-2.0); WBC, URINE AUTO 2 /HPF (0-3)
== END ==
LOC: SKLAB7 08:45
PROVIDERS: ATTEND Internal Medicine
DX: J90 Pleural effusion, not elsewhere classified (principal); I50.9 Heart failure, unspecified; J98.11 Atelectasis

== ENCOUNTER → 2021-11-01 | Outpatient (REF) | LOC: SKLAB7 14:05 | PROVIDERS: ATTEND Internal Medicine | DX: R19.7 Diarrhea, unspecified (principal) ==

== ENCOUNTER → 2021-11-13 | Outpatient (REF) | LOC: SKLAB7 14:10 | PROVIDERS: ATTEND Internal Medicine | DX: R09.02 Hypoxemia (principal) ==

== ENCOUNTER → 2021-11-13 | Outpatient (REF) ==
[2021-11-13 12:22] LABS: BLOOD UREA NITROGEN 13 MG/DL (7-18); CALCIUM LEVEL 8.6 MG/DL (8.8-10.2); CARBON DIOXIDE LEVEL 39 MEQ/L (21-32); CHLORIDE LEVEL 100 MEQ/L (98-107); CREATININE FOR GFR 0.65 MG/DL (0.55-1.30); GLOMERULAR FILTRATION RATE > 60.0 (>32); GLUCOSE, FASTING 108 MG/DL (70-100); POTASSIUM SERUM 3.9 MEQ/L (3.5-5.1); SODIUM LEVEL 141 MEQ/L (136-145)
== END ==
LOC: SKLAB7 10:58
PROVIDERS: ATTEND Internal Medicine
DX: I50.9 Heart failure, unspecified (principal)

== ENCOUNTER → 2021-11-19 | Outpatient (REF) ==
[2021-11-19 09:12] LABS: BLOOD UREA NITROGEN 16 MG/DL (7-18); CALCIUM LEVEL 9.1 MG/DL (8.8-10.2); CARBON DIOXIDE LEVEL 34 MEQ/L (21-32); CHLORIDE LEVEL 103 MEQ/L (98-107); GLOMERULAR FILTRATION RATE > 60.0 (>32); GLUCOSE, FASTING 89 MG/DL (70-100); MAGNESIUM LEVEL 2.2 MG/DL (1.8-2.4); NT-PRO BNP 1645 PG/ML (<450); POTASSIUM SERUM 4.3 MEQ/L (3.5-5.1); SODIUM LEVEL 141 MEQ/L (136-145)
== END ==
LOC: SKLAB7 07:00
PROVIDERS: ATTEND Internal Medicine
DX: R60.9 Edema, unspecified (principal)

== ENCOUNTER → 2021-11-26 | Outpatient (REF) ==
[2021-11-26 10:40] LABS: BLOOD UREA NITROGEN 21 MG/DL (7-18); CARBON DIOXIDE LEVEL 35 MEQ/L (21-32); CHLORIDE LEVEL 101 MEQ/L (98-107); CREATININE FOR GFR 0.85 MG/DL (0.55-1.30); GLOMERULAR FILTRATION RATE > 60.0 (>32); GLUCOSE, FASTING 92 MG/DL (70-100); POTASSIUM SERUM 4.1 MEQ/L (3.5-5.1); SODIUM LEVEL 139 MEQ/L (136-145)
== END ==
LOC: SKLAB7 09:18
PROVIDERS: ATTEND Internal Medicine
DX: I50.9 Heart failure, unspecified (principal)

== ENCOUNTER → 2021-12-03 | Outpatient (REF) ==
[2021-12-03 09:07] LABS: BLOOD UREA NITROGEN 28 MG/DL (7-18); CALCIUM LEVEL 9.9 MG/DL (8.8-10.2); CARBON DIOXIDE LEVEL 38 MEQ/L (21-32); CHLORIDE LEVEL 100 MEQ/L (98-107); CREATININE FOR GFR 0.76 MG/DL (0.55-1.30); GLOMERULAR FILTRATION RATE > 60.0 (>32); GLUCOSE, FASTING 87 MG/DL (70-100); POTASSIUM SERUM 4.6 MEQ/L (3.5-5.1); SODIUM LEVEL 142 MEQ/L (136-145)
== END ==
LOC: SKLAB7 03:19
PROVIDERS: ATTEND Internal Medicine
DX: I50.9 Heart failure, unspecified (principal); Z79.899 Other long term (current) drug therapy

== ENCOUNTER → 2021-12-28 | Outpatient (REF) | LOC: SKLAB7 17:00 | PROVIDERS: ATTEND Internal Medicine | DX: R60.0 Localized edema (principal); Z53.9 Procedure and treatment not carried out, unspecified reason ==

== ENCOUNTER → 2021-12-29 | Outpatient (CLI) | payer MEDICARE ==
[2021-12-29 14:41] LABS: BLOOD UREA NITROGEN 28 MG/DL (7-18); CALCIUM LEVEL 8.8 MG/DL (8.8-10.2); CARBON DIOXIDE LEVEL 31 MEQ/L (21-32); CHLORIDE LEVEL 102 MEQ/L (98-107); CREATININE FOR GFR 0.73 MG/DL (0.55-1.30); GLOMERULAR FILTRATION RATE > 60.0 (>32); GLUCOSE, FASTING 128 MG/DL (70-100); POTASSIUM SERUM 4.5 MEQ/L (3.5-5.1); SODIUM LEVEL 140 MEQ/L (136-145)
== END ==
LOC: M LAB 13:20 → SKLAB7 13:20
PROVIDERS: ATTEND Internal Medicine
DX: R60.9 Edema, unspecified (principal)

== ENCOUNTER → 2022-02-14 | Outpatient (REF) | payer MEDICARE ==
[2022-02-14 10:02] LABS: BLOOD UREA NITROGEN 23 MG/DL (7-18); CALCIUM LEVEL 9.2 MG/DL (8.8-10.2); CARBON DIOXIDE LEVEL 30 MEQ/L (21-32); CHLORIDE LEVEL 103 MEQ/L (98-107); CREATININE FOR GFR 0.87 MG/DL (0.55-1.30); GLOMERULAR FILTRATION RATE > 60.0 (>32); GLUCOSE, FASTING 92 MG/DL (70-100); POTASSIUM SERUM 4.5 MEQ/L (3.5-5.1); SODIUM LEVEL 141 MEQ/L (136-145)
== END ==
LOC: SKLAB7 09:20
PROVIDERS: ATTEND Nurse Practitioner Family
DX: I50.9 Heart failure, unspecified (principal); E83.42 Hypomagnesemia

== ENCOUNTER → 2022-02-15 | Outpatient (REF) | payer MEDICARE | LOC: SKLAB7 11:38 | PROVIDERS: ATTEND Internal Medicine | DX: Z20.822 Contact with and (suspected) exposure to COVID-19 (principal); Z53.9 Procedure and treatment not carried out, unspecified reason ==

== ENCOUNTER → 2022-02-16 | Outpatient (REF) | payer MEDICARE ==
[2022-02-16 08:46] LABS: HEMATOCRIT 37.6 % (36.0-47.0); HEMOGLOBIN 12.1 g/dl (12.0-15.5); MEAN CORPUSCULAR HEMOGLOBIN 31.3 pg (27.0-33.0); MEAN CORPUSCULAR HGB CONC 32.2 g/dl (32.0-36.5); MEAN CORPUSCULAR VOLUME 97.2 fl (80.0-96.0); PLATELET COUNT, AUTOMATED 248 10^3/uL (150-450); RED BLOOD COUNT 3.87 10^6/uL (4.00-5.40); WHITE BLOOD COUNT 5.3 10^3/uL (4.0-10.0)
[2022-02-16 09:11] LABS: ALBUMIN 3.4 GM/DL (3.2-5.2); ALT/SGPT 20 U/L (12-78); BILIRUBIN,TOTAL 0.3 MG/DL (0.2-1.0); BLOOD UREA NITROGEN 26 MG/DL (7-18); CALCIUM LEVEL 8.7 MG/DL (8.8-10.2); CARBON DIOXIDE LEVEL 35 MEQ/L (21-32); CHLORIDE LEVEL 103 MEQ/L (98-107); CREATININE FOR GFR 0.85 MG/DL (0.55-1.30); GLOMERULAR FILTRATION RATE > 60.0 (>32); GLUCOSE, FASTING 88 MG/DL (70-100); POTASSIUM SERUM 4.5 MEQ/L (3.5-5.1); SODIUM LEVEL 141 MEQ/L (136-145); TOTAL PROTEIN 6.8 GM/DL (6.4-8.2)
== END ==
LOC: SKLAB2 07:00
PROVIDERS: ATTEND Nurse Practitioner Family
DX: U07.1 COVID-19 (principal); Z79.899 Other long term (current) drug therapy

== ENCOUNTER → 2022-02-17 | Outpatient (REF) | payer MEDICARE | LOC: SKLAB2 02-16 07:00 | PROVIDERS: ATTEND Internal Medicine | DX: U07.1 COVID-19 (principal) ==

== ENCOUNTER → 2022-02-18 | Outpatient (REF) | payer MEDICARE ==
[2022-02-18 16:20] LABS: HEMATOCRIT 39.3 % (36.0-47.0); HEMOGLOBIN 12.8 g/dl (12.0-15.5); MEAN CORPUSCULAR HEMOGLOBIN 31.1 pg (27.0-33.0); MEAN CORPUSCULAR HGB CONC 32.6 g/dl (32.0-36.5); MEAN CORPUSCULAR VOLUME 95.4 fl (80.0-96.0); PLATELET COUNT, AUTOMATED 273 10^3/uL (150-450); RED BLOOD COUNT 4.12 10^6/uL (4.00-5.40); WHITE BLOOD COUNT 5.9 10^3/uL (4.0-10.0)
[2022-02-18 17:51] LABS: CALCIUM LEVEL 8.6 MG/DL (8.8-10.2); CREATININE FOR GFR 1.11 MG/DL (0.55-1.30); GLOMERULAR FILTRATION RATE 49.5 (>32); POTASSIUM SERUM 4.5 MEQ/L (3.5-5.1)
[2022-02-18 17:52] LABS: ALBUMIN 3.7 GM/DL (3.2-5.2); BILIRUBIN,TOTAL 0.6 MG/DL (0.2-1.0); TOTAL PROTEIN 7.3 GM/DL (6.4-8.2)
== END ==
LOC: SKLAB2 07:00
PROVIDERS: ATTEND Nurse Practitioner Family
DX: U07.1 COVID-19 (principal); Z79.899 Other long term (current) drug therapy

== ENCOUNTER → 2022-02-21 | Outpatient (REF) | payer MEDICARE ==
[2022-02-21 09:48] LABS: HEMATOCRIT 40.2 % (36.0-47.0); HEMOGLOBIN 13.3 g/dl (12.0-15.5); MEAN CORPUSCULAR HEMOGLOBIN 31.5 pg (27.0-33.0); MEAN CORPUSCULAR HGB CONC 33.1 g/dl (32.0-36.5); MEAN CORPUSCULAR VOLUME 95.3 fl (80.0-96.0); PLATELET COUNT, AUTOMATED 308 10^3/uL (150-450); RED BLOOD COUNT 4.22 10^6/uL (4.00-5.40); WHITE BLOOD COUNT 6.5 10^3/uL (4.0-10.0)
[2022-02-21 10:15] LABS: ALBUMIN 3.9 GM/DL (3.2-5.2); ALT/SGPT 23 U/L (12-78); BILIRUBIN,TOTAL 0.6 MG/DL (0.2-1.0); BLOOD UREA NITROGEN 24 MG/DL (7-18); CALCIUM LEVEL 9.5 MG/DL (8.8-10.2); CARBON DIOXIDE LEVEL 30 MEQ/L (21-32); CHLORIDE LEVEL 105 MEQ/L (98-107); CREATININE FOR GFR 0.82 MG/DL (0.55-1.30); GLOMERULAR FILTRATION RATE > 60.0 (>32); GLUCOSE, FASTING 94 MG/DL (70-100); POTASSIUM SERUM 4.5 MEQ/L (3.5-5.1); SODIUM LEVEL 142 MEQ/L (136-145); TOTAL PROTEIN 7.4 GM/DL (6.4-8.2)
== END ==
LOC: SKLAB2 10:00
PROVIDERS: ATTEND Nurse Practitioner Family
DX: U07.1 COVID-19 (principal); Z79.899 Other long term (current) drug therapy

== ENCOUNTER → 2022-02-25 | Outpatient (REF) | payer MEDICARE ==
[2022-02-25 09:39] LABS: HEMATOCRIT 39.8 % (36.0-47.0); HEMOGLOBIN 13.1 g/dl (12.0-15.5); MEAN CORPUSCULAR HGB CONC 32.9 g/dl (32.0-36.5); MEAN CORPUSCULAR VOLUME 94.3 fl (80.0-96.0); PLATELET COUNT, AUTOMATED 312 10^3/uL (150-450); RED BLOOD COUNT 4.22 10^6/uL (4.00-5.40); WHITE BLOOD COUNT 11.7 10^3/uL (4.0-10.0)
[2022-02-25 10:09] LABS: ALBUMIN 3.6 GM/DL (3.2-5.2); ALT/SGPT 32 U/L (12-78); BILIRUBIN,TOTAL 0.8 MG/DL (0.2-1.0); BLOOD UREA NITROGEN 24 MG/DL (7-18); CARBON DIOXIDE LEVEL 34 MEQ/L (21-32); CHLORIDE LEVEL 100 MEQ/L (98-107); CREATININE FOR GFR 0.72 MG/DL (0.55-1.30); GLOMERULAR FILTRATION RATE > 60.0 (>32); GLUCOSE, FASTING 93 MG/DL (70-100); POTASSIUM SERUM 4.5 MEQ/L (3.5-5.1); SODIUM LEVEL 138 MEQ/L (136-145); TOTAL PROTEIN 7.1 GM/DL (6.4-8.2)
== END ==
LOC: SKLAB2 07:00
PROVIDERS: ATTEND Nurse Practitioner Family
DX: U07.1 COVID-19 (principal); Z79.899 Other long term (current) drug therapy

== ENCOUNTER 2022-02-27 10:55 | Emergency (ER) | payer MEDICARE ==
[~2022-02-27] VITALS: Ht 172.7 cm; Wt 59.1 kg
[2022-02-27] MEDS ORDERED: KETOROLAC 60MG 2ML VIAL IM ONE (11:35)
[2022-02-27 12:34] LABS: HEMATOCRIT 37.7 % (36.0-47.0); HEMOGLOBIN 12.6 g/dl (12.0-15.5); MEAN CORPUSCULAR HEMOGLOBIN 31.2 pg (27.0-33.0); MEAN CORPUSCULAR HGB CONC 33.4 g/dl (32.0-36.5); MEAN CORPUSCULAR VOLUME 93.3 fl (80.0-96.0); PLATELET COUNT, AUTOMATED 300 10^3/uL (150-450); RED BLOOD COUNT 4.04 10^6/uL (4.00-5.40); WHITE BLOOD COUNT 12.2 10^3/uL (4.0-10.0)
[2022-02-27 12:58] LABS: BLOOD UREA NITROGEN 28 MG/DL (7-18); CALCIUM LEVEL 8.8 MG/DL (8.8-10.2); CARBON DIOXIDE LEVEL 34 MEQ/L (21-32); CHLORIDE LEVEL 101 MEQ/L (98-107); CREATININE FOR GFR 0.74 MG/DL (0.55-1.30); GLOMERULAR FILTRATION RATE > 60.0 (>32); GLUCOSE, FASTING 106 MG/DL (70-100); POTASSIUM SERUM 4.3 MEQ/L (3.5-5.1); SODIUM LEVEL 139 MEQ/L (136-145)
[2022-02-27 16:16] VITALS: BP 134/64
== END 2022-02-27 16:32 | disposition left against medical advice (07) ==
LOC: EDBD 10:55 → M ED 10:55
DX: M48.061 Spinal stenosis, lumbar region without neurogenic claudication (principal); Z86.73 Personal history of transient ischemic attack (TIA), and cerebral infarction without residual deficits; Z88.5 Allergy status to narcotic agent; Z79.899 Other long term (current) drug therapy; Z53.21 Procedure and treatment not carried out due to patient leaving prior to being seen by health care provider
CPT/HCPCS: 72131; 80048; 81001; 85027; 96374; 99284; J1885

== ENCOUNTER → 2022-04-06 | Outpatient (CLI) | payer MEDICARE | LOC: M RAD 08:20 | PROVIDERS: ATTEND Physician Assistant | DX: S32.020D Wedge compression fracture of second lumbar vertebra, subsequent encounter for fracture with routine healing (principal) ==

== ENCOUNTER → 2022-04-11 | Outpatient (CLI) | payer MEDICARE | LOC: M RAD 07:43 | PROVIDERS: ATTEND Nurse Practitioner Family | DX: S22.080A Wedge compression fracture of T11-T12 vertebra, initial encounter for closed fracture (principal) | CPT/HCPCS: 78315; A9503 ==

== ENCOUNTER → 2022-06-13 | Outpatient (REF) | payer MEDICARE ==
[2022-06-13 10:42] LABS: BLOOD UREA NITROGEN 30 MG/DL (9-23); CALCIUM LEVEL 10.3 MG/DL (8.3-10.6); CARBON DIOXIDE LEVEL 32 MMOL/L (20-31); CHLORIDE LEVEL 101 MMOL/L (98-107); CREATININE FOR GFR 0.82 MG/DL (0.55-1.30); GLOMERULAR FILTRATION RATE > 60.0 (>32); GLUCOSE, FASTING 76 MG/DL (74-106); POTASSIUM SERUM 4.2 MMOL/L (3.5-5.1); SODIUM LEVEL 142 MMOL/L (136-145)
== END ==
LOC: SKLAB7 11:37
PROVIDERS: ATTEND Nurse Practitioner Family
DX: I50.9 Heart failure, unspecified (principal)

== ENCOUNTER → 2022-09-12 | Outpatient (REF) | payer MEDICARE ==
[2022-09-12 10:20] LABS: HEMATOCRIT 38.7 % (36.0-47.0); HEMOGLOBIN 12.3 g/dl (12.0-15.5); MEAN CORPUSCULAR HEMOGLOBIN 32.9 pg (27.0-33.0); MEAN CORPUSCULAR HGB CONC 31.8 g/dl (32.0-36.5); MEAN CORPUSCULAR VOLUME 103.5 fl (80.0-96.0); PLATELET COUNT, AUTOMATED 249 10^3/uL (150-450); RED BLOOD COUNT 3.74 10^6/uL (4.00-5.40); WHITE BLOOD COUNT 7.9 10^3/uL (4.0-10.0)
[2022-09-12 10:53] LABS: ALBUMIN 3.5 G/DL (3.2-5.2); ALKALINE PHOSPHATASE 42 U/L (46-116); ALT/SGPT 17 U/L (7.0-40); AST/SGOT 19 U/L (<34); BILIRUBIN,TOTAL 0.5 MG/DL (0.3-1.2); BLOOD UREA NITROGEN 40 MG/DL (9-23); CALCIUM LEVEL 9.2 MG/DL (8.3-10.6); CARBON DIOXIDE LEVEL 32 MMOL/L (20-31); CHLORIDE LEVEL 101 MMOL/L (98-107); CHOLESTEROL LEVEL 145 MG/DL (<200); CHOLESTEROL RISK RATIO 3.73 (<5); CREATININE FOR GFR 0.92 MG/DL (0.55-1.30); GLOMERULAR FILTRATION RATE > 60.0 (>32); GLUCOSE, FASTING 88 MG/DL (74-106); HDL CHOLESTEROL 38.8 MG/DL (>40); LDL CHOLESTEROL 71.2 MG/DL (<100); MAGNESIUM LEVEL 2.2 MG/DL (1.8-2.4); NON-HDL-C 106 MG/DL; POTASSIUM SERUM 4.8 MMOL/L (3.5-5.1); SODIUM LEVEL 139 MMOL/L (136-145); TOTAL PROTEIN 6.7 G/DL (5.7-8.2); TRIGLYCERIDES LEVEL 175 MG/DL (<150)
== END ==
LOC: SKLAB7 11:20
PROVIDERS: ATTEND Internal Medicine
DX: I50.9 Heart failure, unspecified (principal); E78.5 Hyperlipidemia, unspecified; I11.0 Hypertensive heart disease with heart failure

== ENCOUNTER → 2022-10-15 | Outpatient (CLI) | payer MEDICARE ==
[~2022-10-15] MED LIST changes: +BARIUM SULFATE 700 MG TABLET (E-Z-DISK) As Ordered ONE; +E-Z-PAQUE 96% w/w SUSP 176GM BTL As Ordered ONE; +VARIBAR NECTAR 40% w/v 240ML SUSP BTL As Ordered ONE; +VARIBAR PUDDING 40% w/v 230ML TUBE As Ordered ONE
== END ==
LOC: M RAD 13:30
PROVIDERS: ATTEND Internal Medicine
DX: R13.10 Dysphagia, unspecified (principal)

== ENCOUNTER → 2022-11-27 | Outpatient (CLI) | payer MEDICARE | LOC: M RAD 10:58 | PROVIDERS: ATTEND Internal Medicine | DX: R13.10 Dysphagia, unspecified (principal) ==

== ENCOUNTER → 2022-12-12 | Outpatient (REF) | payer MEDICARE ==
[~2022-12-12] MED LIST changes: -BARIUM SULFATE 700 MG TABLET (E-Z-DISK) As Ordered ONE; -E-Z-PAQUE 96% w/w SUSP 176GM BTL As Ordered ONE; -VARIBAR NECTAR 40% w/v 240ML SUSP BTL As Ordered ONE; -VARIBAR PUDDING 40% w/v 230ML TUBE As Ordered ONE
[2022-12-12 09:24] LABS: ALBUMIN 3.6 G/DL (3.2-5.2); ALKALINE PHOSPHATASE 43 U/L (46-116); ALT/SGPT 36 U/L (7.0-40); AST/SGOT 29 U/L (<34); BILIRUBIN,TOTAL 0.4 MG/DL (0.3-1.2); BLOOD UREA NITROGEN 45 MG/DL (9-23); CALCIUM LEVEL 8.5 MG/DL (8.3-10.6); CARBON DIOXIDE LEVEL 31 MMOL/L (20-31); CHLORIDE LEVEL 104 MMOL/L (98-107); CREATININE FOR GFR 0.85 MG/DL (0.55-1.30); GLOMERULAR FILTRATION RATE > 60.0 (>32); GLUCOSE, FASTING 82 MG/DL (74-106); MAGNESIUM LEVEL 2.3 MG/DL (1.8-2.4); POTASSIUM SERUM 4.6 MMOL/L (3.5-5.1); SODIUM LEVEL 142 MMOL/L (136-145); TOTAL PROTEIN 6.6 G/DL (5.7-8.2)
== END ==
LOC: SKLAB7 14:02
PROVIDERS: ATTEND Nurse Practitioner
DX: I50.9 Heart failure, unspecified (principal); I11.0 Hypertensive heart disease with heart failure

== ENCOUNTER → 2022-12-16 | Outpatient (CLI) | payer MEDICARE | LOC: M RAD 11:03 | PROVIDERS: ATTEND Physician Assistant | DX: S22.080D Wedge compression fracture of T11-T12 vertebra, subsequent encounter for fracture with routine healing (principal) ==

== ENCOUNTER → 2023-01-07 | Outpatient (REF) | payer MEDICARE | LOC: SKLAB7 13:44 | PROVIDERS: ATTEND Nurse Practitioner | DX: M51.34 Other intervertebral disc degeneration, thoracic region (principal); W19.XXXA Unspecified fall, initial encounter; Y92.128 Other place in nursing home as the place of occurrence of the external cause ==

== ENCOUNTER → 2023-01-10 | Outpatient (REF) | payer MEDICARE ==
[~2023-01-10] MED LIST changes: +SENN-111 PO; -SENN18TA PO
[2023-01-10 15:11] LABS: HEMATOCRIT 35.7 % (36.0-47.0); HEMOGLOBIN 11.5 g/dl (12.0-15.5); MEAN CORPUSCULAR HGB CONC 32.2 g/dl (32.0-36.5); MEAN CORPUSCULAR VOLUME 102.3 fl (80.0-96.0); PLATELET COUNT, AUTOMATED 248 10^3/uL (150-450); RED BLOOD COUNT 3.49 10^6/uL (4.00-5.40); WHITE BLOOD COUNT 7.8 10^3/uL (4.0-10.0)
[2023-01-10 15:40] LABS: ALBUMIN 3.4 G/DL (3.2-5.2); BILIRUBIN,TOTAL 0.6 MG/DL (0.3-1.2); CALCIUM LEVEL 9.1 MG/DL (8.3-10.6); GLOMERULAR FILTRATION RATE 55.7 (>32); POTASSIUM SERUM 4.8 MMOL/L (3.5-5.1); TOTAL PROTEIN 6.8 G/DL (5.7-8.2)
== END ==
LOC: SKLAB7 14:01
PROVIDERS: ATTEND Nurse Practitioner
DX: R41.82 Altered mental status, unspecified (principal)

== ENCOUNTER → 2023-03-13 | Outpatient (REF) | payer MEDICARE ==
[2023-03-13 06:44] LABS: HEMATOCRIT 39.4 % (36.0-47.0); HEMOGLOBIN 12.7 g/dl (12.0-15.5); MEAN CORPUSCULAR HEMOGLOBIN 33.1 pg (27.0-33.0); MEAN CORPUSCULAR HGB CONC 32.2 g/dl (32.0-36.5); MEAN CORPUSCULAR VOLUME 102.6 fl (80.0-96.0); PLATELET COUNT, AUTOMATED 255 10^3/uL (150-450); RED BLOOD COUNT 3.84 10^6/uL (4.00-5.40); WHITE BLOOD COUNT 8.1 10^3/uL (4.0-10.0)
[2023-03-13 07:22] LABS: ALBUMIN 3.8 G/DL (3.2-5.2); BILIRUBIN,TOTAL 0.4 MG/DL (0.3-1.2); CALCIUM LEVEL 8.9 MG/DL (8.3-10.6); CREATININE FOR GFR 1.19 MG/DL (0.55-1.30); GLOMERULAR FILTRATION RATE 45.6 (>32); MAGNESIUM LEVEL 2.5 MG/DL (1.8-2.4); POTASSIUM SERUM 4.9 MMOL/L (3.5-5.1); TOTAL PROTEIN 7.1 G/DL (5.7-8.2)
== END ==
LOC: SKLAB7 07:00
PROVIDERS: ATTEND Nurse Practitioner
DX: I50.9 Heart failure, unspecified (principal); I11.0 Hypertensive heart disease with heart failure

== ENCOUNTER → 2023-03-20 | Outpatient (REF) | payer MEDICARE ==
[2023-03-20 07:28] LABS: CALCIUM LEVEL 8.5 MG/DL (8.3-10.6); CREATININE FOR GFR 1.04 MG/DL (0.55-1.30); GLOMERULAR FILTRATION RATE 53.2 (>32); POTASSIUM SERUM 4.9 MMOL/L (3.5-5.1)
== END ==
LOC: SKLAB7 07:00
PROVIDERS: ATTEND Internal Medicine
DX: I50.9 Heart failure, unspecified (principal)

== ENCOUNTER → 2023-03-21 | Outpatient (REF) | payer MEDICARE | LOC: SKLAB7 13:57 | PROVIDERS: ATTEND Internal Medicine | DX: R07.89 Other chest pain (principal); M47.812 Spondylosis without myelopathy or radiculopathy, cervical region; W19.XXXA Unspecified fall, initial encounter; Y92.129 Unspecified place in nursing home as the place of occurrence of the external cause; Y93.9 Activity, unspecified ==

== ENCOUNTER → 2023-03-28 | Outpatient (REF) | payer MEDICARE ==
[2023-03-28 09:33] LABS: CALCIUM LEVEL 9.2 MG/DL (8.3-10.6); CREATININE FOR GFR 0.95 MG/DL (0.55-1.30); GLOMERULAR FILTRATION RATE 59.1 (>32); POTASSIUM SERUM 4.9 MMOL/L (3.5-5.1)
== END ==
LOC: SKLAB7 07:00
PROVIDERS: ATTEND Internal Medicine
DX: N18.9 Chronic kidney disease, unspecified (principal)

== ENCOUNTER → 2023-06-16 | Outpatient (REF) | payer MEDICARE ==
[2023-06-16 11:55] LABS: CALCIUM LEVEL 8.5 MG/DL (8.3-10.6); CREATININE FOR GFR 1.07 MG/DL (0.55-1.30); GLOMERULAR FILTRATION RATE 51.4 (>32); MAGNESIUM LEVEL 2.5 MG/DL (1.8-2.4); POTASSIUM SERUM 5.1 MMOL/L (3.5-5.1)
== END ==
LOC: SKLAB7 07:56
PROVIDERS: ATTEND Internal Medicine
DX: I50.9 Heart failure, unspecified (principal)

== ENCOUNTER → 2023-06-24 | Outpatient (CLI) | payer MEDICARE | LOC: M RAD 10:08 | PROVIDERS: ATTEND Internal Medicine | DX: M19.012 Primary osteoarthritis, left shoulder (principal); M25.512 Pain in left shoulder ==

== ENCOUNTER → 2023-06-24 | Outpatient (REF) | payer MEDICARE | LOC: SKLAB7 07:00 | PROVIDERS: ATTEND Internal Medicine | DX: Z53.8 Procedure and treatment not carried out for other reasons (principal) ==

== ENCOUNTER → 2023-08-03 | Outpatient (REF) | payer MEDICARE ==
[2023-08-03 15:20] LABS: APPEARANCE, URINE CLEAR (CLEAR); BACTERIA, URINE AUTO NEGATIVE (NEGATIVE); BILIRUBIN, URINE AUTO NEGATIVE (NEGATIVE); BLOOD, URINE BLOOD NEGATIVE (NEGATIVE); COLOR, URINE YELLOW (YELLOW); GLUCOSE, URINE (UA) AUTO NEGATIVE (NEGATIVE); KETONE, URINE AUTO NEGATIVE (NEGATIVE); LEUKOCYTE ESTERASE, URINE AUTO NEGATIVE (NEGATIVE); NITRITE, URINE AUTO NEGATIVE (NEGATIVE); PROTEIN, URINE AUTO NEGATIVE (NEGATIVE); RBC, URINE AUTO 0 /HPF (0-3); SPECIFIC GRAVITY URINE AUTO 1.015 (1.002-1.035); SQUAMOUS EPITHELIAL CELL UR AU 0 /HPF (0-6); UROBILINOGEN, URINE AUTO 0.2 mg/dL (0.0-2.0); WBC, URINE AUTO 0 /HPF (0-3)
[2023-08-03 16:43] LABS: BASO % 0.4 % (0.0-1.0); EOS # 0.2 10^3/uL (0.0-0.5); EOS % 2.3 % (0.0-3.0); HEMATOCRIT 42.4 % (36.0-47.0); HEMOGLOBIN 13.6 g/dl (12.0-15.5); LYMPH # 1.7 10^3/uL (1.5-5.0); LYMPH % 18.3 % (24.0-44.0); MEAN CORPUSCULAR HEMOGLOBIN 31.7 pg (27.0-33.0); MEAN CORPUSCULAR HGB CONC 32.1 g/dl (32.0-36.5); MEAN CORPUSCULAR VOLUME 98.8 fl (80.0-96.0); MONO # 1.1 10^3/uL (0.0-0.8); MONO % 12.3 % (2.0-8.0); NEUTROPHILS # 6.2 10^3/uL (1.5-8.5); NEUTROPHILS % 66.3 % (36.0-66.0); PLATELET COUNT, AUTOMATED 278 10^3/uL (150-450); RED BLOOD COUNT 4.29 10^6/uL (4.00-5.40); WHITE BLOOD COUNT 9.3 10^3/uL (4.0-10.0)
[2023-08-03 16:50] LABS: BLOOD UREA NITROGEN 39 MG/DL (9-23); CALCIUM LEVEL 8.7 MG/DL (8.3-10.6); CARBON DIOXIDE LEVEL 30 MMOL/L (20-31); CHLORIDE LEVEL 107 MMOL/L (98-107); CREATININE FOR GFR 0.87 MG/DL (0.55-1.30); GLOMERULAR FILTRATION RATE > 60.0 (>32); GLUCOSE, FASTING 141 MG/DL (74-106); POTASSIUM SERUM 4.8 MMOL/L (3.5-5.1); SODIUM LEVEL 141 MMOL/L (136-145)
== END ==
LOC: SKLAB7 14:54
PROVIDERS: ATTEND Nurse Practitioner Gerontology
DX: R53.83 Other fatigue (principal)

== ENCOUNTER → 2023-08-03 | Outpatient (REF) | payer MEDICARE ==
[2023-08-03 09:55] LABS: BASO % 0.5 % (0.0-1.0); EOS # 0.3 10^3/uL (0.0-0.5); EOS % 3.6 % (0.0-3.0); HEMATOCRIT 42.3 % (36.0-47.0); HEMOGLOBIN 13.7 g/dl (12.0-15.5); LYMPH # 1.5 10^3/uL (1.5-5.0); LYMPH % 18.3 % (24.0-44.0); MEAN CORPUSCULAR HEMOGLOBIN 32.3 pg (27.0-33.0); MEAN CORPUSCULAR HGB CONC 32.4 g/dl (32.0-36.5); MEAN CORPUSCULAR VOLUME 99.8 fl (80.0-96.0); MONO # 0.9 10^3/uL (0.0-0.8); MONO % 10.1 % (2.0-8.0); NEUTROPHILS # 5.6 10^3/uL (1.5-8.5); NEUTROPHILS % 66.9 % (36.0-66.0); PLATELET COUNT, AUTOMATED 291 10^3/uL (150-450); RED BLOOD COUNT 4.24 10^6/uL (4.00-5.40); WHITE BLOOD COUNT 8.4 10^3/uL (4.0-10.0)
[2023-08-03 10:18] LABS: CREATININE FOR GFR 0.95 MG/DL (0.55-1.30); POTASSIUM SERUM 4.9 MMOL/L (3.5-5.1)
== END ==
LOC: SKLAB7 07:00
PROVIDERS: ATTEND Internal Medicine
DX: R53.83 Other fatigue (principal)

== ENCOUNTER → 2023-08-12 | Outpatient (REF) | payer MEDICARE ==
[2023-08-12 14:23] LABS: CALCIUM LEVEL 8.7 MG/DL (8.3-10.6); CREATININE FOR GFR 1.34 MG/DL (0.55-1.30); GLOMERULAR FILTRATION RATE 39.6 (>32); MAGNESIUM LEVEL 2.3 MG/DL (1.8-2.4)
== END ==
LOC: SKLAB7 11:46
PROVIDERS: ATTEND Internal Medicine
DX: I50.9 Heart failure, unspecified (principal)

== ENCOUNTER → 2023-08-13 | Outpatient (REF) | payer MEDICARE ==
[2023-08-13 08:54] LABS: CALCIUM LEVEL 8.5 MG/DL (8.3-10.6); CREATININE FOR GFR 1.33 MG/DL (0.55-1.30); POTASSIUM SERUM 5.1 MMOL/L (3.5-5.1)
== END ==
LOC: SKLAB7 06:53
PROVIDERS: ATTEND Internal Medicine
DX: N17.9 Acute kidney failure, unspecified (principal)

== ENCOUNTER → 2023-08-29 | Outpatient (REF) | payer MEDICARE ==
[2023-08-29 11:50] LABS: HEMATOCRIT 40.6 % (36.0-47.0); HEMOGLOBIN 13.6 g/dl (12.0-15.5); MEAN CORPUSCULAR HEMOGLOBIN 32.8 pg (27.0-33.0); MEAN CORPUSCULAR HGB CONC 33.5 g/dl (32.0-36.5); MEAN CORPUSCULAR VOLUME 97.8 fl (80.0-96.0); PLATELET COUNT, AUTOMATED 276 10^3/uL (150-450); RED BLOOD COUNT 4.15 10^6/uL (4.00-5.40); WHITE BLOOD COUNT 8.9 10^3/uL (4.0-10.0)
[2023-08-29 12:21] LABS: CALCIUM LEVEL 8.3 MG/DL (8.3-10.6); CREATININE FOR GFR 0.97 MG/DL (0.55-1.30); GLOMERULAR FILTRATION RATE 57.6 (>32); POTASSIUM SERUM 5.2 MMOL/L (3.5-5.1)
== END ==
LOC: SKLAB7 11:20
PROVIDERS: ATTEND Internal Medicine
DX: R41.82 Altered mental status, unspecified (principal)

== ENCOUNTER → 2023-09-16 | Outpatient (REF) | payer MEDICARE ==
[2023-09-16 09:49] LABS: HEMATOCRIT 41.9 % (36.0-47.0); HEMOGLOBIN 13.5 g/dl (12.0-15.5); MEAN CORPUSCULAR HEMOGLOBIN 32.1 pg (27.0-33.0); MEAN CORPUSCULAR HGB CONC 32.2 g/dl (32.0-36.5); MEAN CORPUSCULAR VOLUME 99.8 fl (80.0-96.0); PLATELET COUNT, AUTOMATED 262 10^3/uL (150-450); WHITE BLOOD COUNT 7.5 10^3/uL (4.0-10.0)
[2023-09-16 10:24] LABS: CHOLESTEROL RISK RATIO 5.36 (<5); HDL CHOLESTEROL 39.9 MG/DL (>40); LDL CHOLESTEROL 132.9 MG/DL (<100); NON-HDL-C 174.1 MG/DL
== END ==
LOC: SKLAB7 07:46
PROVIDERS: ATTEND Internal Medicine
DX: E78.5 Hyperlipidemia, unspecified (principal); I10 Essential (primary) hypertension

== ENCOUNTER → 2023-10-15 | Outpatient (REF) | payer MEDICARE ==
[2023-10-15 12:29] LABS: CALCIUM LEVEL 8.5 MG/DL (8.3-10.6); CREATININE FOR GFR 1.08 MG/DL (0.55-1.30); GLOMERULAR FILTRATION RATE 50.9 (>32); POTASSIUM SERUM 4.5 MMOL/L (3.5-5.1)
== END ==
LOC: SKLAB7 09:13
PROVIDERS: ATTEND Internal Medicine
DX: I50.9 Heart failure, unspecified (principal)

== ENCOUNTER → 2023-11-28 | Outpatient (REF) | payer MEDICARE | LOC: SKLAB7 12:09 | PROVIDERS: ATTEND Internal Medicine | DX: R06.02 Shortness of breath (principal); R91.8 Other nonspecific abnormal finding of lung field ==

== ENCOUNTER → 2023-11-28 | Outpatient (CLI) | payer MEDICARE | LOC: M LAB 01:04 | PROVIDERS: ATTEND Internal Medicine | DX: E83.42 Hypomagnesemia (principal); Z53.9 Procedure and treatment not carried out, unspecified reason ==

== ENCOUNTER → 2023-11-28 | Outpatient (REF) | payer MEDICARE | LOC: SKLAB7 12:05 | PROVIDERS: ATTEND Internal Medicine | DX: R91.8 Other nonspecific abnormal finding of lung field (principal) ==

== ENCOUNTER → 2023-12-01 | Outpatient (REF) | payer MEDICARE ==
[2023-12-01 14:33] LABS: HEMATOCRIT 40.5 % (36.0-47.0); HEMOGLOBIN 13.3 g/dl (12.0-15.5); MEAN CORPUSCULAR HGB CONC 32.8 g/dl (32.0-36.5); MEAN CORPUSCULAR VOLUME 100.5 fl (80.0-96.0); PLATELET COUNT, AUTOMATED 281 10^3/uL (150-450); RED BLOOD COUNT 4.03 10^6/uL (4.00-5.40); WHITE BLOOD COUNT 6.4 10^3/uL (4.0-10.0)
[2023-12-01 14:59] LABS: CALCIUM LEVEL 8.8 MG/DL (8.3-10.6); CREATININE FOR GFR 1.21 MG/DL (0.55-1.30); GLOMERULAR FILTRATION RATE 44.6 (>32); POTASSIUM SERUM 4.5 MMOL/L (3.5-5.1)
== END ==
LOC: SKLAB7 12:44
PROVIDERS: ATTEND Nurse Practitioner
DX: N18.9 Chronic kidney disease, unspecified (principal)

== ENCOUNTER → 2023-12-02 | Outpatient (CLI) | payer MEDICARE | LOC: M RAD 07:22 | PROVIDERS: ATTEND Nurse Practitioner | DX: R06.02 Shortness of breath (principal) ==

== ENCOUNTER → 2023-12-12 | Outpatient (REF) | payer MEDICARE | LOC: SKLAB7 08:26 | PROVIDERS: ATTEND Internal Medicine | DX: Z53.8 Procedure and treatment not carried out for other reasons (principal) ==

== ENCOUNTER → 2023-12-12 | Outpatient (CLI) | payer MEDICARE | LOC: M RAD 11:36 → M LAB 11:36 | PROVIDERS: ATTEND Internal Medicine | DX: I51.7 Cardiomegaly (principal); R91.8 Other nonspecific abnormal finding of lung field ==

== ENCOUNTER → 2024-01-08 | Outpatient (REF) ==
[2024-01-08 18:38] LABS: APPEARANCE, URINE CLEAR (CLEAR); BACTERIA, URINE AUTO NEGATIVE (NEGATIVE); BILIRUBIN, URINE AUTO NEGATIVE (NEGATIVE); BLOOD, URINE BLOOD NEGATIVE (NEGATIVE); COLOR, URINE YELLOW (YELLOW); GLUCOSE, URINE (UA) AUTO NEGATIVE (NEGATIVE); KETONE, URINE AUTO NEGATIVE (NEGATIVE); LEUKOCYTE ESTERASE, URINE AUTO NEGATIVE (NEGATIVE); MUCUS, URINE SMALL (NEGATIVE); NITRITE, URINE AUTO NEGATIVE (NEGATIVE); PROTEIN, URINE AUTO NEGATIVE (NEGATIVE); RBC, URINE AUTO 0 /HPF (0-3); SPECIFIC GRAVITY URINE AUTO 1.014 (1.002-1.035); SQUAMOUS EPITHELIAL CELL UR AU 0 /HPF (0-6); UROBILINOGEN, URINE AUTO 0.2 mg/dL (0.0-2.0); WBC, URINE AUTO 1 /HPF (0-3)
== END ==
LOC: SKLAB7 18:03
PROVIDERS: ATTEND Internal Medicine
DX: R41.82 Altered mental status, unspecified (principal)

== ENCOUNTER → 2024-01-09 | Outpatient (REF) | payer MEDICARE | LOC: SKLAB7 10:56 | PROVIDERS: ATTEND Internal Medicine | DX: Z53.8 Procedure and treatment not carried out for other reasons (principal) ==

== ENCOUNTER → 2024-01-09 | Outpatient (CLI) | payer MEDICARE | LOC: M RAD 11:32 | PROVIDERS: ATTEND Nurse Practitioner | DX: M16.12 Unilateral primary osteoarthritis, left hip (principal); M25.552 Pain in left hip; M25.572 Pain in left ankle and joints of left foot; M79.605 Pain in left leg; R41.82 Altered mental status, unspecified; R10.2 Pelvic and perineal pain ==

== ENCOUNTER → 2024-01-09 | Outpatient (REF) | payer MEDICARE ==
[2024-01-09 10:26] LABS: HEMATOCRIT 42.7 % (36.0-47.0); HEMOGLOBIN 13.9 g/dl (12.0-15.5); MEAN CORPUSCULAR HEMOGLOBIN 33.2 pg (27.0-33.0); MEAN CORPUSCULAR HGB CONC 32.6 g/dl (32.0-36.5); MEAN CORPUSCULAR VOLUME 101.9 fl (80.0-96.0); PLATELET COUNT, AUTOMATED 293 10^3/uL (150-450); RED BLOOD COUNT 4.19 10^6/uL (4.00-5.40); WHITE BLOOD COUNT 8.8 10^3/uL (4.0-10.0)
[2024-01-09 10:55] LABS: ALBUMIN 3.7 G/DL (3.2-5.2); ALKALINE PHOSPHATASE 45 U/L (46-116); ALT/SGPT 21 U/L (7.0-40); AST/SGOT 20 U/L (<34); BILIRUBIN,TOTAL 0.8 MG/DL (0.3-1.2); BLOOD UREA NITROGEN 49 MG/DL (9-23); CALCIUM LEVEL 9.1 MG/DL (8.3-10.6); CARBON DIOXIDE LEVEL 31 MMOL/L (20-31); CHLORIDE LEVEL 105 MMOL/L (98-107); CREATININE FOR GFR 1.13 MG/DL (0.55-1.30); GLOMERULAR FILTRATION RATE > 60.0 (>32); GLUCOSE, FASTING 92 MG/DL (74-106); POTASSIUM SERUM 4.6 MMOL/L (3.5-5.1); SODIUM LEVEL 143 MMOL/L (136-145); TOTAL PROTEIN 7.1 G/DL (5.7-8.2)
== END ==
LOC: SKLAB7 09:04
PROVIDERS: ATTEND Internal Medicine
DX: R41.82 Altered mental status, unspecified (principal); I48.91 Unspecified atrial fibrillation; I25.2 Old myocardial infarction

== ENCOUNTER → 2024-01-09 | Outpatient (REF) | payer MEDICARE | LOC: SKLAB7 15:02 | PROVIDERS: ATTEND Internal Medicine | DX: I48.91 Unspecified atrial fibrillation (principal); I25.2 Old myocardial infarction ==

== ENCOUNTER → 2024-01-13 | Outpatient (REF) | payer MEDICARE | LOC: SKLAB7 07:43 | PROVIDERS: ATTEND Internal Medicine | DX: I50.9 Heart failure, unspecified (principal) ==

== ENCOUNTER → 2024-02-16 | Outpatient (REF) | payer MEDICARE ==
[2024-02-16 15:20] LABS: APPEARANCE, URINE CLEAR (CLEAR); BACTERIA, URINE AUTO NEGATIVE (NEGATIVE); BILIRUBIN, URINE AUTO NEGATIVE (NEGATIVE); BLOOD, URINE BLOOD NEGATIVE (NEGATIVE); COLOR, URINE YELLOW (YELLOW); GLUCOSE, URINE (UA) AUTO NEGATIVE (NEGATIVE); KETONE, URINE AUTO NEGATIVE (NEGATIVE); LEUKOCYTE ESTERASE, URINE AUTO NEGATIVE (NEGATIVE); NITRITE, URINE AUTO NEGATIVE (NEGATIVE); PROTEIN, URINE AUTO NEGATIVE (NEGATIVE); RBC, URINE AUTO 0 /HPF (0-3); SPECIFIC GRAVITY URINE AUTO 1.008 (1.002-1.035); SQUAMOUS EPITHELIAL CELL UR AU 0 /HPF (0-6); UROBILINOGEN, URINE AUTO 0.2 mg/dL (0.0-2.0); WBC, URINE AUTO 2 /HPF (0-3)
[2024-02-16 16:09] LABS: BASO % 0.5 % (0.0-1.0); EOS # 0.3 10^3/uL (0.0-0.5); EOS % 4.3 % (0.0-3.0); HEMATOCRIT 39.9 % (36.0-47.0); HEMOGLOBIN 13.1 g/dl (12.0-15.5); LYMPH # 1.9 10^3/uL (1.5-5.0); LYMPH % 24.8 % (24.0-44.0); MEAN CORPUSCULAR HEMOGLOBIN 32.8 pg (27.0-33.0); MEAN CORPUSCULAR HGB CONC 32.8 g/dl (32.0-36.5); MEAN CORPUSCULAR VOLUME 99.8 fl (80.0-96.0); MONO # 0.8 10^3/uL (0.0-0.8); MONO % 10.5 % (2.0-8.0); NEUTROPHILS # 4.5 10^3/uL (1.5-8.5); NEUTROPHILS % 59.4 % (36.0-66.0); PLATELET COUNT, AUTOMATED 266 10^3/uL (150-450); WHITE BLOOD COUNT 7.6 10^3/uL (4.0-10.0)
[2024-02-16 16:46] LABS: ALBUMIN 3.8 G/DL (3.2-5.2); BILIRUBIN,TOTAL 0.4 MG/DL (0.3-1.2); CALCIUM LEVEL 8.7 MG/DL (8.3-10.6); CREATININE FOR GFR 1.09 MG/DL (0.55-1.30); GLOMERULAR FILTRATION RATE 50.3 (>32); POTASSIUM SERUM 4.2 MMOL/L (3.5-5.1)
== END ==
LOC: SKLAB7 14:18
PROVIDERS: ATTEND Internal Medicine
DX: R41.82 Altered mental status, unspecified (principal)